=== PATIENT | male | born 1950 | race Caucasian/White ===

== ENCOUNTER 2019-05-27 14:15 | Outpatient (CLI) | payer MEDICARE, SELFPAY ==
--- NOTE | ~2019-05-27 | XR_ITS ---
EXAMINATION: XR hip RT min 2V DATE: 05/27/2019 14:42 INDICATION: Right hip pain. TECHNIQUE: 2 views of right hip were obtained. COMPARISON: None. FINDINGS: Bone alignment is normal. No fracture. There is mild right hip osteoarthritis. IMPRESSION: 1. Mild right hip osteoarthritis. Reviewed, dictated and finalized at location A. RUCTION[employer] MATERIAL DIRECTOR
== END 2019-05-27 14:16 | disposition home or self-care (01) ==
PROVIDERS: PCP Internal Medicine; Visit Provider Internal Medicine
DX: M54.17 Radiculopathy, lumbosacral region (principal); M25.551 Pain in right hip
CPT/HCPCS: 73502

== ENCOUNTER 2019-05-28 07:21 | Outpatient (CLI) | payer MEDICARE, SELFPAY ==
--- NOTE | ~2019-05-28 | MR_ITS ---
EXAMINATION: MR lumbar spine wo con DATE: 05/28/2019 08:18 INDICATION: Lumbar radiculopathy. TECHNIQUE: Magnetic resonance imaging (MRI) of the lumbar spine was performed without intravenous con trast. Sequences included sagittal T2-weighted FSE, sagittal T2-weighted FS FSE, sagittal T1-weighted FSE, and axial T2-weighted FSE. COMPARISON: Lumbar spine radiographs 04/05/2019 FINDINGS: There is 5 degrees levocurvature of lumbar spine. There is 3 mm retrolisthesis of L3 on L4 and 5 mm retrolisthesis of L4 on L5 and L5 on S1. There are Schmorl's nodes at many levels. There is mildly decreased disc height at L3-L4 and L4-L5 and moderately decreased disc height at L5-S1. The di stal spinal cord signal intensity is normal. The conus medullaris is at T12-L1. The following disc le vels are specifically discussed: L1-L2: The disc does not extend beyond the endplate margin. There is moderate bilateral facet joint o steoarthritis. There is no neural foraminal stenosis. There is no central canal stenosis. L2-L3: The disc is bulging and has an annular fissure. There is severe right and moderate left facet joint osteoarthritis. There is mild bilateral neural foraminal stenosis. There is mild central canal stenosis. L3-L4: The disc is bulging and has an annular fissure. There is severe bilateral facet joint osteoart hritis. There is mild bilateral neural foraminal stenosis. There is mild central canal stenosis. L4-L5: The disc is bulging with superimposed right subarticular extrusion with mass effect on right L 5 nerve root in right lateral recess. There is moderate right and severe left facet joint osteoarthri tis. There is moderate bilateral neural foraminal stenosis. There is moderate central canal stenosis. L5-S1: The disc is bulging and has an annular fissure. There is moderate right and severe left facet joint osteoarthritis. There is mild right and moderate left neural foraminal stenosis. There is mild central canal stenosis. IMPRESSION: 1. Moderate lumbar spondylosis. Of note, an extrusion at L4-L5 exerts mass effect on right L5 nerve r oot. Reviewed, dictated and finalized at location A. [employer] SAL[employer] PROFESSIONAL IMPRESSION: 1. Moderate lumbar spondylosis. Of note, an extrusion at L4-L5 exerts mass effe ct on right L5 nerve root.
== END 2019-05-28 07:22 | disposition home or self-care (01) ==
LOC: CHSIMG 07:22
PROVIDERS: PCP Internal Medicine; Visit Provider Internal Medicine
DX: M54.17 Radiculopathy, lumbosacral region (principal); M25.551 Pain in right hip
CPT/HCPCS: 72148

== ENCOUNTER 2019-07-21 08:57 | Outpatient (CLI) | payer MEDICARE, SELFPAY ==
[2019-07-21 09:18] LABS: Hemoglobin A1C 6.7 % (<5.7)
[2019-07-21 09:42] LABS: Alanine Aminotransferase 34 U/L (16-63); Albumin Level 3.8 g/dL (3.4-5.0); Alkaline Phosphatase 67 U/L (46-116); Anion Gap 15.4 mmol/L (7-16); Aspartate Amino Transferase 20 U/L (15-37); Bilirubin,Total 0.5 mg/dL (0.00-1.00); Blood Urea Nitrogen 22 mg/dL (7-18); Calcium 9.1 mg/dL (8.5-10.1); Carbon Dioxide 26 mmol/L (21-32); Chloride 99 mmol/L (98-108); Cholesterol 162 mg/dL (0-200); Estimated Glomerular Filt Rate 44; Glucose 223 mg/dL (70-99); HDL Direct 37 mg/dL (40-60); LDL Cholesterol Calculated 77 mg/dL (<130); Osmolality Calculated 292 mOsm/kg (285-295); Potassium 4.4 mmol/L (3.5-5.1); Sodium 136 mmol/L (136-145); Total Protein 6.8 g/dL (6.4-8.2); Triglycerides 241 mg/dL (0-150)
== END 2019-07-21 08:58 | disposition home or self-care (01) ==
LOC: CHSLAB 08:59
PROVIDERS: PCP Internal Medicine; Visit Provider Internal Medicine
DX: E78.5 Hyperlipidemia, unspecified (principal); E11.9 Type 2 diabetes mellitus without complications
CPT/HCPCS: 36415; 80053; 80061; 83036

== ENCOUNTER 2020-01-23 09:04 | Outpatient (CLI) | payer MEDICARE, SELFPAY ==
[2020-01-23 09:19] LABS: Basophils Absolute Auto 0.05 K/mm3 (0.00-0.10); Basophils Percent Auto 0.5 % (0.0-1.0); Eosinophils Absolute Auto 0.19 K/mm3 (0.02-0.50); Eosinophils Percent Auto 1.9 % (1.0-6.0); Hematocrit 43.2 % (37.0-46.0); Hemoglobin 14.6 g/dL (12.4-15.3); Immature Granulocyte Absolute 0.04 K/mm3 (0.00-0.00); Immature Granulocyte Percent A 0.4 % (0.0-0.0); Lymphocytes Absolute Auto 1.82 K/mm3 (1.10-4.50); Lymphocytes Percent Auto 18.3 % (18.0-42.0); Mean Corpuscular HGB Conc 33.8 g/dL (32.0-36.0); Mean Corpuscular Hemoglobin 27.8 pg (27.0-31.0); Mean Corpuscular Volume 82.3 fL (78.0-102.0); Mean Platelet Volume 10.6 fl (8.7-11.0); Monocytes Absolute Auto 1.01 K/mm3 (0.10-0.90); Monocytes Percent Auto 10.1 % (2.0-11.0); Neutrophils Absolute Auto 6.9 K/mm3 (1.7-7.2); Neutrophils Percent Auto 68.8 % (50.0-70.0); Platelet Count Result 243 K/mm3 (150-420); Red Blood Count 5.25 M/mm3 (4.70-6.10); Red Cell Distribution Width 14.7 % (11.6-14.4)
[2020-01-23 09:28] LABS: Add Urine Microscopic? NO; Appearance Urine Clear (Clear); Bilirubin Urine Negative (Negative); Blood Urine Negative (Negative); Color Urine Yellow (Yellow); Glucose Urine UA Negative (Negative); Ketones Urine Negative (Negative); Leukocyte Esterase Ur Negative (Negative); Nitrate Urine Negative (Negative); Protein Urine Negative (Negative); Urobilinogen Urine 0.2 mg/dL (0.2-1.0)
[2020-01-23 09:55] LABS: Creatinine Urine 54.65 mg/dL (40-278); MALB Creatinine Ratio 23.7 mg/g (0-30); Microalbumin Urine Random < 13.0 mg/L
[2020-01-23 10:11] LABS: Hemoglobin A1C 5.7 % (<5.7)
[2020-01-23 10:30] LABS: Alanine Aminotransferase 29 U/L (16-63); Albumin Level 4.2 g/dL (3.4-5.0); Alkaline Phosphatase 79 U/L (46-116); Anion Gap 12 mmol/L (8-16); Aspartate Amino Transferase 17 U/L (15-37); Bilirubin,Total 0.6 mg/dL (0.00-1.00); Blood Urea Nitrogen 26 mg/dL (7-18); Calcium 9.6 mg/dL (8.5-10.1); Carbon Dioxide 26 mmol/L (21-32); Chloride 101 mmol/L (98-108); Cholesterol 153 mg/dL (0-200); Estimated Glomerular Filt Rate 40; Glucose 98 mg/dL (70-99); HDL Direct 36 mg/dL (40-60); LDL Cholesterol Calculated 68 mg/dL (<130); Osmolality Calculated 292 mOsm/kg (285-295); Potassium 4.3 mmol/L (3.5-5.1); Prostate Specific Antigen 3.3 ng/mL (< OR = 4.0); Sodium 139 mmol/L (136-145); Total Protein 7.2 g/dL (6.4-8.2); Triglycerides 245 mg/dL (0-150)
[2020-01-28 11:57] LABS: Amphetamines NEGATIVE ng/mL (<500); Barbiturates NEGATIVE ng/mL (<300); Benzodiazepines NEGATIVE ng/mL (<100); Cocaine Metabolite NEGATIVE ng/mL (<150); Codeine NEGATIVE ng/mL (<50); Hydrocodone 110 ng/mL (<50); Hydromorphone 61 ng/mL (<50); Marijuana Metabolite 68 ng/mL (<5); Marijuana Metabolite POSITIVE ng/mL (<20); Methadone Metabolite NEGATIVE ng/mL (<100); Morphine NEGATIVE ng/mL (<50); Norhydrocodone 330 ng/mL (<50); Opiates POSITIVE ng/mL (<100); Oxidant NEGATIVE mcg/mL (<200); pH 7.1 (4.5-9.0)
== END 2020-01-23 09:05 | disposition home or self-care (01) ==
LOC: CHSLAB 09:07
PROVIDERS: PCP Internal Medicine; Visit Provider Internal Medicine
DX: E11.9 Type 2 diabetes mellitus without complications (principal); I10 Essential (primary) hypertension; G89.29 Other chronic pain; Z12.5 Encounter for screening for malignant neoplasm of prostate; Z00.00 Encounter for general adult medical examination without abnormal findings
CPT/HCPCS: 36415; 80053; 80061; 80299; 81003; 82043; 83036; 84153; 85025; G0103

== ENCOUNTER 2021-11-14 00:24 | Day surgery (SDC) | payer MEDICARE, SELFPAY ==
[2021-11-11 09:18] VITALS: BMI 27.1
[2021-11-14 09:32] VITALS: BP 146/79; PULSE 82; RESP 18; TEMP 36.2; O2SAT 99
[2021-11-14] MEDS: LACTATED RINGERS 1,000 ML 150 ML IV CONT (09:41)
[2021-11-14 09:43] LABS: Glucose Point of Care 120 mg/dl (65-105)
--- NOTE | 2021-11-14 09:51 | PM.IMHP ---
H&P: HPI History of Present Illness Date/Time: 11/14/21 09:51 Chief Complaint: History of colon polyp. Narrative: This is a 71-year-old white male patient presents for surveillance colonoscopy. Patient has a history of adenomatous colon polyp removed from the colon 2012. Patient reports his current weight appetite and bowel movements are normal. He denies abdominal pain. He has had no bleeding. Recent lab tests reveal E is low and iron indices. Minimal anemia noted with a hemoglobin of 12. Family history is noncontributory. Patient presents today for follow-up colonoscopy. Review of Systems Review of Systems: Review of systems noncontributory. [facility] Social History Social History Smoking packs per day: 1 Smoking cigarettes per day: 20.0 Years smoked: 4 Smoking pack-years: 4.00 Smoking status: Current every day smoker Tobacco type: cigarettes Additional smoking assessment comments: 4 years this time, had quit for 5 years Alcohol intake: never Substance use: current Substance use type: marijuana and prescription drug Other substance usage details: daily use marijuana; hydrocodone bid for shoulder pain Living arrangements: with friend(s) Spiritual care concerns: No Meds Home Medications and Allergies Home Medications Medication Instructions Recorded Confirmed Type sod picosulf 10 mg-magnes 3.5 160 ml PO DAILY 2 doses #320 mL 10/23/21 11/11/21 Rx gram-citric 12 gram/160 mL oral solution (Clenpiq) atenolol 50 mg-chlorthalidone 25 1 tablet PO DAILY 11/11/21 11/11/21 History mg tablet cyclobenzaprine 10 mg tablet 10 mg PO DAILY 11/11/21 11/11/21 History duloxetine 30 mg capsule,delayed 30 mg PO DAILY 11/11/21 11/11/21 History release hydrocodone 5 mg-acetaminophen 325 1 tablet PO BID PRN Pain, Moderate 11/11/21 11/11/21 History mg tablet metformin 500 mg tablet 500 mg PO BID 11/11/21 11/11/21 History pantoprazole 40 mg tablet,delayed 40 mg PO DAILY 11/11/21 11/11/21 History release simvastatin 20 mg tablet 20 mg PO DAILY 11/11/21 11/11/21 History spironolactone 25 mg tablet 25 mg PO DAILY 11/11/21 11/11/21 History Allergies Allergy/AdvReac Type Severity Reaction Status Date / Time No Known Allergies Allergy Verified 11/14/21 09:31 Vital Signs Vital Signs - 24 hr 11/14/21 09:32 Temperature 97.1 F L Pulse Rate 82 Respiratory Rate 18 Blood Pressure 146/79 H Pulse Oximetry 99 Oxygen Delivery Room Air Exam Narrative: Physical exam reveals patient to be alert. Vital signs stable. HEENT exam is unremarkable. Patient is anicteric. Lungs are clear to auscultation and percussion heart is without murmur or extra sounds. Abdominal exam bowel sounds are present soft nontender with no hepatosplenomegaly. Digital external rectal exam is normal. Assessment and Plan Assessment and plan (1) History of colon polyps: Code(s): Z86.010 - Personal history of colonic polyps Status: Acute Assessment and Plan: Patient has a prior history of adenomatous colon polyps. Plan is for surveillance colonoscopy now. Consider this a 5 year intervals in the future. Further recommendations will be given after endoscopy. (2) Iron deficiency: Code(s): E61.1 - Iron deficiency Status: Acute Assessment and Plan: Patient found to have iron deficient indices. He has minimal findings of anemia at this time. Colonoscopy to be performed both because of this finding as well as a history of colon polyps. Further recommendations will be given after endoscopy. He can resume iron replacement after endoscopy.
--- NOTE | 2021-11-14 09:53 | P.PNAN_ITS ---
Anes - Initial Pre Proc Eval Procedure: Operation Date: 11/14/21 10:45 Proposed Procedures p Colonoscopy - Rodney Blevins MD Date/Time: 11/14/21 09:53 Surgeon: Rodney Blevins MD Pre Op Diagnosis: hx colon polyp, LINH Patient Data Age: 71 Gender: M Height: 1.83 m Weight: 89.7 kg Last Vital Signs Temp 97.1 F L 11/14/21 09:32 Pulse 82 11/14/21 09:32 Resp 18 11/14/21 09:32 BP 146/79 H 11/14/21 09:32 Pulse Ox 99 11/14/21 09:32 O2 Del Method Room Air 11/14/21 09:32 Allergies Allergy/AdvReac Type Severity Reaction Status Date / Time No Known Allergies Allergy Verified 11/14/21 09:31 Home Medications Medication Instructions Recorded Confirmed Type sod picosulf 10 mg-magnes 3.5 160 ml PO DAILY 2 doses #320 mL 10/23/21 11/11/21 Rx gram-citric 12 gram/160 mL oral solution (Clenpiq) atenolol 50 mg-chlorthalidone 25 1 tablet PO DAILY 11/11/21 11/11/21 History mg tablet cyclobenzaprine 10 mg tablet 10 mg PO DAILY 11/11/21 11/11/21 History duloxetine 30 mg capsule,delayed 30 mg PO DAILY 11/11/21 11/11/21 History release hydrocodone 5 mg-acetaminophen 325 1 tablet PO BID PRN Pain, Moderate 11/11/21 11/11/21 History mg tablet metformin 500 mg tablet 500 mg PO BID 11/11/21 11/11/21 History pantoprazole 40 mg tablet,delayed 40 mg PO DAILY 11/11/21 11/11/21 History release simvastatin 20 mg tablet 20 mg PO DAILY 11/11/21 11/11/21 History spironolactone 25 mg tablet 25 mg PO DAILY 11/11/21 11/11/21 History Laboratory Tests 11/14/21 09:40 POC Capillary Glucose 120 mg/dl H mg/dl (65-105) Patient hx anesthesia problems: none Family hx anesthesia problems: none Results Review: All pre-operative results and documents have been reviewed as part of the pre- operative evaluation. [facility] Social History Social History Smoking packs per day: 1 Smoking cigarettes per day: 20.0 Years smoked: 4 Smoking pack-years: 4.00 Smoking status: Current every day smoker Tobacco type: cigarettes Additional smoking assessment comments: 4 years this time, had quit for 5 years Alcohol intake: never Substance use: current Substance use type: marijuana and prescription drug Other substance usage details: daily use marijuana; hydrocodone bid for shoulder pain Living arrangements: with friend(s) Spiritual care concerns: No Anes - Eval Final PreProcedure Day of Procedure 11/14/21 09:53 Patient weight: normal Heart: regular rate and rhythm Lungs: clear to auscultation Airway: Mallampati scale class II Neurological: alert and oriented Last oral intake: >/= 8 hours ASA classification: III Emergent: no Anesthetic plan: proceed Anesthesia type and monitoring: general GIVS and standard monitoring Results Review: All pre-operative results and documents have been reviewed as part of the pre- operative evaluation. Informed Consent: The patient's anesthetic plan and its attendant risks and benefits were discussed with the patient/family/POA. Questions were solicited and answers provided to the satisfaction of the patient/family/POA.
[2021-11-14 10:40] VITALS: BP 118/61; PULSE 72; RESP 18; O2SAT 97
[2021-11-14 10:50] VITALS: BP 118/63; PULSE 70; RESP 19; O2SAT 98
[2021-11-14 11:00] VITALS: BP 124/63; PULSE 77; RESP 21; O2SAT 100
== END 2021-11-14 11:10 | disposition home or self-care (01) ==
PROVIDERS: PCP Internal Medicine; Visit Provider Internal Medicine Gastroenterology
PROC: 0DJD8ZZ Inspection of Lower Intestinal Tract, Via Natural or Artificial Opening Endoscopic (ICD-10-PCS; CPT 45378; principal; 2021-11-14 10:45)
DX: Z12.11 Encounter for screening for malignant neoplasm of colon (principal); K64.8 Other hemorrhoids; Z86.010 Personal history of colon polyps; E61.1 Iron deficiency; Z79.84 Long term (current) use of oral hypoglycemic drugs; F17.210 Nicotine dependence, cigarettes, uncomplicated; F12.90 Cannabis use, unspecified, uncomplicated; Z79.891 Long term (current) use of opiate analgesic
CPT/HCPCS: G0105; 82948; J2704; J7120

== ENCOUNTER 2022-01-27 00:50 | Day surgery (SDC) | payer MEDICARE, SELFPAY ==
[2022-01-21 14:20] VITALS: BMI 28.4
[2022-01-27 10:47] VITALS: BP 133/80; PULSE 73; RESP 16; TEMP 36.6; O2SAT 99; BMI 27.4
[2022-01-27] MEDS: LACTATED RINGERS 1,000 ML 150 ML IV CONT (10:55)
[2022-01-27 11:00] LABS: Glucose Point of Care 119 mg/dl (65-105)
--- NOTE | 2022-01-27 11:21 | WPDANESEPPF ---
Anes - Initial Pre Proc Eval Procedure: Operation Date: 01/27/22 11:30 Proposed Procedures p Esophagogastroduodenoscopy EGD - Rodney Blevins MD Date/Time: 01/27/22 11:21 Surgeon: Rodney Blevins MD Pre Op Diagnosis: LINH Patient Data Age: 71 Gender: M Height: 1.83 m Weight: 91.8 kg Last Vital Signs Temp 36.6 C 01/27/22 10:47 Pulse 73 01/27/22 10:47 Resp 16 01/27/22 10:47 BP 133/80 01/27/22 10:47 Pulse Ox 99 01/27/22 10:47 O2 Del Method Room Air 01/27/22 10:47 Allergies Allergy/AdvReac Type Severity Reaction Status Date / Time No Known Allergies Allergy Verified 01/27/22 10:46 Home Medications Medication Instructions Recorded Confirmed Type atenolol 50 mg-chlorthalidone 25 1 tablet PO DAILY 11/11/21 01/27/22 History mg tablet cyclobenzaprine 10 mg tablet 10 mg PO DAILY 11/11/21 01/27/22 History duloxetine 30 mg capsule,delayed 30 mg PO DAILY 11/11/21 01/27/22 History release hydrocodone 5 mg-acetaminophen 325 1 tablet PO BID PRN Pain, Moderate 11/11/21 01/27/22 History mg tablet metformin 500 mg tablet 500 mg PO BID 11/11/21 01/27/22 History pantoprazole 40 mg tablet,delayed 40 mg PO DAILY 11/11/21 01/27/22 History release simvastatin 20 mg tablet 20 mg PO DAILY 11/11/21 01/27/22 History spironolactone 25 mg tablet 25 mg PO DAILY 11/11/21 01/27/22 History Laboratory Tests 01/27/22 10:58 POC Capillary Glucose 119 mg/dl H mg/dl (65-105) Patient hx anesthesia problems: none Family hx anesthesia problems: none Results Review: All pre-operative results and documents have been reviewed as part of the pre-operative evaluation. [facility] Past Medical History Medical History (Updated 01/27/22 @ 11:22 by Santos Mcclendon MD) Diabetes GERD (gastroesophageal reflux disease) HTN (hypertension) Hyperlipidemia Social History Social History Smoking packs per day: 1 Smoking cigarettes per day: 20.0 Years smoked: 4 Smoking pack-years: 4.00 Smoking status: Current every day smoker Tobacco type: cigarettes Additional smoking assessment comments: 4 years this time, had quit for 5 years Alcohol intake: never Substance use: current Substance use type: marijuana and prescription drug Other substance usage details: daily use marijuana; hydrocodone bid for shoulder pain Living arrangements: with family Spiritual care concerns: No Anes - Eval Final PreProcedure Day of Procedure 01/27/22 11:21 Patient weight: overweight Heart: regular rate and rhythm Lungs: clear to auscultation Airway: Mallampati scale class II Last oral intake: >/= 8 hours ASA classification: III Emergent: no Anesthetic plan: proceed Anesthesia type and monitoring: general GIVS and standard monitoring Results Review: All pre-operative results and documents have been reviewed as part of the pre-operative evaluation. Informed Consent: The patient's anesthetic plan and its attendant risks and benefits were discussed with the patient/family/POA. Questions were solicited and answers provided to the satisfaction of the patient/family/POA.
--- NOTE | 2022-01-27 11:55 | PM.HPGS ---
History of Present Illness History of Present Illness Consent: Risks, benefits, and alternatives have been discussed and questions answered. Patient agrees to proceed with procedure. Chief complaint: LINH Narrative: Kevin Ghotra is a 71 year old male Presents for EGD. Patient recently found to have iron deficiency anemia. He denies any abdominal pain. He has had no bleeding. He denies bruises. He denies nose bleeds or blood in his urine. Recent colonoscopy revealed benign colon polyps. Patient has not yet started iron replacement. He denies abdominal pain or heartburn. Family history is noncontributory. He does take occasional pantoprazole for a distant history of dyspepsia. Review of Systems Review of Systems: Review of systems noncontributory. [facility] Past Medical History Medical History (Updated 01/27/22 @ 11:56 by Rodney Blevins MD) Diabetes GERD (gastroesophageal reflux disease) HTN (hypertension) Hyperlipidemia Social History Social History Smoking packs per day: 1 Smoking cigarettes per day: 20.0 Years smoked: 4 Smoking pack-years: 4.00 Smoking status: Current every day smoker Tobacco type: cigarettes Additional smoking assessment comments: 4 years this time, had quit for 5 years Alcohol intake: never Substance use: current Substance use type: marijuana and prescription drug Other substance usage details: daily use marijuana; hydrocodone bid for shoulder pain Living arrangements: with family Spiritual care concerns: No Meds Home Medications and Allergies Home Medications Medication Instructions Recorded Confirmed Type atenolol 50 mg-chlorthalidone 25 1 tablet PO DAILY 11/11/21 01/27/22 History mg tablet cyclobenzaprine 10 mg tablet 10 mg PO DAILY 11/11/21 01/27/22 History duloxetine 30 mg capsule,delayed 30 mg PO DAILY 11/11/21 01/27/22 History release hydrocodone 5 mg-acetaminophen 325 1 tablet PO BID PRN Pain, Moderate 11/11/21 01/27/22 History mg tablet metformin 500 mg tablet 500 mg PO BID 11/11/21 01/27/22 History pantoprazole 40 mg tablet,delayed 40 mg PO DAILY 11/11/21 01/27/22 History release simvastatin 20 mg tablet 20 mg PO DAILY 11/11/21 01/27/22 History spironolactone 25 mg tablet 25 mg PO DAILY 11/11/21 01/27/22 History Allergies Allergy/AdvReac Type Severity Reaction Status Date / Time No Known Allergies Allergy Verified 01/27/22 10:46 Vital Signs Vital Signs - 24 hr 01/27/22 10:47 Temperature 97.8 F Pulse Rate 73 Respiratory Rate 16 Blood Pressure 133/80 Pulse Oximetry 99 Oxygen Delivery Room Air Exam Narrative: Physical exam reveals patient to be alert. HEENT exam unremarkable. Patient is anicteric. Lungs are clear to auscultation and percussion. Heart is without murmur or extra sounds. Abdomen bowel sounds are present soft nontender with no organomegaly. Assessment and Plan Assessment and plan (1) LINH (iron deficiency anemia): Code(s): D50.9 - Iron deficiency anemia, unspecified Status: Acute Assessment and Plan: Patient with iron deficiency anemia. Plan for EGD to evaluate distant history of dyspepsia as well as potential upper GI source for iron deficiency anemia. Potentially this could be from chronic PPI acid suppression and malabsorption of iron. If EGD negative small-bowel follow-through advised to complete GI evaluation. Stool Hemoccult and iron replacement or advised as well. (2) History of colon polyps: Code(s): Z86.010 - Personal history of colonic polyps Status: Acute Assessment and Plan: Patient recently identified as having benign colon polyps. Potentially this could contribute to iron deficiency. Plan follow-up colonoscopy in 5 years.
[2022-01-27 12:18] VITALS: BP 128/64; PULSE 72; RESP 22; O2SAT 97
[2022-01-27 12:28] VITALS: BP 125/74; PULSE 71; RESP 19; O2SAT 99
[2022-01-27 12:38] VITALS: BP 129/67; PULSE 72; RESP 23; O2SAT 100
== END 2022-01-27 12:52 | disposition home or self-care (01) ==
PROVIDERS: PCP Internal Medicine; Visit Provider Internal Medicine Gastroenterology
PROC: 0DJ08ZZ Inspection of Upper Intestinal Tract, Via Natural or Artificial Opening Endoscopic (ICD-10-PCS; CPT 43235; principal; 2022-01-27 11:30)
DX: K22.711 Barrett's esophagus with high grade dysplasia (principal); D50.9 Iron deficiency anemia, unspecified; I10 Essential (primary) hypertension; E78.5 Hyperlipidemia, unspecified; K21.9 Gastro-esophageal reflux disease without esophagitis; E11.9 Type 2 diabetes mellitus without complications; Z79.84 Long term (current) use of oral hypoglycemic drugs; F17.210 Nicotine dependence, cigarettes, uncomplicated; F12.90 Cannabis use, unspecified, uncomplicated; Z79.891 Long term (current) use of opiate analgesic
CPT/HCPCS: 43239; 82948; 88305; J2704; J7120

== ENCOUNTER 2022-02-11 10:24 | Outpatient (CLI) | payer MEDICARE, SELFPAY ==
--- NOTE | ~2022-02-11 | CT_ITS ---
EXAMINATION: CT chest abdomen w con DATE: 02/11/2022 11:01 INDICATION: Esophageal mass. Rectal bleeding. TECHNIQUE: Computed tomography (CT) of the chest and abdomen was performed with 100 CC Omnipaque 350 intravenous contrast. Automated exposure control and iterative reconstruction technique were employed . Exam dose: 620.33 mGy-cm total exam DLP. COMPARISON: 04/05/2014 CT abdomen pelvis 03/24/2014 2 view chest FINDINGS: CHEST CT: There is a very prominent circumferential soft tissue thickening of the distal approximately 9 cm of the esophagus, the esophagus measuring up to 3.5 cm AP and 5 cm transverse dimension, consistent with clinical indication of esophageal mass, likely carcinoma. Wall thickness measures up to 2 - 2.5 cm . No hilar or mediastinal lymphadenopathy. There are a couple lymph nodes at the left medial superior abdomen adjacent to the diaphragmatic hiat us, the larger approximately 8 x 10 mm. Normal heart size. No pericardial or pleural effusion. There is thoracic aortic and great vessel at herosclerotic calcification. No thoracic aortic aneurysm or dissection. ABDOMEN CT: There is diffuse hepatic steatosis. There are several small subcentimeter hypoattenuating lesions of the liver, too small to definitively characterize. Statistically these are very possibly small cysts or biliary hamartomas. Hepatic metastasis would be included but less likely in the differential diagn osis. No suspicious hepatic space occupying mass lesion. There is a very small gallstone. No gallbladder wall thickening or pericholecystic fluid or fat stra nding. No bile duct dilatation. Normal splenic size. No pancreatic mass lesion or calcification or ductal dilatation. Normal morphology of the adrenal glands. Multiple bilateral renal cysts, measuring up to 4.7 cm on the right, 3.4 cm on the left.. Approximate ly 5.5 mm and 3.3 mm nonobstructing left renal calculi. 6.4 mm nonobstructing upper pole right renal calculus. 5.5 and 3.3 mm nonobstructing left renal calcu li. No urinary tract obstruction or hydronephrosis. There is atherosclerotic calcification of the abdominal aorta and iliac arteries but no abdominal aor tic aneurysm. No intraperitoneal or retroperitoneal mass lesion or adenopathy or ascites. Mild colonic diverticulosis; no CT evidence of diverticulitis. No bowel obstruction or intraperitonea l free air is detected. Severe degenerative disc disease and included C6-7. Diffuse idiopathic skeletal hyperostosis of the t horacic spine and severe degenerative disc disease at L4-5. No suspicious osteolytic or osteoblastic lesions are noted. IMPRESSION: Bulky approximately 9 cm long soft tissue mass of the distal esophagus, consistent with esophageal carcinoma There are couple of nodes at the posterior inferior aspect of the gastroesophageal junction in the ve ry upper medial left abdomen; metastasis to these nodes is not excluded. No hilar or mediastinal lymphadenopathy Hepatic steatosis Several subcentimeter hypoattenuating hepatic lesions; differential diagnosis includes cysts, hamarto mas, less likely metastasis Small gallstone 2. Left and one right nonobstructing renal calculi Bilateral renal cysts Diverticulosis of the colon Reviewed, dictated and finalized at [facility]. Reviewed, dictated and finalized at location A. [employer] IMPRESSION: Bulky approximately 9 cm long soft tissue mass of the distal esoph lety, consistent with esophageal carcinoma There are couple of nodes at the posterior inferior aspect of the gastroesophag eal junction in the very upper medial left abdomen; metastasis to these nodes i s not excluded. No hilar or mediastinal lymphadenopathy Hepatic steatosis Several subcentimeter h
[2022-02-11 10:51] LABS: Estimated Glomerular Filt Rate 33
== END 2022-02-11 10:25 | disposition home or self-care (01) ==
PROVIDERS: PCP Internal Medicine; Visit Provider Internal Medicine Gastroenterology
DX: K22.9 Disease of esophagus, unspecified (principal); K76.0 Fatty (change of) liver, not elsewhere classified; K80.20 Calculus of gallbladder without cholecystitis without obstruction; N28.1 Cyst of kidney, acquired; K57.30 Diverticulosis of large intestine without perforation or abscess without bleeding
CPT/HCPCS: 71260; 74160; Q9967

== ENCOUNTER 2022-03-04 01:02 | Day surgery (SDC) | payer MEDICARE, SELFPAY ==
[2022-02-10 10:28] VITALS: BMI 28.4
--- NOTE | 2022-03-04 13:08 | P.PNAN_ITS ---
Anes - Initial Pre Proc Eval Procedure: Operation Date: 03/04/22 14:30 Proposed Procedures p Esophagogastroduodenoscopy EGD - Rodney Blevins MD Date/Time: 03/04/22 13:08 Surgeon: Rodney Blevins MD Pre Op Diagnosis: esophageal mass Patient Data Age: 71 Gender: M Height: 1.83 m Weight: 95 kg Allergies Allergy/AdvReac Type Severity Reaction Status Date / Time No Known Allergies Allergy Verified 01/27/22 10:46 Home Medications Medication Instructions Recorded Confirmed Type atenolol 50 mg-chlorthalidone 25 1 tablet PO DAILY 11/11/21 03/04/22 History mg tablet cyclobenzaprine 10 mg tablet 10 mg PO DAILY 11/11/21 03/04/22 History duloxetine 30 mg capsule,delayed 30 mg PO DAILY 11/11/21 03/04/22 History release hydrocodone 5 mg-acetaminophen 325 1 tablet PO BID PRN Pain, Moderate 11/11/21 03/04/22 History mg tablet metformin 500 mg tablet 500 mg PO BID 11/11/21 03/04/22 History pantoprazole 40 mg tablet,delayed 40 mg PO DAILY 11/11/21 03/04/22 History release simvastatin 20 mg tablet 20 mg PO DAILY 11/11/21 03/04/22 History spironolactone 25 mg tablet 25 mg PO DAILY 11/11/21 03/04/22 History ferrous sulfate 325 mg (65 mg 325 mg PO BID #60 tabs 01/27/22 03/04/22 Rx iron) tablet,delayed release Patient hx anesthesia problems: none Family hx anesthesia problems: none Results Review: All pre-operative results and documents have been reviewed as part of the pre- operative evaluation. [facility] Past Medical History Medical History (Updated 03/04/22 @ 13:08 by Hunter Shahid DO) Diabetes Esophageal mass GERD (gastroesophageal reflux disease) HTN (hypertension) Hyperlipidemia Social History Social History Smoking packs per day: 1 Smoking cigarettes per day: 20.0 Years smoked: 30 Smoking pack-years: 30.00 Smoking status: Current every day smoker Tobacco type: cigarettes Additional smoking assessment comments: 4 years this time, had quit for 5 years Alcohol intake: never Substance use: current Substance use type: marijuana Other substance usage details: daily use marijuana; hydrocodone bid for shoulder pain Living arrangements: with family Spiritual care concerns: No Anes - Eval Final PreProcedure Day of Procedure 03/04/22 13:08 Patient weight: overweight Heart: regular rate and rhythm Lungs: clear to auscultation Airway: Mallampati scale class II Neurological: alert and oriented Last oral intake: >/= 8 hours ASA classification: III Emergent: no Anesthetic plan: proceed Anesthesia type and monitoring: general GIVS and standard monitoring Results Review: All pre-operative results and documents have been reviewed as part of the pre- operative evaluation. Informed Consent: The patient's anesthetic plan and its attendant risks and benefits were discussed with the patient/family/POA. Questions were solicited and answers provided to the satisfaction of the patient/family/POA.
[2022-03-04 13:19] VITALS: BP 155/84; PULSE 92; RESP 18; TEMP 36.6; O2SAT 99; BMI 27.4
[2022-03-04 13:32] LABS: Glucose Point of Care 143 mg/dl (65-105)
[2022-03-04] MEDS: LACTATED RINGERS 1,000 ML 150 ML IV CONT ×2 (13:32→14:48)
--- NOTE | 2022-03-04 13:56 | PM.HPGS ---
History of Present Illness History of Present Illness Consent: Risks, benefits, and alternatives have been discussed and questions answered. Patient agrees to proceed with procedure. Chief complaint: esophageal mass Narrative: Kevin Ghotra is a 71 year old male Presents for follow-up EGD. Patient recently found to have iron deficiency anemia. Colonoscopy revealed several benign colon polyps. EGD was performed with a malignant-appearing esophageal mass. Multiple biopsies were taken. Pathology report however failed to confirm that this was a cancer. Patient presents today for additional biopsies what appears to be a malignant esophageal mass. Review of Systems Review of Systems: Review of systems noncontributory. [facility] Past Medical History Medical History (Updated 03/04/22 @ 13:08 by Hunter Shahid DO) Diabetes Esophageal mass GERD (gastroesophageal reflux disease) HTN (hypertension) Hyperlipidemia Social History Social History Smoking packs per day: 1 Smoking cigarettes per day: 20.0 Years smoked: 30 Smoking pack-years: 30.00 Smoking status: Current every day smoker Tobacco type: cigarettes Additional smoking assessment comments: 4 years this time, had quit for 5 years Alcohol intake: never Substance use: current Substance use type: marijuana Other substance usage details: daily use marijuana; hydrocodone bid for shoulder pain Living arrangements: with family Spiritual care concerns: No Meds Home Medications and Allergies Home Medications Medication Instructions Recorded Confirmed Type atenolol 50 mg-chlorthalidone 25 1 tablet PO DAILY 11/11/21 03/04/22 History mg tablet cyclobenzaprine 10 mg tablet 10 mg PO DAILY 11/11/21 03/04/22 History duloxetine 30 mg capsule,delayed 30 mg PO DAILY 11/11/21 03/04/22 History release hydrocodone 5 mg-acetaminophen 325 1 tablet PO BID PRN Pain, Moderate 11/11/21 03/04/22 History mg tablet metformin 500 mg tablet 500 mg PO BID 11/11/21 03/04/22 History pantoprazole 40 mg tablet,delayed 40 mg PO DAILY 11/11/21 03/04/22 History release simvastatin 20 mg tablet 20 mg PO DAILY 11/11/21 03/04/22 History spironolactone 25 mg tablet 25 mg PO DAILY 11/11/21 03/04/22 History ferrous sulfate 325 mg (65 mg 325 mg PO BID #60 tabs 01/27/22 03/04/22 Rx iron) tablet,delayed release Allergies Allergy/AdvReac Type Severity Reaction Status Date / Time No Known Allergies Allergy Verified 01/27/22 10:46 Vital Signs Vital Signs - 24 hr 03/04/22 13:19 Temperature 97.8 F Pulse Rate 92 Respiratory Rate 18 Blood Pressure 155/84 H Pulse Oximetry 99 Oxygen Delivery Room Air Exam Narrative: Physical exam reveals patient to be alert. Vital signs stable. HEENT exam is unremarkable. Patient is anicteric. Lungs are clear to auscultation and percussion. Heart is without murmur or extra sounds. Abdomen bowel sounds are present soft nontender with no organomegaly. Digital external rectal exam is normal. Assessment and Plan Assessment and plan (1) Esophageal mass: Code(s): K22.89 - Other specified disease of esophagus Status: Acute Assessment and Plan: Patient with recently identified esophageal mass. This was malignant appearing. Multiple biopsies were taken but unable to confirm esophageal malignancy. Plan for follow-up EGD and biopsy at this time. Continued follow-up with Oncology advised subsequently.
[2022-03-04 14:51] VITALS: BP 115/74; PULSE 81; RESP 19; O2SAT 99
[2022-03-04 15:01] VITALS: BP 112/76; PULSE 76; RESP 22; O2SAT 99
[2022-03-04 15:11] VITALS: BP 129/86; PULSE 77; RESP 18; O2SAT 99
== END 2022-03-04 15:17 | disposition home or self-care (01) ==
PROVIDERS: PCP Internal Medicine; Visit Provider Internal Medicine Gastroenterology
PROC: 0DJ08ZZ Inspection of Upper Intestinal Tract, Via Natural or Artificial Opening Endoscopic (ICD-10-PCS; CPT 43235; principal; 2022-03-04 14:30)
DX: C15.5 Malignant neoplasm of lower third of esophagus (principal); D50.9 Iron deficiency anemia, unspecified; K21.9 Gastro-esophageal reflux disease without esophagitis; I10 Essential (primary) hypertension; E11.9 Type 2 diabetes mellitus without complications; E78.5 Hyperlipidemia, unspecified; Z79.84 Long term (current) use of oral hypoglycemic drugs; F17.210 Nicotine dependence, cigarettes, uncomplicated; F12.90 Cannabis use, unspecified, uncomplicated; Z79.891 Long term (current) use of opiate analgesic
CPT/HCPCS: 43239; 82948; 88305; J2704; J7120

== ENCOUNTER 2022-04-15 07:26 | Outpatient (CLI) | payer MEDICARE, SELFPAY ==
--- NOTE | ~2022-04-15 | PE_ITS ---
EXAMINATION: PET skull to mid thigh DATE: 04/15/2022 09:57 INDICATION: Cancer of distal third of esophagus. TECHNIQUE: 10.295 mCi of 18-fluorodeoxyglucose (18-FDG) was administered i.v. Low dose computed tomog sonny (CT) images were acquired from the base of the brain to the proximal thighs for attenuation cor rection and anatomic localization. Automated exposure control was employed. Dose-length product (DLP) was 773 mGy-cm. Positron emission tomography (PET) images were acquired in the same distribution. COMPARISON: CT chest and abdomen 02/11/2022 FINDINGS: Head/neck: There are no pathologically enlarged lymph nodes. There is severe cervical spondylosis. Th ere is widespread increased activity in bone marrow without abnormal CT correlate, likely bone marrow stimulation. Chest: There is mild emphysema. There is mild scarring at the lung apices without increased activity. There is mild scarring in paraspinal right lower lobe. No pleural effusion. The heart size is normal . There are coronary artery calcifications. No pericardial effusion. There is a 5.7 x 4.1 cm mass in distal esophagus with maximum SUV of 42.3. There is widespread increased activity in bone marrow with out abnormal CT correlate, likely bone marrow stimulation. Abdomen/pelvis/proximal thighs: There is diffuse hepatic steatosis. There are gallstones in the gallb ladder, which is normal in size. The spleen, pancreas, and adrenal glands are normal. There are cysts in the kidneys measuring up to 5.1 cm on the right. There is a 7 mm stone in right kidney. There is a 2.4 cm hemorrhagic cyst in right kidney. There are 2 stones in left kidney with the larger measurin g 6 mm. The prostate is mildly enlarged. There is a left inguinal hernia containing fat. There is div erticulosis of the colon without evidence of diverticulitis. There are changes of appendectomy. There is an umbilical hernia containing fat. There are no pathologically enlarged lymph nodes. There is no free intraperitoneal fluid. There is severe lumbar spondylosis. There is widespread increased activi ty in bone marrow without abnormal CT correlate, likely bone marrow stimulation. IMPRESSION: 1. 5.7 cm mass in the distal esophagus with maximum SUV of 42.3, consistent with primary malignancy. No specific evidence of metastatic disease. Reviewed, dictated and finalized at location A. COORDINATOR IMPRESSION: 1. 5.7 cm mass in the distal esophagus with maximum SUV of 42.3, consistent wit h primary malignancy. No specific evidence of metastatic disease.
[2022-04-15 08:06] LABS: Glucose Point of Care 143 mg/dl (65-105)
== END 2022-04-15 07:27 | disposition home or self-care (01) ==
PROVIDERS: PCP Internal Medicine; Visit Provider Internal Medicine Hematology & Oncology
DX: C15.5 Malignant neoplasm of lower third of esophagus (principal)
CPT/HCPCS: 78815; A9552

== ENCOUNTER 2022-05-14 10:23 | Outpatient (CLI) | payer MEDICARE, SELFPAY ==
[2022-05-14 10:47] LABS: Basophils Absolute Auto 0.1 K/mm3 (0.0-0.1); Basophils Percent Auto 0.7 % (0.2-1.2); Eosinophils Absolute Auto 0.1 K/mm3 (0-0.3); Eosinophils Percent Auto 0.8 % (0-4.4); Hematocrit 24.7 % (42.0-52.0); Immature Granulocyte Absolute 0.05 K/mm3 (0.00-0.031); Immature Granulocyte Percent A 0.5 % (0-0.5); Lymphocytes Percent Auto 8.3 % (18.3-44.2); Mean Corpuscular HGB Conc 27.5 g/dl (32-36); Mean Corpuscular Hemoglobin 21.3 pg (26-34); Mean Corpuscular Volume 77.2 fl (80-100); Mean Platelet Volume 9.1 fl (7.4-10.4); Monocytes Absolute Auto 0.9 K/mm3 (0.1-0.6); Monocytes Percent Auto 8.4 % (2.6-8.5); Neutrophils Absolute Auto 8.8 K/mm3 (1.3-6.7); Neutrophils Percent Auto 81.3 % (45.5-73.1); Platelet Count Result 430 k/mm3 (150-375); Red Cell Distribution Width 19.6 % (11.5-14.5); White Blood Count 10.8 K/mm3 (4.5-10.0)
[2022-05-14 10:57] LABS: INR 1.1; Prothrombin Time 13.7 Seconds (11.1-14.7)
[2022-05-14 11:08] LABS: Hemoglobin 6.8 g/dL (14.0-18.0); Platelet Estimate Adequate (Adequate)
[2022-05-14 11:09] LABS: Anisocytosis 1+ (NORMAL); Hypochromasia 1+ (NORMAL); Poikilocytosis 1+ (NORMAL); Schistocytes None Seen (NORMAL)
[2022-05-14 11:20] LABS: Anion Gap 10 mmol/L (8-16); Blood Urea Nitrogen 21 mg/dL (9-20); Calcium 8.9 mg/dL (8.4-10.2); Carbon Dioxide 26 mmol/L (22-30); Chloride 98 mmol/L (98-107); Estimated Glomerular Filt Rate 35; Glucose 219 mg/dL (65-110); Potassium 4.1 mmol/L (3.4-5.0); Sodium 134 mmol/L (137-145)
== END 2022-05-14 10:24 | disposition home or self-care (01) ==
LOC: ANHSURGERY 10:31
PROVIDERS: Anesthesiology; PCP Internal Medicine; Visit Provider Surgery
DX: Z01.812 Encounter for preprocedural laboratory examination (principal); C15.9 Malignant neoplasm of esophagus, unspecified; Z79.899 Other long term (current) drug therapy
CPT/HCPCS: 36415; 80048; 85025; 85610; 85730

== ENCOUNTER 2022-05-16 07:29 | Outpatient (RCR) | payer MEDICARE, SELFPAY ==
[2022-05-15 12:47] LABS: Hematocrit 25.1 % (42.0-52.0)
[2022-05-16] VITALS (11 sets, daily range): BP systolic 117–142; BP diastolic 68–84; PULSE 69–80; RESP 14–18; TEMP 36.4–36.7; O2SAT 100
[2022-05-16] MEDS: TUBING, BLOOD PLUM PUMP TUBING 1 EACH XX (08:15)
[2022-05-16] MEDS: SODIUM CHLORIDE 0.9% IV 250 ML 30 ML IV CONT (08:15)
--- NOTE | 2022-05-16 14:22 | PC.NURSE ---
Pt given discharge instructions, signed copy in chart. Pt's present for instructions as well. IV removed. Left with , declined wheelchair.
== END 2022-08-13 23:59 | disposition home or self-care (01) ==
LOC: ANHCPCTRAN 07:29
PROVIDERS: PCP Internal Medicine; Visit Provider Surgery
DX: D50.9 Iron deficiency anemia, unspecified (principal); C15.5 Malignant neoplasm of lower third of esophagus
CPT/HCPCS: 36415; 36430; 85014; 85018; 86850; 86900; 86901; 86920; J7050; P9016

== ENCOUNTER 2022-05-19 00:13 | Day surgery (SDC) | payer MEDICARE, SELFPAY ==
--- NOTE | 2022-05-13 15:37 | PC.NURSE ---
Report to the Outpatient Waiting Room, entrance under the green pavilion located off [facility], at time _1000_ on date _05/19/22_. Planned Procedure Time: _1200_. Time changes happen often and if your time is changed the preop area will call you the afternoon before. - You and your visitor will be asked to self-screen and do not enter if you have any COVID symptoms. - Only one visitor is requested with a max of two and NO children visitors are allowed at this time. - The patient visitor may be requested to leave or wait in car when not with patient due to distancing restrictions. - A mask is optional within the hospital at this time. Patients may have clear liquids (water, carbonated beverages, clear teas, apple juice) until 3 hours prior to surgery (0900 AM) with a maximum of 20 ounces. - No food from midnight until time of surgery Take the following medications with a SIP of water the morning of surgery: _DULOXETINE, PAIN MED IF NEEDED_ DO NOT STOP ANY OF YOUR OTHER PRESCRIPTION MEDICATIONS PRIOR TO SURGERY ?EXCEPT THE FOLLOWING Medications to discontinue - _ASPIRIN PER DR. CASEY'S INSTRUCTIONS__ Date to take last dose Please no make-up, nail croatian, hairspray, perfume, deodorant, or body powder the day of surgery. No jewelry (including any body piercings) or valuables the day of surgery, leave them at home. Please take a shower or bath the night before, or the morning of, surgery with an antibacterial soap. Wear comfortable, loose fitting clothing. - Jewelry must be removed prior to entering the operating room. Rings and piercings that are not removed may be cut off. - The hospital will not accept responsibility for valuables. - Please leave all valuables, including medications, at home the day of surgery. If you are going home after surgery, a licensed drop hammer pile driver operator must drive you home. - NO public transportation without another adult if you receive anesthesia. - We recommend that an adult stay with you for 24 hours following discharge. - We also recommend that you do not drive, make important decision, drink alcoholic beverages, or take any drugs that were not prescribed by your health care provider for at least 24 hours after your discharge time. Follow any additional instructions given to you from your surgeon. If you or anyone in your household have experienced Covid symptoms in the past week, please notify your surgeon or the nurse liaison at the phone number below for possible testing. Telephone instructions given to _PATIENT_and asked if any additional questions and then verbalized understanding. Patient advised to call surgeon office or pre surgery nurse liaison [phone] if any additional questions.
[2022-05-13 15:42] VITALS: BMI 27.1
--- NOTE | ~2022-05-19 | XR_ITS ---
XR fl guide central line place TECHNIQUE: Fluoroscopy used during portacatheter placement performed by [Ronald Ewing MD] on . 29 seconds with 1 images captured. ] FINDINGS: Correlate with procedure note. IMPRESSION: Fluoroscopy used during portacatheter placement, tip in the SVC.. Reviewed, dictated and finalized at location B. DOG TRAINER
--- NOTE | ~2022-05-19 | XR_ITS ---
XR chest port-a-cath/central 05/19/2022 13:24 Indication: Portacatheter insertion Procedure: AP portable chest Comparison: Comparison to multiple prior studies sequentially, with oldest reviewed study dated 06/2010. Findings: Portacatheter tip in the SVC. Heart size normal. No focal air space disease, pulmonary denisse a, pleural effusion or suspected pneumothorax. No acute osseous abnormality. Impression: 1: No acute cardiopulmonary disease. Reviewed, dictated and finalized at location B. RS EDGE BURNISHER Impression: 1: No acute cardiopulmonary disease.
[2022-05-19 10:04] VITALS: BP 135/71; PULSE 66; RESP 16; TEMP 36.3; O2SAT 100
--- NOTE | 2022-05-19 10:28 | WPDANESEPPF ---
Anes - Initial Pre Proc Eval Procedure: Operation Date: 05/19/22 12:00 Proposed Procedures p Insertion Mary Cath - Ronald Ewing MD Date/Time: 05/19/22 10:28 Surgeon: Ronald Ewing MD Pre Op Diagnosis: cancer distal 3rd of the esophagus Patient Data Age: 72 Gender: M Height: 1.83 m Weight: 85.75 kg Allergies Allergy/AdvReac Type Severity Reaction Status Date / Time No Known Allergies Allergy Verified 05/19/22 10:28 Home Medications Medication Instructions Recorded Confirmed Type atenolol 50 mg-chlorthalidone 25 1 tablet PO DAILY 11/11/21 05/16/22 History mg tablet cyclobenzaprine 10 mg tablet 10 mg PO HS 11/11/21 05/16/22 History duloxetine 30 mg capsule,delayed 30 mg PO DAILY 11/11/21 05/16/22 History release hydrocodone 5 mg-acetaminophen 325 1 tablet PO BID PRN Pain, Moderate 11/11/21 05/16/22 History mg tablet pantoprazole 40 mg tablet,delayed 40 mg PO DAILY 11/11/21 05/16/22 History release simvastatin 20 mg tablet 20 mg PO DAILY 11/11/21 05/16/22 History spironolactone 25 mg tablet 25 mg PO DAILY 11/11/21 05/16/22 History ferrous sulfate 325 mg (65 mg 325 mg PO BID #60 tabs 01/27/22 05/16/22 Rx iron) tablet,delayed release aspirin 325 mg tablet 325 mg PO DAILY 05/13/22 05/16/22 History Patient hx anesthesia problems: none Family hx anesthesia problems: none Results Review: All pre-operative results and documents have been reviewed as part of the pre-operative evaluation. [facility] Past Medical History Medical History (Updated 05/06/22 @ 18:00 by Yury Peralta MD) Diabetes Esophageal mass GERD (gastroesophageal reflux disease) HTN (hypertension) Hyperlipidemia Surgical History Surgical History (Updated 05/19/22 @ 10:28 by Santos Mcclendon MD) History of esophagogastroduodenoscopy (EGD) Social History Social History Smoking packs per day: 1 Smoking cigarettes per day: 20.0 Years smoked: 30 Smoking pack-years: 30.00 Smoking status: Former smoker Tobacco type: cigarettes Second hand tobacco smoke exposure: Yes Smoking end date: 12/16/21 Additional smoking assessment comments: 4 years this time, had quit for 5 years Alcohol intake: current Alcohol use details: STATES MAYBE 2/YR Substance use: current Substance use type: marijuana Other substance usage details: 1GM DAILY Last use: 05/12/22 Living arrangements: other Additional living arrangements comments: LIVES WITH SIGNIFICANT OTHER Spiritual care concerns: No Anes - Eval Final PreProcedure Day of Procedure 05/19/22 10:28 Patient weight: normal Heart: regular rate and rhythm Lungs: clear to auscultation Airway: Mallampati scale class II Neurological: alert and oriented Last oral intake: >/= 8 hours ASA classification: III Emergent: no Anesthetic plan: proceed Anesthesia type and monitoring: general GIVS and standard monitoring Results Review: All pre-operative results and documents have been reviewed as part of the pre-operative evaluation. Informed Consent: The patient's anesthetic plan and its attendant risks and benefits were discussed with the patient/family/POA. Questions were solicited and answers provided to the satisfaction of the patient/family/POA.
[2022-05-19 10:32] LABS: Basophils Absolute Auto 0.1 K/mm3 (0.0-0.1); Basophils Percent Auto 0.9 % (0.2-1.2); Eosinophils Absolute Auto 0.1 K/mm3 (0-0.3); Eosinophils Percent Auto 1.2 % (0-4.4); Hematocrit 33.9 % (42.0-52.0); Hemoglobin 10.1 g/dL (14.0-18.0); Immature Granulocyte Absolute 0.04 K/mm3 (0.00-0.031); Immature Granulocyte Percent A 0.5 % (0-0.5); Lymphocytes Absolute Auto 0.95 K/mm3 (0.9-3.2); Lymphocytes Percent Auto 11.2 % (18.3-44.2); Mean Corpuscular HGB Conc 29.8 g/dl (32-36); Mean Corpuscular Volume 80.7 fl (80-100); Mean Platelet Volume 9.9 fl (7.4-10.4); Monocytes Absolute Auto 0.9 K/mm3 (0.1-0.6); Monocytes Percent Auto 10.6 % (2.6-8.5); Neutrophils Absolute Auto 6.5 K/mm3 (1.3-6.7); Neutrophils Percent Auto 75.6 % (45.5-73.1); Platelet Count Result 380 k/mm3 (150-375); Red Cell Distribution Width 18.8 % (11.5-14.5); White Blood Count 8.5 K/mm3 (4.5-10.0)
[2022-05-19] MEDS: LACTATED RINGERS 1,000 ML 30 ML IV CONT (10:33)
[2022-05-19] MEDS: KETOROLAC 15 MG/ML VIAL (*BKC) IV PUSH (10:34)
--- NOTE | 2022-05-19 11:59 | PM.IMHP ---
H&P: HPI History of Present Illness Date/Time: 05/19/22 11:59 Chief Complaint: Esophageal CA Narrative: Pt with esophageal CA who is to undergo XRT and chemo tx. He presents for placement of the portacatheter. He received 2 units of PRBC last week for Hb < 7. Today Hb is > 10. Platelet count is good. He has never had a central line or port in the past. Never broke his clavicle. Review of Systems Review of Systems: I have discussed the patient with Melissa Peters APN and agree with the documented note below and care plan. [facility] Past Medical History Medical History Diabetes Esophageal mass GERD (gastroesophageal reflux disease) HTN (hypertension) Hyperlipidemia Surgical History Surgical History History of esophagogastroduodenoscopy (EGD) Social History Social History Smoking packs per day: 1 Smoking cigarettes per day: 20.0 Years smoked: 30 Smoking pack-years: 30.00 Smoking status: Former smoker Tobacco type: cigarettes Second hand tobacco smoke exposure: Yes Smoking end date: 12/16/21 Additional smoking assessment comments: 4 years this time, had quit for 5 years Alcohol intake: current Alcohol use details: STATES MAYBE 2/YR Substance use: current Substance use type: marijuana Other substance usage details: 1GM DAILY Last use: 05/12/22 Living arrangements: other Additional living arrangements comments: LIVES WITH SIGNIFICANT OTHER Spiritual care concerns: No Meds Home Medications and Allergies Home Medications Medication Instructions Recorded Confirmed Type atenolol 50 mg-chlorthalidone 25 1 tablet PO DAILY 11/11/21 05/19/22 History mg tablet cyclobenzaprine 10 mg tablet 10 mg PO HS 11/11/21 05/19/22 History duloxetine 30 mg capsule,delayed 30 mg PO DAILY 11/11/21 05/19/22 History release hydrocodone 5 mg-acetaminophen 325 1 tablet PO BID PRN Pain, Moderate 11/11/21 05/19/22 History mg tablet pantoprazole 40 mg tablet,delayed 40 mg PO DAILY 11/11/21 05/19/22 History release simvastatin 20 mg tablet 20 mg PO DAILY 11/11/21 05/19/22 History spironolactone 25 mg tablet 25 mg PO DAILY 11/11/21 05/19/22 History ferrous sulfate 325 mg (65 mg 325 mg PO BID #60 tabs 01/27/22 05/19/22 Rx iron) tablet,delayed release aspirin 325 mg tablet 325 mg PO DAILY 05/13/22 05/19/22 History Allergies Allergy/AdvReac Type Severity Reaction Status Date / Time No Known Allergies Allergy Verified 05/19/22 10:28 Vital Signs Vital Signs - 24 hr 05/19/22 10:04 Temperature 36.3 C L Pulse Rate 66 Respiratory Rate 16 Blood Pressure 135/71 Pulse Oximetry 100 Oxygen Delivery Room Air Exam Narrative: Chest wall no redness or rash. Equal breath sounds bilaterally. No clavicular deformaties. Full ROM of neck. H&P: Results Labs Labs: Short CBC 05/19/22 Range/Units 10:02 WBC 8.5 (4.5-10.0) K/mm3 Hgb 10.1 L D (14.0-18.0) g/dL Hct 33.9 L (42.0-52.0) % Plt Count 380 H (150-375) k/mm3 Assessment and Plan Assessment and plan (1) Esophageal carcinoma: Code(s): C15.9 - Malignant neoplasm of esophagus, unspecified Status: Acute Assessment and Plan: Will proceed to OR today for placement of portacatheter. Risks, benefits, indications, and expected outcomes were discussed in detail with the patient and/or family. They understand and I have answered all other questions. They wished to proceed with surgery as outlined above. Specific risk of bleeding and iatrogenic pneumothorax discussed and possible need for chest tube placement if pneumothorax occurs.
--- NOTE | 2022-05-19 12:05 | WPDHPUPDATE1 ---
History and Physical Update Update Date/Time: 05/19/22 12:05 History and Physical has been reviewed, including an updated exam of the patient. There are NO changes in the patient's condition. Risks, benefits, and alternatives have been discussed and questions answered. Patient agrees to proceed with procedure.
[2022-05-19] MEDS: ceFAZolin 2 GM/D5W 50 ML 2 GM/50 ML BAG IVPB (12:09)
[2022-05-19] MEDS: BUPivacaine HCL 0.5% PF 30 ML VIAL 20 ML INFILTRATE (12:23)
[2022-05-19] MEDS: LIDO 1%/EPINEPHRINE 1:100,000 20 ML VIAL 15 ML INFILTRATE (12:24)
[2022-05-19] MEDS: HEPARIN SODIUM 5,000 UNITS/ML VIAL 5000 UNITS IRRIGATION (12:25)
[2022-05-19] MEDS: HEPARIN SODIUM 1,000 UNITS/ML VIAL 1000 UNITS IV PUSH (12:32)
--- NOTE | 2022-05-19 13:08 | W.PM.PROC2 ---
Procedure Note - Detailed Date of Procedure 05/19/22 Pre-op Diagnosis cancer distal 3rd of the esophagus Post-op Diagnosis Same Procedure Performed Placement of right subclavian vein single-lumen port a catheter with intraoperative fluoroscopy. Surgeon Ronald Ewing MD Snuff Box Finisher Rodney Price FOLDING MACHINE OPERATOR Anesthesia MAC Indications Patient is a 72-year-old gentleman who was recently diagnosed with distal esophageal cancer. He is to undergo combined radiation treatment as well as chemotherapy treatment. He presents now for placement of ashlee catheter for the chemotherapy treatments. Findings None. Description of Procedure After informed consent was obtained the patient was brought to the operating room was placed in supine position and then IV sedation was administered by anesthesia. The bilateral upper anterior chest and neck was then prepped and draped in usual sterile fashion. A time-out was then performed correctly identifying the patient as well as procedure to be performed. He was given 2g of Ancef for perioperative IV antibiotics. The patient was then placed in the Trendelenburg position and I anesthetized skin between the 2 heads of the right sternocleidomastoid muscle. A 21gauge needle was used to attempt cannulation of the right internal jugular vein on 3 passes without success. At this point I then abandoned this approach and approached placement of the catheter into the right subclavian vein. Additional local anesthetic mixture consisting of 1% lidocaine mixed with 0.5% Marcaine was injected just below the medial 3rd of the right clavicle. A long 18gauge needle was then used to cannulate the right subclavian vein on the 1st pass without difficulty. There was prompt return of dark venous appearing blood. A guidewire is advanced through the needle into the right subclavian vein and subsequently into the superior vena cava. Intraoperative fluoroscopy was used to confirm proper placement of the tip of the guidewire. I then anesthetized the area of the subcutaneous port pocket below the insertion site of the wire. A 15 blade scalp was used to make a transverse incision this area and out electro cautery and blunt finger dissection was used to create the subcutaneous port pocket just superficial to the pectoralis major fascia. I then advanced a dilator breakaway sheath over the guidewire. The dilator and guidewire were removed leaving the sheath in place. A 9.6 Greek single-lumen catheter was then advanced through the sheath into the right subclavian vein and subsequently down into the right atrium of the heart the of the superior vena cava. Intraoperative fluoroscopy was then used to visualize the tip of the catheter and then it was pulled back until the tip was located at the superior vena cava and right atrial junction. The catheter was then cut to the appropriate length skin level and then attached to the Smart Port. Port was then secured in subcutaneous port pocket utilizing 3-0 Prolene sutures. I then accessed the port and it aspirated blood easily and was flushed with heparinized saline solution. I then close incision utilizing interrupted 3-0 Vicryl sutures in the subcutaneous tissues. The skin is of then approximated utilizing a running subcuticular 4 0 Monocryl suture. I then accessed the port 1 last time and again aspirated blood easily I then was flushed with 5000units of heparin. The incision was then cleaned and then Skin glue was applied. The patient tolerated the procedure well no complications. All sponges, needles, and instrument counts were correct at the end procedure. EBL was _10__cc. The patient was awakened and taken to recovery in stable satisfactory condition. Postprocedure chest x-ray was pending at time of dictation. Implants 9.6 Greek single-lumen catheter with Smart Port. Estimated Blood Loss 10 Drains No Packing No Pathology None sent Complications No immediate complications Condition Stable Disposition
[2022-05-19 13:15] VITALS: BP 112/67; PULSE 72; RESP 12; O2SAT 100
[2022-05-19 13:20] LABS: Glucose Point of Care 104 mg/dl (65-105)
[2022-05-19 13:45] VITALS: BP 127/68
== END 2022-05-19 14:20 | disposition home or self-care (01) ==
PROVIDERS: PCP Internal Medicine; Visit Provider Surgery
PROC: (CPT 36561; principal; 2022-05-19 12:00)
DX: C15.5 Malignant neoplasm of lower third of esophagus (principal); E11.9 Type 2 diabetes mellitus without complications; I10 Essential (primary) hypertension; K21.9 Gastro-esophageal reflux disease without esophagitis; E78.5 Hyperlipidemia, unspecified; Z79.82 Long term (current) use of aspirin; Z87.891 Personal history of nicotine dependence; F12.90 Cannabis use, unspecified, uncomplicated
CPT/HCPCS: 36561; 36415; 77001; 80048; 82948; 85025; 85610; 85730; C1788; J0690; J1644; J1885; J2370; J2704; J3010; J7030; J7120

== ENCOUNTER 2022-06-10 07:35 | Outpatient (RCR) | payer MEDICARE, SELFPAY ==
[2022-06-10] VITALS (10 sets, daily range): BP systolic 122–140; BP diastolic 69–82; PULSE 60–72; RESP 14–19; TEMP 36.2–36.6; O2SAT 99–100
[2022-06-10] MEDS: ACETAMINOPHEN 325 MG TABLET PO (08:10)
[2022-06-10] MEDS: SODIUM CHLORIDE 0.9% IV 250 ML 30 ML IV CONT (08:10)
[2022-06-10] MEDS: diphenhydrAMINE HCl CAP 25 MG CAPSULE PO (08:11)
--- NOTE | 2022-06-10 08:19 | PC.NURSE ---
0757 patient reported he took his hydrocodone-acetaminophen this AM at approx 0600 containing 325 mg of PO acetaminophen. Called and informed Dr. Peralta's office and clarified the acetaminophen pre-treatment ordered and ordered were received to reduced the acetaminophen pre-treatment dose from 650 mg PO x 1 to 325 mg PO x 1. Order read back and verified. patient denies any pain, reports, NKDA, and denies any issue with blood transfusion or CHF in the past.
--- NOTE | 2022-06-10 10:46 | PC.NURSE ---
1000 Patient ate 100% of breakfast tray and drank 360 ml of fluids.
[2022-06-10] MEDS: HEPARIN SODIUM LOCK FLUSH 500 UNITS/5 ML VIAL (13:48)
== END 2022-09-08 23:59 | disposition home or self-care (01) ==
LOC: ANHCPCTRAN 07:35
PROVIDERS: PCP Internal Medicine; Visit Provider Internal Medicine Hematology & Oncology
DX: D64.9 Anemia, unspecified (principal)
CPT/HCPCS: 36415; 36430; 86850; 86900; 86901; 86923; A9270; J1642; J7050; P9016

== ENCOUNTER 2022-07-15 07:21 | Outpatient (CLI) | payer MEDICARE, SELFPAY ==
--- NOTE | ~2022-07-15 | PE_ITS ---
EXAMINATION: PET skull to mid thigh DATE: 07/15/2022 10:29 INDICATION: Esophageal cancer TECHNIQUE: Blood glucose level was 141 mg/dL. 11.805 mCi of 18-fluorodeoxyglucose (18-FDG) was admini stered i.v. Low dose computed tomography (CT) images were acquired from the base of the brain to the proximal thighs for attenuation correction and anatomic localization. Positron emission tomography (P ET) images were acquired in the same distribution beginning 58 minutes after injection. Images includ ing fused PET/CT images were reconstructed in axial, coronal, and sagittal planes. Automated exposure control technique was employed. The dose-length product was 667.08mGy-cm. COMPARISON: 04/15/2022 FINDINGS: Head/neck: There is symmetric increased activity in the oral cavity, inguinal tonsils, laryngeal muscles and ocu lar muscles without CT correlate, likely physiologic. No pathologically enlarged cervical lymphadenop athy or suspicious foci of increased FDG uptake in the visualized head or neck. Chest: Mild emphysema with mild pleural parenchymal scarring at the bilateral apices of lungs. Lungs are konrad ar with no pulmonary nodules, pneumonia, pulmonary edema or other pulmonary infiltrates. No pleural e ffusion. Heart size normal. Atherosclerotic coronary artery calcification. No pericardial effusion. D istal tip of a right subclavian central venous catheter with distal tip in the caudal superior vena c olga lidia near the cavoatrial junction. Thoracic aorta is normal in caliber. There is significant decrease in the degree of wall thickening and FDG uptake in the distal esophagus which begins slightly caudal to the level of the patel. For reference the maximal SUV which previously measured 47.4 now demonstr ates small amount of residual increased FDG activity along the left side of the distal esophagus with maximal SUV of 6.3. Previously the esophagus measured up to 6.1 x 3.8 cm in maximal diameter with co llapse central lumen whereas currently a fluid and gas-filled lumen is now apparent with the residual wall thickening measuring up to maximal of 1 cm in thickness. No pathologically enlarged or FDG avid thoracic lymphadenopathy. Abdomen/pelvis/proximal thighs: Physiologic renal accumulation and excretion of FDG activity in the kidneys, bladder and along portio ns of ureters. A few bilateral low-attenuation and photopenic renal cysts, the largest include an exo phytic 5.2 cm renal cyst and exophytic 3.1 cm left renal cyst. Bilateral nonobstructing renal stones measuring up to 7 mm in the right kidney and 3 mm and 5 mm in the left kidney. Normal degree and hete rogenous pattern of increased uptake throughout the liver without radiologic correlate or dominant FD G avid lesion. Couple tiny gallstones within the normal gallbladder. Pancreas, spleen and bilateral a drenal glands are normal. Postoperative changes with multiple surgical clips at the tip the cecum lik rhett related to prior appendectomy. Single diverticulum without adjacent inflammatory stranding is see n along the distal transverse colon. Mild to moderate uptake scattered throughout the bowels without radiologic correlate, also likely physiologic. Prostatomegaly. Small fat-containing lateral inguinal hernias. The prior small fat-containing umbilical hernia is no longer visualized and has a been reduc ed were repaired. No other abnormal foci of increased FDG uptake or pathologically enlarged lymphaden opathy in the abdomen, pelvis or proximal thighs. Musculoskeletal: There is diffuse mild increased marrow activity in the lumbar spine, pelvis and proximal femurs witho ut radiologic correlate likely related to bone marrow stimulation. The previously seen mild marrow ac tivity in the thoracic spine has decreased which likely reflects local response to radiation treatmen t of the adjacent esophagus. No suspicious lytic, blastic or more focally intense FDG avid bone lesio ns
[2022-07-15 08:25] LABS: Glucose Point of Care 141 mg/dl (65-105)
== END 2022-07-15 07:22 | disposition home or self-care (01) ==
PROVIDERS: PCP Internal Medicine; Visit Provider Internal Medicine Hematology & Oncology
DX: C15.5 Malignant neoplasm of lower third of esophagus (principal)
CPT/HCPCS: 78815; A9552

== ENCOUNTER 2023-01-19 12:36 | Outpatient (CLI) | payer MEDICARE, MEDICAID, SELFPAY ==
--- NOTE | ~2023-01-19 | CT_ITS ---
Clinical Indication: Esophageal carcinoma CT Scan of the Chest with Contrast: Technique: Contiguous sections were acquired throughout the chest after intravenous administration of 75 cc of Omnipaque 350. Dose reduction technique was used on this scan by utilizing automated exposu re control and iterative reconstruction technique. The dose-length product (DLP) was 269.17 mGy-cm. COMPARISON: 02/11/2022 Findings: There is no evidence of any significant mediastinal, hilar or axillary lymphadenopathy. There is no f illing defect in the pulmonary arterial tree to suggest pulmonary embolus. There is no evidence of ao rtic dissection or aneurysm. Patient is status post interval extensive distal esophagectomy, with gastric pull-through and anastom osis. There is no evidence of pleural or pericardial effusion. There is a 2.8 cm irregular pulmonary lesion left upper lobe, with semisolid appearance. There are ad ditional patchy groundglass opacities in the left lower lobe. Possible minimal tree-in-bud opacities in the right upper lobe. Images through the upper abdomen reveal 2.7 cm possible solid mass at the upper right renal pole.. Impression: Status post interval extensive distal esophagectomy, with gastric pull-through anastomosis. No defini te evidence for residual/recurrent neoplasm. 2.8 cm semisolid appearing lesion in the left upper lobe with patchy groundglass opacities in the lef t lower lobe and minimal tree-in-bud opacities in the right upper lobe. Findings suggest infectious/i nflammatory process. Consider follow-up exam after interval therapy. 2.7 cm possible solid mass at the upper right renal pole. Pre and postcontrast CT or MR recommended t o assess for enhancing solid lesion. Reviewed, dictated and finalized at [facility]. Impression: Status post interval extensive distal esophagectomy, with gastric pull-through anastomosis. No definite evidence for residual/recurrent neoplasm. 2.8 cm semisolid appearing lesion in the left upper lobe with patchy groundglas s opacities in the left lower lobe and minimal tree-in-bud opacities in the rig ht upper lobe. Findings suggest infectious/inflammatory process. Consider follo w-up exam after interval therapy. 2.7 cm possible solid mass at the upper right renal pole. Pre and postcontrast CT or MR recommended to assess for enhancing solid lesion.
== END 2023-01-19 12:37 | disposition home or self-care (01) ==
PROVIDERS: PCP Internal Medicine; Visit Provider Internal Medicine Hematology & Oncology
DX: C15.5 Malignant neoplasm of lower third of esophagus (principal); R91.8 Other nonspecific abnormal finding of lung field; Z98.890 Other specified postprocedural states
CPT/HCPCS: 71260; Q9967

== ENCOUNTER 2023-04-27 10:32 | Outpatient (CLI) | payer MEDICARE, MEDICAID, SELFPAY ==
--- NOTE | ~2023-04-27 | CT_ITS ---
Clinical Indication: Esophageal cancer CT Scan of the Chest, Abdomen, and Pelvis with Contrast: Technique: Contiguous sections were acquired throughout the chest, abdomen, and pelvis after intraven ous administration of 100 cc of Omnipaque 350. Dose reduction technique was used on this scan by uti lizing automated exposure control and iterative reconstruction technique. The dose-length product (DL P) was 768.93 mGy-cm. COMPARISON: 01/19/2023 Findings: There is no evidence of any significant mediastinal, hilar or axillary lymphadenopathy. The mediastin al vascular structures appear normal. There is evidence of prior esophagectomy with gastric pull-thro ugh surgery. There is no evidence of pleural or pericardial effusion. The lungs are clear. No pulmonary nodules or infiltrates are noted. The liver, spleen, pancreas, gallbladder, adrenals and left kidney are within normal limits. 7 mm non obstructing right renal stone present. Stable 2.9 cm probable solid mass at the right upper renal mario e. There are atherosclerotic calcifications of the aorta. No lymphadenopathy. No bowel obstruction or bowel wall thickening. There is no evidence to suggest acute appendicitis. Urinary bladder is unremarkable. Prostate gland mildly enlarged. No ascites. Impression: Status post esophagectomy with gastric pull-through. Stable 2.9 cm suspected solid mass at the right upper pole. Previously noted left upper lobe pulmonary lesion is essentially completely resolved, compatible with interval resolution of infectious/inflammatory process. Right nephrolithiasis, as above. Reviewed, dictated and finalized at [facility]. [employer] Impression: Status post esophagectomy with gastric pull-through. Stable 2.9 cm suspected solid mass at the right upper pole. Previously noted left upper lobe pulmonary lesion is essentially completely res olved, compatible with interval resolution of infectious/inflammatory process. Right nephrolithiasis, as above.
== END 2023-04-27 10:33 | disposition home or self-care (01) ==
PROVIDERS: PCP Internal Medicine; Visit Provider Internal Medicine Hematology & Oncology
DX: C15.5 Malignant neoplasm of lower third of esophagus (principal); Z98.890 Other specified postprocedural states; R91.8 Other nonspecific abnormal finding of lung field; N20.0 Calculus of kidney
CPT/HCPCS: 71260; 74177; Q9967

== ENCOUNTER 2023-07-28 14:53 | Observation (INO) | payer MEDICARE, MEDICAID, SELFPAY ==
--- NOTE | ~2023-07-28 | CT_ITS ---
EXAMINATION: CTA brain carotid DATE: 07/28/2023 15:31 INDICATION: Right arm weakness. Cerebrovascular accident. TECHNIQUE: Computed tomographic angiography (CTA) of the head was performed with 100 mL Omnipaque-350 intravenous contrast. CTA of the neck was performed with intravenous contrast. Automated exposure co ntrol and iterative reconstruction technique were employed. The dose-length product was 1218.76 mGy-c m. Maximum intensity projection and volume rendered 3D-reconstructions were created by the technologi st on a separate workstation. COMPARISON: Head CT 07/28/2023 FINDINGS: HEAD CTA: There are old infarcts involving the bilateral basal ganglia. There is an old infarct in ri ght frontal parietal region. There are scattered areas of low attenuation in the cerebral white matte r, which is within normal limits for the patient's age. There is no intracranial hemorrhage, acute in farction, or abnormal intracranial mass lesion. The ventricles are normal in size. The orbits are nor mal. There is mild mucosal thickening in the paranasal sinuses. The mastoid air cells are normal. Lef t vertebral artery is dominant. There is no significant stenosis of basilar artery or the posterior c erebral arteries. There is no significant stenosis of the intracranial internal carotid arteries or a nterior or middle cerebral arteries. Anterior communicating artery is normal. The posterior communica ting arteries are normal. There is no aneurysm. NECK CTA: There is mild emphysema. There is mild scarring at the apices. There are changes of esophag ectomy and gastric pull-through procedure. There are no pathologically enlarged lymph nodes. There is no significant stenosis of the vertebral arteries. There is plaque in the proximal internal coronary arteries. There is 20% stenosis of the proximal right internal carotid artery relative to normal dis rosemary artery lumen diameter (NASCET criteria). There is 0% stenosis of the proximal left internal carot id artery relative to normal distal artery lumen diameter. There is severe cervical spondylosis. IMPRESSION: 1. 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 2. No aneurysm or significant intracranial arterial stenosis. 3. 0% stenosis of the proximal internal carotid arteries relative to normal distal artery lumen diame ters (NASCET criteria). Reviewed, dictated and finalized at location [facility]. IMPRESSION: 1. Old infarcts involving the bilateral basal ganglia and right frontal parieta l region. 2. No aneurysm or significant intracranial arterial stenosis. 3. 0% stenosis of the proximal internal carotid arteries relative to normal dis rosemary artery lumen diameters (NASCET criteria).
--- NOTE | ~2023-07-28 | XR_ITS ---
EXAMINATION: XR chest 1V portable Exam Date/Time: 07/28/2023 15:25 CDT HISTORY: R. arm weakness/drift; HX HBP Comparison: 05/19/2022. RESULT: Lines, tubes, and devices: Implanted right chest port terminating in the SVC. Kink in the chest port tubing as it passes underneath the clavicle. Lungs and pleura: Streaky right basilar opacities, likely scar/atelectasis. Trace right costophrenic angle blunting. Cardiomediastinal silhouette: Stable. Other: No acute osseous or upper abdominal finding. IMPRESSION: Kinked implanted port catheter, correlate with port function. Possible trace right pleural effusion. Reviewed, dictated and finalized at location [facility].
--- NOTE | ~2023-07-28 | MR_ITS ---
EXAMINATION: MR cervical spine wo/w con DATE: 07/30/2023 10:09 INDICATION: Right arm weakness and numbness. Stroke. TECHNIQUE: Magnetic resonance imaging (MRI) of the cervical spine was performed without and with 17 m L MultiHance intravenous contrast. COMPARISON: None FINDINGS: There is 7 degrees levocurvature of cervical spine. Vertebral body heights are normal. Ther e is mildly decreased disc height at C3-C4, moderately decreased disc height at C4-C5, and severely d ecreased disc height at C6-C7. There is increased T2-weighted signal intensity in the spinal cord on the left at C3-C4 and on the right at C4-C5, consistent with myelomalacia. The following disc levels are specifically discussed: C2-C3: There is a central protrusion. There is no uncovertebral joint osteoarthritis. There is mild r ight and severe left facet joint osteoarthritis. There is mild left neural foraminal stenosis. There is mild central canal stenosis. C3-C4: The disc is bulging. There is severe bilateral uncovertebral joint osteoarthritis. There is mi ld right and moderate left facet joint osteoarthritis. There is severe right and moderate left neural foraminal stenosis. There is severe central canal stenosis with ventral and dorsal indentation of th e spinal cord. C4-C5: The disc is bulging. There is severe bilateral uncovertebral joint osteoarthritis. There is se mp bilateral facet joint osteoarthritis. There is moderate bilateral neural foraminal stenosis. The re is severe central canal stenosis with ventral and dorsal indentation of the spinal cord. C5-C6: There is a central protrusion. There is mild bilateral uncovertebral joint osteoarthritis. The re is moderate right and mild left facet joint osteoarthritis. There is mild right neural foraminal s tenosis. There is mild central canal stenosis. C6-C7: The disc is bulging. There is severe bilateral uncovertebral joint osteoarthritis. There is mi ld bilateral facet joint osteoarthritis. There is moderate bilateral neural foraminal stenosis. There is mild central canal stenosis with ventral indentation of the spinal cord. C7-T1: There is a central protrusion. There is no uncovertebral joint osteoarthritis. There is severe bilateral facet joint osteoarthritis. There is mild bilateral neural foraminal stenosis. There is no central canal stenosis. IMPRESSION: 1. 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 2. Severe cervical spondylosis. Reviewed, dictated and finalized at location [facility].
--- NOTE | ~2023-07-28 | CT_ITS ---
EXAMINATION: CT brain wo con DATE: 07/28/2023 15:17 INDICATION: Right arm weakness and drift. TECHNIQUE: Computed tomography (CT) of the head was performed without intravenous contrast. The mA wa s adjusted according to patient size. Iterative reconstruction technique was employed. The dose-lengt h product was 681.00 mGy-cm. COMPARISON: Head CT 10/05/2008 FINDINGS: There are old infarcts involving the bilateral basal ganglia. There is an old infarct in ri ght frontal parietal region. There are scattered areas of low attenuation in the cerebral white matte r, which is within normal limits for the patient's age. There is no intracranial hemorrhage, acute in farction, or abnormal intracranial mass lesion. The ventricles are normal in size. The orbits are nor mal. There is mild mucosal thickening in the paranasal sinuses. The mastoid air cells are normal. IMPRESSION: 1. Old infarcts in the bilateral basal ganglia and right frontal parietal region. Reviewed, dictated and finalized at location [facility]. IMPRESSION: 1. Old infarcts in the bilateral basal ganglia and right frontal parietal shana echevarria
--- NOTE | ~2023-07-28 | MR_ITS ---
EXAMINATION: MR brain/brain stem wo/w con DATE: 07/29/2023 10:17 INDICATION: Transient ischemic attack. TECHNIQUE: Magnetic resonance imaging (MRI) of the brain and brainstem was performed without and with 17 mL MultiHance intravenous contrast. COMPARISON: Brain MRI 10/20/2012, head CT 07/28/2023 FINDINGS: There are small acute infarcts in the left frontoparietal region. There is an old lacunar i nfarct in the right basal ganglia. There is an old infarct in the right frontoparietal region. There is an old infarct in left frontoparietal region. There are scattered areas of nonspecific increased T 2-weighted signal intensity in the cerebral white matter. There is no intracranial hemorrhage or abno rmal mass lesion. The ventricles are normal in size. There is mild mucosal thickening in right maxill alondra sinus. The orbits are normal. The mastoid air cells are normal. IMPRESSION: 1. Small acute infarcts in left frontoparietal region. 2. Old infarcts involving the bilateral frontoparietal regions and right basal ganglia. 3. Mild nonspecific cerebral white matter disease, which likely represents chronic small vessel ische gadiel disease. Reviewed, dictated and finalized at location A. IMPRESSION: 1. Small acute infarcts in left frontoparietal region. 2. Old infarcts involving the bilateral frontoparietal regions and right basal ganglia. 3. Mild nonspecific cerebral white matter disease, which likely represents living advisor himanshu small vessel ischemic disease.
--- NOTE | 2023-07-28 14:57 | ECG_ITS ---
SEE SCANNED COPY FOR CONFIRMED REPORT MTDD
[2023-07-28 15:04] LABS: Glucose Point of Care 191 mg/dl (65-105)
[2023-07-28 15:13] LABS: Estimated Glomerular Filt Rate 37
[2023-07-28 15:22] LABS: Basophils Absolute Auto 0.1 K/mm3 (0.0-0.1); Basophils Percent Auto 0.8 % (0.2-1.2); Eosinophils Absolute Auto 0.4 K/mm3 (0-0.3); Eosinophils Percent Auto 4.8 % (0-4.4); Hematocrit 37.5 % (42.0-52.0); Hemoglobin 12.6 g/dL (14.0-18.0); Immature Granulocyte Absolute 0.04 K/mm3 (0.00-0.031); Immature Granulocyte Percent A 0.5 % (0-0.5); Lymphocytes Absolute Auto 0.95 K/mm3 (0.9-3.2); Lymphocytes Percent Auto 12.2 % (18.3-44.2); Mean Corpuscular HGB Conc 33.6 g/dl (32-36); Mean Corpuscular Hemoglobin 28.8 pg (26-34); Mean Corpuscular Volume 85.6 fl (80-100); Monocytes Absolute Auto 0.8 K/mm3 (0.1-0.6); Monocytes Percent Auto 9.8 % (2.6-8.5); Neutrophils Absolute Auto 5.6 K/mm3 (1.3-6.7); Neutrophils Percent Auto 71.9 % (45.5-73.1); Platelet Count Result 217 k/mm3 (150-375); Red Blood Count 4.38 M/mm3 (4.6-6.20); Red Cell Distribution Width 13.2 % (11.5-14.5); White Blood Count 7.8 K/mm3 (4.5-10.0)
[2023-07-28 15:34] VITALS: BP 142/79; PULSE 79; RESP 18; TEMP 36.2; O2SAT 98
[2023-07-28 15:34] LABS: Prothrombin Time 13.7 Seconds (11.1-14.7)
[2023-07-28 15:35] LABS: Partial Thromboplastin Time 28.4 Seconds (22.3-36.8)
[2023-07-28 15:37] VITALS: BP 142/79; PULSE 73; PULSE 74; RESP 17; RESP 19; O2SAT 98
[2023-07-28 15:42] LABS: Alanine Aminotransferase 15 U/L (6-50); Albumin Level 4.2 g/dL (3.5-5.1); Alkaline Phosphatase 78 U/L (38-126); Anion Gap 9 mmol/L (4-12); Aspartate Amino Transferase 21 U/L (17-59); Bilirubin,Total 0.7 mg/dL (0.2-1.3); Blood Urea Nitrogen 18 mg/dL (9-20); Calcium 10.1 mg/dL (8.4-10.2); Carbon Dioxide 24 mmol/L (22-30); Chloride 107 mmol/L (98-107); Estimated CRCL calculation 42 ml/min; Estimated Glomerular Filt Rate 43; Glucose 180 mg/dL (65-110); Sodium 140 mmol/L (137-145)
[2023-07-28 15:53] LABS: Troponin I < 0.012 ng/mL (0.000-0.034)
--- NOTE | 2023-07-28 16:02 | ED.NEUROSD ---
HPI - Neuro Symptoms/Deficit General Chief Complaint: Suspected CVA Stated Complaint: R ARM WEAKNESS SINCE 1400 Time Seen by Provider: 07/28/23 15:02 History of Present Illness HPI Narrative: 73-year-old male presents to theemergency department for evaluation for a CVA. patient reports he was working in the yd when he had onset of right arm numbness and weakness. 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 This happened approximately 30 minutes prior to arrival. Upon arrival to patient states that his symptoms have improved. Patient denies any prior history of TIA, patient denies any prior history of [place] but does have history of hypertension high cholesterol and after 40 lb of weight loss he no longer needs to take his diabetes medications. Related Data Home Medications Medication Instructions Recorded Confirmed duloxetine 30 mg capsule,delayed 30 mg PO DAILY 11/11/21 07/28/23 release hydrocodone 5 mg-acetaminophen 325 1 tablet PO BID PRN Pain, Moderate 11/11/21 07/28/23 mg tablet gabapentin 100 mg capsule 200 mg PO TID 11/06/22 07/28/23 Allergies Allergy/AdvReac Type Severity Reaction Status Date / Time No Known Allergies Allergy Verified 07/21/23 08:46 Review of Systems Review of Systems: All systems reviewed & are unremarkable except as noted in HPI and below PMFSH Past Medical History Medical History (Updated 07/28/23 @ 21:47 by Shannen Bond PA-C) Chronic anemia Chronic kidney disease Chronic obstructive pulmonary disease Diet-controlled type 2 diabetes mellitus Esophageal cancer Status post chemo radiation and what sounds like esophagectomy with gastric pull-through. Gastroesophageal reflux disease Hyperlipidemia Hypertension Obstructive sleep apnea Seizure Surgical History Surgical History (Updated 07/28/23 @ 21:48 by Shannen Bond PA-C) History of appendectomy History of colonoscopy with polypectomy History of esophagectomy History of esophagogastroduodenoscopy (EGD) History of tonsillectomy Family History Family History Father Cerebrovascular accident Sibling Aorta aneurysm Brain bleed Esophageal cancer Social History Social History (Updated 07/28/23 @ 21:44 by Shannen Bond PA-C) Social History: Surrogate medical decision maker: Mary Berumen, significant other. Code status: Full code. Smoking packs per day: 1 Smoking cigarettes per day: 20.0 Years smoked: 30 Smoking pack-years: 30.00 Smoking status: Former smoker Tobacco type: cigarettes Second hand tobacco smoke exposure: Yes Smoking end date: 12/16/21 Alcohol intake: current Alcohol use details: Rare alcohol use in moderation. Substance use: current Substance use type: marijuana Do You Feel Safe in your Home?: Yes Lack of Transportation: No Lack of Food: Never True Current Housing: I Have Housing Concerned About Future Housing: No Difficulty Paying Gas/Electric Bills: No Difficulty Paying for Meds: No Currently Unemployed: No Education: Grade School Difficulty w/ Childcare or Family Care: No Living arrangements: other Additional living arrangements comments: Lives with significant other in [place]. Spiritual care concerns: No Exam Narrative: APPEARANCE: Well appearing, no pain, no distress, well-nourished. HEAD: normocephalic, atraumatic. EYES: PERRLA/EOMI, conjunctivae clear. NOSE: Normal no drainage EARS:TMS clear with good light reflex. THROAT: Pharynx clear, no exudate. NECK: Supple. No adenopathy, no masses. RESPIRATORY: Airway patent, respirations nonlabored. Clear to auscultation bilaterally, no rales, rhonchi, wheezing. CARDIOVASCULAR: Regular rate and rhythm without murmurs rubs or gallops. ABDOMINAL: Soft, nontender, nondistended, normal bowel sounds MUSCULOSKELETAL: Moves all extremities. Strength/ROM intact, No edema
[2023-07-28] MEDS: ASPIRIN 81 MG CHEWABLE TABLET 324 MG PO (16:18)
[2023-07-28 16:28] VITALS: BP 134/82; PULSE 69; RESP 18; O2SAT 98
--- NOTE | 2023-07-28 17:52 | ADMGEN ---
This patient, Kevin Ghotra, was admitted to Medical Room 243-01. Patient/family oriented to hospital policies and general routines including ID bracelet, bed and alarms, visiting hours, pain management, procedures, bathroom and other care routines, personal items, smoking policy, room service/diet, and visiting hours. Information on how to activate the Rapid Response Team has been discussed. Patient/Family are encouraged to report perceived risks to care and to ask questions if they do not understand what they are told or what they should do.
[2023-07-28 17:55] VITALS: BP 146/76; PULSE 64; RESP 16; TEMP 36.6; O2SAT 100
[2023-07-28 18:14] VITALS: BMI 25.8
--- NOTE | 2023-07-28 19:43 | PM.IMHP ---
H&P: HPI History of Present Illness Date/Time: 07/28/23 17:30 Chief Complaint: Right arm numbness and weakness. Narrative: This is a very pleasant 73-year-old male with history of hypertension, hyperlipidemia, type 2 diabetes mellitus, chronic obstructive pulmonary disease, sleep apnea, chronic anemia, chronic kidney disease, and esophageal cancer status post chemoradiation in spring 2022 followed by what sounds like esophagectomy with gastric pull-through who presented to the emergency department for evaluation of right arm numbness and weakness. The patient provides the following history. Not long prior to arrival he was out in his yard hooking up his garden hose. He felt clumsy and had difficulties screwing the hose on the spigot and not long after his right arm suddenly became weak and numb. He presented to the ED for evaluation within about 30 minutes and his symptoms had nearly resolved by that time and were it completely resolved within an hour or so. He has never had similar symptoms and he has not had recurrent symptoms since arrival. He denies associated vertigo, visual changes, facial droop, and difficulty speaking and swallowing. He has no known history of cardiac dysrhythmia and denies palpitations, irregular heartbeat, and sensations of racing heart. In the ED: Blood pressure was 142/79 on arrival. He has been in normal sinus rhythm. Labs were significant for a hemoglobin of 12.6, creatinine 1.60, glucose 180, troponin less than 0.012. Head CT showed old infarcts involving the bilateral basal ganglia and right frontal parietal region which were unknown to the patient. Head and neck CTA showed no aneurysm, significant intracranial arterial stenosis, or stenosis of the proximal internal carotid arteries. He is being admitted in this setting for TIA/stroke workup. Review of Systems Review of Systems: 12 systems were reviewed. He has lost about 40 lb following his cancer diagnosis and treatment and has been able to come off medications for his diabetes, high blood pressure, and high cholesterol. Except as documented, all other systems were reviewed and are negative. [facility] Past Medical History Medical History (Updated 07/28/23 @ 21:47 by Shannen Bond PA-C) Chronic anemia Chronic kidney disease Chronic obstructive pulmonary disease Diet-controlled type 2 diabetes mellitus Esophageal cancer Status post chemo radiation and what sounds like esophagectomy with gastric pull-through. Gastroesophageal reflux disease Hyperlipidemia Hypertension Obstructive sleep apnea Seizure Surgical History Surgical History (Updated 07/28/23 @ 21:48 by Shannen Bond PA-C) History of appendectomy History of colonoscopy with polypectomy History of esophagectomy History of esophagogastroduodenoscopy (EGD) History of tonsillectomy Family History Family History Father Cerebrovascular accident Sibling Aorta aneurysm Brain bleed Esophageal cancer Social History Social History (Updated 07/28/23 @ 21:44 by Shannen Bond PA-C) Social History: Surrogate medical decision maker: Mary Berumen, significant other. Code status: Full code. Smoking packs per day: 1 Smoking cigarettes per day: 20.0 Years smoked: 30 Smoking pack-years: 30.00 Smoking status: Former smoker Tobacco type: cigarettes Second hand tobacco smoke exposure: Yes Smoking end date: 12/16/21 Alcohol intake: current Alcohol use details: Rare alcohol use in moderation. Substance use: current Substance use type: marijuana Do You Feel Safe in your Home?: Yes Lack of Transportation: No Lack of Food: Never True Current Housing: I Have Housing Concerned About Future Housing: No Difficulty Paying Gas/Electric Bills: No Difficulty Paying for Meds: No Currently Unemployed: No Education: Grade School Difficulty w/ Childcare or Family Care: No Living arrangements:
[2023-07-28 20:15] LABS: Glucose Point of Care 84 mg/dl (65-105)
[2023-07-28 20:33] VITALS: BP 156/77; PULSE 73; RESP 16; TEMP 36.4; O2SAT 99
[2023-07-28 20:50] VITALS: PULSE 75
[2023-07-29] VITALS (10 sets, daily range): BP systolic 132–150; BP diastolic 71–82; PULSE 65–94; RESP 16–17; TEMP 36.6–37; O2SAT 95–97
[2023-07-29 04:59] LABS: Hemoglobin 12.3 g/dL (14.0-18.0); Mean Corpuscular HGB Conc 33.2 g/dl (32-36); Mean Corpuscular Hemoglobin 28.5 pg (26-34); Mean Corpuscular Volume 85.6 fl (80-100); Mean Platelet Volume 10.2 fl (7.4-10.4); Platelet Count Result 180 k/mm3 (150-375); Red Blood Count 4.32 M/mm3 (4.6-6.20); Red Cell Distribution Width 13.1 % (11.5-14.5)
[2023-07-29 05:13] LABS: Anion Gap 10 mmol/L (4-12); Blood Urea Nitrogen 16 mg/dL (9-20); Calcium 9.5 mg/dL (8.4-10.2); Carbon Dioxide 25 mmol/L (22-30); Chloride 107 mmol/L (98-107); Cholesterol 137 mg/dL (0-200); Estimated CRCL calculation 45 ml/min; Estimated Glomerular Filt Rate 46; Glucose 122 mg/dL (65-110); HDL Direct 37 mg/dL; Magnesium 1.9 mg/dL (1.6-2.3); Potassium 3.5 mmol/L (3.4-5.0); Sodium 142 mmol/L (137-145); Triglycerides 216 mg/dL (<150)
[2023-07-29 05:14] LABS: Hemoglobin A1C 5.5 % (<5.7)
[2023-07-29 05:24] LABS: LDL Cholesterol Direct 72 mg/dL
[2023-07-29 06:21] LABS: Folic Acid 8.4 ng/mL (2.76->20); Vitamin B12 > 1000.0 pg/mL (239-931)
--- NOTE | 2023-07-29 06:51 | PM.IMPN ---
Progress Note: A&P Assessment and Plan (1) Transient cerebral ischemic attack: Code(s): G45.9 - Transient cerebral ischemic attack, unspecified Status: Acute Assessment and Plan: Symptoms: right arm weakness and numbness. resolved. Risk factors: history of tobacco abuse, hypertension, hyperlipidemia, and prior malignancy Brain CT: Old infarcts in the bilateral basal ganglia and right frontal parietal region. Head/neck CT: unremarkable. Brain MRI: . Small acute infarcts in left frontoparietal region. Old infarcts involving the bilateral frontoparietal regions and right basal ganglia. Mild nonspecific cerebral white matter disease, which likely represents chronic small vessel ischemic disease. Echo obtained. Pending results. Lipid panel WNL. Elevated triglycerides. Started on statin. Neurology consulted. Due to risk factors he will be continued on aspirin and plavix 75 mg daily for next 6 weeks. Echo ordered as well as an MRI of cervical spine as well because of malignancy history. Per neurology an EMG and nerve conduction study could be done as an outpatient (2) Hypertension: Code(s): I10 - Essential (primary) hypertension Status: Acute Assessment and Plan: Blood pressures have been running a bit high. Will continue to monitor. Patient was previously on antihypertensives, but they were discontinued following a 40 lb weight loss after treatment of his esophageal cancer. - monitor (3) Chronic kidney disease: Code(s): N18.9 - Chronic kidney disease, unspecified Status: Acute Assessment and Plan: BUN/Cr at baseline. - Monitor - Avoid nephrotoxic medications (4) Chronic anemia: Code(s): D64.9 - Anemia, unspecified Status: Acute Assessment and Plan: Stable. No signs of active bleeding. - Monitor (5) Diet-controlled type 2 diabetes mellitus: Code(s): E11.9 - Type 2 diabetes mellitus without complications Status: Acute Assessment and Plan: - hypoglycemia protocol - POC blood glucose - home medication - none. diet controlled - correct regimen ordered - low dose TIDWM and HS - A1C 5.5 Time Spent With Patient Time with patient: 25 - 35 minutes Subjective Date/time seen: 07/29/23 06:51 Interval history: 73-year-old male with history of hypertension, hyperlipidemia, type 2 diabetes mellitus, chronic obstructive pulmonary disease, sleep apnea, chronic anemia, chronic kidney disease, and esophageal cancer status post chemoradiation in spring 2022 followed by what sounds like esophagectomy with gastric pull-through who presented to the emergency department for evaluation of right arm numbness and weakness.? Patient is pleasant lying comfortably in bed with family at bedside. He underwent a brain MRI today which revealed a . Small acute infarcts in left frontoparietal region and old infarcts to the bilateral frontoparietal regions and right basal ganglia. He was evaluated by neurology who plan to keep patient on ASA and statin and start plavix. The echo is pending and an MRI c spine is ordered due to patients prior malignancy. Patient states that all symptoms have resolved. He denies weakness or numbness to the extremities. He is not experiencing any headaches, vision changes, nausea/vomiting, chest pain, shortness of breath, confusion, or changes in bowel/bladder. Review of Systems Review of Systems: All systems reviewed & are unremarkable except as noted in HPI and below Exam Narrative: AF HR 66 RR 17 SpO2 97 BP 139/71 General: male in no acute respiratory distress who is nontoxic appearing, lying semi recumbent in bed. HEENT: Normocephalic. Atraumatic. Pupils equal round reactive to light. Extraocular movement intact. Sclera clear and anicteric. No facial asymmetry. Chest: Lungs are clear to auscultation bilaterally. No wheezes or crackles. CV: Heart was regular rate and rhythm. S1/S2. No murmurs, gallops, or rubs. Abd: Abdomen was s
--- NOTE | 2023-07-29 07:40 | ECHO_ITS ---
Patient Info Name: Kevin Ghotra Age: 73 years : 1950 Gender: Male Ht: 72 in Wt: 190 lbs BSA: 2.10 m2 HR: 94 bpm BP: 150 / 76 mmHg Heart Rhythm: Sinus Rhythm Technical Quality: Fair Exam Date: 07/29/2023 8:21 AM Exam Location: Echo Lab Patient Status: Inpatient Admit Date: 07/28/2023 Staff Ordering Physician: Shannen Bond PA-C Teacher [employer]ocational [employer]: [employer] [place] Attending Provider: Miryam Garcias MD Referring Physician: Ronda RIBEIRO; Exam Type: CA echo doppler w bubble study Study Info Indications - TIA Complete two-dimensional, color flow and Doppler transthoracic echocardiogram is performed with agitated saline. Strain analysis performed. Summary 1. Left ventricular chamber dimension is normal. 2. Left ventricular systolic function is normal, estimated at 60-65%. 3. The left ventricular diastolic function is grade I diastolic dysfunction. 4. Global longitudinal strain is abnormal at -16 %. 5. Right ventricular systolic function is normal. 6. Intact interatrial septum visualized by color flow and agitated saline imaging. Negative bubble study. 7. There is mild mitral valve regurgitation. Left Ventricle Left ventricular chamber dimension is normal. Left ventricular systolic function is normal, estimated at 60-65%. There is no increased left ventricular wall thickness. The left ventricular diastolic function is grade I diastolic dysfunction. Global longitudinal strain is abnormal at -16 %. Right Ventricle Right ventricular chamber dimension is normal. Right ventricular systolic function is normal. Left Atria Left atrial chamber dimension is normal. Right Atria Right atrial chamber dimension is normal. Atrial Septum Intact interatrial septum visualized by color flow and agitated saline imaging. Negative bubble study. Aortic Valve The aortic valve is trileaflet. There is mild aortic valve sclerosis. There is no aortic valve stenosis. There is trace aortic valve regurgitation. Pulmonic Valve The pulmonic valve is not well visualized. Mitral Valve There is mild mitral valve regurgitation. Tricuspid Valve There is trace tricuspid valve regurgitation. Pericardium/Pleural The pericardium appears epicardial fat pad. There is no pericardial effusion. Inferior Vena Cava Normal inferior vena cava with >50% collapse upon inspiration consistent with normal right atrial pressure, 3 mmHg. Aorta The aortic root size at the sinus of Valsalva is normal. Left Ventricular Outflow Tract Name Value Normal LVOT 2D LVOT Diameter 2.0 cm LVOT Doppler LVOT Peak Gradient 3 mmHg LVOT Mean Gradient 1 mmHg LVOT VTI 19 cm LVOT VTI/AV VTI Ratio 0.9 LVOT Stroke Volume 60 ml LVOT CO 4.4 l/min LVOT CI 2.1 l/min/m2 Pulmonic Valve Name Value Normal RVOT Doppler
[2023-07-29 08:03] LABS: Glucose Point of Care 120 mg/dl (65-105)
[2023-07-29] MEDS: ASPIRIN 81 MG CHEWABLE TABLET PO (09:22)
[2023-07-29] MEDS: DULoxetine HCL 30 MG CAPSULE.DR PO (09:22)
[2023-07-29] MEDS: FERROUS SULFATE 325 MG TABLET DR PO ×2 (09:22→16:42)
[2023-07-29] MEDS: GABAPENTIN 100 MG CAPSULE 200 MG PO ×3 (09:23→16:41)
--- NOTE | 2023-07-29 11:27 | WPDNEURCNPN ---
Assessment and Plan Assessment and plan (1) Transient cerebral ischemic attack: Code(s): G45.9 - Transient cerebral ischemic attack, unspecified Status: Acute (2) Hypertension: Code(s): I10 - Essential (primary) hypertension Status: Acute Plan 1. TIA 2. Considering the risk factors he will be continued on aspirin, Plavix 75mg daily for the next 6 weeks, statin and follow up with physician in addition to obtaining the echocardiogram while here but additionally obtaining the MRI of the cervical spine as well because of the history of underlying malignancy. EMG and nerve conduction study could be done as an outpatient if any further question arises please do not hesitate to contact me thank you Consult date: 07/29/23 HPI: Kevin Ghotra is a 73 year old male Admitted to the hospital through the emergency room for the possibility of a stroke. 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 he gave no previous history of stroke or TIA or MRI but did give the history of hypertension, hypercholesterolemia and loss of 40lb of weight resulting in no need to take the diabetic medications. His home medications included duloxetine 30mg daily, hydrocodone on p.r.n. basis, and gabapentin 200mg 3 times a day, with no history of being allergic to any medications. He does have ongoing history of chronic anemia, chronic renal disease, chronic obstructive pulmonary disease, type 2 diabetes mellitus, hypertension, and hyperlipidemia, in addition to the history of seizures he has also undergone esophagectomy in the past because of the underlying cancer. is a former smoker, currently alcohol intake, though rare alcohol use in moderation, initial exam in the emergency room was grossly nonfocal, vital signs were normal, CBC was also normal, BMP revealed blood sugar of 180, and the routine lab studies were normal, initial CT scan of the head documented old infarct in the bilateral basal ganglia and right frontal parietal region, x-ray chest with the possible trace right pleural effusion in addition to the kinking of the implanted port catheter, but without evidence of any intracranial arterial stenosis or aneurysm. Brain MRI done in the hospital documented small acute infarcts in the left frontoparietal region in addition to old infarcts involving the bilateral frontoparietal region and right basal ganglia. [facility] Past Medical History Medical History (Updated 07/28/23 @ 21:47 by Shannen Bond PA-C) Chronic anemia Chronic kidney disease Chronic obstructive pulmonary disease Diet-controlled type 2 diabetes mellitus Esophageal cancer Status post chemo radiation and what sounds like esophagectomy with gastric pull-through. Gastroesophageal reflux disease Hyperlipidemia Hypertension Obstructive sleep apnea Seizure Surgical History Surgical History (Updated 07/28/23 @ 21:48 by Shannen Bond PA-C) History of appendectomy History of colonoscopy with polypectomy History of esophagectomy History of esophagogastroduodenoscopy (EGD) History of tonsillectomy Family History Family History Father Cerebrovascular accident Sibling Aorta aneurysm Brain bleed Esophageal cancer Social History Social History (Updated 07/28/23 @ 21:44 by Shannen Bond PA-C) Social History: Surrogate medical decision maker: Mary Berumen, significant other. Code status: Full code. Smoking packs per day: 1 Smoking cigarettes per day: 20.0 Years smoked: 30 Smoking pack-years: 30.00 Smoking status: Former smoker Tobacco type: cigarettes Se
[2023-07-29 12:08] LABS: Glucose Point of Care 149 mg/dl (65-105)
[2023-07-29 16:46] LABS: Glucose Point of Care 123 mg/dl (65-105)
[2023-07-29 19:50] LABS: Glucose Point of Care 135 mg/dl (65-105)
[2023-07-30] VITALS: PULSE 72
[2023-07-30 04:00] VITALS: PULSE 69
[2023-07-30 04:55] LABS: Basophils Absolute Auto 0.1 K/mm3 (0.0-0.1); Basophils Percent Auto 0.7 % (0.2-1.2); Eosinophils Absolute Auto 0.3 K/mm3 (0-0.3); Eosinophils Percent Auto 4.4 % (0-4.4); Hematocrit 36.1 % (42.0-52.0); Hemoglobin 12.2 g/dL (14.0-18.0); Immature Granulocyte Absolute 0.03 K/mm3 (0.00-0.031); Immature Granulocyte Percent A 0.4 % (0-0.5); Lymphocytes Absolute Auto 0.93 K/mm3 (0.9-3.2); Lymphocytes Percent Auto 12.3 % (18.3-44.2); Mean Corpuscular HGB Conc 33.8 g/dl (32-36); Mean Corpuscular Hemoglobin 28.9 pg (26-34); Mean Corpuscular Volume 85.5 fl (80-100); Mean Platelet Volume 9.9 fl (7.4-10.4); Monocytes Absolute Auto 0.7 K/mm3 (0.1-0.6); Monocytes Percent Auto 9.3 % (2.6-8.5); Neutrophils Absolute Auto 5.5 K/mm3 (1.3-6.7); Neutrophils Percent Auto 72.9 % (45.5-73.1); Platelet Count Result 184 k/mm3 (150-375); Red Blood Count 4.22 M/mm3 (4.6-6.20); Red Cell Distribution Width 13.2 % (11.5-14.5); White Blood Count 7.5 K/mm3 (4.5-10.0)
[2023-07-30 05:09] LABS: Alanine Aminotransferase 15 U/L (6-50); Alkaline Phosphatase 81 U/L (38-126); Anion Gap 8 mmol/L (4-12); Aspartate Amino Transferase 22 U/L (17-59); Bilirubin,Total 0.6 mg/dL (0.2-1.3); Blood Urea Nitrogen 15 mg/dL (9-20); Calcium 9.7 mg/dL (8.4-10.2); Carbon Dioxide 26 mmol/L (22-30); Chloride 109 mmol/L (98-107); Estimated CRCL calculation 42 ml/min; Estimated Glomerular Filt Rate 43; Glucose 114 mg/dL (65-110); Potassium 3.2 mmol/L (3.4-5.0); Sodium 143 mmol/L (137-145)
[2023-07-30 05:47] VITALS: BP 169/83; PULSE 75; RESP 18; TEMP 36.1
[2023-07-30 08:00] VITALS: PULSE 72
[2023-07-30 08:14] LABS: Glucose Point of Care 116 mg/dl (65-105)
[2023-07-30] MEDS: FERROUS SULFATE 325 MG TABLET DR PO (08:45)
[2023-07-30] MEDS: DULoxetine HCL 30 MG CAPSULE.DR PO (08:45)
[2023-07-30] MEDS: ASPIRIN 81 MG CHEWABLE TABLET PO (08:45)
[2023-07-30] MEDS: GABAPENTIN 100 MG CAPSULE 200 MG PO (08:45)
[2023-07-30 11:35] VITALS: PULSE 101
[2023-07-30] MEDS: ROSUVASTATIN 5 MG TABLET PO (11:35)
[2023-07-30] MEDS: carvediloL 25 MG TABLET PO (11:35)
[2023-07-30] MEDS: CLOPIDOGREL BISULFATE 75 MG TABLET PO (11:36)
--- NOTE | 2023-07-30 11:36 | WPDNEUROPN ---
Progress Note: A&P Assessment and Plan (1) Stroke: Code(s): I63.9 - Cerebral infarction, unspecified Status: Acute (2) Right arm weakness: Code(s): R29.898 - Other symptoms and signs involving the musculoskeletal system Status: Acute (3) Hypertension: Code(s): I10 - Essential (primary) hypertension Status: Acute Plan Mr. Ghotra is a 73 year old male with a history of HTN, HLD, diabetes, COPD, ALISHA, CKD, and esophageal cancer presenting with RUE numbness/weakness. MRI brain showed small acute infarcts in the L frontoparietal region, as well as old strokes in bilateral frontoparietal region and R basal ganglia. Etiology of stroke is unclear. HLD and DM are well controlled. Vessel imaging was unrevealing. Echo was negative for shunt. Etiology of stroke is cryptogenic at this point. He did have bilateral old strokes on MRI so cardioembolic etiology is a concern. I did discuss with patient that he should have a 30 day event monitor at discharge but he vehemently refused and is wanting to be discharged. I let him know that we do not know the cause of his stroke, so further cardiac evaluation is important to prevent future strokes from happening. He repeatedly said he wanted to go home. I recommend that he see Cardiology as follow-up which he said he was okay with. If he does not want an event monitor then maybe he could be considered for loop implant so that it would not be as bothersome for him. - Aspirin 81mg daily - Plavix 75mg x 3 weeks then discontinue - Increase Crestor to 10mg daily, goal LDL is less than 70 - Optimize BP control - Cardiology outpatient evaluation -- Consider BING, Loop - Outpatient Neurology follow-up in about 2 months Subjective Date/time seen: 07/30/23 11:36 Interval history: Mr. Ghotra is a 73 year old male with a history of HTN, HLD, diabetes, COPD, ALISHA, CKD, and esophageal cancer presenting with RUE numbness/weakness. MRI brain showed small acute infarcts in the L frontoparietal region, as well as old strokes in bilateral frontoparietal region and R basal ganglia. CTA brain/carotid did not show any significant stenosis or occlusion. His symptoms have self-resolved. LDL is 72 and HgbA1c is 5.5. He is not a smoker. Echo was negative for shunt. BP has ranged from 140-160s systolic. Per chart review, telemetry initially showed normal sinus rhythm. Patient has been quite irritable and is wanting to go home. Review of Systems Review of Systems: All systems reviewed & are unremarkable except as noted in HPI and below Exam Const: General: comfortable and no acute distress HENMT: Mouth: Yes moist mucous membranes Eyes: Pupils: Equal, round and reactive pupils present Resp: Effort & Inspection: normal respiratory effort Skin: General skin exam: normal color Neuro: Other: Pupils equal and reactive bilaterally, EOMI, face symmetric, facial sensation intact, tongue protrudes midline, palate midline. Shoulder shrug normal. Strength 5/5 throughout. Sensation intact throughout, FNF normal bilaterally. Language comprehension and fluency intact. Gait deferred. Extrem: General: normal to inspection Psych: Mental Status: mental status grossly normal Affect: Hostile affect present Attitude: Belligerent attititude/behavior present Objective Data Vital Signs Vital Signs: Vital Signs - 24 hr 07/29/23 14:05 07/29/23 12:00 07/29/23 16:00 Temperature 37.0 C Pulse Rate 76 76 65 Respiratory Rate 16 Blood Pressure 147/82 H Pulse Oximetry 97 Oxygen Delivery 07/29/23 20:14 07/29/23 20:18 07/29/23 20:18 Temperature 36.6 C Pulse Rate 81 75 Respiratory Rate 17 Blood Pressure 132/79 Pulse Oximetry 96 Oxygen Delivery Room Air 07/30/23 00:00 07/30/23 04:00 07/30/23 05:47 Temperature 36.1 C L Pulse Rate 72 69 75 Respiratory Rate 18 Blood Pressure 169/83 H Pulse Oximetry Oxygen Delivery 07/30/23 08:40 07/30/23 08:00 [place]
[2023-07-30 11:45] LABS: Glucose Point of Care 163 mg/dl (65-105)
--- NOTE | 2023-07-30 13:45 | PM.DS ---
DS: Admitting Diagnosis Discharge Date 07/30/23 Admitting Diagnosis Stroke Hypertension Chronic kidney disease Chronic anemia Diet controlled diabetes mellitus DS: Discharge Diagnosis Discharge Diagnosis (1) Stroke: Code(s): I63.9 - Cerebral infarction, unspecified Status: Acute (2) Hypertension: Code(s): I10 - Essential (primary) hypertension Status: Acute (3) Chronic kidney disease: Code(s): N18.9 - Chronic kidney disease, unspecified Status: Acute (4) Chronic anemia: Code(s): D64.9 - Anemia, unspecified Status: Acute (5) Diet-controlled type 2 diabetes mellitus: Code(s): E11.9 - Type 2 diabetes mellitus without complications Status: Acute DS: Summary Hospital Course Reason for hospitalization: Stroke Hypertension Chronic kidney disease Chronic anemia Diet controlled diabetes mellitus Hospital Course: 73-year-old male with history of hypertension, hyperlipidemia, type 2 diabetes mellitus, chronic obstructive pulmonary disease, sleep apnea, chronic anemia, chronic kidney disease, and esophageal cancer status post chemoradiation in spring 2022 followed by what sounds like esophagectomy with gastric pull-through who presented to the emergency department for evaluation of right arm numbness and weakness.?These symptoms resolved at time of admission. MRI brain showed small acute infarcts in the L frontoparietal region, as well as old strokes in bilateral frontoparietal region and R basal ganglia. Etiology of the stroke is unclear. Echo had normal EF with grade I diastolic and no evidence of shunt. Hypertension, hyperlipidemia and diabetes are well controlled on current treatment. Head/Neck CTA revealed 0% stenosis of the proximal internal carotid arteries relative to normal distal artery lumen diameters. Patient evaluated by neurology and started on aspirin 81 mg daily, plavix 75 mg x 3 weeks then discontinue, and rosuvastatin dose increased to 10 mg daily. Patient would benefit from a 30 day front desk monitor, however he adamantly refused. Discussed with patient that the etiology of the stroke is unknown and there is concern for cardiac involvement. He continued to refuse. At time of discharge recommended that patient follow up with a cartography professor for further cardiac evaluation. Given cardiology information with discharge papers. Patient is to follow up with his primary care provider in 1 week to discuss new medications and recent admission. He is to follow up with neurology in 2 months. Patient discharged home with in a stable condition. Status at Discharge Functional status at discharge: independent ambulation Time Spent with Patient Time attestation: Total time spent providing and/or coordinating discharge services: Time spent: Greater than 30 minutes Exam Narrative: AF HR 75 RR 18 BP 169/83 General: male in no acute respiratory distress who is nontoxic appearing, lying semi recumbent in bed. HEENT: Normocephalic. Atraumatic. Pupils equal round reactive to light. Extraocular movement intact. Sclera clear and anicteric. No facial asymmetry. Chest: Lungs are clear to auscultation bilaterally. No wheezes or crackles. CV: Heart was regular rate and rhythm. S1/S2. No murmurs, gallops, or rubs. Abd: Abdomen was soft. Nontender. Nondistended. Positive bowel sounds. No organomegaly or masses. Ext: No clubbing, cyanosis, or edema. 2+ DP pulses bilaterally. Neuro: Patient is alert and oriented x4. Strength is 5/5 in both upper and lower extremities. Cranial nerves 2-12 are intact. Speech is clear. Psych: Normal mood and affect. Patient is pleasant and cooperative. Skin: Warm and dry. No rashes noted. DS: Data Data Completed and Pending Completed studies during hospitalization: C spine MRI Brain MRI Head/neck CTA Chest XR Head CT Labs on day of discharge: Labs from last 24 hours 07/30/23 07/30/23 07/30/23 11:35 07:54 04:15 WBC 7.5 RBC
== END 2023-07-30 11:49 | disposition home or self-care (01) ==
LOC: ANHED 17:10 → ANH2MED 17:21
PROVIDERS: Internal Medicine; Internal Medicine Cardiovascular Disease; Physician Assistant; Student in an Organized Health Care Education/Training Program; Admitting Provider Family Medicine; Emergency Provider Emergency Medicine; PCP Internal Medicine; Visit Provider General Practice
DX: I63.9 Cerebral infarction, unspecified (principal); R53.1 Weakness; I12.9 Hypertensive chronic kidney disease with stage 1 through stage 4 chronic kidney disease, or unspecified chronic kidney disease; E11.22 Type 2 diabetes mellitus with diabetic chronic kidney disease; N18.9 Chronic kidney disease, unspecified; K21.9 Gastro-esophageal reflux disease without esophagitis; J44.9 Chronic obstructive pulmonary disease, unspecified; G47.33 Obstructive sleep apnea (adult) (pediatric); D63.1 Anemia in chronic kidney disease; F12.90 Cannabis use, unspecified, uncomplicated; R29.700 NIHSS score 0; Z85.01 Personal history of malignant neoplasm of esophagus; Z92.21 Personal history of antineoplastic chemotherapy; Z92.3 Personal history of irradiation; Z90.49 Acquired absence of other specified parts of digestive tract; Z87.891 Personal history of nicotine dependence; Z86.73 Personal history of transient ischemic attack (TIA), and cerebral infarction without residual deficits
CPT/HCPCS: 36415; 70450; 70496; 70498; 70553; 71045; 72156; 80048; 80053; 80061; 82607; 82746; 82948; 83036; 83735; 84484; 85025; 85027; 85610; 85730; 93005; 93306; 96375; 99285; A9270; A9577; G0378; Q9967

== ENCOUNTER 2023-08-11 08:36 | Outpatient (CLI) | payer MEDICARE, SELFPAY ==
--- NOTE | ~2023-08-11 | CT_ITS ---
Clinical Indication: Esophageal cancer CT Scan of the Chest, Abdomen, and Pelvis with Contrast: Technique: Contiguous sections were acquired throughout the chest, abdomen, and pelvis after intraven ous administration of 100 cc of Omnipaque 350. Dose reduction technique was used on this scan by uti lizing automated exposure control and iterative reconstruction technique. The dose-length product (DL P) was 960.18 mGy-cm. COMPARISON: 04/27/2023 Findings: There is no evidence of any significant mediastinal, hilar or axillary lymphadenopathy. The mediastin al vascular structures appear normal. Status post esophagectomy with gastric pull-through surgery. Minimal right pleural effusion present. No left pleural effusion. No pericardial effusion. The lungs are clear. No pulmonary nodules or infiltrates are noted. The liver, spleen, pancreas, gallbladder, and adrenal glands are within normal limits. Bilateral nono bstructing renal stones measuring 5-6 mm in diameter. Stable solid mass at the right upper renal pole measuring 2.8 cm in diameter. There are atherosclerotic calcifications of the aorta. No lymphadenop athy. No bowel obstruction or bowel wall thickening. There is no evidence to suggest acute appendicitis. Urinary bladder is unremarkable. Prostate gland is enlarged. No ascites. Impression: No evidence for metastatic disease. Status post esophagectomy and gastric pull-through. Stable 2.8 cm suspected solid mass at the right upper renal pole. Bilateral nonobstructing nephrolithiasis, as detailed above. Minimal right pleural effusion. Enlarged prostate gland. Reviewed, dictated and finalized at [facility]. Impression: No evidence for metastatic disease. Status post esophagectomy and gastric pull- through. Stable 2.8 cm suspected solid mass at the right upper renal pole. Bilateral nonobstructing nephrolithiasis, as detailed above. Minimal right pleural effusion. Enlarged prostate gland.
== END 2023-08-11 08:37 | disposition home or self-care (01) ==
LOC: ANHIMG 08:39
PROVIDERS: PCP Internal Medicine; Visit Provider Internal Medicine Hematology & Oncology
DX: C15.5 Malignant neoplasm of lower third of esophagus (principal); N20.0 Calculus of kidney; J90 Pleural effusion, not elsewhere classified; N40.0 Benign prostatic hyperplasia without lower urinary tract symptoms
CPT/HCPCS: 71260; 74177; Q9967

== ENCOUNTER 2023-11-03 09:28 | Outpatient (CLI) | payer MEDICARE, SELFPAY ==
--- NOTE | ~2023-11-03 | CT_ITS ---
Clinical Indication: Esophageal cancer CT Scan of the Chest, Abdomen, and Pelvis with Contrast: Technique: Contiguous sections were acquired throughout the chest, abdomen, and pelvis after intraven ous administration of 100 cc of Omnipaque 350. Dose reduction technique was used on this scan by uti lizing automated exposure control and iterative reconstruction technique. The dose-length product (DL P) was 1036.60 mGy-cm. COMPARISON: 08/11/2023 Findings: There is no evidence of any significant mediastinal, hilar or axillary lymphadenopathy. Status post e sophagectomy and gastric pull-through surgery, stable from prior exam mediastinal vascular structures are unremarkable.. No pericardial effusion. Stable mildly prominent inferior epicardial lymph node o n the right side (axial image 97). Minimal right pleural effusion present. No left pleural effusion. The lungs are clear, aside from mild biapical scarring. Diffuse hepatic steatosis noted. The spleen, pancreas, gallbladder, and adrenal glands are within nor mal limits. Bilateral renal cysts are present. Nonobstructing bilateral there is a 2.7 cm solid mass versus hyperdense cyst at the right upper renal pole, unchanged. Renal stones are present, largest me asuring 7 mm. There are atherosclerotic calcifications of the aorta. . No lymphadenopathy. No bowel obstruction or bowel wall thickening. There is no evidence to suggest acute appendicitis. Urinary bladder is unremarkable. Prostate gland enlarged. No pelvic mass seen. No ascites. Impression: No definite evidence for metastatic disease related to esophageal cancer. Status post esophagectomy a nd gastric pull-through. 2.7 cm solid mass versus hyperdense cyst at the upper right renal pole. Consider pre and postcontrast renal MR to assess for solid enhancing lesion versus hyperdense cyst. Bilateral nonobstructing nephrolithiasis, as above. Minimal right pleural effusion. Diffuse hepatic steatosis. Reviewed, dictated and finalized at [facility]. Impression: No definite evidence for metastatic disease related to esophageal cancer. Statu s post esophagectomy and gastric pull-through. 2.7 cm solid mass versus hyperdense cyst at the upper right renal pole. Conside r pre and postcontrast renal MR to assess for solid enhancing lesion versus hyp erdense cyst. Bilateral nonobstructing nephrolithiasis, as above. Minimal right pleural effusion. Diffuse hepatic steatosis.
== END 2023-11-03 09:29 | disposition home or self-care (01) ==
LOC: ANHIMG 09:30
PROVIDERS: PCP Internal Medicine; Visit Provider Internal Medicine Hematology & Oncology
DX: C15.5 Malignant neoplasm of lower third of esophagus (principal); K76.0 Fatty (change of) liver, not elsewhere classified; N20.0 Calculus of kidney
CPT/HCPCS: 71260; 74177; Q9967

== ENCOUNTER 2023-12-03 13:02 | Outpatient (CLI) | payer MEDICARE, SELFPAY ==
--- NOTE | ~2023-12-03 | MR_ITS ---
EXAMINATION: MR pelvis wo/w con DATE: 12/03/2023 14:15 INDICATION: Right kidney mass. TECHNIQUE: Magnetic resonance imaging (MRI) of the pelvis was performed without and with 19 mL MultiH ance intravenous contrast. COMPARISON: CT 11/03/2023 FINDINGS: There are no dilated loops of bowel. There are no pathologically enlarged lymph nodes. The prostate i s moderately enlarged. There is no free intraperitoneal fluid. There is prominent fat in left inguina l canal that may be a hernia. There is severe lumbar spondylosis. IMPRESSION: 1. No evidence of metastatic disease. Reviewed, dictated and finalized at location A.
--- NOTE | ~2023-12-03 | MR_ITS ---
EXAMINATION: MR abdomen wo/w con DATE: 12/03/2023 14:15 INDICATION: Right kidney mass. TECHNIQUE: Magnetic resonance imaging (MRI) of the abdomen was performed without and with 19 mL Multi Jose D intravenous contrast. COMPARISON: CT 11/03/2023 FINDINGS: There are changes of esophagectomy and gastric pull-through procedure. There is a small right pleural effusion. There is diffuse hepatic steatosis. There are cysts in the liver measuring up to 5 mm. The gallbladder, spleen, pancreas, and adrenal glands are normal. There are cysts in the kidneys measuri ng up to 5.9 cm on the right. There is a 2.7 cm hemorrhagic cyst in right kidney correlating with the CT abnormality. There are no dilated loops of bowel. There are no pathologically enlarged lymph node s. There is no free intraperitoneal fluid. IMPRESSION: 1. Benign cysts in the kidneys. 2. Small right pleural effusion. Reviewed, dictated and finalized at location A.
== END 2023-12-03 13:03 | disposition home or self-care (01) ==
PROVIDERS: PCP Internal Medicine; Visit Provider Internal Medicine Hematology & Oncology
DX: N28.89 Other specified disorders of kidney and ureter (principal); N28.1 Cyst of kidney, acquired; J90 Pleural effusion, not elsewhere classified
CPT/HCPCS: 72197; 74183; A9577

== ENCOUNTER 2024-03-07 10:00 | Outpatient (CLI) | payer MEDICARE, SELFPAY ==
--- NOTE | ~2024-03-07 | CT_ITS ---
Clinical Indication: Esophageal cancer CT Scan of the Chest, Abdomen, and Pelvis with Contrast: Technique: Contiguous sections were acquired throughout the chest, abdomen, and pelvis after intraven ous administration of 100 cc of Omnipaque 350. Dose reduction technique was used on this scan by uti lizing automated exposure control and iterative reconstruction technique. The dose-length product (DL P) was 836.56 mGy-cm. Comparison: 11/03/2023 Findings: There is no evidence of any significant mediastinal, hilar or axillary lymphadenopathy. Status post e sophagectomy and gastric pull-through. Mediastinal vascular structures are unremarkable. No pericardi al effusion. Small right pleural effusion is present, minimally increased from prior exam. No left pleural effusio n.. No suspicious pulmonary nodule.. There is diffuse hepatic steatosis. The spleen, pancreas, gallbladder, adrenal glands are within norm al limits. Bilateral renal cysts and bilateral nonobstructing renal stones are present. There are ath erosclerotic calcifications of the aorta. No lymphadenopathy. No bowel obstruction or bowel wall thickening. There is no evidence to suggest acute appendicitis. Urinary bladder is unremarkable. Prostate gland is enlarged. No ascites. Impression: Status post esophagectomy and gastric pull-through. No definite evidence for active malignancy or met astatic disease. Small right pleural effusion, mildly increased from prior exam. 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 No definite evidence for ac tive malignancy or metastatic disease. Small right pleural effusion, mildly increased from prior exam.
[2024-03-07 10:26] LABS: Estimated Glomerular Filt Rate 35
== END 2024-03-07 10:01 | disposition home or self-care (01) ==
PROVIDERS: PCP Internal Medicine; Visit Provider Internal Medicine Hematology & Oncology
DX: C15.5 Malignant neoplasm of lower third of esophagus (principal); Z90.49 Acquired absence of other specified parts of digestive tract; J90 Pleural effusion, not elsewhere classified
CPT/HCPCS: 71260; 74177; Q9967

== ENCOUNTER 2024-04-18 02:33 | Emergency (ER) | payer MEDICARE, SELFPAY ==
[2024-04-18] VITALS (10 sets, daily range): BP systolic 136–184; BP diastolic 94–102; PULSE 78–87; RESP 16–25; TEMP 36.4; O2SAT 100
--- NOTE | ~2024-04-18 | XR_ITS ---
Portable chest x-ray Comparison: 07/28/2023 Clinical History: Chest pain Findings: Right-sided Mediport in place. Lungs are clear, without focal consolidation or pleural eff usion. Cardiomediastinal silhouette is stable. Bones and soft tissues are unremarkable. Impression: Clear lungs. Right-sided Mediport. Reviewed, dictated and finalized at location . TELLER Impression: Clear lungs. Right-sided Mediport.
--- NOTE | 2024-04-18 02:34 | ECG_ITS ---
Test Date: 2024-04-18 02:38:48 Measurements Intervals [place] Rate: 81 P: 57 GA: 214 QRS: 244 QRSD: 86 T: 98 QT: 362 QTc: 421 Interpretive Statements SINUS RHYTHM WITH FIRST DEGREE AV BLOCK PATTERN CONSISTENT WITH PULMONARY DISEASE RIGHT VENTRICULAR HYPERTROPHY [SOME/ALL OF: PROMINENT R IN V1, LATE TRANSITION, RAD, MAGALI, SSS] No previous ECG available for comparison Electronically Signed On 04-18-2024 18:08:10 STRATEGIC ACCOUNT DIRECTOR by Miryam Garcias M.D.
[2024-04-18 02:47] LABS: Basophils Absolute Auto 0.1 K/mm3 (0.0-0.1); Basophils Percent Auto 0.5 % (0.2-1.2); Eosinophils Absolute Auto 0.2 K/mm3 (0-0.3); Eosinophils Percent Auto 1.5 % (0-4.4); Hematocrit 39.9 % (42.0-52.0); Hemoglobin 12.8 g/dL (14.0-18.0); Immature Granulocyte Absolute 0.05 K/mm3 (0.00-0.031); Immature Granulocyte Percent A 0.3 % (0-0.5); Lymphocytes Absolute Auto 0.67 K/mm3 (0.9-3.2); Lymphocytes Percent Auto 4.5 % (18.3-44.2); Mean Corpuscular HGB Conc 32.1 g/dl (32-36); Mean Corpuscular Hemoglobin 27.4 pg (26-34); Mean Corpuscular Volume 85.3 fl (80-100); Monocytes Absolute Auto 1.1 K/mm3 (0.1-0.6); Monocytes Percent Auto 7.1 % (2.6-8.5); Neutrophils Absolute Auto 12.9 K/mm3 (1.3-6.7); Neutrophils Percent Auto 86.1 % (45.5-73.1); Platelet Count Result 197 k/mm3 (150-375); Red Blood Count 4.68 M/mm3 (4.6-6.20); Red Cell Distribution Width 15.4 % (11.5-14.5)
[2024-04-18 02:57] LABS: Alanine Aminotransferase 14 U/L (6-50); Albumin Level 4.2 g/dL (3.5-5.1); Alkaline Phosphatase 81 U/L (38-126); Anion Gap 12 mmol/L (4-12); Aspartate Amino Transferase 25 U/L (17-59); Bilirubin,Total 0.6 mg/dL (0.2-1.3); Blood Urea Nitrogen 22 mg/dL (9-20); Calcium 9.4 mg/dL (8.4-10.2); Carbon Dioxide 24 mmol/L (22-30); Chloride 105 mmol/L (98-107); Estimated CRCL calculation 43 ml/min; Estimated Glomerular Filt Rate 45; Glucose 133 mg/dL (65-110); Lipase 94 U/L (23-300); Magnesium 1.9 mg/dL (1.6-2.3); Potassium 4.2 mmol/L (3.4-5.0); Prothrombin Time 13.2 Seconds (11.1-14.7); Sodium 141 mmol/L (137-145)
[2024-04-18 02:58] LABS: Partial Thromboplastin Time 27.5 Seconds (22.3-36.8)
[2024-04-18 03:07] LABS: Troponin I 0.027 ng/mL (0.000-0.034)
[2024-04-18 03:25] LABS: Influenza A QL RT-PCR Negative (Negative); Influenza B QL RT-PCR Negative (Negative); SARS-CoV-2 RNA PCR Negative (Negative)
--- NOTE | 2024-04-18 03:38 | ED.CHESTPAIN ---
HPI - Chest Pain General Chief Complaint: Chest Pain Stated Complaint: CP/SOB History of Present Illness HPI narrative: Patient is a 74-year-old male who presents to the emergency department this evening complaining of chest pain which started late last night. Patient states that he was eating a bowl of cereal when he started to have some midsternal chest pain. Patient states that the pain is worsened when he takes a deep breath. He is currently denying any active chest pain, states that only when he tries to take a deep breath does he feel it. Denies any nausea vomiting or abdominal pain. Denies any recent URI illness. States that he does have a history of esophageal cancer status post resection and states that his last CT scan was normal and he is due for another CT in 3 months. Patient also admits that he does have a history of COPD. No additional symptoms or concerns at this time. Related Data Home Medications ?Medication ?Instructions ?Recorded ?Confirmed ?Last Taken ?Type duloxetine 30 mg capsule,delayed 30 mg PO DAILY 11/11/21 04/18/24 04/17/24 History release hydrocodone 5 mg-acetaminophen 325 1 tablet PO BID PRN Pain, Moderate 11/11/21 04/18/24 04/17/24 History mg tablet gabapentin 100 mg capsule 200 mg PO TID 11/06/22 04/18/24 04/17/24 History carvedilol 25 mg tablet 25 mg PO BID 07/29/23 04/18/24 04/17/24 History cyanocobalamin (vitamin B-12) 500 500 mcg PO BID 07/29/23 04/18/24 04/17/24 History mcg tablet (Vitamin B-12) pantoprazole 40 mg tablet,delayed 40 mg PO QAM 07/29/23 04/18/24 04/17/24 History release Allergies Allergy/AdvReac Type Severity Reaction Status Date / Time No Known Allergies Allergy Verified 04/18/24 02:36 Review of Systems Review of Systems: All systems are reviewed and are negative unless stated otherwise in the HPI. COUNTS INCLUDE 234 BEDS AT THE [facility] Past Medical History Medical History Chronic obstructive pulmonary disease Obstructive sleep apnea Gastroesophageal reflux disease Chronic kidney disease Chronic anemia Hypertension Esophageal cancer Status post chemo radiation and what sounds like esophagectomy with gastric pull-through. Seizure Diet-controlled type 2 diabetes mellitus Hyperlipidemia Surgical History Surgical History History of colonoscopy with polypectomy History of tonsillectomy History of appendectomy History of esophagectomy History of esophagogastroduodenoscopy (EGD) Family History Family History Father Cerebrovascular accident Sibling Aorta aneurysm Brain bleed Esophageal cancer Social History Social History Social History: Surrogate medical decision maker: Mary Berumen, significant other. Code status: Full code. Smoking packs per day: 1 Smoking cigarettes per day: 20.0 Years smoked: 30 Smoking pack-years: 30.00 Smoking status: Former smoker Tobacco type: cigarettes Second hand tobacco smoke exposure: Yes Smoking end date: 12/16/21 Alcohol intake: current Alcohol use details: Rare alcohol use in moderation. Substance use: current Substance use type: marijuana Do You Feel Safe in your Home?: Yes Lack of Transportation: No Lack of Food: Never True Current Housing: I Have Housing Concerned About Future Housing: No Difficulty Paying Gas/Electric Bills: No Difficulty Paying for Meds: No Currently Unemployed: No Education: Grade School Difficulty w/ Childcare or Family Care: No Living arrangements: other Additional living arrangements comments: Lives with significant other in [place]. Spiritual care concerns: No Exam Narrative: General: Alert, awake, afebrile, in no acute distress. HEENT: PERRL, no rhinorrhea, no post nasal drip, oropharynx clear. Neck: Trachea midline, no JVD, no lymphadenopathy. Cardiovascular: Regular rate and rhythm, no murmurs, rubs or gallops, no peripheral edema. Respiratory: Mild expiratory wheezing bilaterally, no tachypnea, no respiratory distress. Abdomen: Soft, nontender, nondistended, no rebound, no guarding, no peritoneal signs. Musculoskeletal: No joint swelling or deformity, normal muscle tone. Skin: No rashes or petechia, no signs of infection. Psychiatric: Alert and oriented, normal behavior and judgment for situation. Neurological: Alert and oriented to person, place, and time. Follows all commands. No focal deficits, speech is clear and fluent. Course Vital Signs Vital signs: Vital Signs Temperature 97.6 F 04/18/24 02:31 Pulse Rate 83 04/18/24 02:31 Respiratory Rate 20 04/18/24 02:31 Blood Pressure 173/94 H 04/18/24 02:31 Pulse Oximetry 100 04/18/24 02:31 Oxygen Delivery Room Air 04/18/24 02:31 Temperature 97.6 F 04/18/24 04:58 Pulse Rate 79 04/18/24 05:16 Respiratory Rate 16 04/18/24 05:16 Blood Pressure 136/95 H 04/18/24 05:16 Pulse Oximetry 100 04/18/24 05:16 Oxygen Delivery Room Air 04/18/24 02:48 MDM - Chest Pain MDM Narrative Medical decision making narrative: The patient was evaluated by myself in the emergency department. History is obtained from patient who is an independent historian and physical exam was performed. External medical records were reviewed at this time. IV was established and pertinent tests were ordered. Patient was administered DuoNeb breathing treatment and 125 mg of IV Solu-Medrol. EKG was obtained which revealed sinus rhythm at a rate of 81 beats per minute. No ST changes, T wave inversions or evidence of acute ischemia. EKG was independently interpreted by me and is currently pending official cardiology read. Laboratory results obtained revealing a leukocytosis of 15, otherwise no acute process. Viral swabs negative for COVID/influenza. Two sets of troponins were obtained and both noted to be negative. Imaging studies obtained included CXR which was independently interpreted by me revealing no acute cardiopulmonary process, which is pending final radiology interpretation. Differential diagnosis considerations include acute viral syndrome, infectious process such as pneumonia, acute coronary syndrome. Comorbidities impacting this visit include history of COPD and GERD. I have evaluated and discussed social determinants of health with the patient that could potentially impact subsequent diagnosis and treatment plans. On repeat assessment of the patient, reevaluation revealed that the patient is doing well and is in no acute distress. Patient symptoms have improved since he arrived to our emergency department. Repeat vital signs were all reviewed and noted to be stable. Differential diagnosis and treatment plan were discussed with the patient at bedside. Patient agrees with discussion and after shared medical decision making agrees with discharge. All questions were answered to the patient's satisfaction. Patient will follow up with his PCP in 3-5 days. Script for Medrol Dosepak and azithromycin were sent to patient's pharmacy to take as prescribed for his COPD. Patient was provided with strict return precautions and instructed to return to the emergency department if any new or worsening symptoms develop. The patient was discharged in stable condition. Lab Data 04/18/24 02:41 04/18/24 02:41 Labs: Lab Results 04/18/24 04/18/24 04/18/24 Range/Units 02:41 02:45 05:21 WBC 15.0 H (4.5-10.0) K/mm3 RBC 4.68 (4.6-6.20) M/mm3 Hgb 12.8 L (14.0-18.0) g/dL Hct 39.9 L (42.0-52.0) % MCV 85.3 (80-100) fl MCH 27.4 (26-34) pg MCHC 32.1 (32-36) g/dl RDW 15.4 H (11.5-14.5) % Plt Count 197 (150-375) k/mm3 MPV 10.0 (7.4-10.4) fl Immature Gran % (Auto) 0.3 (0-0.5) % Neut % (Auto) 86.1 H (45.5-73.1) % Lymph % (Auto) 4.5 L (18.3-44.2) % Polk % (Auto) 7.1 (2.6-8.5) % Eos % (Auto) 1.5 (0-4.4) % Baso % (Auto) 0.5 (0.2-1.2) % Lymph # (Auto) 0.67 L (0.9-3.2) K/mm3 Polk # (Auto) 1.1 H (0.1-0.6) K/mm3 Eos # (Auto) 0.2 (0-0.3) K/mm3 Baso # (Auto) 0.1 (0.0-0.1) K/mm3 Abs Immat Gran (auto) 0.05 H (0.00-0.031) K/mm3 Absolute Neuts (auto) 12.9 H (1.3-6.7) K/mm3 Absolute Nucleated RBC 0.000 (0.0-0.012) K/mm3 Nucleated RBC % 0.0 (0.0-0.2) % PT 13.2 (11.1-14.7) Seconds INR 1.0 APTT 27.5 (22.3-36.8) Seconds Sodium 141 (137-145) mmol/L Potassium 4.2 (3.4-5.0) mmol/L Chloride 105 (98-107) mmol/L Carbon Dioxide 24 (22-30) mmol/L Anion Gap 12 (4-12) mmol/L BUN 22 H (9-20) mg/dL Creatinine 1.53 H (0.7-1.3) mg/dL Estim Creat Clear Calc 43 ml/min Estimated GFR 45 L (59 - ) Glucose 133 H (65-110) mg/dL Calcium 9.4 (8.4-10.2) mg/dL Magnesium 1.9 (1.6-2.3) mg/dL Total Bilirubin 0.6 (0.2-1.3) mg/dL AST 25 (17-59) U/L ALT 14 (6-50) U/L Alkaline Phosphatase 81 (38-126) U/L Troponin I 0.027 0.021 D (0.000-0.034) ng/mL Total Protein 8.0 (6.3-8.2) g/dL Albumin 4.2 (3.5-5.1) g/dL Lipase 94 (23-300) U/L Influenza A (RT-PCR) Negative (Negative) Influenza B (RT-PCR) Negative (Negative) SARS-CoV-2 RNA (RT-PCR) Negative (Negative) Discharge Plan Discharge Clinical Impression: Chest pain, COPD (chronic obstructive pulmonary disease) Patient Disposition: Home, Self-Care Condition: Improved Instructions: Antibiotic Form, Chest Pain (ED), COPD (Chronic Obstructive Pulmonary Disease) (DC) Additional Instructions: Please follow-up with your family doctor within the next 3-5 days. Return to the emergency department if any new or worsening symptoms develop. Take the prescribed steroids and antibiotics as instructed for your COPD. Patient Language: Danish Prescriptions: New methylprednisolone [Medrol (Daniel)] 4 mg tablets,dose pack See Rx Instructions .ROUTE .COMPLEX Qty: 21 0RF Rx Instructions: for 6 days azithromycin 250 mg tablet See Rx Instructions .ROUTE .COMPLEX Qty: 6 0RF Rx Instructions: For 250 mg dose pack: take 500 mg today (day 1), then 250 mg for 4 days (days 2-5) No Action gabapentin 100 mg Capsule 200 mg PO TID Patient Comments: pt stopped taking about a week ago, didn't get it refilled hydrocodone-acetaminophen 5-325 mg tablet 1 tablet PO BID PRN (Reason: Pain, Moderate) duloxetine 30 mg capsule,delayed release(DR/EC) 30 mg PO DAILY carvedilol 25 mg Tablet 25 mg PO BID Rx Instructions: must administer with a meal/food pantoprazole 40 mg Tablet,Delayed Release (Dr/Ec) 40 mg PO QAM cyanocobalamin (vitamin B-12) [Vitamin B-12] 500 mcg Tablet 500 mcg PO BID clopidogrel 75 mg Tablet 75 mg PO QAM Qty: 21 0RF rosuvastatin [Crestor] 10 mg tablet 10 mg PO DAILY Qty: 30 0RF ferrous sulfate 325 mg (65 mg iron) tablet,delayed release (DR/EC) 325 mg PO BID Qty: 60 4RF Follow-up/Referrals: Diego Antoine MD [Primary Care Provider] - 3 Days Time of Disposition: 06:04
[2024-04-18] MEDS: FAMOTIDINE 20 MG/2 ML VIAL IV PUSH (03:58)
--- NOTE | 2024-04-18 05:16 | ECG_ITS ---
Test Date: 2024-04-18 05:22:35 Measurements Intervals [place] Rate: 80 P: 55 VT: 223 QRS: 265 QRSD: 84 T: 84 QT: 372 QTc: 432 Interpretive Statements SINUS RHYTHM WITH FIRST DEGREE AV BLOCK PATTERN CONSISTENT WITH PULMONARY DISEASE RIGHT VENTRICULAR HYPERTROPHY [SOME/ALL OF: PROMINENT R IN V1, LATE TRANSITION, RAD, MAGALI, SSS] Compared to ECG 04/18/2024 02:38:48 No significant changes Electronically Signed On 04-18-2024 18:06:52 PUBLIC RELATIONS ACCOUNT SUPERVISOR by Miryam Garcias M.D.
[2024-04-18 05:51] LABS: Troponin I 0.021 ng/mL (0.000-0.034)
[2024-04-18] MEDS: methylPREDNISolone SOD SUCC 125 MG VIAL IV PUSH (06:04)
[2024-04-18] MEDS: IPRATROPIUM 0.5 MG/ALBUTEROL SULFATE 2.5 MG AMPUL.NEB 3 ML INHALATION (06:10)
--- OUTSIDE RECORDS SUMMARY | 2024-04-21 11:20 | XMS_ITS | Encounter Summary ---
Author Organization [facility] Address [address] [place] [address] Care Team Providers Care Silk Presser Name Role Phone Diego Antoine MD Primary Care Provider [phone] Encounter Details Date Type Department Care Team ([facility] st Contact Info) Description 04/18/2024 Orders Only [facility] Oncology and Hematology - Eddie [address] [facility] [address] [place] [address] Yury Peralta MD [address] [facility] [address] [place] [address] Chronic anemia Social History Tobacco Use Types Packs/Day Years Used Date Smoking Tobacco: Former Cigarettes 1 30 0 12/17/1991 - 12/16/2021 Smokeless Tobacco: Never Alcohol Use Standard Drinks/Week Comments Not Currently 0 (1 standard drink = 0.6 oz pur e alcohol) Food Insecurity Answer Date Recorded Social/Environmental Concerns No concerns Transportation Needs Answer Date Record ed Social/Environmental Concerns No concerns Housing Stability Answer Date Recorded Social/Environmental Concerns No concerns Utility Needs Answer Date Recorded Social/Environmental Concerns No concerns Sex and Gender Information Value Date Recorded Sex Assigned at Male 03/14/2024 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 Legal Sex Male 10:54 AM CDT Gender Identity Male 03/14/2024 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 Sexual Orientation Straight 03/14/2024 1: 14 AM TRAVEL INSURANCE AGENT documented as of this encounter Plan of Treatment Upcoming Encounters Date Type Department Care Team (Late st Contact Info) Description 07/15/2024 11:45 AM CDT Office Visit [facility] Oncology and Hematology - Eddie [address] [facility] [address] [place] [address] Yury Peralta MD [address] [facility] [address] [place] [address] documented as of this encounter Visit Diagnoses Diagnosis Chronic anemia Anemia, unspecified documented in this encounter Care Teams Silk Presser Relationship Specialty Start Date End Date Diego Antoine MD [address] [place] [address] PCP - General Internal Medicine 01/31/22 documented as of this encounter
--- OUTSIDE RECORDS SUMMARY | 2024-04-21 11:20 | XMS_ITS | Clinical Summary ---
Author Organization [facility] Address [address] [place] [address]. [place], [place] [id number] [place] [id number] Care Team Providers Care Moveman Name Role Phone Unavailable Primary Care Provider Unavailabl e Social History Tobacco Use Types Packs/Day Years Used Date Smoking Tobacco: Smoker, Current Status Unknown Sex and Gender Information Value Date Recorded Sex Assigned at Not on file Legal Sex Male 11:02 PM CDT Gender Identity Not on file Sexual Orientation Not on file Last Filed Vital Signs Vital Sign Reading Time Taken Comments Blood Pressure 140/80 01/29/2016 11:31 AM CDT Pulse 76 01/29/2016 11:31 AM CDT Temperature - - Respiratory Rate 20 01/23/2012 7:58 PM CDT Oxygen Saturation - - Inhaled Oxygen Concentration - - Weight 105.7 kg (233 lb) 01/29/2016 11:31 AM CDT Height 182.9 cm (6') 01/29/2016 11:31 AM CDT Body Mass Index 31.6 01/29/2016 11:31 AM CDT Plan of Treatment Health Maintenance Due Date Last Done Comments Colorectal Cancer Screening Colonoscopy (10 Years) 1950 Hepatitis C 1970 DTaP, Tdap and Td Vaccines ( 1 - Tdap) 1971 Zoster Vaccines (1 of 2) 2002 Pneumococcal Vaccine: 65+ Years (2 of 2 - PCV) 2017 12/29/2015, 1950 COVID-19 Vaccine ( - 2023-2 5 season) 2023 Influenza Adult (#1) 2023 1950 RSV Immunization or 60+ Years (1 - 1-dose 75+ series) 2027 Meningococcal B Vaccine Aged Out No l onger eligible based on patient's age to complete this topic Meningococcal Vaccine Aged Out No yas cesar eligible based on patient's age to complete this topic RSV Immunizations Under 20 Months Aged Out No longer eligible b ased on patient's age to complete this topic Procedures Procedure Name Priority Date/Time Associated Diagnosis Comments COLONOSCOPY Routine SOCIOLOGY RESEARCH ASSISTANT from Last 3 Months or Most Recently Relevant to Health Maintenance Results * Colonoscopy ( SOCIOLOGY RESEARCH ASSISTANT) Narrative [facility] TO EPIC CONVERSION - SOCIOLOGY RESEARCH ASSISTANT Documented hx of procedure Procedure Note , Generic Conversion, - 01/31/2018 Documented hx of procedure us Generic Conversion Md GRAY GI PROCEDURE ORDERABLES Final Result [facility] TO EPIC CONVERSION from Last 3 Months or Most Recently Relevant to Health Maintenance
--- OUTSIDE RECORDS SUMMARY | 2024-04-21 11:20 | XMS_ITS | Clinical Summary ---
Author Organization [facility] Irwin Villalobos Address [address] [place] [address] Care Team Providers Care Silk Weaver Name Role Phone Diego Antoine MD Primary Care Provider [phone] Allergies No known active allergies Medications metoprolol tartrate 75 mg Tablet Take 1 tablet (75 mg) by J Tube route 3 times daily. 90 Tablet 09/12/2022 12:38 PM CDT 09/12/2022 Active HYDROcodone-marissa taminophen (NORCO) 7.5-325 mg TabletIndicatio ns:Cancer of distal third of esophagus (CMS/HCC) 1 Tablet by J Tube route every 4 hours as needed for Pain, Moderate. Max Daily Amount: 6 Tablets 30 Tablet 10/01/2022 Active traMADoL (ULTRAM) 50 mg tabletIndicatio ns:Cancer of distal third of esophagus (CMS/HCC) Take 1 Tablet (50 mg) by mouth every 6 hours as needed for Pain. 15 Tablet 10/07/2022 Active famotidine (PEPCID) 40 mg tabletIndicatio ns:Cancer of distal third of esophagus (CMS/HCC) Take 1 Tablet (40 mg) by mouth 2 times daily. 60 Tablet 2 10/07/2022 Active metoclopramide HCl (REGLAN) 5 mg tabletIndicatio ns:Cancer of distal third of esophagus (CMS/HCC) Take 1 Tablet (5 mg) by mouth daily. 30 Tablet 2 10/07/2022 Active acetaminophen (TYLENOL) 500 mg tabletIndicatio ns:Cancer of distal third of esophagus (CMS/HCC) Take 1 Tablet (500 mg) by mouth every 6 hours as needed for Pain, Mild / Temperature. 30 Tablet 10/07/2022 Active DULoxetine (CYMBALTA) 30 mg Capsule, Delayed Release(E.C.) Take 30 mg by mouth daily. Active pantoprazole (PROTONIX) 40 mg Tablet, Delayed Release (E.C.) Take 40 mg by mouth daily. Active carvediloL (COREG) 25 mg tablet Take 25 mg by mouth 2 times daily with meals. Active amLODIPine (NORVASC) 5 mg tablet Take 5 mg by mouth daily. Active gabapentin (NEURONTIN) 100 mg capsule Take 2 Capsules (200 mg) by mouth 3 times daily. 180 Capsule 02/02/2023 Active apixaban (ELIQUIS ORAL) Take by mouth. Pt unknown of dosage Active hydrOXYzine HCL (ATARAX) 25 mg tabletIndicatio ns:Cancer of distal third of esophagus (CMS/HCC) TAKE ONE TABLET BY MOUTH EVERY EIGHT HOURS NEEDED FOR ITCHING 30 Tablet 1 11/05/2023 Active acetaminophen/c hlorpheniramine (CORICIDIN ORAL) Take by mouth. Active Active Problems Problem Noted Date Diagnosed Date Tobacco use 09/04/2022 Protein-calorie malnutrition, moderate Type 2 diabetes mellitus with hyperglycemia 09/2022 Cancer of distal third of esophagus 05/06/2022 Encounters Date Type Department Care Team Description 04/19/2024 External Device Data STL ABSTRACTION Provider, Abstract 04/18/2024 Orders Only [facility] Oncology and Hematology - Eddie [address] [place] [address] Yury Peralta MD Chronic anemia 04/12/2024 External Device Data STL ABSTRACTION Provider, Abstract 04/11/2024 Orders Only [facility] Oncology and Hematology - Eddie [address] [place] [address] Yury Peralta MD Benign hypertension 04/04/2024 Orders Only [facility] Oncology and Hematology - Eddie [address] [place] [address] Yury Peralta MD Chronic anemia 03/28/2024 Orders Only [facility] Oncology and Hematology - Eddie [address] Yury Peralta MD Benign hypertension 03/21/2024 Orders Only [facility] Oncology and Hematology - Eddie [address] Yury Peralta MD Chronic anemia 03/15/2024 Orders Only [facility] Oncology and Hematology - Eddie [address] Yury Peralta MD 03/14/2024 10:00 AM SUPERINTENDENT SANITATION Office Visit [facility] Oncology and Hematology - Eddie [address] Yury Peralta MD Cancer of distal third of esophagus (CMS/HCC) (Primary Dx); Benign hypertension 03/07/2024 Orders Only [facility] Oncology and Hematology - Eddie [address] Yury Peralta MD Chronic anemia 02/29/2024 Orders Only [facility] Oncology and Hematology - Eddie [address] [place] [id number] Yury Peralta MD Benign hypertension 02/22/2024 Orders Only [facility] Oncology and Hematology - Eddie [address] [place] [address] Yury Peralta MD Chronic anemia 02/15/2024 Orders Only [facility] Oncology and Hematology - Eddie [address] [place] [id number] Yury Peralta MD Benign hypertension 02/08/2024 Orders Only [facility] Oncology and Hematology - Eddie [address] [place] [id number] Yury Peralta MD Chronic anemia 02/01/2024 Orders Only [facility] Oncology and Hematology - Eddie [address] [place] [address] Yury Peralta MD Benign hypertension 01/25/2024 Orders Only [facility] Oncology and Hematology [facility] [address] [place] [address] Yury Peralta MD Chronic anemia from Last 3 Months Family History Medical History Relation Name Comments Colon Cancer Neg Hx Social History Tobacco Use Types Packs/Day Years [...] Sex Assigned at Male 03/14/2024 1:14 AM SUPERINTENDENT SANITATION Legal Sex Male 10:54 AM CDT Gender Identity Male 03/14/2024 1:14 AM SUPERINTENDENT SANITATION Sexual Orientation Straight 03/14/2024 1: 14 AM SUPERINTENDENT SANITATION Last Filed Vital Signs Vital Sign Reading Time Taken Comments Blood Pressure 146/86 03/14/2024 10:30 AM SUPERINTENDENT SANITATION Pulse 79 03/14/2024 10:27 AM SUPERINTENDENT SANITATION Temperature 36.7 ??C (98 ??F) 03/14/2024 10:27 AM SUPERINTENDENT SANITATION Respiratory Rate 15 03/14/2024 10:27 AM SUPERINTENDENT SANITATION Oxygen Saturation 95% 03/14/2024 10:27 AM SUPERINTENDENT SANITATION Inhaled Oxygen Concentration - - Weight 86.7 kg (191 lb 3.2 oz) 03/14/2024 10:27 AM SUPERINTENDENT SANITATION Height 182.9 cm (6') 12/04/2022 8:44 AM CDT Body Mass Index 25.93 12/04/2022 8:44 AM CDT Plan of Treatment Upcoming Encounters Date Type Department Care Team (Late st Contact Info) Description 07/15/2024 11:45 AM CDT Office Visit [facility] Oncology and Hematology Gracie Morgan [address] [place] [address] Yury Peralta MD [address] [place] [address] Health Maintenance Due Date Last Done Comments DIABETES ANNUAL FOOT EXAM 1970 DIABETES ANNUAL RETINAL EXAM 1970 DIABETES HBA1C Q 6 MONTHS 1970 DIABETES MICROALBUMIN ANNUAL SCREEN 1970 LDL CHOLESTEROL ANNUAL 1970 DTAP/TDAP/TD VACCINES (1 - Tdap) 1971 PNEUMOCOCCAL VACCINE 65+ YEARS (1 of 2 - PCV) 04/10/18 72 COLORECTAL SCREENING 1997 Colorectal Cancer Screening 1997 FIT-DNA Q 3 years 1997 FIT/FOBT Q 1 year 1997 Flex Sig/CT Colonography Q 5 years 1997 ZOSTER VACCINE (1 of 2) 2002 Abdominal Aortic Aneurysm (AAA) Screening 2017 INFLUENZA VACCINE (#1) 2023 RSV VACCINE (60+ or ) (1 - 1-dose 75+ series) 2027 Medical Devices Implanted Type Area Critical Care Technician Device Identifier Shelf Expiration Date Model / Serial / Lot Clip Ligating Horizon Lg Ti [id number] - Csc - [id number] Implanted:Qty : 1 on 09/03/2022 by Rodney Musa MD at [facility] Clip N/A: Esophagus TELEFLEX- WECK CLOSURE SYS 12/08/2026 [id number] / / [id number] Clip Ligating Horizon Med Ti [id number] - [facility] [place] - [id number] Implanted:Qty : 1 on 09/03/2022 by Rodney Musa MD at [facility] Clip N/A: Esophagus TELEFLEX- WECK CLOSURE SYS [id number] 05/19/2027 [id number] / / [id number] Procedures Procedure Name Priority Date/Time Associated Diagnosis Comments COMPREHENSIVE METABOLIC PANEL Routine 03/14/2024 11:35 AM SUPERINTENDENT SANITATION BASIC METABOLIC PANEL Routine 03/14/2024 11:20 AM SUPERINTENDENT SANITATION CBC WITH DIFFERENTIAL Routine 03/14/2024 11:[address] CHEST ABDOMEN PELVIS W CONT Routine 03/07/2024 2:16 PM SUPERINTENDENT SANITATION from Last 3 Months Results * COMPREHENSIVE METABOLIC PANEL (03/14/2024 11:35 AM SUPERINTENDENT SANITATION) Blood us Yury Peralta MD CHEMISTRY ORDERABLES Final Resu lt * BASIC METABOLIC PANEL (03/14/2024 11:20 AM SUPERINTENDENT SANITATION) Blood us Yury Peralta MD CHEMISTRY ORDERABLES Final Resu lt * CBC WITH DIFFERENTIAL (03/14/2024 11:11 AM SUPERINTENDENT SANITATION) Blood us Yury Peralta MD HEMATOLOGY ORDERABLES Final Res ult * CT CHEST ABDOMEN PELVIS W CONT (03/07/2024 2:16 PM SUPERINTENDENT SANITATION) Anatomical Region Laterality Modality Chest Other us Yury Peralta MD CT ORDERABLES Final Result from Last 3 Months Insurance [employer] [facility] HUMANA [employer] [facility] RX [employer] Medicare Part D RX COVARRUBIAS PLANS (INTERNAL) [facility] Internal Plans Advance Directives For more information, please contact: [phone] * Full Code (Latest Code Status on File) Date Activated Date Inactivated Comments 09/03/2022 1:45 PM 09/12/2022 4:08 PM * Full Code Date Activated Date Inactivated Comments 09/03/2022 8:49 AM 09/03/2022 1:45 PM * Full Code Date Activated Date Inactivated Comments 09/03/2022 6:04 AM 09/03/2022 8:48 AM * Full Code Date Activated Date Inactivated Comments 04/28/2022 11:28 AM 04/28/2022 4:35 PM Care Teams Silk Weaver Relationship Specialty Start Date End Date Diego Antoine MD [address] [place] [address] PCP - General Internal Medicine 01/31/22
== END 2024-04-18 06:32 | disposition home or self-care (01) ==
PROVIDERS: Emergency Provider Emergency Medicine; PCP Internal Medicine
DX: R07.9 Chest pain, unspecified (principal); J44.9 Chronic obstructive pulmonary disease, unspecified; Z20.822 Contact with and (suspected) exposure to COVID-19; E11.22 Type 2 diabetes mellitus with diabetic chronic kidney disease; I12.9 Hypertensive chronic kidney disease with stage 1 through stage 4 chronic kidney disease, or unspecified chronic kidney disease; N18.9 Chronic kidney disease, unspecified; D64.9 Anemia, unspecified; E78.5 Hyperlipidemia, unspecified; G47.33 Obstructive sleep apnea (adult) (pediatric); K21.9 Gastro-esophageal reflux disease without esophagitis; Z86.0100 Personal history of colon polyps, unspecified; Z87.891 Personal history of nicotine dependence; Z79.899 Other long term (current) drug therapy; I44.0 Atrioventricular block, first degree; R94.31 Abnormal electrocardiogram [ECG] [EKG]; I51.7 Cardiomegaly
CPT/HCPCS: 36415; 71045; 80053; 83690; 83735; 84484; 85025; 85610; 85730; 87636; 93005; 94640; 96374; 96375; 99284; J2919

== ENCOUNTER 2024-05-20 08:01 | Outpatient (CLI) | payer MEDICARE, SELFPAY ==
--- NOTE | 2024-05-20 | EST_ITS ---
Patient Info Name: Kevin Ghotra Age: 74 years : 1950 Gender: Male Ht: 72 in Wt: 185 lbs BSA: 2.07 m2 HR: 65 bpm BP: 192 / 92 mmHg Exam Date: 05/20/2024 8:59 AM Exam Location: Echo Lab Patient Status: Outpatient Admit Date: 05/20/2024 Staff Ordering Physician: Diego Antoine MD Attending Provider: Diego Antoine MD Exercise Technologist: Jaki Michael [facility] Exercise Physician: Jesus Bardales DO Exam Type: CA stress margaret w NM Study Info A regadenoson stress test was performed. Summary 1. 1. Negative lexiscan stress test for ischemic ST changes by ECG criteria. 2. 2. Baseline hypertension. 3. 3. Nuclear scan to follow and will be reported separately. Please correlate with it. 4. 4. Patient informed of the above results. Protocol: Lexiscan Stress ECG Details Stage: REST Duration (min): 3 min : 57 sec HR (bpm): 64 SBP (mmHg): 192 DBP (mmHg): 92 Stage: REST Duration (min): 7 min : 26 sec HR (bpm): 68 SBP (mmHg): 192 DBP (mmHg): 92 Stage: STAGE 1 Duration (min): 0 min : 59 sec HR (bpm): 78 SBP (mmHg): 192 DBP (mmHg): 92 Stage: RECOVERY Duration (min): 1 min : 0 sec HR (bpm): 96 SBP (mmHg): 193 DBP (mmHg): 104 Stage: RECOVERY Duration (min): 2 min : 0 sec HR (bpm): 93 SBP (mmHg): 193 DBP (mmHg): 104 Stage: RECOVERY Duration (min): 3 min : 0 sec HR (bpm): 91 SBP (mmHg): 193 DBP (mmHg): 104 Stage: RECOVERY Duration (min): 3 min : 8 sec HR (bpm): 90 SBP (mmHg): 179 DBP (mmHg): 88 Rest HR: 68 bpm Peak HR: 97 bpm Rest Sys BP: 192 mmHg Peak Sys BP: 193 mmHg Max Pred HR: 148 bpm % Max Pred HR: 66 % Target HR: 126 bpm Max RPP: 18,721 bpm*mmHg Termination Reason: Completed protocol Cardiac Symptoms: None Total Time: 1 min : 0 sec Rest Rosen BP: 92 mmHg Peak Rosen BP: 104 mmHg Total Dose: 0.4 mg Resting ECG Sinus rhythm. Stress ECG No ST changes. Arrhythmias None. Report Signatures
--- NOTE | 2024-05-20 | ECHO_ITS ---
Patient Info Name: Kevin Ghotra Age: 74 years : 1950 Gender: Male Ht: 72 in Wt: 185 lbs BSA: 2.07 m2 HR: 78 bpm BP: 181 / 104 mmHg Technical Quality: Fair Exam Date: 05/20/2024 10:12 AM Exam Location: Echo Lab Patient Status: Outpatient Admit Date: 05/20/2024 Staff Ordering Physician: Diego Antoine MD Radio Frequency Design Engineer: Dustin Stanley RDCS Attending Provider: Diego Antoine MD Exam Type: CA echo doppler color flow Study Info Indications - DYSPNEA - ABN EKG - CHEST PAIN Complete two-dimensional, color flow and Doppler transthoracic echocardiogram is performed. Summary 1. Complete two-dimensional, color flow and Doppler transthoracic echocardiogram is performed. 2. Left ventricular chamber dimension is normal. 3. Ventricular septum is mildly sigmoid shaped. No resting LVOT obstruction. 4. Left ventricular systolic function is normal, estimated at 55-60%. 5. The left ventricular diastolic function is grade I diastolic dysfunction. 6. E/e' 10 is mildly elevated. 7. Left atrial chamber dimension is mildly enlarged. 8. There is mild aortic valve regurgitation. 9. There is moderate mitral valve regurgitation. Left Ventricle E/e' 10 is mildly elevated. Ventricular septum is mildly sigmoid shaped. No resting LVOT obstruction. Left ventricular chamber dimension is normal. Left ventricular systolic function is normal, estimated at 55-60%. The left ventricular diastolic function is grade I diastolic dysfunction. Right Ventricle Right ventricular chamber dimension is normal. Right ventricular systolic function is normal. Left Atria Left atrial chamber dimension is mildly enlarged. Right Atria Right atrial chamber dimension is normal. Aortic Valve The aortic valve is trileaflet. There is no aortic valve stenosis. There is mild aortic valve regurgitation. Pulmonic Valve There is no pulmonic regurgitation. Mitral Valve There is no mitral valve stenosis. There is moderate mitral valve regurgitation. Tricuspid Valve There is no tricuspid valve regurgitation. Pericardium/Pleural There is no pericardial effusion. Inferior Vena Cava Normal inferior vena cava with >50% collapse upon inspiration consistent with normal right atrial pressure, 5 mmHg. Aorta The aortic root size at the sinus of Valsalva is normal. Left Ventricular Outflow Tract Name Value Normal LVOT 2D LVOT Diameter 2.0 cm LVOT Doppler LVOT Peak Velocity 80 cm/s LVOT Peak Gradient 3 mmHg LVOT Mean Gradient 2 mmHg LVOT VTI 18 cm LVOT VTI/AV VTI Ratio 0.7 LVOT Stroke Volume 58 ml LVOT CO 3.9 l/min LVOT CI 1.9 l/min/m2 Pulmonic Valve Name Value Normal RVOT Doppler RVOT Peak Gradient 2 mmHg PV Doppler PV Peak Velocity 81 cm/s PV Peak Gradient 3 mmHg Mitral Valve Name Value Normal MV Doppler MV Peak Gradient 4 mmHg MV Mean Gradient 2 mmHg MV Decel Atkinson 409 cm/s2 MV PHT 50 ms MV Area (PHT) 4.4 cm2 4.0-5.0 MV Area (Cont Eq VTI) 1.9 cm2 MV Diastolic Function MV E Peak Velocity 70 cm/s MV A Peak Velocity 108 cm/s MV E/A 0.6 MV Decel Time 171 ms MV Annular TDI MV Septal e' Velocity 4.6 cm/s >=8.0 MV E/e' (Septal) 15.2 <=8.0 MV Lateral e' Velocity 9.2 cm/s >=10.0 MV E/e' (Lateral) 7.6 <=8.0 MV e' Average 6.91 MV E/e' (Average) 11.4 Tricuspid Valve Name Value Normal Estimated PAP/RSVP RA Pressure 5 mmHg <=5 TV Annular TDI TV Lateral Rhonda s' Velocity 8.0 cm/s 9.5-18.7 Aorta Name Value Normal Ascending Aorta Ao Root Diameter (MM) 3.9 cm Ao Root Diam Index (MM) 1.9 cm/m2 Ao Sinotub Junction Diameter 3.1 cm 2.6-3.2 Aortic Valve Name Value Normal AV Doppler AV Peak Velocity 104 cm/s AV Peak Gradient 4 mmHg AV Mean Gradient 3 mmHg AV VTI 25 cm AV Area (Cont Eq VTI) 2.4 cm2 >=3.0 AV Area (Cont Eq Alden) 2.5 cm2 AV V1/V2 Ratio 0.77 AV Regurgitation 2D LVOT Area 3.2 cm2 AV Regurgitation Doppler AR Decel Time 2,357 ms AR Decel Atkinson 181 cm/s2 AR PHT 683 ms Ventricles Name Value Normal LV Dimensions 2D/MM IVS Diastolic Thickness (2D) 1.9 cm 0.6-1.0 LVID Diastole (2D) 4.0 cm 4.2-5.8 LVIW Diastolic Thickness (2D) 1.2 cm 0.6-1.0 LVID Systole (2D) 2.8 cm 2.5-4.0 LVOT Diameter 2.0 cm LV Mass (2D Cubed) 244.24 g 88.00-224.00 LV Mass Index (2D Cubed) 118 g/m2 49-115 Relative Wall Thickness (2D) 0.58 LV Fractional Shortening/Ejection Fraction 2D/MM LV Fractional Shortening (2D) 31 % 25-43 LV EF (2D Teicholz) 59 % 52-72 LV Diastolic Volume (4C MOD) 102 ml LV EF (4C MOD) 39 % LV Diastolic Volume (2C MOD) 124 ml LV EF (2C MOD) 68 % LV Diastolic Volume (BP MOD) 112 ml 62-150 LV Diastolic Volume Index (BP MOD) 54 ml/m2 34-74 LV Systolic Volume (BP MOD) 51 ml 21-61 LV Systolic Volume Index (BP MOD) 25 ml/m2 11-31 LV EF (BP MOD) 55 % 52-72 LV Diastolic Length (4C) 8.4 cm LV Systolic Length (4C) 7.8 cm LV Stroke Volume (4C MOD) 39 ml Atria Name Value Normal LA Dimensions LA Dimension (MM) 3.9 cm 3.0-4.1 LA Volume (4C A-L) 43 ml LA Volume (BP A-L) 57 ml RA Dimensions RA Area (4C) 11.6 cm2 <=18.0 Report Signatures
--- NOTE | ~2024-05-20 | NM_ITS ---
EXAMINATION: NM margaret stress w perfusion DATE: 05/20/2024 10:27 INDICATION: Chest pain. Dyspnea. Abnormal EKG. TECHNIQUE: Rest images were obtained following intravenous administration of 10.9 mCi Tc99m tetrofosm in (Myoview). The patient was infused intravenously with Lexiscan (Regadenoson). Then, 34.6 mCi Tc99m tetrofosmin (Myoview) was administered intravenously, and stress images were obtained in the supine position. Patient was unable to tolerate prone imaging. Data was reconstructed into short axis and ho rizontal and vertical long axis SPECT images. Gated SPECT images were also obtained. COMPARISON: None. FINDINGS: Large severe nonreversible perfusion defect consistent with infarct involving the apical la teral, mid and basilar anterolateral, mid and basilar inferolateral and portions of the apical mid an d basilar inferior segments. No reversible ischemia. There is normal left ventricular chamber size, w all motion and ejection fraction. Left ventricular ejection fraction measures 51%. IMPRESSION: 1. Large severe nonreversible perfusion defect centered at the lateral and inferolateral watters with i nfarct involving primarily the circumflex coronary artery vascular distribution. No evident reversibl e ischemia. 2. Left ventricular ejection fraction measuring 51%. Reviewed, dictated and finalized at location A. R HEAD PERFORATOR IMPRESSION: 1. Large severe nonreversible perfusion defect centered at the lateral and infe rolateral watters with infarct involving primarily the circumflex coronary artery vascular distribution. No evident reversible ischemia. 2. Left ventricular ejection fraction measuring 51%.
--- OUTSIDE RECORDS SUMMARY | 2024-05-20 08:08 | XMS_ITS | Clinical Summary ---
Author Organization [facility] Irwin Villalobos Address [address] [place] [address] Care Team Providers Care Credit Operations Specialist Name Role Phone Diego Antoine MD Primary Care Provider [phone] Allergies No known active allergies Medications metoprolol [...] Encounters Date Type Department Care Team Description 05/16/2024 Orders Only [facility] Oncology and Hematology - Eddie [address] [place] [address] Yury Peralta MD Chronic anemia 05/09/2024 Orders Only [facility] Oncology and Hematology - Eddie [address] [place] [address] Yury Peralta MD Benign hypertension 05/02/2024 Orders Only [facility] Oncology and Hematology - Eddie [address] [place] [address] Yury Peralta MD Chronic anemia 04/25/2024 Orders Only [facility] Oncology and Hematology - Eddie [address] [place] [address] Yury Peralta MD Benign hypertension 04/20/2024 External Device Data STL ABSTRACTION Provider, Abstract 04/19/2024 External Device Data STL ABSTRACTION Provider, Abstract 04/18/2024 Orders Only [facility] Oncology and Hematology - Eddie [address] [place] [address] Yury Peralta MD Chronic anemia 04/12/2024 External Device Data STL ABSTRACTION Provider, Abstract 04/11/2024 Orders Only [facility] Oncology and Hematology - Eddie [address] [place] [address] Yury Peralta MD Benign hypertension 04/04/2024 Orders Only [facility] Oncology and Hematology - Eddie [address] [place] [address] Yury Peralta MD Chronic anemia 03/28/2024 Orders Only [facility] Oncology and Hematology - Eddie [address] [place] [address] Yury Peralta MD Benign hypertension 03/21/2024 Orders Only [facility] Oncology and Hematology - Eddie [address] [place] [address] Yury Peralta MD Chronic anemia 03/15/2024 Orders Only [facility] Oncology and Hematology - Eddie [address] [place] [address] Yury Peralta MD 03/14/2024 10:00 AM NURSE ADVOCATE Office Visit [facility] Oncology and Hematology - Eddie [address] [place] [phone] Yury Peralta MD Cancer of distal third of esophagus (CMS/HCC) (Primary Dx); Benign hypertension 03/07/2024 Orders Only [facility] Oncology and Hematology - Eddie [address] [place] [address] Yury Peralta MD Chronic anemia 02/29/2024 Orders Only [facility] Oncology and Hematology - Eddie [address] [place] [address] Yury Peralta MD Benign hypertension 02/22/2024 Orders Only [facility] Oncology and Hematology - Eddie [address] [place] [address] Yury Peralta MD Chronic anemia from Last [...] Sex Assigned at Male 03/14/2024 1:14 AM NURSE ADVOCATE Legal Sex Male 10:54 AM CDT Gender Identity Male 03/14/2024 1:14 AM NURSE ADVOCATE Sexual Orientation Straight 03/14/2024 1: 14 AM NURSE ADVOCATE Last Filed Vital Signs Vital Sign Reading Time Taken Comments Blood Pressure 146/86 03/14/2024 10:30 AM NURSE ADVOCATE Pulse 79 03/14/2024 10:27 AM NURSE ADVOCATE Temperature 36.7 C (98 F) 03/14/2024 10:27 AM NURSE ADVOCATE Respiratory Rate 15 03/14/2024 10:27 AM NURSE ADVOCATE Oxygen Saturation 95% 03/14/2024 10:27 AM NURSE ADVOCATE Inhaled Oxygen Concentration - - Weight 86.7 kg (191 lb 3.2 oz) 03/14/2024 10:27 AM NURSE ADVOCATE Height 182.9 cm (6') 12/04/2022 8:44 AM CDT Body Mass Index 25.93 12/04/2022 8:44 AM CDT Plan of Treatment Upcoming Encounters Date Type Department Care Team (Late st Contact Info) Description 07/15/2024 11:45 AM CDT Office Visit [facility] Oncology and Hematology - Eddie [address] [place] [address] Yury Peralta MD [address] [facility] [address] [place] [address] Health Maintenance Due Date Last [...] series) 2027 Medical Devices Implanted Type Area Hematology Oncology Consultant Device Identifier Shelf Expiration Date Model / Serial / Lot Clip Ligating Horizon Lg Ti [id number] - Csc - [id number] Implanted:Qty : 1 on 09/03/2022 by Rodney Musa MD at [facility] Clip N/A: Esophagus TELEFLEX- WECK CLOSURE SYS 12/08/2026 [id number] / / [id number] Clip Ligating Horizon Med Ti [id number] - Csc - [id number] Implanted:Qty : 1 on 09/03/2022 by Rodney Musa MD at [facility] Clip N/A: Esophagus TELEFLEX- WECK CLOSURE SYS [id number] 05/19/2027 [id number] / / [id number] Procedures Procedure Name Priority Date/Time Associated Diagnosis Comments COMPREHENSIVE METABOLIC PANEL Routine 03/14/2024 11:35 AM NURSE ADVOCATE BASIC METABOLIC PANEL Routine 03/14/2024 11:20 AM NURSE ADVOCATE CBC WITH DIFFERENTIAL Routine 03/14/2024 11:[address] CHEST ABDOMEN PELVIS W CONT Routine 03/07/2024 2:16 PM NURSE ADVOCATE from Last 3 Months Results * COMPREHENSIVE METABOLIC PANEL (03/14/2024 11:35 AM NURSE ADVOCATE) Blood us Yury Peralta MD CHEMISTRY ORDERABLES Final Resu lt * BASIC METABOLIC PANEL (03/14/2024 11:20 AM NURSE ADVOCATE) Blood us Yury Peralta MD CHEMISTRY ORDERABLES Final Resu lt * CBC WITH DIFFERENTIAL (03/14/2024 11:11 AM NURSE ADVOCATE) Blood us Yury Peralta MD HEMATOLOGY ORDERABLES Final Res ult * CT CHEST ABDOMEN PELVIS W CONT (03/07/2024 2:16 PM NURSE ADVOCATE) Anatomical Region Laterality Modality Chest Other us Yury Peralta MD CT ORDERABLES Final Result from Last 3 Months Insurance [id number] [facility] HUMANA CHOICE PPO [facility] RX Petsy Medicare Part D RX COVARRUBIAS PLANS (INTERNAL) [facility] Internal Plans Advance Directives For more information, please contact: [phone] * Full Code (Latest Code Status on File) Date Activated Date Inactivated Comments 09/03/2022 1:45 PM 09/12/2022 4:08 PM * Full Code Date Activated Date Inactivated Comments 09/03/2022 8:49 AM 09/03/2022 1:45 PM * Full Code Date Activated Date Inactivated Comments 09/03/2022 6:04 AM 09/03/2022 8:48 AM * Full Code Date Activated Date Inactivated Comments 04/28/2022 11:28 AM 04/28/2022 4:35 PM Care Teams Credit Operations Specialist Relationship Specialty Start Date End Date Diego Antoine MD [address] [place] [address] PCP - General Internal Medicine 01/31/22
--- OUTSIDE RECORDS SUMMARY | 2024-05-20 08:08 | XMS_ITS | Encounter Summary ---
Author Organization [facility] JOSÉ MIGUELCoinapult [facility] Address [address] [place] [address] Care Team Providers Care Soap Slabber Name Role Phone Diego Antoine MD Primary Care Provider [phone] Encounter Details Date Type Department Care Team ([facility] st Contact Info) Description 05/16/2024 Orders Only [facility] Oncology and Hematology - [place] [address] [facility] [address] [place] [address] Yury Peralta MD [address] [facility] [address] [place] [address] Chronic anemia Social History Tobacco [...] Sex Assigned at Male 03/14/2024 1:14 AM OIL WELL GUN PERFORATOR OPERATOR Legal Sex Male 10:54 AM CDT Gender Identity Male 03/14/2024 1:14 AM OIL WELL GUN PERFORATOR OPERATOR Sexual Orientation Straight 03/14/2024 1: 14 AM OIL WELL GUN PERFORATOR OPERATOR documented as of this encounter Plan of Treatment Upcoming Encounters Date Type Department Care Team (Late st Contact Info) Description 07/15/2024 11:45 AM CDT Office Visit [facility] - [place] [address] [facility] [address] [place] [address] Yury Peralat MD [address] [facility] [address] [place] [address] documented as of this encounter Visit Diagnoses Diagnosis Chronic anemia Anemia, unspecified documented in this encounter Care Teams Soap Slabber Relationship Specialty Start Date End Date Diego Antoine MD [address] [place] [address] PCP - General Internal Medicine 01/31/22 documented as of this encounter
--- OUTSIDE RECORDS SUMMARY | 2024-05-20 08:08 | XMS_ITS | Clinical Summary ---
Author Organization [facility] Address [address] [place] [address] Care Team Providers Care Drapery And Upholstery Measurer Name Role Phone Unavailable Primary Care Provider [...] Priority Date/Time Associated Diagnosis Comments COLONOSCOPY Routine MULTIMEDIA JOURNALIST from Last 3 Months or Most Recently Relevant to Health Maintenance Results * Colonoscopy ( MULTIMEDIA JOURNALIST) Narrative [facility] TO EPIC CONVERSION - MULTIMEDIA JOURNALIST Documented hx of procedure Procedure Note , Generic Conversion, - 01/31/2018 Documented hx of procedure us Generic Conversion Md GRAY GI PROCEDURE ORDERABLES Final Result [facility] TO EPIC CONVERSION from Last 3 Months or Most Recently Relevant to Health Maintenance
--- NOTE | 2024-05-23 13:06 | WPDPFTINT ---
PFT Procedure Performed PFT Procedure Performed Plethysmography (Lung Vol) Diffusing Cap (DLCO) Flow Vol Loop Spirometry w/o Bronchodil PFT Interpretation Lung volumes were measured with the body plethysmography method. The diminished lung volumes are indicative of restrictive respiratory disease. Spirometry showed diminished expiratory flow rates and a normal FEV1 to FVC ratio 65, also consistent with restrictive respiratory disease. No post bronchodilator study conducted. Lung diffusion capacity is mildly reduced at 62% predicted. This diminished lung diffusion capacity coupled with a low alveolar volume and a normal DLCO/VA ratio may indicate loss of alveolar capillary structure with loss of lung volume as seen in interstitial lung disease. Clinical correlation advised. Impression: Mild restrictive respiratory disease; mild reduction in lung diffusion capacity.
== END 2024-05-20 08:02 | disposition home or self-care (01) ==
PROVIDERS: PCP Internal Medicine; Visit Provider Internal Medicine
DX: R94.31 Abnormal electrocardiogram [ECG] [EKG] (principal); R94.2 Abnormal results of pulmonary function studies; R93.1 Abnormal findings on diagnostic imaging of heart and coronary circulation; R94.39 Abnormal result of other cardiovascular function study; R07.9 Chest pain, unspecified; R06.02 Shortness of breath
CPT/HCPCS: 78452; 93017; 93306; 94375; 94726; 94729; A9502; J2785

== ENCOUNTER 2024-07-04 09:13 | Outpatient (CLI) | payer MEDICARE, SELFPAY ==
--- NOTE | ~2024-07-04 | CT_ITS ---
Clinical Indication: Esophageal cancer CT Scan of the Chest, Abdomen, and Pelvis with Contrast: Technique: Contiguous sections were acquired throughout the chest, abdomen, and pelvis after intraven ous administration of 100 cc of Omnipaque 350. Dose reduction technique was used on this scan by uti lizing automated exposure control and iterative reconstruction technique. The dose-length product (DL P) was 899.60 mGy-cm. Comparison: 03/07/2024 Findings: There is no evidence of any significant mediastinal, hilar or axillary lymphadenopathy. The mediastin al soft tissues and vascular structures appear normal. No pericardial effusion. Status post esophagec librado with gastric pull-through surgery. Stable minimal right pleural effusion. No left pleural effusion. There is biapical scarring and minimal emphysema. There are minimal tree-in-bud opacities in the left lower lobe. The liver, spleen, pancreas, gallbladder, and adrenal glands are unremarkable. Bilateral renal cysts are present. Nonobstructing left renal stones are present. No evidence of aortic aneurysm. No lympha denopathy. No bowel obstruction or bowel wall thickening. There is no evidence to suggest acute appendicitis. Urinary bladder is unremarkable. No pelvic mass. No ascites. Impression: No significant interval change. Status post esophagectomy and gastric pull-through surgery. No evidence for active malignancy or meta static disease. Small right pleural effusion. Nonobstructing left renal stones. Reviewed, dictated and finalized at [facility]. Impression: No significant interval change. Status post esophagectomy and gastric pull-through surgery. No evidence for act felipe malignancy or metastatic disease. Small right pleural effusion. Nonobstructing left renal stones.
[2024-07-04 09:41] LABS: Estimated Glomerular Filt Rate 35
--- OUTSIDE RECORDS SUMMARY | 2024-07-04 10:00 | XMS_ITS | Clinical Summary ---
Author Organization [facility] Address [address] [place] [address] Care Team Providers Care Sand Mill Operator Name Role Phone Unavailable Primary Care Provider [...] Vaccine ( - 2023-2 5 season) 2023 RSV Immunization or 60+ Years (1 - [...] Priority Date/Time Associated Diagnosis Comments COLONOSCOPY Routine PULP ROLLER from Last 3 Months or Most Recently Relevant to Health Maintenance Results * Colonoscopy ( PULP ROLLER) Narrative [facility] TO EPIC CONVERSION - PULP ROLLER Documented hx of procedure Procedure Note , Generic Conversion, - 01/31/2018 Documented hx of procedure us Generic Conversion Md GRAY GI PROCEDURE ORDERABLES Final Result [facility] TO EPIC CONVERSION from Last 3 Months or Most Recently Relevant to Health Maintenance
--- OUTSIDE RECORDS SUMMARY | 2024-07-04 10:00 | XMS_ITS | Encounter Summary ---
Author Organization [facility] JOSÉ MIGUELArtisan Mobile [facility] Address [address] [place] [address] Care Team Providers Care Glove Operator Name Role Phone Diego Antoine MD Primary Care Provider [phone] Encounter Details Date Type Department Care Team ([facility] st Contact Info) Description 07/04/2024 Orders Only [facility] Oncology and Hematology - [place] [address] [facility] [address] [place] [address] Yury Peralta MD [address] [facility] [address] [place] [address] Benign hypertension Social History Tobacco Use Types Packs/Day Years [...] Sex Assigned at Male 03/14/2024 1:14 AM COTTON BALER Legal Sex Male 10:54 AM CDT Gender Identity Male 03/14/2024 1:14 AM COTTON BALER Sexual Orientation Straight 03/14/2024 1: 14 AM COTTON BALER documented as of this encounter Plan of Treatment Upcoming Encounters Date Type Department Care Team (Late st Contact Info) Description 07/15/2024 11:45 AM CDT Office Visit [facility] Oncology and Hematology - [place] [address] [facility] [address] [place] [address] Yury Peralta MD [address] [facility] [address] [place] [address] documented as of this encounter Visit Diagnoses Diagnosis Benign hypertension Essential hypertension, benign documented in this encounter Care Teams Glove Operator Relationship Specialty Start Date End Date Diego Antoine MD [address] [place] [address] PCP - General Internal Medicine 01/31/22 documented as of this encounter
--- OUTSIDE RECORDS SUMMARY | 2024-07-04 10:00 | XMS_ITS | Clinical Summary ---
Author Organization [facility] Irwin Villalobos Address [address] [place] [address] Care Team Providers Care Ui Engineer Name Role Phone Diego Antoine MD Primary Care Provider [phone] Allergies No known active allergies Medications metoprolol [...] Encounters Date Type Department Care Team Description 07/04/2024 Orders Only [facility] Oncology and Hematology - [place] [address] [place] [address] Yury Peralta MD Benign hypertension 06/20/2024 Orders Only [facility] Oncology and Hematology - [place] [address] [place] [address] Yury Peralta MD Benign hypertension 06/13/2024 Orders Only [facility] Oncology and Hematology - [place] [address] [place] [address] Yury Peralta MD Chronic anemia 06/06/2024 Orders Only [facility] Oncology and Hematology - [place] [address] [place] [address] Yury Peralta MD Benign hypertension 05/31/2024 External Device Data STL ABSTRACTION Provider, Abstract 05/30/2024 Orders Only [facility] Oncology and Hematology - [place] [address] [place] [address] Yury Peralta MD Chronic anemia 05/23/2024 Orders Only [facility] Oncology and Hematology - [place] [address] [place] [address] Yury Peralta MD Benign hypertension 05/16/2024 Orders Only [facility] Oncology and Hematology - [place] [address] [place] [address] Yury Peralta MD Chronic anemia 05/09/2024 Orders Only [facility] Oncology and Hematology - [place] [address] [place] [address] Yury Peralta MD Benign hypertension 05/02/2024 Orders Only [facility] Oncology and Hematology - [place] [address] [place] [address] Yury Peralta MD Chronic anemia 04/25/2024 Orders Only [facility] Oncology and Hematology - [place] [address] [place] [address] Yury Peralta MD Benign hypertension 04/20/2024 External Device Data STL ABSTRACTION Provider, Abstract 04/19/2024 External Device Data STL ABSTRACTION Provider, Abstract 04/18/2024 Orders Only [facility] Oncology and Hematology - [place] [address] [place] [address] Yury Peralta MD Chronic anemia 04/12/2024 External Device Data STL ABSTRACTION Provider, Abstract 04/11/2024 Orders Only [facility] Oncology and Hematology - [place] [address] [place] [address] Yury Peralta MD Benign hypertension from Last 3 Months Family History Medical [...] Sex Assigned at Male 03/14/2024 1:14 AM PUBLIC POLICY MANAGER Legal Sex Male 10:54 AM CDT Gender Identity Male 03/14/2024 1:14 AM PUBLIC POLICY MANAGER Sexual Orientation Straight 03/14/2024 1: 14 AM PUBLIC POLICY MANAGER Last Filed Vital Signs Vital Sign Reading Time Taken Comments Blood Pressure 146/86 03/14/2024 10:30 AM PUBLIC POLICY MANAGER Pulse 79 03/14/2024 10:27 AM PUBLIC POLICY MANAGER Temperature 36.7 C (98 F) 03/14/2024 10:27 AM PUBLIC POLICY MANAGER Respiratory Rate 15 03/14/2024 10:27 AM PUBLIC POLICY MANAGER Oxygen Saturation 95% 03/14/2024 10:27 AM PUBLIC POLICY MANAGER Inhaled Oxygen Concentration - - Weight 86.7 kg (191 lb 3.2 oz) 03/14/2024 10:27 AM PUBLIC POLICY MANAGER Height 182.9 cm (6') 12/04/2022 8:44 AM CDT Body Mass Index 25.93 12/04/2022 8:44 AM CDT Plan of Treatment Upcoming Encounters Date Type Department Care Team (Late st Contact Info) Description 07/15/2024 11:45 AM CDT Office Visit [facility] Oncology and Hematology - [place] [address] [facility] [address] [place] [address] Yury Peralta MD [address] [facility] [address] [place] [address] Health Maintenance Due Date Last Done Comments DIABETES ANNUAL FOOT EXAM 1970 DIABETES ANNUAL RETINAL EXAM 1970 DIABETES HBA1C Q 6 MONTHS 1970 DIABETES MICROALBUMIN ANNUAL SCREEN 1970 LDL CHOLESTEROL ANNUAL 1970 DTAP/TDAP/TD VACCINES (1 - Tdap) 1971 PNEUMOCOCCAL VACCINE 50+ YEARS (1 of 2 - PCV) 04/10/18 72 COLORECTAL SCREENING 1997 Colorectal Cancer Screening 1997 FIT-DNA Q 3 years 1997 FIT/FOBT Q 1 year 1997 Flex Sig/CT Colonography Q 5 years 1997 Lung Cancer Screening 2002 ZOSTER VACCINE (1 of 2) 2002 Abdominal Aortic Aneurysm (AAA) Screening 2017 INFLUENZA VACCINE (#1) 2023 Medicare Advantage (ID) Prev entative Visit/Annual Wellness Visit 03/30/2024 RSV VACCINE (60+ or ) (1 - 1-dose 75+ series) 2027 Medical Devices Implanted Type Area Php Lamp Developer Device Identifier Shelf Expiration Date Model / Serial / Lot Clip Ligating Horizon Lg Ti [id number] [place] [facility] [id number] Implanted:Qty : 1 on 09/03/2022 by Rodney Musa MD at [facility] Clip N/A: Esophagus TELEFLEX- WECK CLOSURE SYS 12/08/2026 [id number] / / [id number] Clip Ligating Horizon Med Ti [id number] - Csc - [id number] Implanted:Qty : 1 on 09/03/2022 by Rodney Musa MD at [facility] Clip N/A: Esophagus TELEFLEX- WECK CLOSURE SYS [id number] 05/19/2027 [id number] / / [id number] Insurance HUMANA CHOICE PPO [facility] HUMANA CHOICE PPO [facility] RX [employer] Medicare Part D RX [employer] PLANS (INTERNAL) [facility] Plans Advance Directives For more information, please contact: [phone] * Full Code (Latest Code Status on File) Date Activated Date Inactivated Comments 09/03/2022 1:45 PM 09/12/2022 4:08 PM * Full Code Date Activated Date Inactivated Comments 09/03/2022 8:49 AM 09/03/2022 1:45 PM * Full Code Date Activated Date Inactivated Comments 09/03/2022 6:04 AM 09/03/2022 8:48 AM * Full Code Date Activated Date Inactivated Comments 04/28/2022 11:28 AM 04/28/2022 4:35 PM Care Teams Ui Engineer Relationship Specialty Start Date End Date Diego Antoine MD [address] [place] [address] PCP - General Internal Medicine 01/31/22
== END 2024-07-04 09:14 | disposition home or self-care (01) ==
PROVIDERS: PCP Internal Medicine; Visit Provider Internal Medicine Hematology & Oncology
DX: C15.5 Malignant neoplasm of lower third of esophagus (principal); Z98.890 Other specified postprocedural states
CPT/HCPCS: 71260; 74177; Q9967

== ENCOUNTER 2024-08-04 20:02 | Inpatient (IN) | payer MEDICARE, SELFPAY ==
[2024-08-04] VITALS (14 sets, daily range): BP systolic 135–172; BP diastolic 83–94; PULSE 67–83; RESP 15–23; TEMP 37.1; O2SAT 96–100; BMI 26.4
--- NOTE | ~2024-08-04 | CT_ITS ---
Clinical Indication: Chest pain CT Scan of the Chest, Abdomen, and Pelvis with Contrast: Technique: Contiguous sections were acquired throughout the chest, abdomen, and pelvis after intraven ous administration of 100 cc of Omnipaque 350. Dose reduction technique was used on this scan by uti lizing automated exposure control and iterative reconstruction technique. The dose-length product (DL P) was 1584.40 mGy-cm. Comparison: 07/04/2024 Findings: There is no evidence of any significant mediastinal, hilar or axillary lymphadenopathy. No aortic ane urysm or dissection. No pulmonary embolus. Status post esophagectomy with gastric pull-through surger y. No pericardial effusion. Minimal bilateral pleural effusions are present. There is mild patchy groundglass opacity/consolidation in the left upper lobe, compatible with pneumo liz. Minimal apical emphysematous change present. There is mild bibasilar atelectatic change. The liver, spleen, pancreas, gallbladder, and adrenal glands are within normal limits. Multiple bilat eral renal cysts are present. Bilateral nonobstructing renal stones are present, measuring up to 6 mm . There are atherosclerotic calcifications of the aorta. No lymphadenopathy. No bowel obstruction or bowel wall thickening. There is no evidence to suggest acute appendicitis. Urinary bladder is unremarkable. Prostate gland minimally enlarged. No ascites. Impression: Patchy left upper lobe pneumonia. Minimal pleural effusions with mild bibasilar atelectatic change. Status post esophagectomy with gastric pull-through surgery. Minimal apical emphysematous change. Bilateral nonobstructing renal stones. Reviewed, dictated and finalized at [facility]. Impression: Patchy left upper lobe pneumonia. Minimal pleural effusions with mild bibasilar atelectatic change. Status post esophagectomy with gastric pull-through surgery. Minimal apical emphysematous change. Bilateral nonobstructing renal stones.
--- NOTE | ~2024-08-04 | XR_ITS ---
CHEST RADIOGRAPH, PA AND LATERAL CLINICAL HISTORY: chest pain/sob . COMPARISON: 04/18/2024 TECHNIQUE: PA and lateral views of the chest. FINDINGS A right subclavian central venous port catheter identified with its tip projecting over the cavoatria l junction. The remainder of the cardiomediastinal silhouette is otherwise unremarkable. Biapical scarring, right greater than left. The remainder of the lungs are otherwise clear. IMPRESSION: Biapical scarring, without focal infiltrate or effusion. Reviewed, dictated and finalized at location A.
--- OUTSIDE RECORDS SUMMARY | 2024-08-04 20:04 | XMS_ITS | Referral Summary ---
Author Organization [facility] [address] Address [address] [place] [address] Care Team Providers Care Outside Machinist Helper Name Role Phone Diego Antoine MD Primary Care Provider [phone] Encounters Date Type Department Care Team Description 08/04/2024 Telephone [place] Sales Force Developer at [address] [place] [address] Mady Delgado MA 07/27/2024 Results Follow-Up [place] Sales Force Developer at [address] [place] [address] Mady Delgado MA 07/26/2024 1:55 PM CDT Lab [facility] [address] [place] [address] Abnormal EKG 07/13/2024 1:00 PM CDT Office Visit [place] Sales Force Developer at [address] [place] [address] Jill Da Silva MD Essential hypertension (Primary Dx); TIA (transient ischemic attack); Mixed hyperlipidemia; Smoking hx; Chronic obstructive pulmonary disease, unspecified COPD type (HCC); Shortness of breath; Abnormal EKG 06/30/2024 ACO Quality [facility] Accountable Care Organization [address] [place] [address] Lynn Chanel 05/30/2024 Telephone [place] Sales Force Developer at [address] [place] [address] Kaelyn Vee from Last 3 Months Allergies No known active allergies Medications gabapentin (NEURONTIN) 100 mg capsule Take 2 capsules (200 mg total) by mouth 3 (three) times a day 3 Active HYDROcodone-marissa taminophen (NORCO) 5-325 mg per tablet Take 1 tablet by mouth every 4 (four) hours as needed for other 0 5 Active carvediloL (COREG) 25 mg tablet Take 1 tablet (25 mg total) by mouth 2 (two) times a day with meals Active pantoprazole DR (PROTONIX) 40 mg EC tablet Take 1 tablet (40 mg total) by mouth daily Active amLODIPine (NORVASC) 5 mg tablet Take 1 tablet (5 mg total) by mouth daily Active DULoxetine DR (CYMBALTA) 30 mg capsule Take 1 capsule (30 mg total) by mouth daily Active ferrous sulfate ER 324 mg (65 mg iron) EC tabletIndicatio ns:Iron Deficiency Anemia Take 65 mg by mouth daily with breakfast Active clopidogreL (PLAVIX) 75 mg tablet Take 1 tablet (75 mg total) by mouth daily Active rosuvastatin (CRESTOR) 10 mg tablet Take 1 tablet (10 mg total) by mouth daily Active aspirin 81 mg enteric coated tablet Take 1 tablet (81 mg total) by mouth daily Active cyanocobalamin, vitamin B-12, 500 mcg tablet,disinteg rating Place under the tongue Active furosemide (LASIX) 20 mg tablet Take 1 tablet (20 mg total) by mouth daily 90 tablet 3 5 Active Active Problems No known active problems Social History Tobacco Use Types Packs/Day Years Used Date Smoking Tobacco: Former Cigarettes Tobacco Cessation:Counseling Given: Not Answered Sex and Gender Information Value Date Recorded Sex Assigned at Not on file Legal 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 [employer] Gender Identity Not on file Sexual Orientation Not on file Last Filed Vital Signs Vital Sign Reading Time Taken Comments Blood Pressure 163/91 07/13/2024 1:16 PM CDT Pulse 58 07/13/2024 1:16 PM CDT Temperature - - Respiratory Rate - - Oxygen Saturation - - Inhaled Oxygen Concentration - - Weight 90.7 kg (200 lb) 07/13/2024 1:16 PM CDT Height 182.9 cm (6') 07/13/2024 1:16 PM CDT Body Mass Index 27.12 07/13/2024 1:16 PM CDT Plan of Treatment Not on file Procedures Procedure Name Priority Date/Time Associated Diagnosis Comments PRO B-TYPE NATRIURETIC PEPTIDE Routine 07/26/2024 1:58 PM CDT Abnormal EKG from Last 3 Months Results * (ABNORMAL) Pro B-type natriuretic peptide (07/26/2024 1:58 PM CDT) NT-proBNP 1,327(H) <=300 pg/mL Comment: Interpretive Comments: A. Dyspnea in Acute Care Setting All Ages: < 300 pg/ml, acute heart failure unlikely. < 50 yrs: 300 - 450 pg/ml, further investigation warranted. > 450 pg/ml, acute heart failure likely. 50 - 74 yrs: 300 - 900 pg/ml, further investigation warranted. > 900 pg/ml, acute heart failure likely . > or = 75 yrs: 450 - 1800 pg/ml, further investigation warranted. > 1800 pg/ml, acute heart failure likely. B. Non-acute Setting < 75 yrs < 125 pg/ml, rules out heart failure. > or = 125 pg/ml, further investigation warranted. > or = 75 yrs < 450 pg/ml, rules out heart failure. > or = 450 pg/ml, further investigation warranted. - Knowledge of each individual patient's NT-proBNP range may be more useful than using similar cut-points for every patient. Please note that marked elevations in NT-proBNP levels may be observed in state other than Left Ventricular Congestive Failure, including: acute coronary syndromes, right heart strain/failure (including pulmonary embolism and cor pulmonale), critical illness, renal failure, as well as advanced age. - References: 1. Kendra PALACIOS et.al. Eur Heart J. 2006:27:330-337. 2. Piter RW, Freddy AM. J. AM Yu Cardiol: Cardiovasc Imag. 2009;2: 216- 225. Interpretive Data Last Revised Date: 2017. Testing performed by: [facility], [address] [place] [address], [place]., [address] Blood 07/26/2024 1:58 PM CDT 07/26/2024 9:32 PM CDT us Jill Ayan Gondi MD LAB BLOOD ORDERABLES Final Result [facility] Department [place] [address] from Last 3 Months Insurance [facility] MEDICARE HMO Care Teams Outside Machinist Helper Relationship Specialty Start Date End Date Diego Antoine MD PCP - General Internal Medicine 07/28/23
--- OUTSIDE RECORDS SUMMARY | 2024-08-04 20:04 | XMS_ITS | Clinical Summary ---
Author Organization [facility] Address [address] [place] [address] Care Team Providers Care Paper Spooler Name Role Phone Unavailable Primary Care Provider [...] Vaccines (1 of 2) 2002 Pneumococcal Vaccine: 50+ Years (2 of 2 - PCV) 12/28/2016 12/29/2015, 1952 COVID-19 Vaccine ( - 2023-2 [...] Priority Date/Time Associated Diagnosis Comments COLONOSCOPY Routine FINANCIAL SERVICES COUNSELOR from Last 3 Months or Most Recently Relevant to Health Maintenance Results * Colonoscopy ( FINANCIAL SERVICES COUNSELOR) Narrative [facility] TO EPIC CONVERSION - FINANCIAL SERVICES COUNSELOR Documented hx of procedure Procedure Note , Generic Conversion, - 01/31/2018 Documented hx of procedure us Generic Conversion Md GRAY GI PROCEDURE ORDERABLES Final Result [facility] TO EPIC CONVERSION from Last 3 Months or Most Recently Relevant to Health Maintenance
--- OUTSIDE RECORDS SUMMARY | 2024-08-04 20:04 | XMS_ITS | Encounter Summary ---
Author Organization [facility] JOSÉ MIGUELRight Media [facility] Address [address] [place] [address] Care Team Providers Care Tucking Machine Operator Name Role Phone Diego Antoine MD Primary Care Provider [phone] Reason for Referral * CT Scan (Routine) - Pending Review Specialty Diagnoses / Procedures Referred By Contac t Referred To Contact Diagnoses Cancer of distal third of esophagus (CMS/HCC) Procedures CT CHEST ABDOMEN PELVIS W CONT Yury Peralta MD [email or web address] [place] [address] Phone: tel: fax: [place] [address] Referral ID Status Reason Start Date Expiration Date Visits Requested Visits Authorized [id number] Pending Review STL CTS 08/02/2024 09/02/2025 1 1 Encounter Details Date Type Department Care Team (Late st Contact Info) Description 08/02/2024 4:00 PM CDT Telephone Check Up [facility] Oncology and Hematology [address] [address] Yury Peralta MD [email or web address] [place] [address] 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 CURRENT TREATMENT Surveillance TREATMENT HISTORY EUS and biopsy done on April 28, 2022 Concurrent chemoradiation therapy with weekly carboplatin and Taxol started May 26, 2022. Status post esophagectomy done on September 03, 2022. Nivolumab cycle 1 started in November 06, 2022. Completed last treatment on November 10, 2023 SUBJECTIVE This is a phone visit with patient. He denies any tiredness and fatigue. Weight and appetite stable. Has been eating okay. No other new complaints. Review of system Constitutional: Patient did not mention fevers, sweats, denies any tiredness and fatigue, weight and appetite stable HEENT: Patient did not mention sinus congestion, hearing or vision problems Respiratory: Patient did not mention dyspnea, wheeze, denies any cough Cardiovascular: Patient did not mention chest pain, exertional chest pressure/discomfort, nausea, syncope, shortness of breath GI: Patient did not mention constipation, diarrhea, reflux symptoms, vomiting, : Patient did not mention dysuria, frequency, incontinence, urgency Integumentary system: no lymphadenopathy, sweats, flushing Musculoskeletal: Patient not mention: myalgia, arthralgia Neurological: Patient did not mention blurry or disturbed vision, numbness/weakness, dizziness Skin: No lumps, denies any itching 12 point review of system was reviewed Objective: Vital signs in last 24 hours: As per nursing note Exam: This is a phone visit [facility] Labs from June 09 showed WBC 7.9 hemoglobin 8.3 MCV 76.3 platelet 299,000 creatinine 1.5 Labs from June 30 showed WBC 2.4 hemoglobin 10.9 platelet 175,000 creatinine 1.4 Labs from July 21 showed WBC 3.2 hemoglobin 10.6 platelet 144,000 creatinine 1.5 Labs from October showed WBC 7.4 hemoglobin 12.7 platelet 219,000 potassium 3.4 creatinine 1.4 Labs from January 01 showed hemoglobin 11.8 creatinine 1.5 GFR 46 Labs from January 29 showed WBC 7.5 hemoglobin 11.9 platelet 203,000 creatinine 1.6 Labs from May 04 showed hemoglobin 13.5 creatinine 1.6 Labs from July 20 showed WBC 8.7 hemoglobin 12.8 platelet 208,000 creatinine 1.7 Labs from August 17 showed WBC 7.2 hemoglobin 12.1 platelet 1 50,000 creatinine 1.7 Labs from September 14 showed WBC 6.8 hemoglobin 12.3 platelet 169,000 creatinine 1.8 Labs from October 12 showed WBC 6.2 hemoglobin 12.5 platelet 160,000 creatinine 1.7 Labs from November 09 showed WBC 6.2 hemoglobin 12.8 platelet 185,000 creatinine 1.8 Labs from March 14 showed creatinine 1.9 WBC 15.3 hemoglobin 13.9 platelet 291,000 Labs from August 01 showed hemoglobin 14.5 creatinine 1.5 AST 68 Assessment: Plan: Patient Active Problem List Diagnosis Date Noted Tobacco use 09/04/2022 Protein-calorie malnutrition, moderate 09/04/2022 Type 2 diabetes mellitus with hyperglycemia ([facility]/HCC) 09/03/2022 Cancer of distal third of esophagus ([facility]/HCC) 05/06/2022 Adenocarcinoma of esophagus status post EGD done on March 04, 2022 that showed mass in the distalesophagus. PET scan done on April 15 showed 5.7 cm mass in the distal esophagus with maximum SUV of 42.3 without any evidence of metastatic disease. EUS and biopsy done on April 28, 2022 that showed T3 disease. No lymph nodes were seen enlarged. Patient started concurrent chemoradiation therapy with carboplatin and Taxol on May 26, 2022. Patient completed last round of chemotherapy with carboplatin Taxol on July 14, 2022. PET scan done on July 15 showed significant improvement in distal esophageal wall thickening and FDG uptake. Patient is now status post esophagectomy done on September 03, 2022. Pathology reviewed and discussed with Dr. Rodney Musa as well. Patient had residual invasive adenocarcinoma about 9 cm moderately differentiated extending into the adventitia T3 disease with margin negative for the tumor. All 7 lymph node negative for malignancy. Nivolumab cycle 1 started in November 06, 2022. He completed nivolumab treatment in October 2023. CT scan done on July 04, 2024 showed no evidence of relapse of disease. He is clinically asymptomatic. I will see him back in [address] scan. Anemia from chronic kidney disease. Hemoglobin normal. Continue iron and vitamin B12. History of stroke. He is asymptomatic and will continue aspirin and Plavix. 08/02/2024 Yury Peralta MD Patient's identity confirmed yes Patient gave verbal consent to have these services billed to their insurance and expressed understanding that co-insurance and deductible may apply: yes Patient was located at home. This encounter was completed via two-way synchronous audio only communication. Video technology available to provider, but patient not capable of, or doesn't consent to, use of video. Time spent in discussion with patient: 15 minutes. documented in this encounter Plan of Treatment Upcoming Encounters Date Type Department Care Team (Late st Contact Info) Description 12/14/2024 8:30 AM CDT Office Visit [facility] Oncology and Hematology - [place] [address] [facility] [address] [place] [address] Yury Peralta MD [address] [facility] [address] [place] [address] Scheduled Orders Name Type Priority Associated Diagnoses Orde r Schedule CBC WITH DIFFERENTIAL Lab Stat Cancer of distal third of esophagus (CMS/HCC) Expected: 11/22/2024, Expires: 08/02/2025 COMPREHENSIVE METABOLIC PANEL Lab Stat Cancer of distal third of esophagus (CMS/HCC) Expected: 11/22/2024, Expires: 08/02/2025 CT CHEST ABDOMEN PELVIS W CONT Imaging Routine Cancer of distal third of esophagus (CMS/HCC) Expected: 12/03/2024, Expires: 08/02/2025 documented as of this encounter Visit Diagnoses Diagnosis Cancer of distal third of esophagus (CMS/HCC)- Primary Malignant neoplasm of lower third of esophagus documented in this encounter Care Teams Tucking Machine Operator Relationship Specialty Start Date End Date Digeo Antoine MD [address] [place] [id number] PCP - General Internal Medicine 01/31/22 documented as of this encounter
--- OUTSIDE RECORDS SUMMARY | 2024-08-04 20:04 | XMS_ITS | Encounter Summary ---
Author Organization [facility] JOSÉ MIGUELO[employer] [facility] Address [address] [place] [address] Care Team Providers Care Sports Medicine Trainer Name Role Phone Diego Antoine MD Primary Care Provider [phone] Encounter Details Date Type Department Care Team ([facility] st Contact Info) Description 08/01/2024 Orders Only [facility] Oncology and Hematology - [place] [address] [facility] [address] [place] [address] Yury Peralta MD [address] [facility] [address] [place] [address] Benign hypertension Social History Tobacco [...] Sex Assigned at Male 03/14/2024 1:14 AM HARNESS AND BAG INSPECTOR Legal Sex Male 10:54 AM CDT Gender Identity Male 03/14/2024 1:14 AM HARNESS AND BAG INSPECTOR Sexual Orientation Straight 03/14/2024 1: 14 AM HARNESS AND BAG INSPECTOR documented as of this encounter Plan of Treatment Upcoming Encounters Date Type Department Care Team (Late st Contact Info) Description 12/14/2024 8:30 AM CDT Office Visit [facility] Oncology and Hematology - [place] [address] [facility] [address] [place] [address] Yury Peralta MD [address] [facility] [address] [place] [address] documented as of this encounter Visit Diagnoses Diagnosis Benign hypertension Essential hypertension, benign documented in this encounter Care Teams Sports Medicine Trainer Relationship Specialty Start Date End Date Diego Antoine MD [address] [place] [address] PCP - General Internal Medicine 01/31/22 documented as of this encounter
--- OUTSIDE RECORDS SUMMARY | 2024-08-04 20:04 | XMS_ITS | Clinical Summary ---
Author Organization [facility] Irwin Villalobos Address [address] [place] [address] Care Team Providers Care Portfolio Assistant Name Role Phone Diego Antoine MD Primary Care Provider [phone] Allergies No known active allergies Medications metoprolol [...] Encounters Date Type Department Care Team Description 08/02/2024 4:00 PM CDT Telephone Check Up [facility] Oncology and Hematology [facility] [address] [place] [address] Yury Peralta MD Cancer of distal third of esophagus (CMS/HCC) (Primary Dx) 08/01/2024 Orders Only [facility] Oncology and Hematology - [place] [address] [place] [address] Yury Peralta MD Benign hypertension 07/18/2024 Orders Only [facility] Oncology and Hematology - [place] [address] [place] [address] Yury Peralta MD Benign hypertension 07/12/2024 External Device Data STL ABSTRACTION Provider, Abstract 07/05/2024 Orders Only [facility] Oncology and Hematology - [place] [address] [place] [address] Yury Peralta MD 07/04/2024 Orders Only [facility] Oncology and Hematology - [place] [address] Yury Peralta MD Benign hypertension 06/20/2024 Orders Only [facility] Oncology and Hematology - [place] [address] [place] [address] Yury Peralta MD Benign hypertension 06/13/2024 Orders Only [facility] Oncology and Hematology - [place] [address] [place] [address] Yury Peralta MD Chronic anemia 06/06/2024 Orders Only [facility] Oncology and Hematology - [place] [address] [place] [address] Yury Peralta MD Benign hypertension 05/31/2024 External Device Data STL ABSTRACTION Provider, Abstract 05/30/2024 Orders Only [facility] Oncology and Hematology - [place] [address] [place] [address] Yury Peralta MD Chronic anemia 05/23/2024 Orders Only [facility] Oncology and Hematology - [place] [address] Yury Peralta MD Benign hypertension 05/16/2024 Orders Only [facility] Oncology and Hematology - [place] [address] Yury Peralta MD Chronic anemia 05/09/2024 Orders Only [facility] Oncology and Hematology - [place] [address] Yury Peralta MD Benign hypertension from Last [...] Sex Assigned at Male 03/14/2024 1:14 AM PRODUCTION CONTROL EXPERT Legal Sex Male 10:54 AM CDT Gender Identity Male 03/14/2024 1:14 AM PRODUCTION CONTROL EXPERT Sexual Orientation Straight 03/14/2024 1: 14 AM PRODUCTION CONTROL EXPERT Last Filed Vital Signs Vital Sign Reading Time Taken Comments Blood Pressure 146/86 03/14/2024 10:30 AM PRODUCTION CONTROL EXPERT Pulse 79 03/14/2024 10:27 AM PRODUCTION CONTROL EXPERT Temperature 36.7 C (98 F) 03/14/2024 10:27 AM PRODUCTION CONTROL EXPERT Respiratory Rate 15 03/14/2024 10:27 AM PRODUCTION CONTROL EXPERT Oxygen Saturation 95% 03/14/2024 10:27 AM PRODUCTION CONTROL EXPERT Inhaled Oxygen Concentration - - Weight 86.7 kg (191 lb 3.2 oz) 03/14/2024 10:27 AM PRODUCTION CONTROL EXPERT Height 182.9 cm (6') 12/04/2022 8:44 AM CDT Body Mass Index 25.93 12/04/2022 8:44 AM CDT Plan of Treatment Upcoming Encounters Date Type Department Care Team (Late st Contact Info) Description 12/14/2024 8:30 AM CDT Office Visit [facility] Oncology and Hematology - [place] [address] [facility] [address] [place] [address] Yury Peralta MD [address] [facility] [address] [place] [address] Health Maintenance Due Date Last [...] 2017 INFLUENZA VACCINE (#1) 2023 [place] ([place]) Prev entative Visit/Annual Wellness Visit 03/30/2024 RSV VACCINE (60+ or ) (1 - 1-dose 75+ series) 2027 Medical Devices Implanted Type Area Refinery Operator Device Identifier Shelf Expiration Date Model / Serial / Lot Clip Ligating Horizon Lg Ti [id number] - Csc - [id number] Implanted:Qty : 1 on 09/03/2022 by Rodney Musa MD at [facility] Clip N/A: Esophagus TELEFLEX- WECK CLOSURE SYS 12/08/2026 [id number] / / [id number] Clip Ligating Horizon Med Ti [id number] - Csc - [id number] Implanted:Qty : 1 on 09/03/2022 by Rodney Musa MD at [facility] Clip N/A: Esophagus TELEFLEX- WECK CLOSURE SYS [id number] 05/19/2027 [id number] / / [id number] Procedures Procedure Name Priority Date/Time Associated Diagnosis Comments CT CHEST ABDOMEN PELVIS W CONT Routine 07/04/2024 9:49 AM CDT from Last 3 Months Results * CT CHEST ABDOMEN PELVIS W CONT (07/04/2024 9:49 AM CDT) Anatomical Region Laterality Modality Chest Computed Tomogra phy Yury Peralta MD CT ORDERABLES Final Result from Last 3 Months Insurance HUMANA CHOICE PPO MCR HUMANA CHOICE PPO MCR RX Solv StaffingS Breather SYSTEMS Medicare Part D RX [employer] PLANS (INTERNAL) [facility] Plans Advance Directives For more information, please contact: [phone] * Full Code (Latest Code Status on File) Date Activated Date Inactivated Comments 09/03/2022 1:45 PM 09/12/2022 4:08 PM * Full Code Date Activated Date Inactivated Comments 09/03/2022 8:49 AM 09/03/2022 1:45 PM * Full Code Date Activated Date Inactivated Comments 09/03/2022 6:04 AM 09/03/2022 8:48 AM * Full Code Date Activated Date Inactivated Comments 04/28/2022 11:28 AM 04/28/2022 4:35 PM Care Teams Portfolio Assistant Relationship Specialty Start Date End Date Diego Antoine MD [address] [place] [address] PCP - General Internal Medicine 01/31/22
--- OUTSIDE RECORDS SUMMARY | 2024-08-04 20:04 | XMS_ITS | Encounter Summary ---
Author Organization [facility] Healthcare Address [address] [place] [address] Care Team Providers Care Clinical Trial Manager Name Role Phone Diego Antoine MD Primary Care Provider [phone] Encounter Details Date Type Department Care Team (Late st Contact Info) Description 07/27/2024 Results Follow-Up [place] Clay Preparation Supervisor at [address] [address] Mady Delgado MA Social History Tobacco Use Types Packs/Day Years Used Date Smoking Tobacco: Former Cigarettes Sex and Gender Information Value Date Recorded Sex Assigned at Not on file Legal Sex Male 8:40 AM MANAGER LPN Gender Identity Not on file Sexual Orientation Not on file documented as of this encounter Plan of Treatment Not on file documented as of this encounter Visit Diagnoses Not on filedocumented in this encounter Care Teams Clinical Trial Manager Relationship Specialty Start Date End Date Diego Antoine MD PCP - General Internal Medicine 07/28/23 documented as of this encounter
--- OUTSIDE RECORDS SUMMARY | 2024-08-04 20:04 | XMS_ITS | Clinical Summary ---
Author Organization [facility] [address] Address [address] [place] [address] Care Team Providers Care Automotive Finance Manager Name Role Phone Diego Antoine MD Primary Care Provider [phone] Allergies No known active allergies Medications gabapentin [...] total) by mouth daily 90 tablet 3 05/07/202 5 Active Active Problems No known active problems Encounters Date Type Department Care Team Description 08/04/2024 Telephone [place] Plate And Weld Inspector at [address] [address] Mady Delgado MA 07/27/2024 Results Follow-Up [place] Plate And Weld Inspector at [address] [address] Mady Delgado MA 07/26/2024 1:55 PM CDT Lab [facility] [address] [place] [address] Abnormal EKG 07/13/2024 1:00 PM CDT Office Visit [place] Plate And Weld Inspector at [address] [address] Jill Da Silva MD Essential hypertension (Primary Dx); TIA (transient ischemic attack); Mixed hyperlipidemia; Smoking hx; Chronic obstructive pulmonary disease, unspecified COPD type (HCC); Shortness of breath; Abnormal EKG 06/30/2024 ACO Quality [facility] Accountable Care Organization [address] [place] [address] Lynn Chanel 05/30/2024 Telephone [place] Plate And Weld Inspector at [address] [address] Kaelyn Vee from Last 3 Months Social History Tobacco Use Types Packs/Day Years Used Date Smoking Tobacco: Former Cigarettes Tobacco Cessation:Counseling Given: Not Answered Sex and Gender Information Value Date Recorded Sex Assigned at Not on file Legal Sex Male 8:40 AM SENIOR PHP DEVELOPER Gender Identity Not on file Sexual Orientation Not on file Obstetrics History Last Filed Vital Signs Vital Sign Reading [...] 07/13/2024 1:16 PM CDT Plan of Treatment Health Maintenance Due Date Last Done Comments Colon Cancer Screening-Colonoscopy 1950 Depression Screening 1950 Fall Risk Assessment 1950 Hepatitis C Screening 1950 Hepatitis B Screening 1970 Zoster Vaccine (1 of 2) 2002 Abdominal Aortic Aneurysm (A AA) Screen 2017 Well Visit 65+ 2017 Covid-19 Vaccine (3 - 2023-2 5 season) 2023 08/11/2020, 07/14/2020 DTaP/Tdap/Td Vaccine (2 - Td or Tdap) 01/20/2028 01/19/2018 Pneumococcal vaccine 65+ Completed 023, 01/19/2018, 01/17/2016 Influenza Vaccine Completed 01/05/2024, , 01/17/2022, Additional history exists Procedures Procedure Name Priority Date/Time Associated Diagnosis [...] Last Revised Date: 2017. Testing performed by: [facility], [address] [place] [address]., [id number] Blood 07/26/2024 1:58 PM CDT 07/26/2024 9:32 PM CDT Jill Da Silva MD LAB BLOOD ORDERABLES Final Result Performing Organization Address City/State/[facility] Co de Phone Number [facility] ([facility]) 1 [facility] Department [place] [address] from Last 3 Months Insurance [facility] MEDICARE HMO Care Teams Automotive Finance Manager Relationship Specialty Start Date End Date Diego Antoine MD PCP - General Internal Medicine 07/28/23
--- OUTSIDE RECORDS SUMMARY | 2024-08-04 20:04 | XMS_ITS | Encounter Summary ---
Author Organization [facility] Healthcare Address [address] [place] [address] Care Team Providers Care Detention Worker Name Role Phone Diego Antoine MD Primary Care Provider [phone] Encounter Details Date Type Department Care Team (Late st Contact Info) Description 08/04/2024 Telephone [place] Hopper Operator at [address] [address] Mady Delgado MA Social History Tobacco Use Types Packs/Day Years Used Date Smoking Tobacco: Former Cigarettes Sex and Gender Information Value Date Recorded Sex Assigned at Not on file Legal Sex Male 8:40 AM SHOVEL LOGGER Gender Identity Not on file Sexual Orientation Not on file documented as of this encounter Miscellaneous Notes * Telephone Encounter - Mady Delgado MA - 08/04/2024 2:41 PM CDT Patient informed and verbalized understanding * Telephone Encounter - Mady Delgado MA - 08/04/2024 1:49 PM CDT Patient's Stress and echo results scanned into media for review. documented in this encounter Plan of Treatment Not on file documented as of this encounter Visit Diagnoses Not on filedocumented in this encounter Care Teams Detention Worker Relationship Specialty Start Date End Date Diego Antoine MD PCP - General Internal Medicine 07/28/23 documented as of this encounter
--- NOTE | 2024-08-04 20:06 | ECG_ITS ---
Test Date: 2024-08-04 20:10:19 Measurements Intervals [place] Rate: 67 P: 60 WI: 224 QRS: -63 QRSD: 86 T: 76 QT: 394 QTc: 418 Interpretive Statements SINUS RHYTHM WITH FIRST DEGREE AV BLOCK MARKED LEFT AXIS DEVIATION [QRS AXIS < -30] Compared to ECG 04/18/2024 05:22:35 NO SIGNIFICANT CHANGES Electronically Signed On 08-05-2024 12:09:41 CDT by Chanelle Bunch M.D.
[2024-08-04 20:28] LABS: Basophils Absolute Auto 0.1 K/mm3 (0.0-0.1); Basophils Percent Auto 0.5 % (0.2-1.2); Eosinophils Absolute Auto 0.4 K/mm3 (0-0.3); Hemoglobin 13.6 g/dL (14.0-18.0); Immature Granulocyte Absolute 0.02 K/mm3 (0.00-0.031); Immature Granulocyte Percent A 0.2 % (0-0.5); Lymphocytes Absolute Auto 0.82 K/mm3 (0.9-3.2); Lymphocytes Percent Auto 8.1 % (18.3-44.2); Mean Corpuscular HGB Conc 32.4 g/dl (32-36); Mean Corpuscular Hemoglobin 27.6 pg (26-34); Mean Corpuscular Volume 85.4 fl (80-100); Monocytes Absolute Auto 0.8 K/mm3 (0.1-0.6); Monocytes Percent Auto 7.8 % (2.6-8.5); Neutrophils Percent Auto 79.4 % (45.5-73.1); Platelet Count Result 185 k/mm3 (150-375); Red Blood Count 4.92 M/mm3 (4.6-6.20); Red Cell Distribution Width 14.3 % (11.5-14.5); White Blood Count 10.1 K/mm3 (4.5-10.0)
[2024-08-04 20:38] LABS: Alanine Aminotransferase 14 U/L (6-50); Albumin Level 4.2 g/dL (3.5-5.1); Alkaline Phosphatase 66 U/L (38-126); Anion Gap 9 mmol/L (4-12); Aspartate Amino Transferase 22 U/L (17-59); Bilirubin,Total 0.7 mg/dL (0.2-1.3); Blood Urea Nitrogen 21 mg/dL (9-20); Calcium 8.6 mg/dL (8.4-10.2); Carbon Dioxide 26 mmol/L (22-30); Chloride 106 mmol/L (98-107); Estimated CRCL calculation 37 ml/min; Estimated Glomerular Filt Rate 37; Glucose 126 mg/dL (65-110); Lipase 83 U/L (23-300); Potassium 3.7 mmol/L (3.4-5.0); Sodium 141 mmol/L (137-145)
[2024-08-04 20:51] LABS: Partial Thromboplastin Time 31.1 Seconds (22.3-36.8)
[2024-08-04 20:57] LABS: Troponin I 0.724 ng/mL (0.000-0.034)
[2024-08-04] MEDS: ASPIRIN 81 MG CHEWABLE TABLET 324 MG PO (21:04)
[2024-08-04] MEDS: HEPARIN SODIUM 5,000 UNITS/ML VIAL 4000 UNITS IV PUSH (21:22)
[2024-08-04] MEDS: HEPARIN SOD/D5W 100 UNITS/ML 25,000 UNITS/250 ML BAG 10 UNITS IV CONT (21:23)
[2024-08-04] MEDS: NITROGLYCERIN/D5W 200 MCG/ML 50 MG/250 ML BTL IV CONT (21:28)
--- OUTSIDE RECORDS SUMMARY | 2024-08-04 21:38 | XMS_ITS | Encounter Summary ---
Author Organization [facility] Healthcare Address [address] [place] [address] Care Team Providers Care Tail Dogger Name Role Phone Diego Antoine MD Primary Care Provider Encounter Details Date Type Department Care Team (Late st Contact Info) Description 07/27/2024 Results Follow-Up [place] Fraud Analyst at [address] [address] Mady Delgado MA Social History Tobacco Use Types Packs/Day Years Used Date Smoking Tobacco: Former Cigarettes Sex and Gender Information Value Date Recorded Sex Assigned at Not on file Legal Sex Male 8:40 AM AUTOMATIC SERGING MACHINE OPERATOR Gender Identity Not on file Sexual Orientation Not on file documented as of this encounter Plan of Treatment Not on file documented as of this encounter Visit Diagnoses Not on filedocumented in this encounter Care Teams Tail Dogger Relationship Specialty Start Date End Date Diego Antoine MD PCP - General Internal Medicine 07/28/23 documented as of this encounter
--- OUTSIDE RECORDS SUMMARY | 2024-08-04 21:38 | XMS_ITS | Clinical Summary ---
Author Organization [facility] Address [address] [place] [address] Care Team Providers Care Marketing Writer Name Role Phone Unavailable Primary Care Provider [...] Priority Date/Time Associated Diagnosis Comments COLONOSCOPY Routine LIFE UNDERWRITER from Last 3 Months or Most Recently Relevant to Health Maintenance Results * Colonoscopy ( LIFE UNDERWRITER) Narrative [facility] TO EPIC CONVERSION - LIFE UNDERWRITER Documented hx of procedure Procedure Note , Generic Conversion, - 01/31/2018 Documented hx of procedure us Generic Conversion Md GRAY GI PROCEDURE ORDERABLES Final Result [facility] TO EPIC CONVERSION from Last 3 Months or Most Recently Relevant to Health Maintenance
--- OUTSIDE RECORDS SUMMARY | 2024-08-04 21:38 | XMS_ITS | Encounter Summary ---
Author Organization [facility] [employer] [facility] Address [address] [place] [address] Care Team Providers Care Domestic Laundry Worker Name Role Phone Diego Antoine MD Primary Care Provider [phone] Reason for Referral * CT Scan (Routine) - Pending Review Specialty Diagnoses / Procedures Referred By Contac t Referred To Contact Diagnoses Cancer of distal third of esophagus (CMS/HCC) Procedures CT CHEST ABDOMEN PELVIS W CONT Yury Peralta MD [address] [place] [address] Phone: tel: fax: [place] [address] Referral ID Status Reason Start Date Expiration Date Visits Requested Visits Authorized [id number] Pending Review STL CTS 08/02/2024 09/02/2025 1 1 Encounter Details Date Type Department Care Team (Late st Contact Info) Description 08/02/2024 4:00 PM CDT Telephone Check Up [facility] Oncology and Hematology [address] [address] Yury Peralta MD [address] [place] [address] Cancer of distal third of [...] Sex Assigned at Male 03/14/2024 1:14 AM BUSINESS OBJECTS DEVELOPER Legal Sex Male 10:54 AM CDT Gender Identity Male 03/14/2024 1:14 AM BUSINESS OBJECTS DEVELOPER Sexual Orientation Straight 03/14/2024 1: 14 AM BUSINESS OBJECTS DEVELOPER documented as of this encounter Progress Notes [...] 09/04/2022 Type 2 diabetes mellitus with hyperglycemia ([facility]/HCC) 09/03/2022 Cancer of distal third of esophagus ([facility]/HCC) 05/06/2022 Adenocarcinoma of esophagus status [...] Description 12/14/2024 8:30 AM CDT Office Visit [facility] Oncology and Hematology - [place] [address] [facility] [address] [place] [address] Yury Peralta MD [address] [facility] [address] [place] [address] Scheduled Orders Name Type Priority [...] esophagus documented in this encounter Care Teams Domestic Laundry Worker Relationship Specialty Start Date End Date Diego Antoine MD [address] [place] [address] PCP - General Internal Medicine 01/31/22 documented as of this encounter
--- OUTSIDE RECORDS SUMMARY | 2024-08-04 21:38 | XMS_ITS | Referral Summary ---
Author Organization [facility] [address] Address [address] [place] [address] Care Team Providers Care Computer Engineering Technologist Name Role Phone Diego Antoine MD Primary Care Provider [phone] Encounters Date Type Department Care Team Description 08/04/2024 Telephone [place] [facility] Coord[facility] at [address] [place] [address] Mady Delgado MA 07/27/2024 Results Follow-Up [place] [facility] at [address] [place] [address] Mady Delgado MA 07/26/2024 1:55 PM CDT Lab [facility] [address] [place] [address] Abnormal EKG 07/13/2024 1:00 PM CDT Office Visit [place] [facility] at [address] [place] [address] Jill Da Silva MD Essential hypertension (Primary Dx); TIA (transient ischemic attack); Mixed hyperlipidemia; Smoking hx; Chronic obstructive pulmonary disease, unspecified COPD type (HCC); Shortness of breath; Abnormal EKG 06/30/2024 [facility] Accountable Care Organization [address] [place] [address] Lynn Chanel 05/30/2024 Telephone [place] [facility] Coordinator at [address] [place] [address] Kaelyn Vee from Last 3 Months Allergies [...] on file 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 Testing performed by: [facility], [address] [place] [address], [place]., [address] Blood 07/26/2024 1:58 PM CDT 07/26/2024 9:32 PM CDT us Jill Ayan Gondi MD LAB BLOOD ORDERABLES Final Result [facility] 1 [facility] Department [place] [address] from Last 3 Months Insurance [facility] MEDICARE HMO Care Teams Computer Engineering Technologist Relationship Specialty Start Date End Date Diego Antoine MD PCP - General Internal Medicine 07/28/23
--- OUTSIDE RECORDS SUMMARY | 2024-08-04 21:38 | XMS_ITS | Clinical Summary ---
Author Organization [facility] [address] Address [address] [place] [address] Care Team Providers Care Family Protection Specialist Name Role Phone Diego Antoine MD Primary Care Provider Allergies No known active allergies Medications gabapentin [...] Type Department Care Team Description 08/04/2024 Telephone [place] T[facility] Drawing Supervisor at [address] [address] Mady Delgado MA 07/27/2024 Results Follow-Up [place] [facility] Supervisor at [address] [address] Mady Delgado MA 07/26/2024 1:55 PM CDT Lab [facility] [address] [place] [address] Abnormal EKG 07/13/2024 1:00 PM CDT Office Visit [place] [facility] Supervisor at [address] [address] Jill Da Silva MD Essential hypertension (Primary Dx); TIA (transient ischemic attack); Mixed hyperlipidemia; Smoking hx; Chronic obstructive pulmonary disease, unspecified COPD type (HCC); Shortness of breath; Abnormal EKG 06/30/[address] 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 Testing performed by: [facility], [address] [place] [address]., [address] Blood 07/26/2024 1:58 PM CDT 07/26/2024 9:32 PM CDT Jill Da Silva MD LAB BLOOD ORDERABLES Final Result Performing Organization Address City/State/[facility] Co de Phone Number [facility] ([place]) 1 [facility] [place] [address] from Last 3 Months Insurance [facility] MEDICARE HMO Care Teams Family Protection Specialist Relationship Specialty Start Date End Date Diego Antoine MD PCP - General Internal Medicine 07/28/23
--- OUTSIDE RECORDS SUMMARY | 2024-08-04 21:38 | XMS_ITS | Encounter Summary ---
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
--- OUTSIDE RECORDS SUMMARY | 2024-08-04 21:38 | XMS_ITS | Encounter Summary ---
Author Organization [facility] [employer] [employer] [facility] Address [address] [place] [address] Care Team Providers Care Information Tech Name Role Phone Diego Antoine MD Primary Care Provider [phone] Encounter Details Date Type Department Care Team ([facility] st Contact Info) Description 08/01/2024 Orders Only [facility] Oncology and Hematology - [place] [address] [facility] [address] [place] [address] Yury Peralta MD [address] [facility] [address] [place] [address] Benign hypertension Social History Tobacco [...] Sex Assigned at Male 03/14/2024 1:14 AM MED SURG NURSE Legal Sex Male 10:54 AM CDT Gender Identity Male 03/14/2024 1:14 AM MED SURG NURSE Sexual Orientation Straight 03/14/2024 1: 14 AM MED SURG NURSE documented as of this encounter Plan of Treatment Upcoming Encounters Date Type Department Care Team (Late st Contact Info) Description 12/14/2024 8:30 AM CDT Office Visit [facility] Oncology and Hematology - [place] [address] [facility] [address] [place] [address] Yury Peralta MD [address] [facility] [address] [place] [address] documented as of this encounter Visit Diagnoses Diagnosis Benign hypertension Essential hypertension, benign documented in this encounter Care Teams Information Tech Relationship Specialty Start Date End Date Diego Antoine MD [address] [place] [address] PCP - General Internal Medicine 01/31/22 documented as of this encounter
--- OUTSIDE RECORDS SUMMARY | 2024-08-04 21:38 | XMS_ITS | Clinical Summary ---
Author Organization [facility] Irwin Villalobos Address [address] [place] [address] Care Team Providers Care Banking Representative Name Role Phone Diego Antoine MD Primary Care Provider [phone] Allergies No known active allergies Medications metoprolol [...] 08/02/2024 4:00 PM CDT Telephone Check Up [facility] Oncology and Hematology 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) (Primary Dx) 08/01/2024 Orders Only [facility] On[facility] and Hematology - [place] [address] [place] [address] Yury Peralta MD Benign hypertension 07/18/2024 Orders Only [facility] - [place] [address] [place] [address] Yury Peralta MD Benign hypertension 07/12/2024 External Device Data STL ABSTRACTION Provider, Abstract 07/05/2024 [facility] On[facility] and Hematology - [place] [address] [place] [address] Yury Peralta MD 07/04/2024 Orders Only [facility]ematology - [place] [address] Yury Peralta MD Benign hypertension 06/20/2024 Orders Only [facility]ematology - [place] [address] [place] [address] Yury Peralta MD Benign hypertension 06/13/2024 Orders Only [facility] - [place] [address] [place] [address] Yury Peralta MD Chronic anemia 06/06/2024 Orders Only [facility]ematology - [place] [address] [place] [address] Yury Peralta MD Benign hypertension 05/31/2024 External Device Data STL ABSTRACTION Provider, Abstract 05/30/2024 Orders Only [facility] - [place] [address] [place] [address] Yury Peralta MD Chronic anemia 05/23/2024 Orders Only [facility]ology - [place] [address] Yury Peralta MD Benign hypertension 05/16/2024 Orders Only [facility]ology - [place] [address] Yury Peralta MD Chronic anemia 05/09/2024 Orders Only [facility] Hematology - [place] [address] Yury Peralta MD Benign hypertension from [...] Sex Assigned at Male 03/14/2024 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 Legal Sex Male 10:54 AM CDT Gender Identity Male 03/14/2024 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 Sexual Orientation Straight 03/14/2024 1: 14 AM DEHYDRATOR OPERATOR Last Filed Vital Signs Vital Sign Reading Time Taken Comments Blood Pressure 146/86 03/14/2024 10:30 AM DEHYDRATOR OPERATOR Pulse 79 03/14/2024 10:27 AM DEHYDRATOR OPERATOR Temperature 36.7 C (98 F) 03/14/2024 10:27 AM DEHYDRATOR OPERATOR Respiratory Rate 15 03/14/2024 10:27 AM DEHYDRATOR OPERATOR Oxygen Saturation 95% 03/14/2024 10:27 AM DEHYDRATOR OPERATOR Inhaled Oxygen Concentration - - Weight 86.7 kg (191 lb 3.2 oz) 03/14/2024 10:27 AM DEHYDRATOR OPERATOR Height 182.9 cm (6') 12/04/2022 8:44 AM CDT Body Mass Index 25.93 12/04/2022 8:44 AM CDT Plan of Treatment Upcoming Encounters Date Type Department Care Team (Late st Contact Info) Description 12/14/2024 8:30 AM CDT Office Visit [facility] Hematology - [place] [address] [facility] [address] [place] [address] Yury Peralta MD [address] [facility] [address] [place] [address] Health Maintenance Due Date Last [...] 2017 INFLUENZA VACCINE (#1) 2023 [place] ([place]) Prev entative Visit/Annual Wellness Visit 03/30/2024 RSV VACCINE (60+ or ) (1 - 1-dose 75+ series) 2027 Medical Devices Implanted Type Area Histology Aide Device Identifier Shelf Expiration Date Model / Serial / Lot Clip [place]igating [place]g Ti [id number] - Csc - [id number] Implanted:Qty : 1 on 09/03/2022 by Rodney Musa MD at [facility] Clip N/A: Esophagus TELEFLEX- WECK CLOSURE SYS 12/08/2026 [id number] / / [id number] Clip Ligating Horizon Med Ti [id number] - Csc - [id number] Implanted:Qty : 1 on 09/03/2022 by Rodney Musa MD at [facility] Clip N/A: Esophagus TELEFLEX- WECK CLOSURE SYS [id number] 05/19/2027 [id number] / / [id number] Procedures Procedure Name Priority Date/Time Associated [...] PPO MCR HUMANA CHOICE PPO MCR RX Shed[employer] Medicare Part D RX COV[employer]UBIAS PLANS (INTERNAL) [facility] Plans Advance Directives For more information, please contact: [phone] * Full Code (Latest Code Status on File) Date Activated Date Inactivated Comments 09/03/2022 1:45 PM 09/12/2022 4:08 PM * Full Code Date Activated Date Inactivated Comments 09/03/2022 8:49 AM 09/03/2022 1:45 PM * Full Code Date Activated Date Inactivated Comments 09/03/2022 6:04 AM 09/03/2022 8:48 AM * Full Code Date Activated Date Inactivated Comments 04/28/2022 11:28 AM 04/28/2022 4:35 PM Care Teams Banking Representative Relationship Specialty Start Date End Date Diego Antoine MD [address] [place] [address] PCP - General Internal Medicine 01/31/22
[2024-08-04] MEDS: LACTATED RINGERS 1,000 ML 125 ML IV CONT (21:54)
[2024-08-04] MEDS: LACTATED RINGERS 1,000 ML 999 ML IV CONT (21:54)
[2024-08-04] MEDS: MORPHINE SULFATE (*CRX) 4 MG/ML INJ IV PUSH (22:00)
--- NOTE | 2024-08-04 22:02 | ECG_ITS ---
Test Date: 2024-08-04 22:14:26 Measurements Intervals [place] Rate: 80 P: 57 [place]: 228 QRS: -70 QRSD: 83 T: 55 QT: 394 QTc: 455 Interpretive Statements SINUS RHYTHM WITH FIRST DEGREE AV BLOCK LEFT ANTERIOR FASCICULAR BLOCK [QRS AXIS <= -45, QR IN I, RS IN II] Compared to ECG 08/04/2024 20:10:19 NO SIGNIFICANT CHANGES Electronically Signed On 08-05-2024 12:10:55 CDT by Chanelle Bunch M.D.
--- NOTE | 2024-08-04 22:04 | ED.CHESTPAIN ---
HPI - Chest Pain General Chief Complaint: Chest Pain Stated Complaint: sob, chest pain, L sided jaw pain Time Seen by Provider: 08/04/24 21:00 History of Present Illness HPI narrative: 74-year-old male with a past medical history including COPD, GERD, CKD, hypertension, previous esophageal cancer, type 2 diabetes, coronary disease with stress test showing non reversible defect in the circumflex territory, EF of 55-60% with grade 1 diastolic dysfunction. Patient presents to the emergency department with chest pain for last several hours radiating towards the left side of his chest, jaw. Associated shortness of breath but feels better with sitting upright. No nausea, vomiting, abdominal pain, back pain, fever chills. No trauma or injury. Was here recently for COPD but states he had chest pain at that time. Related Data Home Medications ?Medication ?Instructions ?Recorded ?Confirmed ?Last Taken ?Type duloxetine 30 mg capsule,delayed 30 mg PO DAILY 11/11/21 04/18/24 04/17/24 History release hydrocodone 5 mg-acetaminophen 325 1 tablet PO BID PRN Pain, Moderate 11/11/21 04/18/24 04/17/24 History mg tablet gabapentin 100 mg capsule 200 mg PO TID 11/06/22 04/18/24 04/17/24 History carvedilol 25 mg tablet 25 mg PO BID 07/29/23 04/18/24 04/17/24 History cyanocobalamin (vitamin B-12) 500 500 mcg PO BID 07/29/23 04/18/24 04/17/24 History mcg tablet (Vitamin B-12) pantoprazole 40 mg tablet,delayed 40 mg PO QAM 07/29/23 04/18/24 04/17/24 History release Allergies Allergy/AdvReac Type Severity Reaction Status Date / Time No Known Allergies Allergy Verified 08/04/24 20:03 Review of Systems Review of Systems: As [facility] Past Medical History Medical History Chronic obstructive pulmonary disease Obstructive sleep apnea Gastroesophageal reflux disease Chronic kidney disease Chronic anemia Hypertension Esophageal cancer Status post chemo radiation and what sounds like esophagectomy with gastric pull-through. Seizure Diet-controlled type 2 diabetes mellitus Hyperlipidemia Surgical History Surgical History History of colonoscopy with polypectomy History of tonsillectomy History of appendectomy History of esophagectomy History of esophagogastroduodenoscopy (EGD) Family History Family History Father Cerebrovascular accident Sibling Aorta aneurysm Brain bleed Esophageal cancer Social History Social History Social History: Surrogate medical decision maker: Mary Berumen, significant other. Code status: Full code. Smoking packs per day: 1 Smoking cigarettes per day: 20.0 Years smoked: 30 Smoking pack-years: 30.00 Smoking status: Former smoker Tobacco type: cigarettes Second hand tobacco smoke exposure: Yes Smoking end date: 12/16/21 Alcohol intake: current Alcohol use details: Rare alcohol use in moderation. Substance use: current Substance use type: marijuana Do You Feel Safe in your Home?: Yes Lack of Transportation: No Lack of Food: Never True Current Housing: I Have Housing Concerned About Future Housing: No Difficulty Paying Gas/Electric Bills: No Difficulty Paying for Meds: No Currently Unemployed: No Education: Grade School Difficulty w/ Childcare or Family Care: No Living arrangements: other Additional living arrangements comments: Lives with significant other in [place]. Spiritual care concerns: No Exam Narrative: GENERAL: [Well-appearing, well-nourished, and in no acute distress.] HEAD: [Normocephalic, atraumatic.] EYES: [PERRLA and EOMI.] ENT: Nares clear, no rhinorrhea or epistaxis. Mucous membranes moist. NECK: Supple. CHEST: [Clear to auscultation. No respiratory distress.] HEART: [Regular rate and rhythm]. No murmur heard. [Normal peripheral pulses.] ABDOMEN: [Soft, nondistended], [nontender], [No rigidity or guarding] EXTREMITIES: Normal range of motion. [No edema.] SKIN: Warm, dry, no rash. NEURO: [No focal deficits]. Alert and oriented [x3.] PSYCH: [Normal mood and affect.] Course Vital Signs Vital signs: Vital Signs Temperature 37.1 C 08/04/24 20:07 Pulse Rate 67 08/04/24 20:07 Respiratory Rate 20 08/04/24 20:07 Blood Pressure 162/87 H 08/04/24 20:07 Pulse Oximetry 100 08/04/24 20:07 Oxygen Delivery Room Air 08/04/24 20:07 Temperature 37.1 C 08/04/24 20:07 Pulse Rate 80 08/04/24 22:45 Respiratory Rate 23 H 08/04/24 22:45 Blood Pressure 148/86 H 08/04/24 22:45 Pulse Oximetry 96 08/04/24 22:45 Oxygen Delivery Room Air 08/04/24 20:07 MDM - Chest Pain MDM Narrative Medical decision making narrative: 74-year-old male with a past medical history including COPD, GERD, CKD, hypertension, previous esophageal cancer, type 2 diabetes, coronary disease with stress test showing non reversible defect in the circumflex territory, EF of 55-60% with grade 1 diastolic dysfunction. Patient presents to the emergency department with chest pain in his left-sided chest radiating towards his left jaw for several hours. He is mildly hypertensive with a blood pressure 154/94 but no tachycardia, tachypnea, fever, chills. Strong symmetric pulses in both arms and legs. Clear breath sounds throughout, no wheezing, no signs of DVT on exam. Considerations presently for ACS, pneumonia, pneumothorax, musculoskeletal chest pain, GERD, atelectasis. EKG, chest x-ray, CBC, CMP, lipase, troponin ordered. Troponin came back markedly elevated 0.724. EKG shows no evidence of an acute ST segment elevation [place]. He was started on heparin and I spoke to the on-call supervisor heavy equipment Dr. Bunch who recommended medical management with nitroglycerin infusion for his chest pain and patient will be evaluated for cardiac catheterization tomorrow unless he deteriorates or clinical picture changes. Patient was given aspirin and morphine and nitroglycerin infusion was started. Workup shows no leukocytosis, normal electrolytes. CKD with a creatinine 1.81. Normal glucose and LFTs. Normal coagulation panel. I discussed the case with the hospitalist Dr. Almanza who agreed to accept the patient but he will need to go the ICU for the nitroglycerin drip. Spoke to Dr. Adam the it security analyst and patient was accepted the ICU at this time. Repeat EKG ordered here in the ER and admit orders placed. Patient made aware of the plan of care and was agreeable for admission. Medical Records Data Attestation: I reviewed the patient's medical records. Lab Data Attestation: I reviewed the patient's lab results. 08/04/24 20:19 08/04/24 20:19 Labs: Lab Results 08/04/24 Range/Units 20:19 WBC 10.1 H (4.5-10.0) K/mm3 RBC 4.92 (4.6-6.20) M/mm3 Hgb 13.6 L (14.0-18.0) g/dL Hct 42.0 (42.0-52.0) % MCV 85.4 (80-100) fl MCH 27.6 (26-34) pg MCHC 32.4 (32-36) g/dl RDW 14.3 (11.5-14.5) % Plt Count 185 (150-375) k/mm3 MPV 10.0 (7.4-10.4) fl Immature Gran % (Auto) 0.2 (0-0.5) % Neut % (Auto) 79.4 H (45.5-73.1) % Lymph % (Auto) 8.1 L (18.3-44.2) % Terry % (Auto) 7.8 (2.6-8.5) % Eos % (Auto) 4.0 (0-4.4) % Baso % (Auto) 0.5 (0.2-1.2) % Lymph # (Auto) 0.82 L (0.9-3.2) K/mm3 Terry # (Auto) 0.8 H (0.1-0.6) K/mm3 Eos # (Auto) 0.4 H (0-0.3) K/mm3 Baso # (Auto) 0.1 (0.0-0.1) K/mm3 Abs Immat Gran (auto) 0.02 (0.00-0.031) K/mm3 Absolute Neuts (auto) 8.0 H (1.3-6.7) K/mm3 Absolute Nucleated RBC 0.000 (0.0-0.012) K/mm3 Nucleated RBC % 0.0 (0.0-0.2) % PT 14.0 (11.1-14.7) Seconds INR 1.0 APTT 31.1 (22.3-36.8) Seconds Sodium 141 (137-145) mmol/L Potassium 3.7 (3.4-5.0) mmol/L Chloride 106 (98-107) mmol/L Carbon Dioxide 26 (22-30) mmol/L Anion Gap 9 (4-12) mmol/L BUN 21 H (9-20) mg/dL Creatinine 1.81 H (0.7-1.3) mg/dL Estim Creat Clear Calc 37 ml/min Estimated GFR 37 L (59 - ) Glucose 126 H (65-110) mg/dL Calcium 8.6 (8.4-10.2) mg/dL Total Bilirubin 0.7 (0.2-1.3) mg/dL AST 22 (17-59) U/L ALT 14 (6-50) U/L Alkaline Phosphatase 66 (38-126) U/L Troponin I 0.724 H* (0.000-0.034) ng/mL Total Protein 7.0 (6.3-8.2) g/dL Albumin 4.2 (3.5-5.1) g/dL Lipase 83 (23-300) U/L Imaging Data Attestation: I personally reviewed and interpreted this imaging study as follows: My impression: Impressions Chest X-Ray 08/04/24 20:39 IMPRESSION: Biapical scarring, without focal infiltrate or effusion. ECG Data EKG #1: Attestation: I personally reviewed and interpreted this ECG as follows: ECG completion date: 08/04/24 ECG completion time: 20:10 Prior ECG tracings: available for review Interpretation: Sinus rhythm with first-degree AV block. Rate of 67 beats per minute, HI interval 2-4, QTC 418, QRS 96. No ST segment elevations, depressions or acute inversions. Final interpretation sinus rhythm first-degree AV block. Critical Care Time Critical Care Time Critical Care Time: Yes Total Critical Care Time: 75 Discharge Plan Discharge Clinical Impression: Acute non-ST elevation myocardial infarction (NSTEMI), Chest pain Patient Disposition: Still a Patient Condition: Serious
--- NOTE | 2024-08-04 22:38 | PC.NURSE ---
Attempted to call report. RN busy in ICU and will call this RN back.
--- NOTE | 2024-08-04 22:49 | PC.NURSE ---
Report given to RITU Garcia in ICU.
--- NOTE | 2024-08-04 23:08 | PC.NURSE ---
Throughout the patient's ED stay, he c/o pain 10/10. After Nitro started, pain decreased to 9/10. Orders were received for morphine and given. Pt then c/o pain 8/10. Nitro drip increased per titration orders.
--- NOTE | 2024-08-04 23:13 | PM.IMHP ---
H&P: HPI History of Present Illness Date/Time: 08/04/24 23:13 Chief Complaint: Chest pain Narrative: H&P/transfer summary 74-year-old male with a past medical history of esophageal cancer status post chemotherapy, radiation therapy and esophagectomy with gastric pull-through in 2022, COPD, grade 1 diastolic dysfunction, moderate mitral valve regurgitation, diet-controlled type 2 diabetes mellitus, obstructive sleep apnea intolerant to CPAP, chronic kidney disease stage 3 who presented to the ER with chest pain. The patient reports that he had just laid back in his recliner to what is TB and go to sleep when he developed severe substernal chest pain 10/10 in intensity. Pain radiated to the left jaw and left arm. He reports he had had a recent stress test in April which on my review demonstrated large severe non reversible perfusion defect in the lateral and inferior lateral watters with infarct involving primarily the circumflex coronary artery vascular distribution. He is stress test is not demonstrate any reversible ischemia EF of 51%. A also had echocardiogram around that same time which demonstrated preserved ejection fraction with diastolic dysfunction and moderate mitral valve regurgitation. During that hospitalization he was diagnosed with COPD. The patient also reported symptoms of increased cough for the last couple of days. He reports that his chest pain is worse with inspiration. He states he does not has not felt well for couple of days and subsequently has not had much of an appetite. He denies any nausea or vomiting. He states that he has not had any vomiting since his S off a gel surgery. He has not had a repeat EGD since his surgery but does get routine scans every 4-6 months and is monitored by Dr. Peralta. He denies any dysphagia. He reports that he sleeps upright furnace semi reclined position due to severe heartburn since his surgery. He does take Protonix at home daily. He reports that he quit smoking at the time of his esophageal cancer diagnosis. In the ER his initial EKG demonstrated no evidence of ischemia was troponins were elevated to 0.7. In the ER he received sublingual nitroglycerin which he reported helped with the radiating pain to his jaw and left arm but did not help with his substernal chest pain. He subsequently received morphine which only gave him minimal relief. He was subsequently placed on a nitroglycerin drip and heparin drip. He was admitted to the ICU given that he was on a nitroglycerin drip. Despite being on the nitroglycerin drip and eventually maxed out on the nitroglycerin drip patient continued to have severe pain. He had he it reported initially that his pain improved down to a 6/10 intensity on the nitro drip but shortly thereafter acutely worsened and was back up to a 10/10 in intensity. Despite several more doses of morphine is pain persisted. The patient's case was discussed with the on-call senior php software developer who agreed the patient would benefit from CTA. Patient was sent for CT of the chest abdomen pelvis to rule out dissection. CTA on my review did not demonstrate any any obvious the dissection or pulmonary embolism. However the patient's stomach did seem distended within the thoracic cavity. This was discussed with the senior php software developer. After stat read interpretation was available is thought that the patient likely had gastric distension due to gastric outlet obstruction at the hiatus. The patient's case was discussed with General surgery at our facility who felt the patient would benefit best but going back to [facility] where he had his initial procedure. I discussed the patient's case with transfer line at [facility] and the surgeons at that facility recommended the patient be admitted to medical service since as the patient was in the ICU at our facility case was discussed with the child protective services specialist at [facility] who accepted the patient in transfer. I did discontinue nitro drip since this was not helping the patient's symptoms. I did give the patient a dose of GI cocktail and place patient on Protonix he reported significant improvement in his symptoms after GI cocktail with pain down to 5/10 in intensity any was not no longer and acute apparent distress. NG was not placed at this facility and the patient will be evaluated by surgery at the transferring facility. Patient has been continued on heparin drip. Review of Systems Review of Systems: 12 systems were reviewed with pertinent positives and negatives per HPI. Except as documented in the HPI, all other systems were reviewed and are negative. Patient reports normal bowel movements. He denies any above abdominal distension or bloating. He denies any fevers or chills. Patient denied any difficulty with weak urine stream or urinary retention. However patient did seem to be grimacing with palpation of the lower abdomen and had greater than 400 mL of urine. Cochran catheter was placed PMFSH Past Medical History Medical History (Updated 08/05/24 @ 08:03 by Jessica Almanza DO) Stroke (07/29/23) MRI 07/29/2023 demonstrated small acute infarcts left frontal parietal region with old infarcts involving bilateral frontal parietal regions and right basal ganglia. Without residual deficit LINH (iron deficiency anemia) Transient cerebral ischemic attack Chronic obstructive pulmonary disease Obstructive sleep apnea He quit using his CPAP when he retired Gastroesophageal reflux disease Chronic kidney disease Chronic anemia Hypertension Esophageal cancer Status post chemo radiation and what sounds like esophagectomy with gastric pull-through. Seizure Diet-controlled type 2 diabetes mellitus Hyperlipidemia Surgical History Surgical History History of colonoscopy with polypectomy History of tonsillectomy History of appendectomy History of esophagectomy History of esophagogastroduodenoscopy (EGD) Family History Family History Father Cerebrovascular accident Sibling Aorta aneurysm Brain bleed Esophageal cancer Social History Social History (Updated 08/05/24 @ 07:43 by Jessica Almanza DO) Social History: He lives with his significant other Mary. They have been together for 30 years. He has 1 living daughter. He used to smoke 1.5 packs of cigarettes per day on average for about 50 years (if you subtract the years that he had quit smoking for various intervals). He reports he used to drink quite heavily but quit drinking except for and small amount around age 62. Surrogate medical decision maker: Mary Berumen, significant other. Code status: Full code. Smoking packs per day: 1.5 Smoking cigarettes per day: 30.0 Years smoked: 50 Smoking pack-years: 75.00 Smoking status: Former smoker Tobacco type: cigarettes Second hand tobacco smoke exposure: Yes Smoking end date: 12/16/21 Alcohol intake: former Alcohol use details: He used to drink Silvestre Acosta 1 quart a day until he was in his early 60s. He now rarely drinks alcohol and only in small amounts. Substance use: current Substance use type: marijuana Last use: 08/04/24 Do You Feel Safe in your Home?: Yes Lack of Transportation: No Lack of Food: Never True Current Housing: I Have Housing Concerned About Future Housing: No Difficulty Paying Gas/Electric Bills: No Difficulty Paying for Meds: No Currently Unemployed: No Education: Grade School Difficulty w/ Childcare or Family Care: No Living arrangements: other Additional living arrangements comments: Lives with significant other in [place]. He had a son in his teens. He has 1 daughter he was living. 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 Spiritual care concerns: No Meds Home Medications and Allergies Home Medications ?Medication ?Instructions ?Recorded ?Confirmed ?Type duloxetine 30 mg capsule,delayed 30 mg PO DAILY 11/11/21 08/05/24 History release hydrocodone 5 mg-acetaminophen 325 1 tablet PO BID PRN Pain, Moderate 11/11/21 08/05/24 History mg tablet ferrous sulfate 325 mg (65 mg 325 mg PO BID #60 tabs 01/27/22 08/05/24 Rx iron) tablet,delayed release gabapentin 100 mg capsule 200 mg PO TID 11/06/22 08/05/24 History carvedilol 25 mg tablet 25 mg PO BID 07/29/23 08/05/24 History cyanocobalamin (vitamin B-12) 500 500 mcg PO BID 07/29/23 08/05/24 History mcg tablet (Vitamin B-12) pantoprazole 40 mg tablet,delayed 40 mg PO QAM 07/29/23 08/05/24 History release clopidogrel 75 mg tablet 75 mg PO QAM #21 tabs 07/30/23 08/05/24 Rx rosuvastatin 10 mg tablet (Crestor) 10 mg PO DAILY #30 tabs 07/30/23 08/05/24 Rx Allergies Allergy/AdvReac Type Severity Reaction Status Date / Time No Known Allergies Allergy Verified 08/04/24 20:03 Vital Signs Vital Signs - 24 hr 08/04/24 20:07 08/04/24 21:15 08/04/24 21:28 Temperature 98.8 F Pulse Rate 67 73 76 Respiratory Rate 20 22 H Blood Pressure 162/87 H 169/92 H 172/93 H Pulse Oximetry 100 100 Oxygen Delivery Room Air 08/04/24 21:41 08/04/24 21:42 08/04/24 21:42 Temperature Pulse Rate 78 77 77 Respiratory Rate 22 H 22 H Blood Pressure 163/89 H 163/89 H 163/89 H Pulse Oximetry 98 98 Oxygen Delivery 08/04/24 21:47 08/04/24 22:00 08/04/24 22:30 Temperature Pulse Rate 78 81 81 Respiratory Rate 23 H 20 Blood Pressure 154/94 H 152/83 H Pulse Oximetry 97 98 Oxygen Delivery 08/04/24 22:33 08/04/24 22:44 08/04/24 22:45 Temperature Pulse Rate 81 83 80 Respiratory Rate 23 H Blood Pressure 152/83 H 148/86 H 148/86 H Pulse Oximetry 96 Oxygen Delivery 08/04/24 22:45 08/04/24 22:58 Temperature Pulse Rate 78 82 Respiratory Rate 15 Blood Pressure 148/86 H 157/89 H Pulse Oximetry 97 Oxygen Delivery Exam Narrative: Weight 88.6 kg BMI 26.5 Const: Other: Acutely ill-appearing, well-developed well-nourished, appears stated age HENMT: Other: Edentulous in upper and lower jaw, mucous membranes are dry, no oral pharyngeal erythema Eyes: Other: Pupils are equal and reactive, no scleral icterus, positive conjunctival pallor Neck: Other: No JVD, no lymphadenopathy Resp: Other: Decreased breath sounds at the bases, conversational tachypnea Cardio: Other: Regular rate, regular rhythm, 2+ bilateral radial pedal pulses GI: Other: Distended, firm, no organomegaly, normoactive bowel sounds, nontender : Other: Denies need to urinate however greater than 400 mL in bladder on bladder scan Skin: Other: No jaundice, no pallor, mildly diaphoretic, cool to touch Neuro: Other: Alert oriented, speech is clear, no facial asymmetry, no localizing neurologic deficits noted during the course of conversation Extrem: Other: No clubbing, cyanosis or edema, moves all extremities equally Psych: Other: Anxious, pleasant and cooperative, judgment and insight intact H&P: Results Labs Labs: Laboratory Tests 08/04/24 20:19 08/04/24 20:19 08/04/24 08/04/24 20:19 23:03 WBC 10.1 H RBC 4.92 Hgb 13.6 L Hct 42.0 MCV 85.4 MCH 27.6 MCHC 32.4 RDW 14.3 Plt Count 185 MPV 10.0 Immature Gran % (Auto) 0.2 Neut % (Auto) 79.4 H Lymph % (Auto) 8.1 L Bartow % (Auto) 7.8 Eos % (Auto) 4.0 Baso % (Auto) 0.5 Lymph # (Auto) 0.82 L Bartow # (Auto) 0.8 H Eos # (Auto) 0.4 H Baso # (Auto) 0.1 Abs Immat Gran (auto) 0.02 Absolute Neuts (auto) 8.0 H Absolute Nucleated RBC 0.000 Nucleated RBC % 0.0 PT 14.0 INR 1.0 APTT 31.1 Sodium 141 Potassium 3.7 Chloride 106 Carbon Dioxide 26 Anion Gap 9 BUN 21 H Creatinine 1.81 H Estim Creat Clear Calc 37 Estimated GFR 37 L Glucose 126 H Calcium 8.6 Total Bilirubin 0.7 AST 22 ALT 14 Alkaline Phosphatase 66 Troponin I 0.724 H* Pending Total Protein 7.0 Albumin 4.2 Lipase 83 Impressions Chest X-Ray 08/04/24 20:39 IMPRESSION: Biapical scarring, without focal infiltrate or effusion. EKG 1. Sinus rhythm with first-degree AV block rate 67 left axis deviation pulmonary disease pattern QTC 418 EKG 2. Persistent sinus rhythm with first-degree AV block left anterior fascicular block QTC 455 All imaging and EKGs personally reviewed and interpreted. And unless stated otherwise agree with radiologic and cardiology interpretation. Impressions Chest X-Ray 08/04/24 20:39 IMPRESSION: Biapical scarring, without focal infiltrate or effusion. Chest/Abdomen/Pelvis CTA 08/05/24 05:17 Impression: Patchy left upper lobe pneumonia. Minimal pleural effusions with mild bibasilar atelectatic change. Status post esophagectomy with gastric pull-through surgery. Minimal apical emphysematous change. Bilateral nonobstructing renal stones. Laboratory Tests 08/05/24 02:48 08/04/24 20:19 08/04/24 08/04/24 08/05/24 20:19 23:03 00:08 WBC 10.1 H RBC 4.92 Hgb 13.6 L Hct 42.0 MCV 85.4 MCH 27.6 MCHC 32.4 RDW 14.3 Plt Count 185 MPV 10.0 Immature Gran % (Auto) 0.2 Neut % (Auto) 79.4 H Lymph % (Auto) 8.1 L Bartow % (Auto) 7.8 Eos % (Auto) 4.0 Baso % (Auto) 0.5 Lymph # (Auto) 0.82 L Bartow # (Auto) 0.8 H Eos # (Auto) 0.4 H Baso # (Auto) 0.1 Abs Immat Gran (auto) 0.02 Absolute Neuts (auto) 8.0 H Absolute Nucleated RBC 0.000 Nucleated RBC % 0.0 PT 14.0 INR 1.0 APTT 31.1 Puncture Site ABG pH ABG pCO2 ABG pO2 ABG PO2/FiO2 Ratio ABG HCO3 ABG O2 Saturation ABG O2 Content ABG Base Excess A-a Gradient Oxyhemoglobin Carboxyhemoglobin Methemoglobin Reduced Hemoglobin Total Hemoglobin O2 Delivery Device O2 Liters/Min FiO2 Sodium 141 Potassium 3.7 Chloride 106 Carbon Dioxide 26 Anion Gap 9 BUN 21 H Creatinine 1.81 H Estim Creat Clear Calc 37 Estimated GFR 37 L Glucose 126 H Calcium 8.6 Total Bilirubin 0.7 AST 22 ALT 14 Alkaline Phosphatase 66 Troponin I 0.724 H* 0.590 H* Total Protein 7.0 Albumin 4.2 Triglycerides Cholesterol LDL Cholesterol Direct HDL Direct Lipase 83 Urine Color Urine Appearance Urine pH Ur Specific Amory Urine Protein Urine Glucose (UA) Urine Ketones Ur Blood (Man) Urine Nitrate Urine Bilirubin Urine Urobilinogen Ur Leukocyte Esterase Urine RBC Urine WBC Ur Squamous Epith Cells Urine Bacteria Urine Casts Nasal MRSA (PCR) Not detected Urine Opiates Screen Urine Methadone Screen Ur Barbiturates Screen Ur Phencyclidine Scrn Ur Amphetamine Screen U Benzodiazepines Scrn Urine Cocaine Screen U Cannabinoids Screen Influenza A (RT-PCR) Influenza B (RT-PCR) RSV (RT-PCR) SARS-CoV-2 RNA (RT-PCR) 08/05/24 08/05/24 08/05/24 01:33 02:43 02:48 WBC 12.5 H RBC 4.18 L Hgb 11.7 L Hct 35.7 L MCV 85.4 MCH 28.0 MCHC 32.8 RDW 14.2 Plt Count 176 MPV 10.5 H Immature Gran % (Auto) 0.5 Neut % (Auto) 83.9 H Lymph % (Auto) 4.9 L Bartow % (Auto) 9.7 H Eos % (Auto) 0.7 Baso % (Auto) 0.3 Lymph # (Auto) 0.61 L Bartow # (Auto) 1.2 H Eos # (Auto) 0.1 Baso # (Auto) 0.0 Abs Immat Gran (auto) 0.06 H Absolute Neuts (auto) 10.5 H Absolute Nucleated RBC 0.000 Nucleated RBC % 0.0 PT INR APTT Puncture Site Right radial ABG pH 7.388 ABG pCO2 37.1 ABG pO2 108.5 H ABG PO2/FiO2 Ratio 1.81 ABG HCO3 21.9 L ABG O2 Saturation 97.9 ABG O2 Content 17.1 ABG Base Excess -2.7 A-a Gradient 278.5 Oxyhemoglobin 97.2 Carboxyhemoglobin 0.6 Methemoglobin 0.0 Reduced Hemoglobin 2.2 Total Hemoglobin 12.4 O2 Delivery Device Simple mask O2 Liters/Min 8.0 FiO2 60 Sodium Potassium Chloride Carbon Dioxide Anion Gap BUN Creatinine Estim Creat Clear Calc Estimated GFR Glucose Calcium Total Bilirubin AST ALT Alkaline Phosphatase Troponin I 0.493 H* Total Protein Albumin Triglycerides 144 Cholesterol 109 LDL Cholesterol Direct 44 HDL Direct 39 Lipase Urine Color Urine Appearance Urine pH Ur Specific Amory Urine Protein Urine Glucose (UA) Urine Ketones Ur Blood (Man) Urine Nitrate Urine Bilirubin Urine Urobilinogen Ur Leukocyte Esterase Urine RBC Urine WBC Ur Squamous Epith Cells Urine Bacteria Urine Casts Nasal MRSA (PCR) Urine Opiates Screen Urine Methadone Screen Ur Barbiturates Screen Ur Phencyclidine Scrn Ur Amphetamine Screen U Benzodiazepines Scrn Urine Cocaine Screen U Cannabinoids Screen Influenza A (RT-PCR) Negative Influenza B (RT-PCR) Negative RSV (RT-PCR) Negative SARS-CoV-2 RNA (RT-PCR) Negative 08/05/24 08/05/24 03:05 04:36 WBC RBC Hgb Hct MCV MCH MCHC RDW Plt Count MPV Immature Gran % (Auto) Neut % (Auto) Lymph % (Auto) Bartow % (Auto) Eos % (Auto) Baso % (Auto) Lymph # (Auto) Bartow # (Auto) Eos # (Auto) Baso # (Auto) Abs Immat Gran (auto) Absolute Neuts (auto) Absolute Nucleated RBC Nucleated RBC % PT INR APTT 54.5 H Puncture Site ABG pH ABG pCO2 ABG pO2 ABG PO2/FiO2 Ratio ABG HCO3 ABG O2 Saturation ABG O2 Content ABG Base Excess A-a Gradient Oxyhemoglobin Carboxyhemoglobin Methemoglobin Reduced Hemoglobin Total Hemoglobin O2 Delivery Device O2 Liters/Min FiO2 Sodium Potassium Chloride Carbon Dioxide Anion Gap BUN Creatinine Estim Creat Clear Calc Estimated GFR Glucose Calcium Total Bilirubin AST ALT Alkaline Phosphatase Troponin I Total Protein Albumin Triglycerides Cholesterol LDL Cholesterol Direct HDL Direct Lipase Urine Color Yellow Urine Appearance Clear Urine pH 6.0 Ur Specific Amory 1.020 Urine Protein 3+ H Urine Glucose (UA) Negative Urine Ketones Trace H Ur Blood (Man) Negative Urine Nitrate Negative Urine Bilirubin Negative Urine Urobilinogen 1.0 Ur Leukocyte Esterase Negative Urine RBC 0-2 Urine WBC 0-5 Ur Squamous Epith Cells None seen Urine Bacteria None seen Urine Casts 0-2 Nasal MRSA (PCR) Urine Opiates Screen Positive A Urine Methadone Screen Negative Ur Barbiturates Screen Negative Ur Phencyclidine Scrn Negative Ur Amphetamine Screen Negative U Benzodiazepines Scrn Negative Urine Cocaine Screen Negative U Cannabinoids Screen Positive A Influenza A (RT-PCR) Influenza B (RT-PCR) RSV (RT-PCR) SARS-CoV-2 RNA (RT-PCR) Assessment and Plan Assessment and plan (1) Gastric outlet obstruction: Code(s): K31.1 - Adult hypertrophic pyloric stenosis Status: Acute (2) Acute non-ST elevation myocardial infarction (NSTEMI): Code(s): I21.4 - Non-ST elevation (NSTEMI) myocardial infarction Status: Acute (3) Chest pain: Qualifiers: Chest pain type: unspecified Qualified Code(s): R07.9 - Chest pain, unspecified Code(s): R07.9 - Chest pain, unspecified Status: Acute (4) Hypertension: Qualifiers: Hypertension type: primary hypertension Qualified Code(s): I10 - Essential (primary) hypertension Code(s): I10 - Essential (primary) hypertension Status: Acute (5) Acute kidney injury superimposed on stage 3a chronic kidney disease: Code(s): N17.9 - Acute kidney failure, unspecified; N18.31 - Chronic kidney disease, stage 3a Status: Acute (6) Left upper lobe pneumonia: Qualifiers: Pneumonia type: due to unspecified organism Qualified Code(s): J18.9 - Pneumonia, unspecified organism Code(s): J18.9 - Pneumonia, unspecified organism Status: Acute Plan Patient was initially admitted for non STEMI. However patient's troponins trended down after heparin drip and nitroglycerin. However despite nitroglycerin and heparin drip patient had intractable severe chest pain. CTA of the chest abdomen pelvis was performed as discussed above and demonstrated findings suspicious for gastric outlet obstruction with distended stomach within the thoracic cavity. The patient's case was discussed with General surgery here who recommended patient be transferred to [facility] where the patient had his prior esophagectomy with gastric pull-through. Patient's case was discussed with transfer line and subsequently patient was transferred to the ICU at [facility] with anticipated downgrade on arrival to lower level of care. Nitroglycerin was discontinued whenever was determined at this facility that majority of patient's symptoms were likely not due to non STEMI and more more likely due to GI symptoms. The patient did have significant improvement in symptoms after GI cocktail and Protonix. Heparin drip remains infusing non STEMI protocol however again suspect patient's elevated troponin is more likely due to demand ischemia from elevated blood pressures and other associated factors causing increased stress in the setting of gastric outlet obstruction. Troponins are trending down. Multiple EKGs demonstrated no evidence of ischemia. Patient will likely need eventual cardiac catheterization to determine underlying coronary disease pattern and pathology after stabilization from other medical factors. Patient's case was discussed with both the non interventional and systems analysis manager on-call who agree with plan. Patient did have some mild elevation in creatinine from baseline. The patient was given IV fluid hydration with 1 L LR followed by maintenance fluids at 125 mL an hour. Cochran catheter was placed due to urinary retention with greater than 400 mL on immediate return with placement of catheter. I suspect patient likely has some component of BPH although he denies baseline symptoms. Patient was reporting pleuritic chest pain and imaging did demonstrate possible left upper lobe pneumonia. Subsequently Unasyn has been ordered. Blood cultures were obtained and are pending. Patient did not have any significant wheezing but did report improvement in shortness of breath initially with nebulizer but report worsening shortness of breath when hour long DuoNeb was provided. Patient never had any episodes of hypoxia. He he quit smoking 2 years ago. Not convinced that the patient had acute COPD exacerbation. Shortness of breath and pleuritic chest pain while likely due to pneumonia and overt GI cause. Patient's home med rec was reviewed and reconciled with resume Coreg and Plavix however patient did not receive these medications on the evening of admission. 4.5 hours was spent in critical care activities. Due to a high probability of clinically significant, life threatening deterioration, the patient required my highest level of preparedness to intervene emergently and I personally spent this critical care time directly and personally managing the patient. This critical care time included obtaining a history; examining the patient; pulse oximetry; ordering and review of studies; arranging urgent treatment with development of a management plan; evaluation of patient's response to treatment; frequent reassessment; and discussions with other providers. It was exclusive of separately billable procedures and treating other patients and teaching time. Please see Assessment and Plan section and the rest of the note for further information on patient assessment and treatment. Condition on discharge: Serous but improved. Quality VTE Prophylaxis VTE prophylaxis: pharmacologic ordered (Heparin drip per protocol) Hospitalist MIPS Advance Care Plan I have confirmed that the patient's Advanced Care Plan is present, code status is documented, or surrogate decision maker is listed in patient medical record.: Yes Medication Reconciliation I have utilized all available resources to obtain, update and review the patients current medications (includes all prescriptions, OTC, herbals, cannabis, and nutritional supplements).: Yes
--- NOTE | 2024-08-04 23:49 | ADMGEN ---
This patient, Kevin Ghotra, was admitted to Intensive Care Unit-3. Patient/family oriented to hospital policies and general routines including ID bracelet, bed and alarms, visiting hours, pain management, procedures, bathroom and other care routines, personal items, smoking policy, room service/diet, and visiting hours. Information on how to activate the Rapid Response Team has been discussed. Patient/Family are encouraged to report perceived risks to care and to ask questions if they do not understand what they are told or what they should do.
[2024-08-05] VITALS (18 sets, daily range): BP systolic 107–135; BP diastolic 74–93; PULSE 81–98; RESP 12–24; TEMP 36.8–37.4; O2SAT 93–98
--- NOTE | 2024-08-05 00:48 | ECG_ITS ---
Test Date: 2024-08-05 00:55:33 Measurements Intervals [place] Rate: 85 P: 47 IL: 212 QRS: -83 QRSD: 81 T: 58 QT: 375 QTc: 447 Interpretive Statements SINUS RHYTHM WITH FIRST DEGREE AV BLOCK LEFT ANTERIOR FASCICULAR BLOCK [QRS AXIS <= -45, QR IN I, RS IN II] Compared to ECG 08/04/2024 22:14:26 No significant changes Electronically Signed On 08-05-2024 12:12:16 CDT by Chanelle Bunch M.D.
[2024-08-05] MEDS: MORPHINE SULFATE (*CRX) 4 MG/ML INJ IV PUSH ×2 (01:14→03:26)
[2024-08-05 01:25] LABS: MRSA (PCR) NOT DETECTED (NOT DETECTE)
[2024-08-05] MEDS: ALBUTEROL SULFATE NEB 2.5 MG/3 ML INH 15 MG INHALATION (01:49)
[2024-08-05] MEDS: IPRATROPIUM BR 0.02% INH SOLN 0.5 MG/2.5 ML VIAL 1.5 MG INHALATION (01:50)
[2024-08-05] MEDS: methylPREDNISolone SOD SUCC 40 MG VIAL IV PUSH ×2 (02:34→05:48)
[2024-08-05 02:45] LABS: Influenza A QL RT-PCR Negative (Negative); Influenza B QL RT-PCR Negative (Negative); RSV RNA, RT-PCR Negative (Negative); SARS-CoV-2 RNA PCR Negative (Negative)
[2024-08-05 02:47] LABS: Alveolar/Arterial O2 Gradient 278.5 mmHg; Base Excess ABG -2.7 mEq/l (+/-2.0); Carboxyhemoglobin 0.6 % THb (0-2.0); Fractional Inspired Oxygen 60 %; HCO3 ABG 21.9 mEq/l (22.0-26.0); Oxygen Content ABG 17.1 %vol (16.0-22.0); Oxygen Saturation ABG 97.9 % (95.0-100.0); Oxyhemoglobin 97.2 % THb (90.0-100.0); PCO2 ABG 37.1 mmHg (35.0-45.0); PO2 ABG 108.5 mmHg (80.0-100.0); PO2 FiO2 Ratio Arterial Blood 1.81 %; Reduced Hemoglobin 2.2 %THb (0-5.0); Total Hemoglobin 12.4 g/dL (12.0-18.0); pH ABG 7.388 (7.350-7.450)
[2024-08-05 02:48] LABS: Modified Allen's Test Pass; Site Drawn RIGHT RADIAL
[2024-08-05 02:49] LABS: Device SIMPLE MASK
[2024-08-05 02:58] LABS: Basophils Percent Auto 0.3 % (0.2-1.2); Eosinophils Absolute Auto 0.1 K/mm3 (0-0.3); Eosinophils Percent Auto 0.7 % (0-4.4); Hematocrit 35.7 % (42.0-52.0); Hemoglobin 11.7 g/dL (14.0-18.0); Immature Granulocyte Absolute 0.06 K/mm3 (0.00-0.031); Immature Granulocyte Percent A 0.5 % (0-0.5); Lymphocytes Absolute Auto 0.61 K/mm3 (0.9-3.2); Lymphocytes Percent Auto 4.9 % (18.3-44.2); Mean Corpuscular HGB Conc 32.8 g/dl (32-36); Mean Corpuscular Volume 85.4 fl (80-100); Mean Platelet Volume 10.5 fl (7.4-10.4); Monocytes Absolute Auto 1.2 K/mm3 (0.1-0.6); Monocytes Percent Auto 9.7 % (2.6-8.5); Neutrophils Absolute Auto 10.5 K/mm3 (1.3-6.7); Neutrophils Percent Auto 83.9 % (45.5-73.1); Platelet Count Result 176 k/mm3 (150-375); Red Blood Count 4.18 M/mm3 (4.6-6.20); Red Cell Distribution Width 14.2 % (11.5-14.5); White Blood Count 12.5 K/mm3 (4.5-10.0)
[2024-08-05 03:06] LABS: Cholesterol 109 mg/dL (0-200); HDL Direct 39 mg/dL; Triglycerides 144 mg/dL (<150)
[2024-08-05 03:17] LABS: LDL Cholesterol Direct 44 mg/dL
[2024-08-05] MEDS: PANTOPRAZOLE SODIUM IV 40 MG VIAL IV PUSH (03:19)
[2024-08-05] MEDS: NITROGLYCERIN/D5W 200 MCG/ML 50 MG/250 ML BTL 60 MG IV CONT (03:20)
[2024-08-05] MEDS: BELLADONNA ALK/PHENOB ELIX 10 ML, MAG HYDROX/ALUMINUM HYD/SIMETH 30 ML, LIDOCAINE 2% VI... PO (03:20)
[2024-08-05 03:21] LABS: Add Urine Microscopic? YES; Appearance Urine Clear (Clear); Bacteria Urine None Seen /hpf; Bilirubin Urine Negative (Negative); Blood Urine Negative (Negative); Color Urine Yellow (Yellow); Glucose Urine UA Negative (Negative); Ketones Urine Trace mg/dL (Negative); Leukocyte Esterase Ur Negative LEU/UL (Negative); Nitrate Urine Negative (Negative); Non Pathogenic Casts 0-2; Protein Urine 3+ mg/dL (Negative); RBC Urine 0-2 /hpf (0-2); Squamous Epithelial Cell Urine None Seen /hpf (Few); WBC Urine 0-5 /hpf (0-3)
[2024-08-05 03:24] LABS: Troponin I 0.493 ng/mL (0.000-0.034)
[2024-08-05 03:38] LABS: Amphetamine Screen Urine Negative (Negative); Barbiturate Screen Urine Negative (Negative); Benzodiazepines Screen Urine Negative (Negative); Cannabinoid Screen Urine Positive (Negative); Cocaine Screen Urine Negative (Negative); Methadone Screen Urine Negative (Negative); Opiate Screen Urine Positive (Negative); Phencyclidine Screen Urine Negative (Negative)
[2024-08-05 04:52] LABS: Partial Thromboplastin Time 54.5 Seconds (22.3-36.8)
[2024-08-05] MEDS: HEPARIN SODIUM 5,000 UNITS/ML VIAL 4000 UNITS IV PUSH (05:48)
[2024-08-05] MEDS: IPRATROPIUM BR 0.02% INH SOLN 0.5 MG/2.5 ML VIAL INHALATION (08:15)
[2024-08-05] MEDS: ALBUTEROL SULFATE NEB 2.5 MG/3 ML INH 5 MG INHALATION (08:15)
[2024-08-05] MEDS: CYANOCOBALAMIN 500 MCG TABLET PO (08:30)
[2024-08-05] MEDS: carvediloL 25 MG TABLET PO (08:30)
[2024-08-05] MEDS: FERROUS SULFATE 325 MG TABLET DR PO (08:30)
[2024-08-05] MEDS: DULoxetine HCL 30 MG CAPSULE.DR PO (08:30)
[2024-08-05] MEDS: GABAPENTIN 100 MG CAPSULE 200 MG PO (08:30)
[2024-08-05] MEDS: CLOPIDOGREL BISULFATE 75 MG TABLET PO (08:31)
[2024-08-05] MEDS: ROSUVASTATIN 10 MG TABLET PO (08:31)
--- NOTE | 2024-08-05 08:50 | PM.TDS ---
Transfer Discharge Sum: Prov Provider Date of admission: 08/04/24 21:44 Primary care physician: Diego Antoine MD Admitting clinician: Jessica Almanza DO Consults: 08/04/24 Consult to Physician Routine Comment: Consulting Provider: Chanelle Bunch Reason for consultation: NSTEMI Has provider been notified: Yes 08/04/24 21:45 Consult to Physician Routine Comment: Consulting Provider: Jose Antonio Adam Reason for consultation: NSTEMI Has provider been notified: Yes DS: Admitting Diagnosis Discharge Date 08/05/24 Admitting Diagnosis Chest pain DS: Discharge Diagnosis Discharge Diagnosis (1) Gastric outlet obstruction: Code(s): K31.1 - Adult hypertrophic pyloric stenosis Status: Acute (2) Acute non-ST elevation myocardial infarction (NSTEMI): Code(s): I21.4 - Non-ST elevation (NSTEMI) myocardial infarction Status: Acute (3) Chest pain: Qualifiers: Chest pain type: unspecified Qualified Code(s): R07.9 - Chest pain, unspecified Code(s): R07.9 - Chest pain, unspecified Status: Acute (4) Hypertension: Qualifiers: Hypertension type: primary hypertension Qualified Code(s): I10 - Essential (primary) hypertension Code(s): I10 - Essential (primary) hypertension Status: Acute (5) Acute kidney injury superimposed on stage 3a chronic kidney disease: Code(s): N17.9 - Acute kidney failure, unspecified; N18.31 - Chronic kidney disease, stage 3a Status: Acute (6) Left upper lobe pneumonia: Qualifiers: Pneumonia type: due to unspecified organism Qualified Code(s): J18.9 - Pneumonia, unspecified organism Code(s): J18.9 - Pneumonia, unspecified organism Status: Acute Plan Patient was initially admitted for non STEMI. However patient's troponins trended down after heparin drip and nitroglycerin. However despite nitroglycerin and heparin drip patient had intractable severe chest pain. CTA of the chest abdomen pelvis was performed as discussed above and demonstrated findings suspicious for gastric outlet obstruction with distended stomach within the thoracic cavity. The patient's case was discussed with General surgery here who recommended patient be transferred to [facility] where the patient had his prior esophagectomy with gastric pull-through. Patient's case was discussed with transfer line and subsequently patient was transferred to the ICU at [facility] with anticipated downgrade on arrival to lower level of care. Nitroglycerin was discontinued whenever was determined at this facility that majority of patient's symptoms were likely not due to non STEMI and more more likely due to GI symptoms. The patient did have significant improvement in symptoms after GI cocktail and Protonix. Heparin drip remains infusing non STEMI protocol however again suspect patient's elevated troponin is more likely due to demand ischemia from elevated blood pressures and other associated factors causing increased stress in the setting of gastric outlet obstruction. Troponins are trending down. Multiple EKGs demonstrated no evidence of ischemia. Patient will likely need eventual cardiac catheterization to determine underlying coronary disease pattern and pathology after stabilization from other medical factors. Patient's case was discussed with both the non interventional and dye padder operator on-call who agree with plan. Patient did have some mild elevation in creatinine from baseline. The patient was given IV fluid hydration with 1 L LR followed by maintenance fluids at 125 mL an hour. Cochran catheter was placed due to urinary retention with greater than 400 mL on immediate return with placement of catheter. I suspect patient likely has some component of BPH although he denies baseline symptoms. Patient was reporting pleuritic chest pain and imaging did demonstrate possible left upper lobe pneumonia. Subsequently Unasyn has been ordered. Blood cultures were obtained and are pending. Patient did not have any significant wheezing but did report improvement in shortness of breath initially with nebulizer but report worsening shortness of breath when hour long DuoNeb was provided. Patient never had any episodes of hypoxia. He he quit smoking 2 years ago. Not convinced that the patient had acute COPD exacerbation. Shortness of breath and pleuritic chest pain while likely due to pneumonia and overt GI cause. Patient's home med rec was reviewed and reconciled with resume Coreg and Plavix however patient did not receive these medications on the evening of admission. Condition on discharge: Serous but improved. Transfer Discharge Sum: Med Medications Active and Home Medications: Home Medications duloxetine 30 mg capsule,delayed release 30 mg PO DAILY 11/11/21 [History Confirmed 08/05/24] hydrocodone 5 mg-acetaminophen 325 mg tablet 1 tablet PO BID PRN Pain, Moderate 11/11/21 [History Confirmed 08/05/24] ferrous sulfate 325 mg (65 mg iron) tablet,delayed release 325 mg PO BID #60 tabs 01/27/22 [Rx Confirmed 08/05/24] gabapentin 100 mg capsule 200 mg PO TID 11/06/22 [History Confirmed 08/05/24] carvedilol 25 mg tablet 25 mg PO BID 07/29/23 [History Confirmed 08/05/24] cyanocobalamin (vitamin B-12) 500 mcg tablet (Vitamin B-12) 500 mcg PO BID 07/29/23 [History Confirmed 08/05/24] pantoprazole 40 mg tablet,delayed release 40 mg PO QAM 07/29/23 [History Confirmed 08/05/24] clopidogrel 75 mg tablet 75 mg PO QAM #21 tabs 07/30/23 [Rx Confirmed 08/05/24] rosuvastatin 10 mg tablet (Crestor) 10 mg PO DAILY #30 tabs 07/30/23 [Rx Confirmed 08/05/24] Active Medications Acetaminophen (Acetaminophen 325 Mg Tablet) 650 mg PO Q4H PRN PRN Reason: Mild Pain (1-3) or Fever Hydrocodone Bitart/Acetaminophen (Hydrocodone/Acetaminophen (*Crx) 5-325 Mg Tablet) 1 tab PO BID PRN PRN Reason: Pain 4-6 Albuterol (Albuterol Sulfate Neb 2.5 Mg/3 Ml Inh) 5 mg INHALATION Q6HRT [facility] Last Admin: 08/05/24 08:15 Dose: 5 mg Carvedilol (Carvedilol 25 Mg Tablet) 25 mg PO Q12HR [facility] Last Admin: 08/05/24 08:30 Dose: 25 mg Clopidogrel Bisulfate (Clopidogrel Bisulfate 75 Mg Tablet) 75 mg PO QAM [facility] Last Admin: 08/05/24 08:31 Dose: 75 mg Cyanocobalamin (Cyanocobalamin 500 Mcg Tablet) 500 mcg PO BID [facility] Last Admin: 08/05/24 08:30 Dose: 500 mcg Duloxetine HCl (Duloxetine Hcl 30 Mg Capsule.) 30 mg PO DAILY [facility] Last Admin: 08/05/24 08:30 Dose: 30 mg Ferrous Sulfate (Ferrous Sulfate [address]) 325 mg PO BID [facility] Last Admin: 08/05/24 08:30 Dose: 325 mg Gabapentin (Gabapentin 100 Mg Capsule) 200 mg PO TID [facility] Last Admin: 08/05/24 08:30 Dose: 200 mg Heparin Sodium (Porcine) (Heparin Sodium 5,000 Units/Ml Vial) 4,000 units IV PUSH PRN PRN PRN Reason: aPTT less than 55 seconds Last Admin: 08/05/24 05:48 Dose: 4,000 units Heparin Sodium (Porcine) (Heparin Sodium 5,000 Units/Ml Vial) 3,000 units IV PUSH PRN PRN PRN Reason: aPTT 55 - 70 seconds Hydromorphone HCl (Hydromorphone Hcl Inj (*Crx) 2 Mg/Ml Vial) 1 mg IV PUSH Q2H PRN PRN Reason: Pain Rated 7-10 Heparin Sodium/Dextrose (Heparin Sodium/D5w 100 Units/Ml) 25,000 units in 250 mls @ 13 mls/hr IV CONT .[id number] [facility]; Protocol Last Titration: 08/05/24 08:00 Dose: 1,300 units/hr, 13 mls/hr Lactated Ringer's (Lr - Lactated Ringers Iv) 1,000 mls @ 125 mls/hr IV CONT .Q8H [facility] Last Admin: 08/04/24 21:54 Dose: 125 mls/hr Ampicillin Sodium/Sulbactam Sodium (Unasyn 3 Gm/Ns 100 Ml) 3 gm in 100 mls @ 200 mls/hr IVPB Q6H [facility] Ipratropium Boswell (Ipratropium Br 0.02% Inh Soln 0.5 Mg/2.5 Ml Vial) 0.5 mg INHALATION Q6HRT [facility] Last Admin: 08/05/24 08:15 Dose: 0.5 mg Methylprednisolone Sodium Succinate (Methylprednisolone Sod Succ 40 Mg Vial) 40 mg IV PUSH Q6HR [facility] Last Admin: 08/05/24 05:48 Dose: 40 mg Ondansetron HCl (Ondansetron Inj 4 Mg/2 Ml Vial) 4 mg IV PUSH Q4H PRN PRN Reason: Nausea Pantoprazole Sodium (Pantoprazole 40 Mg Tablet) 40 mg PO QAM NASIR Pantoprazole Sodium (Pantoprazole Sodium Iv 40 Mg Vial) 40 mg IV PUSH Q12HR [facility] Rosuvastatin Calcium (Rosuvastatin 10 Mg Tablet) 10 mg PO DAILY [facility] Last Admin: 08/05/24 08:31 Dose: 10 mg Transfer Discharge Sum: Hosp Hospital Course Hospital course: Kevin Ghotra is a 74 year old male 74 male presented with chest pain with NSTEMI and was placed on heparin drip which did bring his trops down however patient continue to c/o of severe CP and CT scan of the abdomen showed gastric outlet obstruction with status post esophagectomy with gastric pull-through surgery. General surgery service was contacted and recommended since patient had previous esophagectomy at [facility] to transfer the patient, Dr. Almanza communicated with surgery service at the [facility] and patient was accepted by the surgeon and patient being transferred as there is a bed available for the patient. Patient is clinically stable his pain is improve. will discharge the patient Time Spent with Patient Time attestation: Total time spent providing and/or coordinating transfer services: Exam Narrative: Patient is comfortable, NAD HEENT: eyes are clear and none icteric LUNGS:CTA HEART: RR S1S2 ABD: BS+, Soft and nontender Lower extremities: no edema SKIN: nonjaundiced Neuro: grossly intact. DS: Data Data Completed and Pending Labs on day of discharge: Labs from last 24 hours 08/05/24 08/05/24 08/05/24 04:36 03:05 02:48 WBC 12.5 H RBC 4.18 L Hgb 11.7 L Hct 35.7 L MCV 85.4 MCH 28.0 MCHC 32.8 RDW 14.2 Plt Count 176 MPV 10.5 H Immature Gran % (Auto) 0.5 Neut % (Auto) 83.9 H Lymph % (Auto) 4.9 L Bladen % (Auto) 9.7 H Eos % (Auto) 0.7 Baso % (Auto) 0.3 Lymph # (Auto) 0.61 L Bladen # (Auto) 1.2 H Eos # (Auto) 0.1 Baso # (Auto) 0.0 Abs Immat Gran (auto) 0.06 H Absolute Neuts (auto) 10.5 H Absolute Nucleated RBC 0.000 Nucleated RBC % 0.0 PT INR APTT 54.5 H Puncture Site ABG pH ABG pCO2 ABG pO2 ABG PO2/FiO2 Ratio ABG HCO3 ABG O2 Saturation ABG O2 Content ABG Base Excess A-a Gradient Oxyhemoglobin Carboxyhemoglobin Methemoglobin Reduced Hemoglobin Total Hemoglobin O2 Delivery Device O2 Liters/Min FiO2 Sodium Potassium Chloride Carbon Dioxide Anion Gap BUN Creatinine Estim Creat Clear Calc Estimated GFR Glucose Calcium Total Bilirubin AST ALT Alkaline Phosphatase Troponin I 0.493 H* Total Protein Albumin Triglycerides 144 Cholesterol 109 LDL Cholesterol Direct 44 HDL Direct 39 Lipase Urine Color Yellow Urine Appearance Clear Urine pH 6.0 Ur Specific K[place] 1.020 Urine Protein 3+ H Urine Glucose (UA) Negative Urine Ketones Trace H Ur Blood (Man) Negative Urine Nitrate Negative Urine Bilirubin Negative Urine Urobilinogen 1.0 Ur Leukocyte Esterase Negative Urine RBC 0-2 Urine WBC 0-5 Ur Squamous Epith Cells None seen Urine Bacteria None seen Urine Casts 0-2 Nasal MRSA (PCR) Urine Opiates Screen Positive A Urine Methadone Screen Negative Ur Barbiturates Screen Negative Ur Phencyclidine Scrn Negative Ur Amphetamine Screen Negative U Benzodiazepines Scrn Negative Urine Cocaine Screen Negative U Cannabinoids Screen Positive A Influenza A (RT-PCR) Influenza B (RT-PCR) RSV (RT-PCR) SARS-CoV-2 RNA (RT-PCR) 08/05/24 08/05/24 08/05/24 02:43 01:33 00:08 WBC RBC Hgb Hct MCV MCH MCHC RDW Plt Count MPV Immature Gran % (Auto) Neut % (Auto) Lymph % (Auto) Bladen % (Auto) Eos % (Auto) Baso % (Auto) Lymph # (Auto) Bladen # (Auto) Eos # (Auto) Baso # (Auto) Abs Immat Gran (auto) Absolute Neuts (auto) Absolute Nucleated RBC Nucleated RBC % PT INR APTT Puncture Site Right radial ABG pH 7.388 ABG pCO2 37.1 ABG pO2 108.5 H ABG PO2/FiO2 Ratio 1.81 ABG HCO3 21.9 L ABG O2 Saturation 97.9 ABG O2 Content 17.1 ABG Base Excess -2.7 A-a Gradient 278.5 Oxyhemoglobin 97.2 Carboxyhemoglobin 0.6 Methemoglobin 0.0 Reduced Hemoglobin 2.2 Total Hemoglobin 12.4 O2 Delivery Device Simple mask O2 Liters/Min 8.0 FiO2 60 Sodium Potassium Chloride Carbon Dioxide Anion Gap BUN Creatinine Estim Creat Clear Calc Estimated GFR Glucose Calcium Total Bilirubin AST ALT Alkaline Phosphatase Troponin I Total Protein Albumin Triglycerides Cholesterol LDL Cholesterol Direct HDL Direct Lipase Urine Color Urine Appearance Urine pH Ur Specific Kerman Urine Protein Urine Glucose (UA) Urine Ketones Ur Blood (Man) Urine Nitrate Urine Bilirubin Urine Urobilinogen Ur Leukocyte Esterase Urine RBC Urine WBC Ur Squamous Epith Cells Urine Bacteria Urine Casts Nasal MRSA (PCR) Not detected Urine Opiates Screen Urine Methadone Screen Ur Barbiturates Screen Ur Phencyclidine Scrn Ur Amphetamine Screen U Benzodiazepines Scrn Urine Cocaine Screen U Cannabinoids Screen Influenza A (RT-PCR) Negative Influenza B (RT-PCR) Negative RSV (RT-PCR) Negative SARS-CoV-2 RNA (RT-PCR) Negative 08/04/24 08/04/24 23:03 20:19 WBC 10.1 H RBC 4.92 Hgb 13.6 L Hct 42.0 MCV 85.4 MCH 27.6 MCHC 32.4 RDW 14.3 Plt Count 185 MPV 10.0 Immature Gran % (Auto) 0.2 Neut % (Auto) 79.4 H Lymph % (Auto) 8.1 L Bladen % (Auto) 7.8 Eos % (Auto) 4.0 Baso % (Auto) 0.5 Lymph # (Auto) 0.82 L Bladen # (Auto) 0.8 H Eos # (Auto) 0.4 H Baso # (Auto) 0.1 Abs Immat Gran (auto) 0.02 Absolute Neuts (auto) 8.0 H Absolute Nucleated RBC 0.000 Nucleated RBC % 0.0 PT 14.0 INR 1.0 APTT 31.1 Puncture Site ABG pH ABG pCO2 ABG pO2 ABG PO2/FiO2 Ratio ABG HCO3 ABG O2 Saturation ABG O2 Content ABG Base Excess A-a Gradient Oxyhemoglobin Carboxyhemoglobin Methemoglobin Reduced Hemoglobin Total Hemoglobin O2 Delivery Device O2 Liters/Min FiO2 Sodium 141 Potassium 3.7 Chloride 106 Carbon Dioxide 26 Anion Gap 9 BUN 21 H Creatinine 1.81 H Estim Creat Clear Calc 37 Estimated GFR 37 L Glucose 126 H Calcium 8.6 Total Bilirubin 0.7 AST 22 ALT 14 Alkaline Phosphatase 66 Troponin I 0.590 H* 0.724 H* Total Protein 7.0 Albumin 4.2 Triglycerides Cholesterol LDL Cholesterol Direct HDL Direct Lipase 83 Urine Color Urine Appearance Urine pH Ur Specific Kerman Urine Protein Urine Glucose (UA) Urine Ketones Ur Blood (Man) Urine Nitrate Urine Bilirubin Urine Urobilinogen Ur Leukocyte Esterase Urine RBC Urine WBC Ur Squamous Epith Cells Urine Bacteria Urine Casts Nasal MRSA (PCR) Urine Opiates Screen Urine Methadone Screen Ur Barbiturates Screen Ur Phencyclidine Scrn Ur Amphetamine Screen U Benzodiazepines Scrn Urine Cocaine Screen U Cannabinoids Screen Influenza A (RT-PCR) Influenza B (RT-PCR) RSV (RT-PCR) SARS-CoV-2 RNA (RT-PCR)
== END 2024-08-05 09:40 | disposition short-term general hospital (02) | DRG 380 ==
LOC: ANHED 21:35 → ANHICU 22:32
PROVIDERS: Admitting Provider Internal Medicine; Emergency Provider Student in an Organized Health Care Education/Training Program; PCP Internal Medicine; Visit Provider Family Medicine
DX: K31.1 Adult hypertrophic pyloric stenosis (principal); I21.A1 Myocardial infarction type 2; J18.9 Pneumonia, unspecified organism; N17.9 Acute kidney failure, unspecified; J44.0 Chronic obstructive pulmonary disease with (acute) lower respiratory infection; I12.9 Hypertensive chronic kidney disease with stage 1 through stage 4 chronic kidney disease, or unspecified chronic kidney disease; N18.31 Chronic kidney disease, stage 3a; G47.33 Obstructive sleep apnea (adult) (pediatric); E78.5 Hyperlipidemia, unspecified; D50.9 Iron deficiency anemia, unspecified; I25.10 Atherosclerotic heart disease of native coronary artery without angina pectoris; K21.9 Gastro-esophageal reflux disease without esophagitis; N40.1 Benign prostatic hyperplasia with lower urinary tract symptoms; R33.8 Other retention of urine; Z86.73 Personal history of transient ischemic attack (TIA), and cerebral infarction without residual deficits; Z85.01 Personal history of malignant neoplasm of esophagus; Z90.49 Acquired absence of other specified parts of digestive tract; Z87.891 Personal history of nicotine dependence
CPT/HCPCS: 36415; 36600; 71046; 71275; 74177; 80053; 80061; 80307; 81001; 82375; 82805; 83050; 83690; 84484; 85018; 85025; 85610; 85730; 87040; 87637; 87641; 93005; 94640; 96374; 96375; 99291; A9270; J1644; J2270; J2305; J2470; J2919; J7120; Q9967

== ENCOUNTER 2024-09-29 09:00 | Outpatient (CLI) | payer MEDICARE, SELFPAY ==
--- NOTE | ~2024-09-29 | PE_ITS ---
EXAMINATION: PET skull to mid thigh DATE: 09/29/2024 11:15 INDICATION: Esophageal cancer TECHNIQUE: Blood glucose level was 122 mg/dL. 10.948 mCi of 18-fluorodeoxyglucose (18-FDG) was admini stered i.v. Low dose computed tomography (CT) images were acquired from the base of the brain to the proximal thighs for attenuation correction and anatomic localization. Positron emission tomography (P ET) images were acquired in the same distribution beginning 58 minutes after injection. Images includ ing fused PET/CT images were reconstructed in axial, coronal, and sagittal planes. Automated exposure control technique was employed. The dose-length product was 1086.36mGy-cm. COMPARISON: CT chest, abdomen and pelvis dated 07/04/2024 FINDINGS: Head/neck: There is symmetric increased activity in the oral cavity and nares, palatine tonsils, laryngeal muscl es and ocular muscles without CT correlate, likely physiologic. No pathologically enlarged cervical l ymphadenopathy or suspicious foci of increased FDG uptake in the visualized head or neck. Atheroscler otic calcifications at the right carotid bulb. Chest: Right subclavian central venous port catheter with distal tip at the superior cavoatrial junction. Po stoperative change of prior right thoracotomy, esophagectomy and gastric pull-through procedure for r eported esophageal cancer. Mild dependent atelectasis in the bilateral lower lobes and mild discoid a telectasis in the right lower lobe. No suspicious pulmonary nodules, pneumonia, pulmonary edema or pl eural effusion. Heart size normal. Atherosclerotic coronary artery calcifications. No pericardial eff usion. Thoracic aorta is normal in caliber. No pathologically enlarged or FDG avid thoracic lymphaden opathy. Abdomen/pelvis/proximal thighs: Physiologic renal accumulation and excretion of FDG activity in the kidneys, bladder and along portio ns of ureters. Photopenic defects associated with multiple bilateral renal cysts the largest on the r ight measuring 6.0 cm. Bilateral nonobstructing nephrolithiasis with 7 mm stone in the right kidney a nd 5 mm and 7 mm stones in the left kidney. Normal degree and heterogenous pattern of increased uptak e throughout the liver without radiologic correlate or dominant FDG avid lesion. The gallbladder, corona creas, spleen and bilateral adrenal glands are normal. Mild uptake scattered throughout the bowels wi thout radiologic correlate, also likely physiologic. Postoperative change of prior appendectomy with surgical clips at the tip of the cecum. Prostatomegaly measuring 5.7 x 3.8 cm. Small bilateral fat-co ntaining inguinal hernias. No free intraperitoneal gas or fluid. No other abnormal foci of increased FDG uptake or pathologically enlarged lymphadenopathy in the abdomen, pelvis or proximal thighs. Musculoskeletal: Severe cervical and lumbar spondylosis. Mild to moderate thoracic spondylosis with bridging osteophyt es at multiple levels consistent with diffuse idiopathic skeletal hyperostosis (DISH). Small focus of soft tissue uptake at the right antecubital fossa likely relate to extravasation at the site of inje ction. No suspicious lytic, blastic or abnormally FDG avid bone lesions. IMPRESSION: 1. Status post esophagectomy and gastric pull-through for reported esophageal cancer. No lesion suspi cious for metastatic disease. 2. Bilateral nonobstructing nephrolithiasis. Reviewed, dictated and finalized at location A. IMPRESSION: 1. Status post esophagectomy and gastric pull-through for reported esophageal c ancer. No lesion suspicious for metastatic disease. 2. Bilateral nonobstructing nephrolithiasis.
--- OUTSIDE RECORDS SUMMARY | 2024-09-29 09:10 | XMS_ITS | Clinical Summary ---
Author Organization [facility] [place] [address] Address [address] [place] [address] Care Team Providers Care Qa Automation Developer Name Role Phone Diego Antoine MD Primary Care Provider [phone] Allergies No known active allergies Medications gabapentin [...] Encounters Date Type Department Care Team Description 08/19/2024 1:15 PM CDT Office Visit [place] [facility] at [address] [place] [address] Jill Da Silva MD Essential hypertension (Primary Dx); TIA (transient ischemic attack); Mixed hyperlipidemia 08/04/2024 Telephone [place] [facility] at [address] [place] [address] Mady Delgado MA 07/27/2024 Results Follow-Up [place] [facility] at [address] [place] [address] Mady Delgado MA Pro B-type natriuretic peptide 07/26/2024 1:55 PM CDT Lab [facility] [address] [place] [address] Abnormal EKG 07/13/2024 1:00 PM CDT Office Visit [place] [facility] at [address] [place] [address] Jill Da Silva MD Essential hypertension (Primary Dx); TIA (transient ischemic attack); Mixed hyperlipidemia; Smoking hx; Chronic obstructive pulmonary disease, unspecified COPD type (HCC); Shortness of breath; Abnormal EKG 06/30/2024 ACO Quality [facility] Accountable Care Organization [address] [place] [id number] Lynn Chanel from Last 3 Months Social History Tobacco Use Types Packs/Day Years Used Date Smoking Tobacco: Former Cigarettes Tobacco Cessation:Counseling Given: Not Answered Sex and Gender Information Value Date Recorded Sex Assigned at Not on file 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 Gender Identity Not on file Sexual Orientation Not on file Obstetrics History Last Filed Vital Signs Vital Sign Reading Time Taken Comments Blood Pressure 172/89 08/19/2024 1:23 PM CDT Pulse 50 08/19/2024 1:23 PM CDT Temperature - - Respiratory Rate - - Oxygen Saturation - - Inhaled Oxygen Concentration - - Weight 86.6 kg (191 lb) 08/19/2024 1:23 PM CDT Height 182.9 cm (6') 08/19/2024 1:23 PM CDT Body Mass Index 25.9 08/19/2024 1:23 PM CDT Plan of Treatment Health Maintenance Due Date Last Done Comments Colon Cancer Screening-Colonoscopy 1950 Depression Screening 1952 Fall Risk Assessment 1950 Hepatitis C Screening 1952 Hepatitis B Screening 1970 Zoster Vaccine (1 of 2) 2002 Abdominal Aortic Aneurysm (A AA) Screen 2017 Well Visit 65+ 2017 Covid-19 Vaccine (3 - 2023-2 5 season) 2023 08/11/2020, 07/14/2020 Influenza Vaccine (#1) 2024 , 12/05/2022, 01/17/2022, Additional history exists DTaP/Tdap/Td Vaccine (2 - Td or Tdap) 01/20/2028 01/19/2018 Pneumococcal vaccine 65+ Completed 023, 01/19/2018, 01/17/2016 Procedures Procedure Name Priority Date/Time Associated Diagnosis [...] et.al. Eur Heart J. 2006:27:330-337. 2. Piter HERRON, Freddy DELGADO. J. AM Yu Cardiol: Cardiovasc Imag. 2009;2: 216- 225. Interpretive Data Last Revised Date: 2017. Testing performed by: [facility], [address] [place] [address]., [id number] Blood 07/26/2024 1:58 PM CDT 07/26/2024 9:32 PM CDT us Jill Da Silva MD LAB BLOOD ORDERABLES Final Result [facility] 1 [facility] [place] [address] from Last 3 Months Insurance [facility] MEDICARE HMO Care Teams Qa Automation Developer Relationship Specialty Start Date End Date Diego Antoine MD PCP - General Internal Medicine 07/28/23
--- OUTSIDE RECORDS SUMMARY | 2024-09-29 09:10 | XMS_ITS | Referral Summary ---
Author Organization [facility] [place] [address] Address [address] [place] [address] Care Team Providers Care Construction Helper Name Role Phone Diego Antoine MD Primary Care Provider [phone] Encounters Date Type Department Care Team Description 08/19/2024 1:15 PM CDT Office Visit [place] [facility] at [address] [place] [address] Jill Da Silva MD Essential hypertension (Primary Dx); TIA (transient ischemic attack); Mixed hyperlipidemia 08/04/2024 Telephone [place] [facility] at [address] [place] [address] Mady Delgado MA 07/27/2024 Results Follow-Up [place] [facility] at [address] [place] [address] Mady Delgado MA Pro B-type natriuretic peptide 07/26/2024 1:55 PM CDT Lab [facility] [address] [place] [address] Abnormal EKG 07/13/2024 1:00 PM CDT Office Visit [place] [facility] at [address] [place] [address] Jill Da Silva MD Essential hypertension (Primary Dx); TIA (transient ischemic attack); Mixed hyperlipidemia; Smoking hx; Chronic obstructive pulmonary disease, unspecified COPD type (HCC); Shortness of breath; Abnormal EKG 06/30/2024 ACO Quality [facility] Accountable Care Organization [address] [place], [place] [id number] Lynn Chanel from Last 3 Months Allergies No known [...] on file 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 Testing performed by: [facility], [address] [place] [address], [place]., [address] Blood 07/26/2024 1:58 PM CDT 07/26/2024 9:32 PM CDT us Jill Da Silva MD LAB BLOOD ORDERABLES Final Result [facility] Department [place] [address] from Last 3 Months Insurance [facility] MEDICARE HMO Care Teams Construction Helper Relationship Specialty Start Date End Date Diego Antoine MD PCP - General Internal Medicine 07/28/23
--- OUTSIDE RECORDS SUMMARY | 2024-09-29 09:10 | XMS_ITS | Clinical Summary ---
Author Organization [facility] Address [address] [facility], [address] [address] Phone Care Team Providers Care Strand Buncher Fine Wire Name Role Phone Diego Antoine MD Primary Care Provider [phone] Megan Conroy APRN, VENTILATED RIB FITTER Unavailable [phone]- [phone] Allergies No known active allergies Medications amLODIPine (NORVASC) 5 MG Tablet Take 5 mg by mouth daily. Active aspirin EC 81 MG Tablet Delayed Response Take 81 mg by mouth daily. Active carvedilol (COREG) 25 MG Tablet Take 25 mg by mouth 2 times daily. Active clopidogrel (PLAVIX) 75 MG Tablet Take 75 mg by mouth daily. Active Cyanocobalamin 500 MCG SL Tablet by Sublingual route. Active DULoxetine (CYMBALTA) [address] Particles Take 30 mg by mouth. Active ferrous sulfate 324 (65 Fe) MG Tablet Delayed Response Take 65 mg by mouth. Active furosemide (LASIX) 20 MG Tablet Take 20 mg by mouth daily. 5 Active gabapentin (NEURONTIN) 100 MG Capsule Take 200 mg by mouth. 3 Active HYDROcodone-ac etaminophen (NORCO) 5-325 MG Tablet Take 1 Tablet by mouth. 5 Active hydrOXYzine (ATARAX) 25 MG Tablet TAKE ONE TABLET BY MOUTH EVERY EIGHT HOURS NEEDED FOR ITCHING 4 Active pantoprazole (PROTONIX) 40 MG Tablet Delayed Response Take 40 mg by mouth daily. Active rosuvastatin (CRESTOR) 10 MG Tablet Take 10 mg by mouth daily. Active acetaminophen (TYLENOL) 500 MG Tablet Take 500 mg by mouth every 4 hours as needed for Mild or more severe pain. 3 09/29/19 Discontinu ed(Med List Clean Up) famotidine (PEPCID) 40 MG Tablet Take 40 mg by mouth. 3 09/29/19 Discontinu ed(Med List Clean Up) metoclopramide (REGLAN) 5 MG Tablet Take 5 mg by mouth. 3 09/29/19 Discontinu ed(Med List Clean Up) Metoprolol Tartrate 75 MG Tablet 75 mg by Enteral route. 3 09/08/19 Discontinu ed(Alterna te therapy) traMADol (ULTRAM) 50 MG Tablet Take 50 mg by mouth. 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 COPD (chronic obstructive pulmonary disease) HLD (hyperlipidemia) Former smoker Personal history of chemotherapy Hypertension Exposure to ionizing radiation Resolved Problems Problem Noted Date Diagnosed Date Resolved Date Stroke 09/05/2024 09/05/2024 Encounters Date Type Department Care Team Description 09/28/2024 9:30 AM CDT Office Visit [facility] Neu[facility] [address] [place] [address] Megan Conroy APRN, VENTILATED RIB FITTER History of stroke (Primary Dx); Primary hypertension; Hyperlipidemia, unspecified hyperlipidemia type; Abnormal finding on MRI of brain Discharge Disposition: Discharged to home or Selfcare 09/28/2024 Travel 09/07/2024 12:20 PM CDT - 09/07/2024 11:59 PM CDT Hospital Encounter [facility]iology Services [address] [place] [address] Vamsi Bunch MD Discharge Disposition: Discharged to home or Selfcare 09/05/2024 10:25 AM CDT - 09/07/2024 11:43 AM CDT Hospital Encounter [facility] Medical/Surgical Intensive Care [address] [place] [address] Keily Soriano MD Patel, Satyen V, MD Acute CVA (cerebrovascular accident) (HCC) Discharge Disposition: Discharged to home or Selfcare 09/05/2024 Travel from Last 3 Months Immunizations Immunization Administration Dates Next Due Pneumococcal conjugate PCV20 , polysaccharide [id number] conjugate, adjuvant, PF 09/06/2024(Deferred: Other - Patient states he has had this vaccination.) Family History Medical History Relation Name Comments Stroke Brother Stroke Father Cerebral Anuerysm Sister Relation Name Status Comments Brother Father Mother Sister Social History Tobacco Use Types Packs/Day Years Used Date Smoking Tobacco: Former Cigarettes 1 55 S tarted: 03/30/1967 Smokeless Tobacco: Never Tobacco Cessation:Counseling Given: Not Answered Alcohol Use Standard Drinks/Week Comments Not Currently 0 (1 standard drink = 0.6 oz pur e alcohol) Social Connection and Isolation Panel Answer Date Recorded In a typical week, how many times do you talk on the phone with family, friends, or neighbors? Patient declined 09/05/2024 How often do you get togethe r with friends or relatives? Patient declined 09/05/2024 How often do you attend pentecostalism or mormonism serv ices? Patient declined 09/05/2024 Do you belong to any clubs o r organizations such as pentecostalism groups, unions, fraternal or athletic groups, or school groups? Patient declined 09/05/2024 How often do you attend meet ings of the clubs or organizations you belong to? Patient declined 09/05/2024 Are you , , di vorced, , never , or living with a partner? Patient declined 09/05/2024 AUDIT-C Answer Date Recorded Q1: How often do you have a drink containing alc ohol? Patient declined 09/05/2024 Q2: How many drinks containi ng alcohol do you have on a typical day when you are drinking? Patient declined 09/05/2024 Q3: How often do you have si x or more drinks on one occasion? Patient declined 09/05/2024 Overall Financial Resource Strain (CARDIA) Answe r Date Recorded How hard is it for you to pa y for the very basics like food, housing, medical care, and heating? Patient declined 09/05/2024 [facility] - Occupational Stress Questionnaire Answer Date Recorded Do you feel stress - tense, restless, nervous, or anxious, or unable to sleep at night because your mind is troubled all the time - these days? Patient declined 09/05/2024 Exercise Vital Sign Answer Date Recorde d On average, how many days pe r week do you engage in moderate to strenuous exercise (like a brisk walk)? Patient declined On average, how many minutes do you engage in exercise at this level? Patient declined 09/05/2024 Hunger Vital Sign Answer Date Recorded Within the past 12 months, y ou worried that your food would run out before you got the money to buy more. Patient declined Within the past 12 months, t he food you bought just didn't last and you didn't have money to get more. Patient declined 11/2024 PRAPARE - Transportation Answer Date Re corded In the past 12 months, has l ack of transportation kept you from medical appointments or from getting medications? Patient declined 09/05/2024 In the past 12 months, has l ack of transportation kept you from meetings, work, or from getting things needed for daily living? Patient declined 09/05/2024 Housing Stability Vital Sign Answer Claudio e Recorded In the last 12 months, was t here a time when you were not able to pay the mortgage or rent on time? Patient declined 09/06/19 25 In the past 12 months, how m any times have you moved where you were living? 1 09/05/2024 At any time in the past 12 m [facility], were you homeless or living in a assisted (including now)? Patient declined 09/05/2024 [facility] Utilities Answer Date Recorded In the past 12 months has th e electric, gas, oil, or water company threatened to shut off services in your home? Patient declined 09/05/2024 Sex and Gender Information Value Date Recorded Sex Assigned at Not on file Legal Sex Male 8:39 PM CDT Gender Identity Not on file Sexual Orientation Not on file Last Filed Vital Signs Vital Sign Reading Time Taken Comments Blood Pressure 120/70 09/28/2024 9:35 AM CDT Pulse 65 09/28/2024 9:35 AM CDT Temperature 36.6 C (97.8 F) 09/28/2024 9:35 AM CDT Respiratory Rate 16 09/28/2024 9:35 AM CDT Oxygen Saturation 97% 09/28/2024 9:35 AM CDT Inhaled Oxygen Concentration - - Weight 86.6 kg (191 lb) 09/28/2024 9:35 AM CDT Height 182.9 cm (6') 09/28/2024 9:35 AM CDT Body Mass Index 25.9 09/28/2024 9:35 AM CDT Plan of Treatment Upcoming Encounters Date Type Department Care Team (Late st Contact Info) Description 10/04/2024 10:15 AM CDT Office Visit [facility] - [place] [address] [place] [address] Lucho New MD [address] [address] 01/03/2025 1:00 PM CDT Office Visit [facility] - Neurology - [place] [address] [place] [address] Megan Conroy APRN, VENTILATED RIB FITTER [address] [place] [address] Health Maintenance Due Date Last Done Comments Hepatitis C Virus (HCV) Screening 1950 Zoster Immunization (1 of 2) 1971 Cologuard 1997 Colonoscopy 1997 Colorectal Cancer Screening 1997 Immunochemical Fecal Occult Blood 1997 Respiratory Syncytial Virus (RSV) Immunization (Adult) (1 - Risk 60-74 years 1-dose series) 2012 AAA Screening Ultrasound 2017 SARS-COV-2 Immunization (3 - Moderna risk series) 09/08/2020 08/11/2020, 07/14/2020 Influenza Immunization (#1) 2024 10/0 10/2023, 12/05/2022, 01/17/2022, Additional history exists DTaP/Tdap/Td Immunization Discontinued 01/19/2018 TdaP Immunization Completed 01/19/2018 Pneumococcal Immunization (50+ years) Completed 12/26/2022, 01/19/2018, 01/17/2016 Pneumococcal Immunization Combined Discontinued 12/26/2022, 01/19/2018, 01/17/2016 Hepatitis B Immunization Aged Out No longer eligible based on patient's age to complete this topic Human Papillomavirus (HPV) Immunization Aged Out No longer eligible based on patient's age to complete this topic Meningococcal Immunization (ACWY) Aged Out No longer eligible based on patient's age to complete this topic Rotavirus Immunization Aged Out No lo nger eligible based on patient's age to complete this topic Procedures Procedure Name Priority Date/Time Associated Diagnosis Comments CBC WITH AUTO DIFFERENTIAL Routine 09/07/2024 4:20 AM CDT COMPLETE BLOOD COUNT (CBC) WITH DIFF Routine 09/07/2024 4:20 AM CDT BASIC METABOLIC PANEL W/ CALCIUM TOTAL Routine 09/07/2024 4:20 AM CDT RHYTHM STRIP 09/07/2024 12:00 AM CDT RHYTHM STRIP 09/07/2024 12:00 AM CDT MRI BRAIN W/WO CONTRAST Routine 09/06/2024 11:53 AM CDT ADULT TRANS THORACIC ECHO 2D COMPLETE Routine 09/06/2024 11:01 AM CDT CBC WITH AUTO DIFFERENTIAL Routine 09/06/2024 4:48 AM CDT COMPLETE BLOOD COUNT (CBC) WITH DIFF Routine 09/06/2024 4:48 AM CDT BASIC METABOLIC PANEL W/ CALCIUM TOTAL Routine 09/06/2024 4:48 AM CDT LIPID PANEL STAT 09/06/2024 4:48 AM CDT RHYTHM STRIP 09/06/2024 12:00 AM CDT RHYTHM STRIP 09/06/2024 12:00 AM CDT RHYTHM STRIP 09/06/2024 12:00 AM CDT MRSA NASAL PCR Routine 09/05/2024 1:39 PM CDT MRSA NASAL BY PCR Routine 09/05/2024 1:3 9 PM CDT PT EVALUATE AND TREAT Routine 09/05/2024 1:19 PM CDT OT EVALUATE AND TREAT Routine 09/05/2024 1:19 PM CDT CTA STROKE HEAD AND NECK Stat with Interpretation 09/05/2024 10:58 AM CDT EKG 12 LEAD STAT 09/05/2024 10:55 AM CDT CBC WITH AUTO DIFFERENTIAL STAT 09/05/2024 10:42 AM CDT HEMOGLOBIN A1C W/ ESTIMATED GLUCOSE STAT 09/05/2024 10:42 AM CDT PROTIME (PT) (PROTHROMBIN TIME) STAT 09/05/2024 10:42 AM CDT APTT (PTT) STAT 09/05/2024 10:42 AM CDT BASIC METABOLIC PANEL W/ CALCIUM TOTAL STAT 09/05/2024 10:42 AM CDT COMPLETE BLOOD COUNT (CBC) WITH DIFF STAT 09/05/2024 10:[address] STROKE HEAD WO CONTRAST Stat with Interpretation 09/05/2024 10:37 AM CDT POCT GLUCOSE STAT 09/05/2024 10:29 AM CDT CRITICAL CARE Routine 09/05/2024 10:26 AM CDT RHYTHM STRIP 09/05/2024 12:00 AM CDT RHYTHM STRIP 09/05/2024 12:00 AM CDT EKG SCAN 09/05/2024 12:00 AM CDT NEUROLOGY CONSULT 09/05/2024 12:00 AM CDT from Last 3 Months Results * CBC with Auto Differential (09/07/2024 4:20 AM CDT) Only the most recent of3 resultswithin the time period is included. WBC 5.51 4.00 - 12.00 10(3)/mcL 09/07/2024 4:42 AM CDT [facility] RBC 4.65 4.40 - 5.80 10(6)/mcL 09/07/2024 4:42 AM CDT [facility] HEMOGLOBIN (HGB) 13.2 13.0 - 16.5 g/dL 09/07/2024 4:42 AM CDT [facility] HEMATOCRIT (HCT) 39.8 38.0 - 50.0 % 09/07/2024 4:42 AM CDT [facility] MCV 85.6 82.0 - 96.0 fL 09/07/2024 4:42 AM CDT [facility] MCH 28.4 26.0 - 32.0 pg 09/07/2024 4:42 AM CDT [facility] MCHC 33.2 31.0 - 36.0 g/dL 09/07/2024 4:42 AM CDT [facility] PLATELET COUNT 146 140 - 440 10(3)/mcL 09/07/2024 4:42 AM CDT [facility] RDW 14.5 11.8 - 15.5 % 09/07/2024 4:42 AM CDT [facility] MPV 10.3 8.0 - 12.6 fL 09/07/2024 4:42 AM CDT [facility] NEUTROPHILS 64.4 40.0 - 68.0 % 09/07/2024 4:42 AM CDT [facility] LYMPHOCYTES 19.4 19.0 - 49.0 % 09/07/2024 4:42 AM CDT [facility] MONOCYTES 11.1 3.0 - 13.0 % 09/07/2024 4:42 AM CDT [facility] EOSINOPHILS 4.4 0.0 - 8.0 % 09/07/2024 4:42 AM CDT [facility] BASOPHILS 0.7 0.0 - 1.0 % 09/07/2024 4:42 AM CDT [facility] ABSOLUTE NEUTROPHILS 3.55 1.40 - 5.30 10(3)/[facility] 09/07/2024 4:42 AM CDT [facility] ABSOLUTE LYMPHOCYTES 1.07 0.90 - 3.30 10(3)/[facility] 09/07/2024 4:42 AM CDT [facility] ABSOLUTE MONOCYTES 0.61 0.10 - 0.90 10(3)/[facility] 09/07/2024 4:42 AM CDT [facility] ABSOLUTE EOSINOPHIL 0.24 0.00 - 0.50 10(3)/[facility] 09/07/2024 4:42 AM CDT [facility] ABSOLUTE BASOPHILS 0.04 0.00 - 0.10 10(3)/[facility] 09/07/2024 4:42 AM CDT [facility] NRBC PER 100 WBC 0 09/08/19 4:42 AM CDT [facility] Blood Venipuncture / Unknown 09/07/2024 4:20 AM CDT 09/07/2024 4:33 AM CDT us Lopez Howard COAL CONVEYOR OPERATOR, SIGNAL HELPER HEMATOLOGY ORDERABLES F inal Result [facility] [address] [place] [address] * (ABNORMAL) BMP with Ca, Total (09/07/2024 4:20 AM CDT) Only the most recent of3 resultswithin the time period is included. SODIUM 143 136 - 145 mmol/L 09/07/2024 4:56 AM CDT [facility] POTASSIUM 3.4(L) 3.5 - 5.1 mmol/L 09/07/2024 4:56 AM CDT [facility] CHLORIDE 109(H) 98 - 107 mmol/L 09/07/2024 4:56 AM CDT [facility] CO2, VENOUS 26 22 - 30 mmol/L 09/07/2024 4:56 AM CDT [facility] ANION GAP 11.4 <18.0 mmol/L 09/07/2024 4:56 AM CDT [facility] GLUCOSE 92 70 - 99 mg/dL 09/07/2024 4:56 AM CDT [facility] BUN 19 8 - 26 mg/dL 09/07/2024 4:56 AM CDT [facility] CREATININE, BLOOD 1.80(H) 0.70 - 1.30 mg/dL 09/07/2024 4:56 AM CDT [facility] BUN/CREATININE RATIO 11(L) 12 - 20 ratio 09/07/2024 4:56 AM CDT [facility] CALCIUM 9.1 8.7 - 10.5 mg/dL 09/07/2024 4:56 AM CDT [facility] GFR, ESTIMATED 39(L) >=60 09/07/2024 4:56 AM CDT [facility] Comment: Creatinine Clearance is the preferred criteria for selecting drug dose adjustments in renally impaired patients. The GFR is provided as additional pertinent clinical information. GFR is reported in mL/min/1.73 sq m. Calculation based on the Chronic Kidney Disease Epidemiology Collaboration (CKD- EPI) equation refit without adjustment for race. GFR, EST. 45(L) >=60 025 4:56 AM CDT [facility] GFR, EST. NONAFRICAN 37(L) >=60 09/07/2024 4:56 AM CDT [facility] Blood Venipuncture / Unknown 09/07/2024 4:20 AM CDT 09/07/2024 4:31 AM CDT Lavada J Howard COAL CONVEYOR OPERATOR, SIGNAL HELPER CHEMISTRY ORDERABLES Fi nal Result [facility] [address] [place] [address] * RHYTHM STRIP (09/07/2024 12:00 AM CDT) Only the most recent of7 resultswithin the time period is included. 09/07/2024 us Provider Scan IMG ECG ORDERABLES Final Result RESULTING AGENCY * MRI BRAIN W/WO CONTRAST (09/06/2024 11:53 AM CDT) Anatomical Region Laterality Modality Head N/A Magnetic Resonan ce 09/06/2024 12:1 8 PM CDT Addenda Addendum by Jaren Peck MD on 09/06/2024 12:34 PM CDT ADDENDUM REPORT: ADDENDUM: This addendum report supersedes the original report dated 09/06/2024. I discussed the findings and recommendation with Dr. Doyle at 12:28 p.m. on 09/06/2024. END OF ADDENDUM REPORT EXAM DESCRIPTION: MRI BRAIN W/WO CONTRAST REASON FOR STUDY: awoke yesterday around 0800 unable to use left arm, symptoms improved some but still weakness in left arm. Hx TIA Hx esophageal CA 2021. No known injury. TECHNIQUE: Multiplanar imaging includes noncontrast T1, T2, FLAIR, diffusion with ADC map and post contrast T1 sequences. Additional sequence(s) sensitive to blood products. Images stored on PACS. CONTRAST TYPE/DOSE: 18mL of GADOTERIDOL 279.3 MG/ML IV SOLN injected via Intravenous COMPARISON: 09/05/[address] angiography FINDINGS: CEREBRUM: No hemorrhage or mass effect. No abnormal enhancement. Chronic lacunar infarcts in the basal ganglia bilaterally. Corresponding to the hypodensity in the right cerebellar hemisphered, there is a 16 x 19 mm area of ovoid enhancement without diffusion restriction. There is a faint thin rim of T1 hyperintensity about the margin, which could reflect cortical laminar necrosis. This could be an evolving, late subacute infarct, but in light of the patient's history of esophageal cancer, short interval follow-up is recommended to exclude malignancy. WHITE MATTER: There is mild periventricular and juxtacortical T2/FLAIR hyperintense white matter disease, nonspecific, though likely secondary to chronic microvascular ischemia. POSTERIOR FOSSA: Brainstem and cerebellum appear unremarkable. No abnormal enhancement. DIFFUSION IMAGING: Multiple small foci of left frontal and posterior right frontal diffusion restriction without associated enhancement, compatible with acute infarcts. 1 area of diffusion restriction in the right frontal lobe demonstrates faint enhancement suggestive of a subacute infarct (image 24 of series 8) Linear area of diffusion hyperintensity with faint associated enhancement in the left frontal lobe on image 19 of series 5, compatible with subacute infarct. Moderate-sized area of diffusion restriction in the right cerebellar hemisphere (2.4 cm by 2.2 cm trans axially) compatible with acute infarction. There is FLAIR signal hyperintensity associated with the areas of signal abnormality. There is a small amount of susceptibility artifact associated with a posterior right frontal acute infarct, compatible with blood degradation products. Similar finding associated with the subacute infarct in the left frontal lobe. No significant mass effect. No hydrocephalus or ventricular effacement. EXTRAAXIAL SPACES: No hemorrhage. No mass or abnormal enhancement. BRAIN VOLUME: Within normal limits for age. PITUITARY: Unremarkable. VASCULATURE: No flow disturbance identified. ORBITS: No masses. Globes normal. PARANASAL SINUSES AND MASTOIDS: Small mucous retention cysts in the right maxillary sinus. Mild ethmoid sinus mucosal thickening. OTHER: No other significant finding. IMPRESSION: Acute right cerebellar infarct, measuring up to 2.4 cm. Multiple small acute and subacute infarcts in the bilateral frontal lobes. 19 mm area of enhancement in the right cerebellar hemisphere without diffusion restriction. This may be a late subacute infarct, but in light of the patient's history of esophageal cancer, short interval follow-up brain MRI with and without contrast (for example, in 6 weeks) is recommended to exclude malignancy. Small amount of susceptibility artifact associated with the infarcts in the bilateral frontal lobes, compatible with blood degradation products. THIS IS AN ELECTRONICALLY VERIFIED FINAL REPORT 09/06/2024 12:18 PM - Electronically signed by Jaren Peck M.D. MZ: KIARA Report ID: [id number] Reading Location: [id number] THIS IS AN ELECTRONICALLY VERIFIED FINAL REPORT 09/06/2024 12:31 PM Addendum Electronically signed by Jaren Peck M.D. MZ: MZ Report ID: [id number] Reading Location: [id number] Impressions 09/06/2024 12:21 PM CDT IMPRESSION: Acute right cerebellar infarct, measuring up to 2.4 cm. Multiple small acute and subacute infarcts in the bilateral frontal lobes. 19 mm area of enhancement in the right cerebellar hemisphere without diffusion restriction. This may be a late subacute infarct, but in light of the patient's history of esophageal cancer, short interval follow-up brain MRI with and without contrast (for example, in 6 weeks) is recommended to exclude malignancy. Small amount of susceptibility artifact associated with the infarcts in the bilateral frontal lobes, compatible with blood degradation products. Narrative 09/06/2024 12:21 PM CDT EXAM DESCRIPTION: MRI BRAIN W/WO CONTRAST REASON FOR STUDY: awoke yesterday around 0800 unable to use left arm, symptoms improved some but still weakness in left arm. Hx TIA Hx esophageal CA 2021. No known injury. TECHNIQUE: Multiplanar imaging includes noncontrast T1, T2, FLAIR, diffusion with ADC map and post contrast T1 sequences. Additional sequence(s) sensitive to blood products. Images stored on PACS. CONTRAST TYPE/DOSE: 18mL of GADOTERIDOL 279.3 MG/ML IV SOLN injected via Intravenous COMPARISON: 09/05/[address] angiography FINDINGS: CEREBRUM: No hemorrhage or mass effect. No abnormal enhancement. Chronic lacunar infarcts in the basal ganglia bilaterally. Corresponding to the hypodensity in the right cerebellar hemisphered, there is a 16 x 19 mm area of ovoid enhancement without diffusion restriction. There is a faint thin rim of T1 hyperintensity about the margin, which could reflect cortical laminar necrosis. This could be an evolving, late subacute infarct, but in light of the patient's history of esophageal cancer, short interval follow-up is recommended to exclude malignancy. WHITE MATTER: There is mild periventricular and juxtacortical T2/FLAIR hyperintense white matter disease, nonspecific, though likely secondary to chronic microvascular ischemia. POSTERIOR FOSSA: Brainstem and cerebellum appear unremarkable. No abnormal enhancement. DIFFUSION IMAGING: Multiple small foci of left frontal and posterior right frontal diffusion restriction without associated enhancement, compatible with acute infarcts. 1 area of diffusion restriction in the right frontal lobe demonstrates faint enhancement suggestive of a subacute infarct (image 24 of series 8) Linear area of diffusion hyperintensity with faint associated enhancement in the left frontal lobe on image 19 of series 5, compatible with subacute infarct. Moderate-sized area of diffusion restriction in the right cerebellar hemisphere (2.4 cm by 2.2 cm trans axially) compatible with acute infarction. There is FLAIR signal hyperintensity associated with the areas of signal abnormality. There is a small amount of susceptibility artifact associated with a posterior right frontal acute infarct, compatible with blood degradation products. Similar finding associated with the subacute infarct in the left frontal lobe. No significant mass effect. No hydrocephalus or ventricular effacement. EXTRAAXIAL SPACES: No hemorrhage. No mass or abnormal enhancement. BRAIN VOLUME: Within normal limits for age. PITUITARY: Unremarkable. VASCULATURE: No flow disturbance identified. ORBITS: No masses. Globes normal. PARANASAL SINUSES AND MASTOIDS: Small mucous retention cysts in the right maxillary sinus. Mild ethmoid sinus mucosal thickening. OTHER: No other significant finding. THIS IS AN ELECTRONICALLY VERIFIED FINAL REPORT 09/06/2024 12:18 PM - Electronically signed by Jaren Peck M.D. MZ: KIARA Report ID: [id number] Reading Location: [place] [address] Procedure Note Jaren Peck MD - 09/06/2024 EXAM DESCRIPTION: MRI BRAIN W/WO CONTRAST REASON FOR STUDY: awoke yesterday around 0800 unable to use left arm, symptoms improved some but still weakness in left arm. Hx TIA Hx esophageal CA 2021. No known injury. TECHNIQUE: Multiplanar imaging includes noncontrast T1, T2, FLAIR, diffusion with ADC map and post contrast T1 sequences. Additional sequence(s) sensitive to blood products. Images stored on PACS. CONTRAST TYPE/DOSE: 18mL of GADOTERIDOL 279.3 MG/ML IV SOLN injected via Intravenous COMPARISON: 09/05/[address] angiography FINDINGS: CEREBRUM: No hemorrhage or mass effect. No abnormal enhancement. Chronic lacunar infarcts in the basal ganglia bilaterally. Corresponding to the hypodensity in the right cerebellar hemisphered, there is a 16 x 19 mm area of ovoid enhancement without diffusion restriction. There is a faint thin rim of T1 hyperintensity about the margin, which could reflect cortical laminar necrosis. This could be an evolving, late subacute infarct, but in light of the patient's history of esophageal cancer, short interval follow-up is recommended to exclude malignancy. WHITE MATTER: There is mild periventricular and juxtacortical T2/FLAIR hyperintense white matter disease, nonspecific, though likely secondary to chronic microvascular ischemia. POSTERIOR FOSSA: Brainstem and cerebellum appear unremarkable. No abnormal enhancement. DIFFUSION IMAGING: Multiple small foci of left frontal and posterior right frontal diffusion restriction without associated enhancement, compatible with acute infarcts. 1 area of diffusion restriction in the right frontal lobe demonstrates faint enhancement suggestive of a subacute infarct (image 24 of series 8) Linear area of diffusion hyperintensity with faint associated enhancement in the left frontal lobe on image 19 of series 5, compatible with subacute infarct. Moderate-sized area of diffusion restriction in the right cerebellar hemisphere (2.4 cm by 2.2 cm trans axially) compatible with acute infarction. There is FLAIR signal hyperintensity associated with the areas of signal abnormality. There is a small amount of susceptibility artifact associated with a posterior right frontal acute infarct, compatible with blood degradation products. Similar finding associated with the subacute infarct in the left frontal lobe. No significant mass effect. No hydrocephalus or ventricular effacement. EXTRAAXIAL SPACES: No hemorrhage. No mass or abnormal enhancement. BRAIN VOLUME: Within normal limits for age. PITUITARY: Unremarkable. VASCULATURE: No flow disturbance identified. ORBITS: No masses. Globes normal. PARANASAL SINUSES AND MASTOIDS: Small mucous retention cysts in the right maxillary sinus. Mild ethmoid sinus mucosal thickening. OTHER: No other significant finding. THIS IS AN ELECTRONICALLY VERIFIED FINAL REPORT 09/06/2024 12:18 PM - Electronically signed by Jaren Peck M.D. MZ: KIARA Report ID: [id number] Reading Location: [id number] IMPRESSION: Acute right cerebellar infarct, measuring up to 2.4 cm. Multiple small acute and subacute infarcts in the bilateral frontal lobes. 19 mm area of enhancement in the right cerebellar hemisphere without diffusion restriction. This may be a late subacute infarct, but in light of the patient's history of esophageal cancer, short interval follow-up brain MRI with and without contrast (for example, in 6 weeks) is recommended to exclude malignancy. Small amount of susceptibility artifact associated with the infarcts in the bilateral frontal lobes, compatible with blood degradation products. us Jerrell Doyle MD [facility] – [place] MR ORDERABLES Edited Res ult - Final * ADULT TRANS THORACIC ECHO 2D COMPLETE (09/06/2024 11:01 AM CDT) AV Peak Grad mmHg 4.67 mmHg RESULTING AGENCY Mean Aortic Valve Gradient (MAVG) 3 mmHg RESULTING AGENCY LV end joseph diam cm 4.7 cm RESULTING AGENCY LV end sys diam cm 3.2 cm RESULTING AGENCY Aortic Root Diam cm 3.3 cm RESULTING AGENCY LA vol index ml/m2 25 ml/m2 RESULTING AGENCY LVOT Peak Alden m/sec [id number] m/sec RESULTING AGENCY AV Peak Ald[place] m/sec 1.08 m/sec RESULTING AGENCY MV Mean Grad mmHg 2 mmHg RESULTING AGENCY MVA by PHT cm2 2.82 cm2 RESUL TING AGENCY E/A Ratio 0.76 RESULTING AGENCY TR Alden m/sec 2.32 m/sec RESULTI NG AGENCY MV Regurgitant vol ml 0.22 ml RESULTING AGENCY MV ERO cm2 0.22 cm2 RESULTING AGENCY E/E' 9.6 RESULTING AGENCY AV Area (VTI) cm2 2.8 cm2 RESULTING AGENCY SEPTUM DIASTOLIC CM 1.1 cm RESULTING AGENCY PW DIASTOLIC CM 1.2 cm RESU LTING AGENCY LA VOLUME 52.1 ml RESULTING AGENCY LV EF(estimated)% 58 RESULTING AGENCY Anatomical Region Laterality Modality CARDIO N/A Ultrasound Narrative 09/06/2024 12:27 PM CDT Transthoracic Echocardiography Report (TTE) Patient name ODETTE Piper Nidia 1950 Patient ID (UPI) [id number] Indications: Stroke, TIA, Hypertension and COPD. Study Date09/06/2024 Technical quality: Adequate Type of Study: TTE procedure: Adult Trans Thoracic Echo 2D Complete. Priority:RoutineHR: 66 bpmBP: 153/89 mmHg Contrast Medium: Bubble Study. Amount - 20 ml Conclusions Summary The left ventricle is normal in size. Wall thickness is normal. LV function is normal. There are no regional wall motion abnormalities. LV EF of 55-60%. Grade I diastolic dysfunction. Bubble study was done as a part of the stroke protocol. Agitated contrast saline study reveals no obvious right to left shunt. Findings Mitral Valve The mitral valve is normal. There is no evidence of mitral stenosis. Mild mitral regurgitation is present. Aortic Valve The aortic valve is trileaflet with normal leaflet excursion. There is no evidence of aortic valve stenosis. Mild AI. Tricuspid Valve The tricuspid valve is normal. There is no evidence of tricuspid stenosis. Trace tricuspid valve regurgitation. Insufficient TR jet to estimate PASP. Pulmonic Valve The pulmonic valve structure appears normal. There is no evidence of pulmonic stenosis. There is no significant pulmonic valve regurgitation. Left Atrium The left atrium size is normal. Left Ventricle The left ventricle is normal in size. Wall thickness is normal. LV function is normal. There are no regional wall motion abnormalities. LV EF of 55-60%. Grade I diastolic dysfunction. Right Atrium The right atrium size is normal. Right Ventricle Normal right ventricular cavity size and normal systolic function. Pericardial Effusion No pericardial effusion. Miscellaneous Aortic root and proximal ascending aorta are normal in size. Atrial septum appears intact. IVC is normal in size and respiratory response. Aortic arch appears normal. Bubble study was done as a part of the stroke protocol. Agitated contrast saline study reveals no obvious right to left shunt. Valves Mitral Valve Area (PHT): 2.82 cm^2 Area (continuity): 2.35 cm^2 Peak E-Wave: 0.71 m/s Area (PISA): 0.22 cm^2 Peak A-Wave: 0.94 m/s Mean Velocity: 0.58 m/s Peak Gradient: 2.06 mmHg Mean Gradient: 2 mmHg P1/2t: 78 msec Deceleration Time: 268 msec PISA Radius: 0.7 cm MR Velocity: 5.67 m/s Alias Velocity: 0.39 m/s MR VTI: 215 cm Regurgitant Volume:47.3 ml JOYCE PISA: 0.22 cm^2 Tissue Doppler E' Velocity: 0.04 m/s E/E':9.6 E/A Ratio: 0.76 E/Lat E': 9.6 E/Med E':16.1 Aortic Valve Area (continuity): 2.8 cm^2 Mean Velocity: 0.78 m/s Area (VTI):2.8 cm^2 Mean Gradient: 3 mmHg Peak Velocity: 1.08 m/s AV VTI: 22.1 cm Peak Gradient: 4.67 mmHg Tricuspid Valve Peak E-Wave: 0.50 m/s Peak Gradient: 1.01 mmHg TR Velocity: 2.32 m/s TR Gradient: 21.53 mmHg Pulmonic Valve Peak Velocity: 0.81 m/s Mean Velocity: 0.61 m/s Peak Gradient: 2.66 mmHg Mean Gradient: 2 mmHg LVOT Peak Velocity: 0.80 m/s Mean Velocity: 0.53 m/s Peak Gradient: 3 mmHg Mean Gradient: 1 mmHg LVOT Diameter: 2.2 cm LVOT VTI: 16.3 cm Stroke Volume: 62 ml Stroke Volume Index: 29.81 ml/m^2 Structures Left Ventricle Diastolic Dimension: 4.7 cm Systolic Dimension: 3.2 cm Septum Diastolic: 1.1 cm Septum Systolic: 1.3 cm PW Diastolic: 1.2 cm PW Systolic: 1.5 cm Diastolic Length: 31.9 cm Systolic Length: 19.2 cm EF Calculated: 60.51% CI: 1.97 l/min*m^2 CO: 4.09 l/min RWT: 0.51 LV EDV: 99 ml FS: 31.91 % LV EDV Index: 48 m^2 LV Length: 8.74 cm LV ESV: 39.1 ml LVOT Diameter: 2.2 cm LV ESV Index: 19 m^2 Global Longitudinal Strain:-11.2 Right Ventricle RVOT (PLAX) diameter:3.3 cm Tissue Doppler RV S': 12.4 TAPSE: 1.78 cm Left Atrium LA Systolic Pressure: 13.95 mmHg LA Area: 19.6 cm^2 LA Volume: 52.1 ml LA Index: 25ml/m^2 Right Atrium RA Area: 11.2 cm^2 Great Vessels Aorta Ascending Aorta: 3.4 cm Aorta Root:3.3 cm Ascending Aorta Index:1.63 cm/m^2 Contractility Score LV regional wall motion: (0-Not visualized 1-Normal 1'-Hyperkinesis 2-Hypokinesis 3-Akinesis 4-Dyskinesis 5-Aneurysm) Demographics Age 74 Gender Male Race Height 72.01 in. Weight 188.72 lbs. BMI (BSA) 25.59 kg/m^2 (2.08 m^2) Seam [facility] Room 11 Interpreting Virgen Referring Virgen Yepez Physician Lucho Physician Procedure Note Lucho New MD - 09/06/2024 Transthoracic Echocardiography Report (TTE) Patient name ODETTE Piper Nidia 1950 Patient ID (UPI) [id number] Indications: Stroke, TIA, Hypertension and COPD. Study Date09/06/2024 Technical quality: Adequate Type of Study: TTE procedure: Adult Trans Thoracic Echo 2D Complete. Priority:RoutineHR: 66 bpmBP: 153/89 mmHg Contrast Medium: Bubble Study. Amount - 20 ml Conclusions Summary The left ventricle is normal in size. Wall thickness is normal. LV function is normal. There are no regional wall motion abnormalities. LV EF of 55-60%. Grade I diastolic dysfunction. Bubble study was done as a part of the stroke protocol. Agitated contrast saline study reveals no obvious right to left shunt. Findings Mitral Valve The mitral valve is normal. There is no evidence of mitral stenosis. Mild mitral regurgitation is present. Aortic Valve The aortic valve is trileaflet with normal leaflet excursion. There is no evidence of aortic valve stenosis. Mild AI. Tricuspid Valve The tricuspid valve is normal. There is no evidence of tricuspid stenosis. Trace tricuspid valve regurgitation. Insufficient TR jet to estimate PASP. Pulmonic Valve The pulmonic valve structure appears normal. There is no evidence of pulmonic stenosis. There is no significant pulmonic valve regurgitation. Left Atrium The left atrium size is normal. Left Ventricle The left ventricle is normal in size. Wall thickness is normal. LV function is normal. There are no regional wall motion abnormalities. LV EF of 55-60%. Grade I diastolic dysfunction. Right Atrium The right atrium size is normal. Right Ventricle Normal right ventricular cavity size and normal systolic function. Pericardial Effusion No pericardial effusion. Miscellaneous Aortic root and proximal ascending aorta are normal in size. Atrial septum appears intact. IVC is normal in size and respiratory response. Aortic arch appears normal. Bubble study was done as a part of the stroke protocol. Agitated contrast saline study reveals no obvious right to left shunt. Valves Mitral Valve Area (PHT): 2.82 cm^2 Area (continuity): 2.35 cm^2 Peak E-Wave: 0.71 m/s Area (PISA): 0.22 cm^2 Peak A-Wave: 0.94 m/s Mean Velocity: 0.58 m/s Peak Gradient: 2.06 mmHg Mean Gradient: 2 mmHg P1/2t: 78 msec Deceleration Time: 268 msec PISA Radius: 0.7 cm MR Velocity: 5.67 m/s Alias Velocity: 0.39 m/s MR VTI: 215 cm Regurgitant Volume:47.3 ml JOYCE PISA: 0.22 cm^2 Tissue Doppler E' Velocity: 0.04 m/s E/E':9.6 E/A Ratio: 0.76 E/Lat E': 9.6 E/Med E':16.1 Aortic Valve Area (continuity): 2.8 cm^2 Mean Velocity: 0.78 m/s Area (VTI):2.8 cm^2 Mean Gradient: 3 mmHg Peak Velocity: 1.08 m/s AV VTI: 22.1 cm Peak Gradient: 4.67 mmHg Tricuspid Valve Peak E-Wave: 0.50 m/s Peak Gradient: 1.01 mmHg TR Velocity: 2.32 m/s TR Gradient: 21.53 mmHg Pulmonic Valve Peak Velocity: 0.81 m/s Mean Velocity: 0.61 m/s Peak Gradient: 2.66 mmHg Mean Gradient: 2 mmHg LVOT Peak Velocity: 0.80 m/s Mean Velocity: 0.53 m/s Peak Gradient: 3 mmHg Mean Gradient: 1 mmHg LVOT Diameter: 2.2 cm LVOT VTI: 16.3 cm Stroke Volume: 62 ml Stroke Volume Index: 29.81 ml/m^2 Structures Left Ventricle Diastolic Dimension: 4.7 cm Systolic Dimension: 3.2 cm Septum Diastolic: 1.1 cm Septum Systolic: 1.3 cm PW Diastolic: 1.2 cm PW Systolic: 1.5 cm Diastolic Length: 31.9 cm Systolic Length: 19.2 cm EF Calculated: 60.51% CI: 1.97 l/min*m^2 CO: 4.09 l/min RWT: 0.51 LV EDV: 99 ml FS: 31.91 % LV EDV Index: 48 m^2 LV Length: 8.74 cm LV ESV: 39.1 ml LVOT Diameter: 2.2 cm LV ESV Index: 19 m^2 Global Longitudinal Strain:-11.2 Right Ventricle RVOT (PLAX) diameter:3.3 cm Tissue Doppler RV S': 12.4 TAPSE: 1.78 cm Left Atrium LA Systolic Pressure: 13.95 mmHg LA Area: 19.6 cm^2 LA Volume: 52.1 ml LA Index: 25ml/m^2 Right Atrium RA Area: 11.2 cm^2 Great Vessels Aorta Ascending Aorta: 3.4 cm Aorta Root:3.3 cm Ascending Aorta Index:1.63 cm/m^2 Contractility Score LV regional wall motion: (0-Not visualized 1-Normal 1'-Hyperkinesis 2-Hypokinesis 3-Akinesis 4-Dyskinesis 5-Aneurysm) Demographics Age 74 Gender Male Race Height 72.01 in. Weight 188.72 lbs. BMI (BSA) 25.59 kg/m^2 (2.08 m^2) Seam [facility] Room 11 Interpreting Virgen Yepez Physician Lucho Physician uLcho New MD IMG ECHO ORDERABLES Edited R esult - Final * (ABNORMAL) Lipid Panel (09/06/2024 4:48 AM CDT) CHOLESTEROL 132 <200 mg/dL 09/06/2024 5:15 AM CDT [facility] TRIGLYCERIDES 184(H) <150 mg/dL 09/06/2024 5:15 AM CDT [facility] HDL CHOLESTEROL 36(L) >40 mg/dL 5:15 AM CDT [facility] LDL 59 <130 mg/dL 09/06/2024 5:15 AM CDT [facility] VLDL 37 10 - 50 mg/dL 09/06/2024 5:15 AM CDT [facility] CHOL/HDL RATIO 3.7 0.0 - 4.4 09/06/2024 5:15 AM CDT [facility] NON-HDL CHOLESTEROL 96 <130 mg/dL 09/06/2024 5:15 AM CDT [facility] Blood Venipuncture / Unknown 09/06/2024 4:48 AM CDT 09/06/2024 4:52 AM CDT us Lopez Howard COAL CONVEYOR OPERATOR, SIGNAL HELPER CHEMISTRY ORDERABLES Fi nal Result [facility] [place] [address] * MRSA NASAL PCR (09/05/2024 1:39 PM CDT) MRSA PCR RESULT Negative Negative, Invalid 09/05/2024 2:52 PM CDT [facility] Other NASOPHARYNGEAL SWAB / Unknown Non-Phlebotomy Collection / Unknown 09/05/2024 1:39 PM CDT 09/05/2024 1:39 PM CDT us Vamsi Nevarez MD MICROBIOLOGY - GENERAL ORDERA BLES Final Result [facility] [place] [address] * CTA STROKE HEAD AND NECK (09/05/2024 10:58 AM CDT) Anatomical Region Laterality Modality vascular N/A Computed Tomogra phy 09/05/2024 11:2 9 AM CDT Impressions 09/05/2024 11:32 AM CDT IMPRESSION: BRAIN: Redemonstrated 2 cm area of hypoattenuation in the right cerebellar hemisphere. Contrast-enhanced MRI can be performed for further evaluation. Small hypodensities in the centrum semiovale, right thalamus and bilateral basal ganglia appear relatively circumscribed and may be chronic lacunar infarcts, though technically age indeterminate. CAROTID CTA: Ujxb-dl-aauuzzia stenosis of the proximal right brachiocephalic artery due to irregular plaque. 30% focal stenosis of the proximal right internal carotid artery. Kvbz-oe-xgndiujb stenosis of the proximal left common carotid artery. INTRACRANIAL CTA: No evidence large vessel occlusion. Multilevel degenerative disc disease, up to moderate to severe at C4-C5 and C6-C7. Posterior disc osteophyte complex at C3-C4 appears to severely narrow the spinal canal, eccentric to the right. This can be further evaluated with cervical spine MRI. 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 Hx HTN and esphogeal ca. hx prior mini stroke. TECHNIQUE: Axial images were first obtained through the brain without contrast. Post IV contrast scanning, thin section axial imaging from the great vessel origins through the brain. 3D MIP images rendered on scanning unit and reviewed at time of interpretation. Carotid stenosis measurements are based on NASCET criteria. Automated exposure control was used as a dose optimization technique for this examination. CONTRAST TYPE/DOSE: 100mL of IOPAMIDOL 76 % IV SOLN injected via Intravenous COMPARISON: Noncontrast head CT from 09/05/2024 FINDINGS: BRAIN: Please also see noncontrast head CT from the same day. Redemonstrated area of hypoattenuation in the right cerebellar hemisphere is indeterminate. Again, an MRI can be performed for further evaluation. No gross postcontrast evidence for acute hemorrhage. No gross evidence of suspicious enhancement seen. Small hypodensities in the centrum semiovale, right thalamus and bilateral basal ganglia appear relatively circumscribed and may be chronic lacunar infarcts, though technically age indeterminate. MRI could be performed as clinically warranted. CAROTID AND VERTEBRAL ARTERIES: RIGHT CAROTIDS: Irregular plaque at the proximal right brachiocephalic artery with azda-fu-kylwzucz stenosis. Mild stenosis of the cavernous internal carotid artery. 30% focal stenosis of the proximal right internal carotid artery secondary to calcified plaque. LEFT CAROTIDS: Xuim-ds-ratxdgpr stenosis of the proximal left common carotid artery . Mild stenosis of the cavernous internal carotid artery. No external carotid artery stenosis. RIGHT VERTEBRAL: Patent. No significant stenosis. No dissection. LEFT VERTEBRAL: Patent. No significant stenosis. No dissection. AORTIC ARCH: Athero sclerotic normal three-vessel origin. Bilateral subclavian arteries are patent. No dissection. INCLUDED LUNGS: There is pulmonary emphysema and pleural-parenchymal scarring calcified left upper lobe pulmonary nodule is compatible with old granulomatous disease NECK SOFT TISSUE: No mass, adenopathy. OTHER: There are multiple surgical clips in the posterior mediastinum. Probable changes of esophagectomy with gastric pull-through, partially evaluated. Please correlate clinically. There is a right-sided port catheter that is partially visualized. Multilevel facet osteoarthritis, up to severe. Multilevel uncovertebral osteoarthritis, up to severe. There are varying degrees of osseous neural foraminal stenosis, up to severe. No aggressive bone lesion or acute fracture is seen.. There is mild ethmoid sinus mucosal thickening. Small probable mucous retention cyst in the right maxillary sinus. Multilevel degenerative disc disease, up to moderate to severe at C4-C5 and C6-C7. Multiple posterior disc osteophyte complexes at C3-C4, posterior disc osteophyte complex appears to severely narrow the spinal canal, eccentric to the right. This can be further evaluated with cervical spine MRI INTRACRANIAL VESSELS: UPPER [place] OF [place]: The anterior, middle, posterior cerebral arteries are all patent. No evidence of aneurysm or focal stenosis. POSTERIOR CIRCULATION: The distal vertebral arteries are patent as is the basilar artery. No aneurysm. BRAIN: No gross enhancing lesions as visualized. THIS IS AN ELECTRONICALLY VERIFIED FINAL REPORT 09/05/2024 11:29 AM - Electronically signed by Jaren Peck M.D. 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 Hx HTN and esphogeal ca. hx prior mini stroke. TECHNIQUE: Axial images were first obtained through the brain without contrast. Post IV contrast scanning, thin section axial imaging from the great vessel origins through the brain. 3D MIP images rendered on scanning unit and reviewed at time of interpretation. Carotid stenosis measurements are based on NASCET criteria. Automated exposure control was used as a dose optimization technique for this examination. CONTRAST TYPE/DOSE: 100mL of IOPAMIDOL 76 % IV SOLN injected via Intravenous COMPARISON: Noncontrast head CT from 09/05/2024 FINDINGS: BRAIN: Please also see noncontrast head CT from the same day. Redemonstrated area of hypoattenuation in the right cerebellar hemisphere is indeterminate. Again, an MRI can be performed for further evaluation. No gross postcontrast evidence for acute hemorrhage. No gross evidence of suspicious enhancement seen. Small hypodensities in the centrum semiovale, right thalamus and bilateral basal ganglia appear relatively circumscribed and may be chronic lacunar infarcts, though technically age indeterminate. MRI could be performed as clinically warranted. CAROTID AND VERTEBRAL ARTERIES: RIGHT CAROTIDS: Irregular plaque at the proximal right brachiocephalic artery with wznn-be-afvzxlxc stenosis. Mild stenosis of the cavernous internal carotid artery. 30% focal stenosis of the proximal right internal carotid artery secondary to calcified plaque. LEFT CAROTIDS: Fjfq-cd-lqxxptlo stenosis of the proximal left common carotid artery . Mild stenosis of the cavernous internal carotid artery. No external carotid artery stenosis. RIGHT VERTEBRAL: Patent. No significant stenosis. No dissection. LEFT VERTEBRAL: Patent. No significant stenosis. No dissection. AORTIC ARCH: Athero sclerotic normal three-vessel origin. Bilateral subclavian arteries are patent. No dissection. INCLUDED LUNGS: There is pulmonary emphysema and pleural-parenchymal scarring calcified left upper lobe pulmonary nodule is compatible with old granulomatous disease NECK SOFT TISSUE: No mass, adenopathy. OTHER: There are multiple surgical clips in the posterior mediastinum. Probable changes of esophagectomy with gastric pull-through, partially evaluated. Please correlate clinically. There is a right-sided port catheter that is partially visualized. Multilevel facet osteoarthritis, up to severe. Multilevel uncovertebral osteoarthritis, up to severe. There are varying degrees of osseous neural foraminal stenosis, up to severe. No aggressive bone lesion or acute fracture is seen.. There is mild ethmoid sinus mucosal thickening. Small probable mucous retention cyst in the right maxillary sinus. Multilevel degenerative disc disease, up to moderate to severe at C4-C5 and C6-C7. Multiple posterior disc osteophyte complexes at C3-C4, posterior disc osteophyte complex appears to severely narrow the spinal canal, eccentric to the right. This can be further evaluated with cervical spine MRI INTRACRANIAL VESSELS: UPPER [place] OF [place]: The anterior, middle, posterior cerebral arteries are all patent. No evidence of aneurysm or focal stenosis. POSTERIOR CIRCULATION: The distal vertebral arteries are patent as is the basilar artery. No aneurysm. BRAIN: No gross enhancing lesions as visualized. THIS IS AN ELECTRONICALLY VERIFIED FINAL REPORT 09/05/2024 11:29 AM - Electronically signed by Jaren Peck M.D. MZ: KIARA Report ID: [id number] Reading Location: [id number] IMPRESSION: BRAIN: Redemonstrated 2 cm area of hypoattenuation in the right cerebellar hemisphere. Contrast-enhanced MRI can be performed for further evaluation. Small hypodensities in the centrum semiovale, right thalamus and bilateral basal ganglia appear relatively circumscribed and may be chronic lacunar infarcts, though technically age indeterminate. CAROTID CTA: Fanr-zn-jokhyqso stenosis of the proximal right brachiocephalic artery due to irregular plaque. 30% focal stenosis of the proximal right internal carotid artery. Nvvb-lz-rvinbcyz stenosis of the proximal left common carotid artery. INTRACRANIAL CTA: No evidence large vessel occlusion. Multilevel degenerative disc disease, up to moderate to severe at C4-C5 and C6-C7. Posterior disc osteophyte complex at C3-C4 appears to severely narrow the spinal canal, eccentric to the right. This can be further evaluated with cervical spine MRI. Keily Soriano MD IMG CT ORDERABLES Final Resul t * EKG 12 LEAD (09/05/2024 10:55 AM CDT) Ventricular Rate 64 BPM EXTERNAL EKG Atrial Rate 64 BPM EXTERNAL EKG P-R Interval 232 ms EXTERNAL EKG QRS Duration 88 ms EXTERNAL EKG Q-T Duration 426 ms EXTERNAL EKG QTC CALCULATION 439 ms EXTERNAL EKG P [place] 54 degrees EXTERNAL EKG R [place] -47 degrees EXTERNAL EKG T [place] 49 degrees EXTERNAL EKG 09/05/2024 10:5 5 AM CDT Impressions EXTERNAL EKG - 09/05/2024 4:17 PM CDT Sinus rhythm with 1st degree AV block Left anterior fascicular block Nonspecific T wave abnormality Abnormal ECG No previous ECGs available Confirmed by Nanda Bucio ([id number]) on 09/05/2024 4:17:24 PM Narrative Procedure Note Nanda Bucio DO - 09/05/2024 IMPRESSION: Sinus rhythm with 1st degree AV block Left anterior fascicular block Nonspecific T wave abnormality Abnormal ECG No previous ECGs available Confirmed by Nanda Bucio ([id number]) on 09/05/2024 4:17:24 PM Keily Soriano MD IMG ECG ORDERABLES Final Resu lt EXTERNAL EKG * Hemoglobin A1C w/ Estimated Glucose (09/05/2024 10:42 AM CDT) HGB-A1C 5.6 4.0 - 6.0 % 09/05/2024 8:28 PM CDT [facility] Est Average Glucose 114.0 mg/dL 09/05/2024 8:28 PM [address] [facility] Blood Venipuncture / Unknown 09/05/2024 10:42 AM CDT 09/05/2024 11:20 AM CDT Narrative [facility] - 09/05/2024 8:28 PM CDT HEMOGLOBIN A1C: DIABETIC PATIENTS: WELL-CONTROLLED: 6.2 - 7.0 INTERMEDIATE WELL-CONTROLLED: 7.0 - 9.0 POORLY-CONTROLLED: >9.0 Specimens containing greater than 5% of Hemoglobin F may result in lower than expected % HbA1C results. us Lopez Howard COAL CONVEYOR OPERATOR, SIGNAL HELPER CHEMISTRY ORDERABLES Fi nal Result Performing Organization Address [facility] Co de Phone Number [facility] [place] [address] * APTT (PTT) (09/05/2024 10:42 AM CDT) PTT 30 24 - 36 sec 09/05/2024 11:45 AM CDT [facility] Blood Venipuncture / Unknown 09/05/2024 10:42 AM CDT 09/05/2024 11:21 AM CDT Narrative [facility] - 09/05/2024 11:45 AM CDT Therapeutic range for unfractionated heparin at 0.3-0.7 U/mL is an aPTT value in the range of 71-100 seconds. Critical value for the PTT test is >= 122 seconds. Keily Soriano MD HEMATOLOGY ORDERABLES Final R esult Performing Organization Address [facility] Co de Phone Number [facility] [place] [address] * PT (PROTHROMBIN TIME) (09/05/2024 10:42 AM CDT) PROTIME-PATIENT 12.8 11.6 - 14.8 sec 09/05/2024 11:45 AM CDT [facility] INR 1.0 0.9 - 1.2 09/05/2024 11:45 AM CDT [facility] Comment: Therapeutic Ranges INR = 2.0-3.0: Venous thromb, atrial fib, pul embolism, tissue heart valve, ami. INR = 2.5-3.5: Mechanical heart valve Critical value for INR is >/= 4.5 Blood Venipuncture / Unknown 09/05/2024 10:42 AM CDT 09/05/2024 11:21 AM CDT us Keily Soriano MD HEMATOLOGY ORDERABLES Final R esult [facility] [place] [address] * CT STROKE HEAD WO CONTRAST (09/05/2024 10:37 AM CDT) Anatomical Region Laterality Modality Head N/A Computed Tomogra phy 09/05/2024 10:4 4 AM CDT Impressions 09/05/2024 10:47 AM CDT IMPRESSION: No evidence of an acute intracranial hemorrhage. Area of low-density in the right cerebellum 2 cm may be an age-indeterminate site of infarction although incompletely characterized. Edema from a metastatic lesion is not fully excluded given history. Consider an MRI ideally with contrast for further assessment. Bilateral basal ganglia and right caudate head lacunar infarcts which are relatively well-circumscribed and may be old infarcts although technically age indeterminate. Evidence of mild chronic microangiopathic gliosis. Critical results discussed with Dr. Soriano by Dr. Oakley at approximately 10:43 am central time on 09/05/2024 . 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 hx heart failure, DM and CKD and esophageal ca with esophagectomy. TECHNIQUE: Axial images acquired through the brain without intravenous contrast. Images stored on PACS. Automated exposure control was used as a dose optimization technique for this examination. COMPARISON: None. FINDINGS: BRAIN: No acute intraparenchymal hemorrhage, hydrocephalus, or mass effect. There are lacunar infarcts of the right caudate head and right basal ganglia as well as the left basal ganglia. These are relatively well-circumscribed and may be old infarcts although technically age indeterminate. Mild periventricular white matter hypoattenuation is present, while nonspecific, evidence of chronic microangiopathic gliosis. Area of low-density in the right cerebellum 2 cm may be an age-indeterminate site of infarction although incompletely characterized. EXTRA-AXIAL SPACES: No extra-axial fluid collection or mass. CALVARIUM: No acute skull base or calvarial abnormality. SINUSES/MASTOIDS: Predominantly clear. ORBITS: No significant abnormality. OTHER: No other significant abnormality. THIS IS AN ELECTRONICALLY VERIFIED FINAL REPORT 09/05/2024 10:44 AM - Electronically signed by Emmanuel Oakley M.D. 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 hx heart failure, DM and CKD and esophageal ca with esophagectomy. TECHNIQUE: Axial images acquired through the brain without intravenous contrast. Images stored on PACS. Automated exposure control was used as a dose optimization technique for this examination. COMPARISON: None. FINDINGS: BRAIN: No acute intraparenchymal hemorrhage, hydrocephalus, or mass effect. There are lacunar infarcts of the right caudate head and right basal ganglia as well as the left basal ganglia. These are relatively well-circumscribed and may be old infarcts although technically age indeterminate. Mild periventricular white matter hypoattenuation is present, while nonspecific, evidence of chronic microangiopathic gliosis. Area of low-density in the right cerebellum 2 cm may be an age-indeterminate site of infarction although incompletely characterized. EXTRA-AXIAL SPACES: No extra-axial fluid collection or mass. CALVARIUM: No acute skull base or calvarial abnormality. SINUSES/MASTOIDS: Predominantly clear. ORBITS: No significant abnormality. OTHER: No other significant abnormality. THIS IS AN ELECTRONICALLY VERIFIED FINAL REPORT 09/05/2024 10:44 AM - Electronically signed by Emmanuel Oakley M.D. CH: Report ID: [id number] Reading Location: [id number] IMPRESSION: No evidence of an acute intracranial hemorrhage. Area of low-density in the right cerebellum 2 cm may be an age-indeterminate site of infarction although incompletely characterized. Edema from a metastatic lesion is not fully excluded given history. Consider an MRI ideally with contrast for further assessment. Bilateral basal ganglia and right caudate head lacunar infarcts which are relatively well-circumscribed and may be old infarcts although technically age indeterminate. Evidence of mild chronic microangiopathic gliosis. Critical results discussed with Dr. Soriano by Dr. Oakley at approximately 10:43 am central time on 09/05/2024 . us Keily Soriano MD IMG CT ORDERABLES Final Resul t * (ABNORMAL) POCT Glucose (09/05/2024 10:29 AM CDT) Pathologist [facility] GLUCOSE,BEDSID E POCT 128(H) 70 - 99 mg/dL 09/05/2024 10:35 AM CDT [facility] Comment:RN Notified Blood 09/05/2024 10:2 9 AM CDT 09/05/2024 10:35 AM CDT us None Provider POINT OF CARE TESTING Final Resu lt [facility] [place] [address] * Critical Care (09/05/2024 10:26 AM CDT) Narrative Keily Soriano MD - 09/05/2024 10:26 AM CDT Keily Soriano MD 09/05/2024 3:02 PM Critical Care Performed by: Keily Soriano MD Authorized by: Keily Soriano MD Critical care provider statement: Critical care time (minutes): 35 Critical care time was exclusive of: Separately billable procedures and treating other patients Critical care was necessary to treat or prevent imminent or life-threatening deterioration of the following conditions: stroke. Critical care was time spent personally by me on the following activities: Development of treatment plan with patient or surrogate, examination of patient, evaluation of patient's response to treatment, ordering and performing treatments and interventions, ordering and review of laboratory studies, ordering and review of radiographic studies, pulse oximetry, re-evaluation of patient's condition and discussions with consultants Care discussed with: admitting provider us Keily Soriano MD PROCEDURE/MINOR SURGICAL ORDE ANGELINE Final Result * EKG SCAN (09/05/2024 12:00 AM CDT) 09/05/2024 us Provider Scan IMG ECG ORDERABLES Final Result RESULTING AGENCY * NEUROLOGY CONSULT (09/05/2024 12:00 AM CDT) 09/05/2024 us Provider Scan GENERIC SCAN ORDERS CONSULT Maria Del Rosario l Result SCAN from Last 3 Months Insurance MEDICARE C [employer] Advance Directives * Full Code (Latest Code Status on File) Date Activated Date Inactivated Comments 09/05/2024 1:19 PM CPR-Full Treatm ent: FULL ARREST: Attempt Resuscitation/CPR wit intubation and mechanical ventilation. PRE-ARREST: Use entire range of life support measures to stabilize the patient. Care Teams Strand [employer] Relationship Specialty Start Date End Date Diego Antoine MD [address] [place] [address] PCP - General Internal Medicine 01/21/18 Megan Conroy APRN, [employer] [address] [place] [address] Nurse Practitioner Advanced Practice Nurse 09/28/24
--- OUTSIDE RECORDS SUMMARY | 2024-09-29 09:10 | XMS_ITS | Encounter Summary ---
Author Organization [facility] Address [address] [place] [address] Care Team Providers Care Developmental Writing Instructor Name Role Phone Diego Antoine MD Primary Care Provider [phone] Encounter Details Date Type Department Care Team ([facility] st Contact Info) Description 09/26/2024 Orders Only [facility] Oncology and Hematology - Eddie [address] [facility] [address] [place] [address] Yury Peralta MD [address] [facility] [address] [place] [address] Benign hypertension Social History Tobacco Use Types Packs/Day Years Used Date Smoking Tobacco: Former Cigarettes 1 30 0 12/17/1991 - 12/16/2021 Smokeless Tobacco: Never Alcohol Use Standard Drinks/Week Comments Not Currently 0 (1 standard drink = 0.6 oz pur e alcohol) Feeling Safe Answer Date Recorded Are you in a relationship wi th someone who hurts you emotionally and/or physically? No 08/05/2024 Food Insecurity Answer Date Recorded Patient needs follow up regardin 08/05/2024 Transportation Needs Answer Date Record ed Patient needs follow up regardin 08/05/2024 Housing Stability Answer Date Recorded Social/Environmental Concerns No concerns Utility Needs Answer Date Recorded Patient needs follow up regardin 08/05/2024 Sex and Gender Information Value Date Recorded Sex Assigned at Male 03/14/2024 1:14 AM JUDICIAL REPORTER Legal Sex Male 10:54 AM CDT Gender Identity Male 03/14/2024 1:14 AM JUDICIAL REPORTER Sexual Orientation Straight 03/14/2024 1: 14 AM JUDICIAL REPORTER documented as of this encounter Plan of Treatment Upcoming Encounters Date Type Department Care Team (Late st Contact Info) Description 10/06/2024 4:30 PM CDT Telephone Check Up [facility] Oncology and Hematology [facility] [address] [place] [phone] [place] [address] [place] [address] [employer] [address] [place] [phone] 12/14/2024 8:30 AM CDT Office Visit [facility] On[facility] [address] [place] [address] Yury Peralta MD [address] [phone] documented as of this encounter Visit Diagnoses Diagnosis Benign hypertension Essential hypertension, benign documented in this encounter Care Teams Developmental Writing Instructor Relationship Specialty Start Date End Date Diego Antoine MD [address] [place] [address] PCP - General Internal Medicine 01/31/22 documented as of this encounter
--- OUTSIDE RECORDS SUMMARY | 2024-09-29 09:10 | XMS_ITS | Clinical Summary ---
Author Organization [facility] Irwin Villalobos Address [address] [place] [address] Care Team Providers Care Key Attendant Name Role Phone Diego Antoine MD Primary Care Provider [phone] Allergies No known active allergies Medications metoprolol [...] hlorpheniramine (CORICIDIN ORAL) Take by mouth. Active lactulose (ENULOSE) 10 gram/15 mL oral solution Take 30 mL by mouth 3 times daily. 90 mL 08/06/2024 Active Active Problems Problem Noted Date Diagnosed Date Constipation 08/06/2024 Chest pain, atypical 08/06/2024 Chest pain 08/05/2024 Intestinal obstruction 08/05/2024 Chronic heart failure with preserved ejection fr action 08/05/2024 Gastroesophageal reflux disease without esophagi tis 08/05/2024 H/O esophagectomy 08/05/2024 Chronic kidney disease 08/05/2024 Urinary retention 08/05/2024 Tobacco use 09/04/2022 Protein-calorie malnutrition, moderate Type 2 diabetes mellitus with hyperglycemia 09/2022 Cancer of distal third of esophagus 05/06/2022 Encounters Date Type Department Care Team Description 09/26/2024 Orders Only [facility] Oncology [facility]emat[facility] [address] [place] [phone] Yury Peralta MD Benign hypertension 09/21/2024 Abstract [facility] Oncology [facility]emat[facility] [address] [place] [address] Yury Peralta MD 09/19/2024 Telephone [facility] Oncology and Hematology - Eddie [address] [place] [address] Yury Peralta MD Abnormal Brain MRI 09/13/2024 External Device Data STL ABSTRACTION Provider, Abstract 09/12/2024 Orders Only [facility] Oncology and Hematology - Eddie [address] [place] [address] Yury Peralta MD Benign hypertension 09/06/2024 External Device Data STL ABSTRACTION Provider, Abstract 08/29/2024 Orders Only [facility] Oncology and Hematology - Eddie [address] [place] [address] Yury Peralta MD Benign hypertension 08/17/2024 External Device Data STL ABSTRACTION Provider, Abstract 08/16/2024 External Device Data STL ABSTRACTION Provider, Abstract 08/15/2024 Orders Only [facility] Oncology and Hematology - Eddie [address] [place] [address] Yury Peralta MD Benign hypertension 08/09/2024 External Device Data STL ABSTRACTION Provider, Abstract 08/09/2024 External Device Data STL ABSTRACTION Provider, Abstract 08/09/2024 External Device Data STL ABSTRACTION Provider, Abstract 08/05/2024 10:40 AM CDT - 08/06/2024 1:00 PM CDT Hospital Encounter [facility] [address] [place] [address] Paris Kaiser MD Javed, Muhammad Ali, MD Chest pain Discharge Disposition: Left Against Medical Advice 08/05/2024 Orders Only [facility] Oncology and Hematology - Eddie [address] [place] [address] Yury Peralta MD 08/05/2024 Travel 08/02/2024 4:00 PM CDT Telephone Check Up [facility] Oncology [facility]emat[facility] [address] [place] [phone] Yury Peralta MD Cancer of distal third of esophagus (CMS/HCC) (Primary Dx) 08/01/2024 Orders Only [facility] Oncology and Hematology [facility] [address] [place] [phone] Yury Peralta MD Benign hypertension 07/18/2024 Orders Only [facility] Oncology and Hematology [facility] [address] [place] [address] Yury Peralta MD Benign hypertension 07/12/2024 External Device Data STL ABSTRACTION Provider, Abstract 07/05/2024 Orders Only [facility] Oncology [facility]emat[facility] [address] [place] [phone] Yury Peralta MD 07/04/2024 Orders Only [facility] Oncology and Hematology [facility] [address] [place] [phone] Yury Peralta MD Benign hypertension from Last [...] Sex Assigned at Male 03/14/2024 1:14 AM FIRE CONTROL TECHNICIAN B Legal Sex Male 10:54 AM CDT Gender Identity Male 03/14/2024 1:14 AM FIRE CONTROL TECHNICIAN B Sexual Orientation Straight 03/14/2024 1: 14 AM FIRE CONTROL TECHNICIAN B Last Filed Vital Signs Vital Sign Reading Time Taken Comments Blood Pressure 150/86 08/06/2024 12:00 PM CDT Pulse 74 08/06/2024 1:00 PM CDT Temperature 36.8 C (98.3 F) 08/06/2024 9:00 AM CDT Respiratory Rate 24 08/06/2024 1:00 PM CDT Oxygen Saturation 99% 08/06/2024 1:00 PM CDT Inhaled Oxygen Concentration - - Weight 87.5 kg (193 lb) 08/05/2024 1:22 PM CDT Height 182.9 cm (6') 08/05/2024 1:22 PM CDT Body Mass Index 26.18 08/05/2024 1:22 PM CDT Plan of Treatment Upcoming Encounters Date Type Department Care Team (Late st Contact Info) Description 10/06/2024 4:30 PM CDT Telephone Check Up [facility] Oncology and Hematology [place] [address] [address] [place] [address] Yury Peralta MD [address] [employer] [address] [place] [phone] 12/14/2024 8:30 AM CDT Office Visit [facility] Oncology [facility]emat[facility] [address] [place] [address] Yury Perlata MD [address] [employer] [address] [place] [phone] Health Maintenance Due Date Last Done Comments DIABETES ANNUAL FOOT EXAM 1970 DIABETES ANNUAL RETINAL EXAM 1970 DIABETES MICROALBUMIN ANNUAL SCREEN 1970 LDL CHOLESTEROL ANNUAL 1970 DTAP/TDAP/TD VACCINES (1 - Tdap) 1971 PNEUMOCOCCAL VACCINE 50+ YEA RS (1 of 2 - PCV) 1971 COLORECTAL SCREENING 1997 Colorectal Cancer Screening 1997 FIT-DNA Q 3 years 1997 FIT/FOBT Q 1 year 1997 Flex Sig/CT Colonography Q 5 years 1997 Lung Cancer Screening 2002 ZOSTER VACCINE (1 of 2) 2002 RSV VACCINE (60+ or ) (1 - Risk 60-74 years 1-dose series) 2012 Abdominal Aortic Aneurysm (AAA) Screening 2017 INFLUENZA VACCINE (#1) 2024 DIABETES HBA1C Q 6 MONTHS 03/07/2025 09/05/2024, 12/2024 Medical Devices Implanted Type Area Cordage Sales Representative Device Identifier Shelf Expiration Date Model / Serial / Lot Clip Ligating Horizon Lg Ti [id number] - Csc - [id number] Implanted:Qty : 1 on 09/03/2022 by Rodney Musa MD at [facility] Clip N/A: Esophagus TELEFLEX- WECK CLOSURE SYS 12/08/2026 [id number] / / [id number] Clip Ligating Horizon Med Ti [id number] - Csc - [id number] Implanted:Qty : 1 on 09/03/2022 by Rodney Musa MD at [facility] Clip N/A: Esophagus TELEFLEX- WECK CLOSURE SYS [id number] 05/19/2027 [id number] / / [id number] Procedures Procedure Name Priority Date/Time Associated Diagnosis Comments TELEMETRY REPORT 08/09/2024 1:25 PM CDT POC GLUCOSE Routine 08/06/2024 9:10 AM CDT PHOSPHORUS Routine 08/06/2024 4:32 AM CDT MAGNESIUM LEVEL Routine 08/06/2024 4:32 AM CDT HEMOGLOBIN A1C Routine 08/06/2024 4:32 AM CDT BASIC METABOLIC PANEL Routine 08/06/2024 4:32 AM CDT CBC WITH DIFFERENTIAL Routine 08/06/2024 4:32 AM CDT POC GLUCOSE Routine 08/06/2024 3:46 AM CDT POC GLUCOSE Routine 08/06/2024 12:21 AM CDT EKG 12-LEAD Routine 08/05/2024 8:32 PM CDT POC GLUCOSE Routine 08/05/2024 7:57 PM CDT POC GLUCOSE Routine 08/05/2024 4:17 PM CDT XR ABDOMEN FOR FEEDING TUBE 1 VW Stat 08/05/2024 2:25 PM CDT POC GLUCOSE Routine 08/05/2024 11:10 AM CDT UNFRACTIONATED HEPARIN ACTIVITY Timed Study 08/05/2024 11:10 AM CDT COMPREHENSIVE METABOLIC PANEL Routine 08/05/2024 11:10 AM CDT CBC WITH DIFFERENTIAL Routine 08/05/2024 11:10 AM CDT PT EVAL AND TREAT Routine 08/05/2024 11: 01 AM CDT OT EVAL AND TREAT Routine 08/05/2024 11: 01 AM CDT COMPREHENSIVE METABOLIC PANEL Routine 08/01/2024 3:17 PM CDT CBC WITH DIFFERENTIAL Routine 08/01/2024 3:[address] CHEST ABDOMEN PELVIS W CONT Routine 07/04/2024 9:49 AM CDT from Last 3 Months Results * TELEMETRY REPORT (08/09/2024 1:25 PM CDT) us Provider Scanning ECG ORDERABLES Final Result * (ABNORMAL) POC GLUCOSE (08/06/2024 9:10 AM CDT) Only the most recent of6 resultswithin the time period is included. GLUCOSE POC 134(H) 74 - 99 mg/dL 08/06/2024 9:10 AM CDT [facility] SPECIMEN SOURCE, GLUCOSE POC Whole Blood 08/06/2024 9:10 AM CDT [facility] Blood, whole 08/06/2024 9:10 AM CDT 08/06/2024 9:19 AM CDT Noah Burgess MD POINT OF CARE TESTING Maria Del Rosario ellison Result [facility] LABORATORY SERVICES [facility] CLIA# [id number] [address] [facility] [place] [address] * (ABNORMAL) CBC WITH DIFFERENTIAL (08/06/2024 4:32 AM CDT) Only the most recent of3 resultswithin the time period is included. WBC 15.4(H) 4.0 - 9.8 K/uL 08/06/2024 5:04 AM T [employer] LABORATORY SERVICES - [facility] RBC 4.26(L) 4.50 - 5.40 M/uL 08/06/2024 5:04 AM T [employer] LABORATORY SERVICES - [facility] HEMOGLOBIN 12.1(L) 13.6 - 16.5 g/dL 08/06/2024 5:04 AM T [employer] LABORATORY SERVICES - [facility] HEMATOCRIT 36.1(L) 40.0 - 48.0 % 08/06/2024 5:04 AM [facility] [employer] LABORATORY SERVICES - [facility] MCV 84.7 82.0 - 99.0 fL 08/06/2024 5:04 AM T [employer] LABORATORY SERVICES - [facility] MCH 28.4 27.2 - 32.6 pg 08/06/2024 5:04 AM CDT [employer] LABORATORY SERVICES - [facility] MCHC 33.5 31.5 - 35.5 g/dL 08/06/2024 5:04 AM T [employer] LABORATORY SERVICES - [facility] RDW 14.5 11.5 - 14.5 % 08/06/2024 5:04 AM T [employer] LABORATORY SERVICES - [facility] RDW-STDEV 44.6 37.1 - 48.7 fL 08/06/2024 5:04 AM [employer] LABORATORY SERVICES - [facility] PLATELETS 173 140 - 350 K/uL 08/06/2024 5:04 AM CDT [employer] LABORATORY SERVICES - [facility] MPV 11.0 9.3 - 12.4 fL 08/06/2024 5:04 AM T [employer] LABORATORY SERVICES - . [facility] NEUTROPHILS 87 % 08/06/2024 5:04 AM T [facility] - . [facility] LYMPHOCYTES 4 % 08/06/2024 5:04 AM T [employer] LABORATORY SERVICES - . [facility] MONOCYTES 9 % 08/06/2024 5:04 AM CDT [employer] LABORATORY SERVICES - . [facility] EOSINOPHILS 0 % 08/06/2024 5:04 AM CDT [employer] LABORATORY SERVICES - . [facility] BASOPHILS 0 % 08/06/2024 5:04 AM T [employer] LABORATORY SERVICES - . [facility] IMMATURE GRANULOCYTES 1 % 08/06/2024 5:04 AM T [employer] LABORATORY SERVICES - [facility] Comment:IG (Immature Granulo cyte) count includes Metamyelocytes, Myelocytes, and Promyelocytes NEUTROPHIL ABSOLUTE 13.29(H) 1.90 - 7.00 K/uL 08/06/2024 5:04 AM T [employer] LABORATORY SERVICES - . [facility] LYMPHOCYTE ABSOLUTE 0.64(L) 0.70 - 4.50 K/uL 08/06/2024 5:04 AM T [employer] LABORATORY SERVICES - . [facility] MONOCYTE ABSOLUTE 1.33(H) 0.10 - 1.30 K/uL 08/06/2024 5:04 AM T [employer] LABORATORY SERVICES - . [facility] EOSINOPHIL ABSOLUTE 0.00 0.00 - 0.70 K/uL 08/06/2024 5:04 AM T [employer] LABORATORY SERVICES - . [facility] BASOPHILS ABSOLUTE 0.01 0.00 - 0.20 K/uL 08/06/2024 5:04 AM T [employer] LABORATORY SERVICES - . [facility] IMMATURE GRANULOCYTES ABSOLUTE 0.08(H) 0.00 - 0.03 K/uL 08/06/2024 5:04 AM [facility] [employer] LABORATORY SERVICES - [facility] Blood Venipuncture / Unknown 08/06/2024 4:32 AM CDT 08/06/2024 4:46 AM CDT Margarito ECHAVARRIA HEMATOLOGY ORDERABLE S Final Result [facility] [employer] [facility]# [id number] [address] [place] [address] * PHOSPHORUS (08/06/2024 4:32 AM CDT) PHOSPHORUS 3.1 2.5 - 4.5 mg/dL 08/06/2024 8:15 AM CDT [facility] LABORATORY [facility] Blood Venipuncture / Unknown 08/06/2024 4:32 AM CDT 08/06/2024 4:46 AM CDT Jc Mcpherson MD CHEMISTRY ORDERABLES Final Re sult Performing Organization Address [facility] Co de Phone Number [facility] [employer] [facility] CLIA# [id number] [address] [place] [address] * MAGNESIUM LEVEL (08/06/2024 4:32 AM CDT) MAGNESIUM 1.9 1.6 - 2.4 mg/dL 08/06/2024 8:15 AM CDT [facility] [employer] [facility] Blood Venipuncture / Unknown 08/06/2024 4:32 AM CDT 08/06/2024 4:46 AM CDT Jc Mcpherson MD CHEMISTRY ORDERABLES Final Re sult Performing Organization Address [facility]/ZIP Co de Phone Number [facility] [employer] [facility]# [id number] [address] [place] [address] * (ABNORMAL) HEMOGLOBIN A1C (08/06/2024 4:32 AM CDT) HEMOGLOBIN A1C 5.8(H) <5.7 % 08/06/2024 8:15 AM CDT [employer] LABORATORY [facility] EST. AVG GLUCOSE, A1C 120 mg/dL 08/06/2024 8:15 AM CDT [employer] [facility] Blood Venipuncture / Unknown 08/06/2024 4:32 AM CDT 08/06/2024 4:46 AM CDT [facility] LABORATORY [facility] - 08/06/2024 8:15 AM CDT HGB A1C INTERPRETATION NORMAL: <5.7% PRE-DIABETES: 5.7 - 6.4% DIABETES: 6.5% OR GREATER Jc Mcpherson MD CHEMISTRY ORDERABLES Final Re sult [facility] [employer] [facility] CLIA# [id number] [address] [facility] [place] [address] * (ABNORMAL) BASIC METABOLIC PANEL (08/06/2024 4:32 AM CDT) SODIUM 141 136 - 145 mmol/L 08/06/2024 5:39 AM [facility] [employer] [facility] POTASSIUM 3.9 3.5 - 5.0 mmol/L 08/06/2024 5:39 AM [facility] [employer] [facility] CHLORIDE 106 98 - 107 mmol/L 08/06/2024 5:39 AM [facility] [employer] [facility] CO2 21(L) 22 - 29 mmol/L 08/06/2024 5:39 AM [facility] [employer] [facility] CALCIUM 9.0 8.6 - 10.2 mg/dL 08/06/2024 5:39 AM [facility] [employer] [facility] BUN 23 8 - 23 mg/dL 08/06/2024 5:39 AM [facility] [employer] [facility] CREATININE 1.69(H) 0.67 - 1.17 mg/dL 08/06/2024 5:39 AM [facility] [employer] [facility] Comment:The GFR result is no t clinically significant on patients <18 or >70 years of age. GLUCOSE 131(H) 74 - 99 mg/dL 08/06/2024 5:39 AM [facility] [employer] [facility] GFR 43 mL/min/1.7 3 sq meter 08/06/2024 5:39 AM CDT [facility] LABORATORY [facility] Comment:eGFR calculated with 2020 CKD-EPI equation. Vegetarian diet, extremely high or low muscle mass, and may affect results. Cystatin C with Glomerular Filtration Rate is a suitable alternative for these patients. 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: : 1950 Requested By: PARIS Giron Order Number: [id number] Daisy MD: Fan Aguilar Measurements Intervals [place] Rate: 86 P: 51 [place]: 227 QRS: -16 QRSD: 89 T: 44 QT: 361 QTc: 434 Interpretive Statements SINUS RHYTHM WITH FIRST DEGREE AV BLOCK Electronically Signed On 08-07-2024 7:55:12 CDT by Fan Aguilar Procedure Note Fan Aguilar MD - 08/07/2024 [facility] [address] [place] [id number] Test Date: 2024-08-05 Pat Name: JENNY GHOTRA Department: 0 Room: [address] [place] [address] Gender: Male Animal 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: : 1950 Requested By: PARIS Giron Order Number: [id number] Reading MD: Fan Aguilar Measurements Intervals [place] Rate: 86 P: 51 [place]: 227 QRS: -16 QRSD: 89 T: 44 QT: 361 QTc: 434 Interpretive Statements SINUS RHYTHM WITH FIRST DEGREE AV BLOCK Electronically Signed On 08-07-2024 7:55:12 CDT by Fan Aguilar us Margarito ECHAVARRIA ECG ORDERABLES Maria Del Rosario l Result INTERFACE SYSTEM Refer to clinic/hospital department * XR ABDOMEN FOR FEEDING TUBE 1 VW (08/05/2024 2:25 PM CDT) Anatomical Region Laterality Modality Abdomen Computed Radiogr aphy 08/05/2024 2:25 PM CDT Impressions 08/05/2024 2:37 PM CDT IMPRESSION: Gastric catheter crosses the diaphragm and ends in the expected region of the distal stomach. DICTATION LOCATION: Location 4 Narrative 08/05/2024 2:37 PM CDT EXAMINATION: XR ABDOMEN FOR FEEDING TUBE 1 VW DATE: 08/05/2024 2:25 PM HISTORY: Check Tube Placement. See Reason for Exam COMPARISON: Chest radiograph from an outside facility on 08/04/2024. CTA chest from an outside facility on 08/05/2024. FINDINGS: One image is submitted for interpretation. Partially imaged right internal jugular port catheter ends in the superior cavoatrial junction. Postoperative appearance of esophagectomy with gastric pull-through. A gastric catheter crosses the diaphragm along the right aspect of the mediastinum and ends 4.9 cm below the diaphragm in the expected region of the distal stomach. Procedure Note Wil Parks MD - 08/05/2024 EXAMINATION: XR ABDOMEN FOR FEEDING TUBE 1 VW DATE: 08/05/2024 2:25 PM HISTORY: Check Tube Placement. See Reason for Exam COMPARISON: Chest radiograph from an outside facility on 08/04/2024. CTA chest from an outside facility on 08/05/2024. FINDINGS: One image is submitted for interpretation. Partially imaged right internal jugular port catheter ends in the superior cavoatrial junction. Postoperative appearance of esophagectomy with gastric pull-through. A gastric catheter crosses the diaphragm along the right aspect of the mediastinum and ends 4.9 cm below the diaphragm in the expected region of the distal stomach. IMPRESSION: Gastric catheter crosses the diaphragm and ends in the expected region of the distal stomach. DICTATION LOCATION: Location 4 Margarito ECHAVARRIA DIAGNOSTIC IMAGING O RDERABLES Final Result * UNFRACTIONATED HEPARIN MONITORING (08/05/2024 11:10 AM CDT) Pathologist [facility] ANTI-XA UNFRAC HEP 0.55 See Interpreta tion. IU/mL 08/05/2024 11:43 AM T [facility] [employer] [facility] Blood Venipuncture / Unknown 08/05/2024 11:10 AM CDT 08/05/2024 11:17 AM CDT [facility] [employer] [facility] - 08/05/2024 11:43 AM CDT Unfractionated Heparin Therapeutic Range: 0.30-0.70 IU/ml Refer to pharmacy adult heparin protocol for further recommendation. The reference range for this test is specific to the anticoagulant and is not appropriate for monitoring patients on a DOAC protocol. Margarito ECHAVARRIA HEMATOLOGY ORDERABLE S Final Result [facility] [employer] [facility]# [id number] [address] [facility] [place] [address] * (ABNORMAL) COMPREHENSIVE METABOLIC PANEL (08/05/2024 11:10 AM CDT) Only the most recent of2 resultswithin the time period is included. Pathologist [facility] SODIUM 136 136 - 145 mmol/L 08/05/2024 12:06 PM T [facility] [employer] [facility] POTASSIUM 3.9 3.5 - 5.0 mmol/L 08/05/2024 12:06 PM T [facility] CHLORIDE 101 98 - 107 mmol/L 08/05/2024 12:06 PM T [facility] CO2 24 22 - 29 mmol/L 08/05/2024 12:06 PM [facility] LABORATORY [facility] CALCIUM 8.9 8.6 - 10.2 mg/dL 08/05/2024 12:06 PM [facility] BUN 21 8 - 23 mg/dL 08/05/2024 12:06 PM [facility] LABORATORY [facility] CREATININE 1.76(H) 0.67 - 1.17 mg/dL 08/05/2024 12:06 PM [facility] LABORATORY [facility] Comment:The GFR result is no t clinically significant on patients <18 or >70 years of age. GLUCOSE 185(H) 74 - 99 mg/dL 08/05/2024 12:06 PM [facility] LABORATORY [facility] TOTAL PROTEIN 6.8 6.7 - 8.6 g/dL 08/05/2024 12:06 PM [facility] LABORATORY [facility] ALBUMIN 3.7 3.5 - 5.2 g/dL 08/05/2024 12:06 PM [facility] LABORAT[facility] BILIRUBIN TOTAL 0.5 0.0 - 1.1 mg/dL 08/05/2024 12:06 PM [facility] ALKALINE PHOSPHATASE 64 40 - 129 U/L 08/05/2024 12:06 PM [facility]ORAT[facility] AST 16 <41 U/L 08/05/2024 12:06 PM [facility] LABORATORY [facility] ALT 8 <42 U/L 08/05/2024 12:06 PM [facility] GFR 41 mL/min/1.7 3 sq meter 08/05/2024 12:06 PM [facility] LABORATORY [facility] Comment:eGFR calculated with 2020 CKD-EPI equation. Vegetarian diet, extremely high or low muscle mass, and may affect results. Cystatin C with Glomerular Filtration Rate is a suitable alternative for these patients. ANION GAP 11 8 - 16 mmol/L 08/05/2024 12:06 PM [facility]ORAT[facility] Blood Venipuncture / Unknown 08/05/2024 11:10 AM CDT 08/05/2024 11:17 AM CDT Narrative [facility] [employer] [facility] - 08/05/2024 12:06 PM CDT Samples containing indocyanine green cause interferences on Total and/or Direct Bilirubin and must not be measured. us Margarito ECHAVARRIA CHEMISTRY ORDERABLES Final Result [facility] [employer] [facility] CLIA# [id number] [address] [place] [address] * CT CHEST ABDOMEN PELVIS W CONT (07/04/2024 9:49 AM CDT) Anatomical Region Laterality Modality Chest Computed Tomogra phy us Yury Peralta MD CT ORDERABLES Final Result from Last 3 Months Insurance HUMANA CHOICE [facility] HU[employer] CHOICE [facility] RX [employer] Medicare Part D RX [employer] PL[employer] (INTERNAL) [facility] Internal Plans Advance Directives For more information, please contact: [phone] * Full Code (Latest Code Status on File) Date Activated Date Inactivated Comments 08/05/2024 2:09 PM 08/06/2024 4:00 PM * Default Full Code - Needs Discussion Date Activated Date Inactivated Comments 08/05/2024 11:01 AM 08/05/2024 2:09 PM * Full Code Date Activated Date Inactivated Comments 09/03/2022 1:45 PM 09/12/2022 4:08 PM * Full Code Date Activated Date Inactivated Comments 09/03/2022 8:49 AM 09/03/2022 1:45 PM * Full Code Date Activated Date Inactivated Comments 09/03/2022 6:04 AM 09/03/2022 8:48 AM Care Teams Key Attendant Relationship Specialty Start Date End Date Diego Antoine MD [address] [place] [address] PCP - General Internal Medicine 01/31/22
--- OUTSIDE RECORDS SUMMARY | 2024-09-29 09:10 | XMS_ITS | Clinical Summary ---
Author Organization [facility] Address [address] [place] [address] Care Team Providers Care Behaviorist Name Role Phone Unavailable Primary Care Provider [...] Priority Date/Time Associated Diagnosis Comments COLONOSCOPY Routine PREKINDERGARTEN TEACHER from Last 3 Months or Most Recently Relevant to Health Maintenance Results * Colonoscopy ( PREKINDERGARTEN TEACHER) Narrative [facility] TO EPIC CONVERSION - PREKINDERGARTEN TEACHER Documented hx of procedure Procedure Note , Generic Conversion, - 01/31/2018 Documented hx of procedure us Generic Conversion Md GRAY GI PROCEDURE ORDERABLES Final Result [facility] TO EPIC CONVERSION from Last 3 Months or Most Recently Relevant to Health Maintenance
--- OUTSIDE RECORDS SUMMARY | 2024-09-29 09:10 | XMS_ITS | Encounter Summary ---
Author Organization [email or web address] Care Team Providers Care Early Childhood Teacher Name Role Phone Diego Antoine MD Primary Care Provider [phone] Megan Conroy APRN, [employer] Unavailable [phone] Encounter Details Date Type Department Care Team (Latest Contact Info) Description 09/28/2024 Travel Social History Tobacco Use Types Packs/Day Years Used Date Smoking Tobacco: Former Cigarettes 1 55 S tarted: 03/30/1967 Smokeless Tobacco: Never Alcohol Use Standard Drinks/Week [...] declined 09/05/2024 How often do you attend mosque or christianity serv ices? Patient declined 09/05/2024 Do you belong to any clubs o r organizations such as mosque groups, unions, fraternal or athletic groups, or [...] medical care, and heating? Patient declined 09/05/2024 [facility] - Occupational Stress Questionnaire Answer Date Recorded [...] any time in the past 12 m [facility], were you homeless or living in a alf (including now)? Patient declined 09/05/2024 [facility] Utilities Answer Date Recorded In the [...] Description 10/04/2024 10:15 AM CDT Office Visit [facility] - Cardiology - [address] [place] [address] Lucho New MD [address] [address] 01/03/2025 1:00 PM CDT [facility] [address] [place] [address] Megan Conroy APRN, [employer] [address] [place] [address] documented as of this encounter Visit Diagnoses Not on filedocumented in this encounter Care Teams Early Childhood Teacher Relationship Specialty Start Date End Date Diego Antoine MD [address] [place] [address] PCP - General Internal Medicine 01/21/18 Mgean Conroy APRN, [employer] [address] [place] [address] Nurse Practitioner Advanced Practice Nurse 09/28/24 documented as of this encounter
--- OUTSIDE RECORDS SUMMARY | 2024-09-29 09:10 | XMS_ITS | Encounter Summary ---
Author Organization [facility] Address [address] [place] [address] Phone Care Team Providers Care Iron Carrier Name Role Phone Diego Antoine MD Primary Care Provider [phone] Megan Conroy APRN, FARM PRODUCTS SHIPPER Unavailable [phone] Reason for Visit * Reason Comments [facility] follow [facility] CVA Encounter Details Date Type Department Care Team (Late st Contact Info) Description 09/28/2024 9:30 AM CDT Office Visit [facility] - Neurology - [place] [address] [place] [address] Megan Conroy, VINYL INSTALLER, [employer]ARM PRODU[employer] SHIPPER [address] [place] [address] History of stroke (Primary Dx); Primary hypertension; Hyperlipidemia, unspecified hyperlipidemia type; Abnormal finding on MRI of brain Discharge Disposition: Discharged to home or Selfcare Social History Tobacco Use Types Packs/Day Years [...] declined 09/05/2024 How often do you attend latter day or mandaeism serv ices? Patient declined 09/05/2024 Do you belong to any clubs o r organizations such as latter day groups, unions, fraternal or athletic groups, or [...] medical care, and heating? Patient declined 09/05/2024 [facility] - Occupational Stress Questionnaire Answer Date Recorded [...] any time in the past 12 m [facility], were you homeless or living in a retirement (including now)? Patient declined 09/05/2024 [facility] Utilities Answer Date Recorded In the past 12 months has th e [employer], gas, oil, or water company threatened to shut off services in your home? Patient declined 09/05/2024 Sex and Gender Information Value Date Recorded Sex Assigned at Not on file Legal Sex Male 8:39 PM CDT Gender Identity Not on file Sexual Orientation Not on file documented as of this encounter Last Filed Vital Signs Vital Sign Reading [...] Mass Index 25.9 09/28/2024 9:35 AM CDT documented in this encounter Plan of Treatment Upcoming Encounters Date Type Department Care Team (Late st Contact Info) Description 10/04/2024 10:15 AM CDT Office Visit [facility] - Cardiology - [place] [address] [place] [phone] Lucho New MD [address], [facility]. [address] [place] [address] 01/03/2025 1:00 PM CDT [facility]rology - [place] [address] [place] [address] Megan Conroy APRN, [employer] SHIPPER [address] [place] [address] documented as of this encounter Visit Diagnoses Diagnosis History of stroke- Primary Transient ischemic attack (TIA), and cerebral infarction without residual deficits Primary hypertension Unspecified essential hypertension Hyperlipidemia, unspecified hyperlipidemia type Abnormal finding on MRI of brain Nonspecific (abnormal) findings on radiological and other examination of skull and head documented in this encounter Care Teams Iron Carrier Relationship Specialty Start Date End Date Diego Antoine MD [address] [place] [address] PCP - General Internal Medicine 01/21/18 Megan Conroy APRN, FARM PRODU[employer] SHIPPER [address] [place] [address] Nurse Practitioner Advanced Practice Nurse 09/28/24 documented as of this encounter
== END 2024-09-29 09:01 | disposition home or self-care (01) ==
PROVIDERS: PCP Internal Medicine; Visit Provider Internal Medicine Hematology & Oncology
DX: C15.5 Malignant neoplasm of lower third of esophagus (principal); R90.89 Other abnormal findings on diagnostic imaging of central nervous system; N20.0 Calculus of kidney; Z90.49 Acquired absence of other specified parts of digestive tract
CPT/HCPCS: 78815; A9552

== ENCOUNTER 2024-12-07 09:06 | Outpatient (CLI) | payer MEDICARE, SELFPAY ==
--- NOTE | ~2024-12-07 | CT_ITS ---
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 Automated exposure control and iterative reconstruction technique were employed. The dose-length product was 724.36 mGy-cm. COMPARISON: CT dated 08/15/2024 and PET/CT dated 09/29/2024 FINDINGS: CHEST CT: Right subclavian central venous port catheter with distal tip at the caudal superior vena cava. Postoperative changes of esophagectomy and gastric pull- through. There is enlargement of residual versus reflux fluid and debris within the intrathoracic portion of the stomach. There is mild compressive atelectasis at the medial right lower lobe along side the intrathoracic portion of the stomach. Additional mild discoid atelectasis in the right lower lobe. Very small right pleural effusion. No suspicious pulmonary nodules, pneumonia, pulmonary edema or left-sided pleural effusion. Heart size is normal. Small of atherosclerotic coronary artery calcific location. No pericardial effusion. Thoracic aorta is normal in caliber. There appears be a small penetrating atherosclerotic ulcer at the origin of the innominate artery. No pathologically enlarged thoracic lymphadenopathy. Mild thoracic spondylosis with bridging osteophytes at multiple levels consistent with diffuse idiopathic skeletal hyperostosis (DISH). ABDOMEN/PELVIS CT: 7 mm hepatic cyst along the gallbladder fossa. The gallbladder, spleen, pancreas, bilateral adrenal glands are normal. There are multiple bilateral renal cysts the largest on the right measuring up to 6.1 cm in maximal diameter. Bilateral nonobstructing nephrolithiasis with 2 stones in the left kidney measuring 6 mm and 4 mm and one stone in the right kidney measuring up to 6 mm. Appendix is not visualized and there are several surgical clips near the tip the appendix consistent with prior appendectomy. No bowel obstruction or abnormal bowel wall thickening. Bladder is normal. Prostatomegaly. Small bilateral fat- containing inguinal hernias. No free intraperitoneal gas or fluid. No pathologically enlarged abdominal or pelvic lymphadenopathy. There is calcified atherosclerosis without hemodynamically significant stenosis along the normal caliber aorta and many of the other arteries. Moderate lumbar spondylosis. IMPRESSION: 1. Postoperative change of prior esophagectomy and gastric pull-through procedure for reported esophageal cancer. No evident residual, locally recurrent or metastatic disease. 2. Bilateral nonobstructing nephrolithiasis. Reviewed, dictated and finalized at location A. IMPRESSION: 1. Postoperative change of prior esophagectomy and gastric pull-through procedu re for reported esophageal cancer. No evident residual, locally recurrent or me tastatic disease. 2. Bilateral nonobstructing nephrolithiasis.
--- OUTSIDE RECORDS SUMMARY | 2024-12-07 09:46 | XMS_ITS | Clinical Summary ---
Author Organization [facility] Address [address] [place] [address] Care Team Providers Care Drawing Press Operator Name Role Phone Diego Antoine MD Primary Care Provider [phone] Allergies No known active allergies Medications metoprolol [...] Encounters Date Type Department Care Team Description 12/01/[address] [facility] - [address] [place] [address] Yury Peralta MD 11/29/2024 External Device Data STL ABSTRACTION Provider, Abstract 11/15/2024 External Device Data STL ABSTRACTION Provider, Abstract 10/12/2024 External Device Data [facility] ABSTRACTION Provider, Abstract 10/11/2024 External Device Data ST[facility] ABSTRACTION Provider, Abstract 10/10/[address] [facility] [address] [place] [phone] Yury Peralta MD Benign hypertension 10/06/2024 4:30 PM CDT Telephone Check Up [facility] - [address] [place] [phone] Yury Peralta MD 09/26/[address] [facility] - [address] [place] [phone] Yury Peralta MD Benign hypertension 09/21/[address] [facility] - [address] [place] [phone] Yury Peralta MD 09/19/[address] [facility] [address] [place] [address] Yury Peralta MD Abnormal Brain MRI 09/13/2024 External Device Data STL ABSTRACTION Provider, Abstract 09/12/[address] [facility] - [address] [place] [address] Yury Peralta MD Benign hypertension 09/06/2024 External Device Data ST[facility] ABSTRACTION Provider, Abstract from Last 3 Months Family History Medical [...] Sex Assigned at Male 03/14/2024 1:14 AM ADULT EDUCATION TEACHER Legal Sex Male 10:54 AM CDT Gender Identity Male 03/14/2024 1:14 AM ADULT EDUCATION TEACHER Sexual Orientation Straight 03/14/2024 1: 14 AM ADULT EDUCATION TEACHER Last Filed Vital Signs Vital Sign Reading [...] Description 12/14/2024 8:30 AM CDT Office Visit [facility] - [address] [facility] [address] [place] [address] Yury Peralta MD [address] [facility] [address] [place] [address] Health Maintenance Due Date Last [...] 09/05/2024, 12/2024 Medical Devices Implanted Type Area Nursing Home Director Device Identifier Shelf Expiration Date Model / Serial / Lot Clip Ligating Horizon Lg Ti [id number] - Csc - [id number] Implanted:Qty : 1 on 09/03/2022 by Rodney Musa MD at [facility] Clip N/A: Esophagus TELEFLEX- WECK CLOSURE SYS 12/08/2026 [id number] / / [id number] Clip Ligating Horizon Med Ti [id number] - Csc - [id number] Implanted:Qty : 1 on 09/03/2022 by Rodney Musa MD at [facility] Clip N/A: Esophagus TELEFLEX- WECK CLOSURE SYS [id number] 05/19/2027 [id number] / / [id number] Procedures Procedure Name Priority Date/Time Associated Diagnosis Comments COMPREHENSIVE METABOLIC PANEL Routine 12/01/2024 11:41 AM CDT HEMOGLOBIN A1C Routine 08/06/2024 4:32 AM CDT from Last 3 Months or Most Recently Relevant to Health Maintenance Results * COMPREHENSIVE METABOLIC PANEL (12/01/2024 11:41 AM CDT) Blood us Yury Peralta MD CHEMISTRY ORDERABLES Final Resu lt * (ABNORMAL) HEMOGLOBIN A1C (08/06/2024 4:32 AM CDT) HEMOGLOBIN A1C 5.8(H) <5.7 % 08/06/2024 8:15 AM CDT [facility] EST. AVG GLUCOSE, A1C 120 mg/dL 08/06/2024 8:15 AM CDT [facility] Blood Venipuncture / Unknown 08/06/2024 4:32 AM CDT 08/06/2024 4:46 AM CDT Narrative [facility] - 08/06/2024 8:15 AM CDT HGB A1C INTERPRETATION NORMAL: <5.7% PRE-DIABETES: 5.7 - 6.4% DIABETES: 6.5% OR GREATER us Jc Mcpherson MD CHEMISTRY ORDERABLES Final Re sult [facility] CLIA# [id number] [address] [place] [address] from Last 3 Months or Most Recently Relevant to Health Maintenance [facility] Subscriber Plan / Payer (Ef fective 2022-Present) Name:Kevin Ghotra Relation to Subscriber:Self Name:Kevin Ghotra Payer ID:Not on file Type:PPO Address: [address] [employer] Medicare Part D RX [employer] (INTERNAL) [facility] Advance Directives For more information, please contact: [phone] * Full Code (Latest Code Status on [...] 6:04 AM 09/03/2022 8:48 AM Care Teams Drawing Press Operator Relationship Specialty Start Date End Date Diego Antoine MD [address] [place] [address] PCP - General Internal Medicine 01/31/22
--- OUTSIDE RECORDS SUMMARY | 2024-12-07 09:46 | XMS_ITS | Clinical Summary ---
Author Organization [facility] Address [address], [address] [address] Phone Care Team Providers Care Talent Coordinator Name Role Phone Diego Antoine MD Primary Care Provider [phone] Megan Conroy APRN, PIT FURNACE OPERATOR Unavailable [phone]- [phone] Lucho New MD Unavailable [phone] Allergies No known active allergies Medications amLODIPine [...] Take 200 mg by mouth. 3 Active HYDROcodone-marissa taminophen (NORCO) 5-325 MG Tablet Take 1 Tablet by mouth. 5 Active hydrOXYzine (ATARAX) 25 MG Tablet TAKE ONE TABLET BY MOUTH EVERY EIGHT HOURS NEEDED FOR ITCHING 4 Active pantoprazole (PROTONIX) 40 MG Tablet Delayed Response Take 40 mg by mouth daily. Active rosuvastatin (CRESTOR) 10 MG Tablet Take 10 mg by mouth daily. Active Active Problems Problem Noted Date Diagnosed Date Acute CVA (cerebrovascular accident) 09/05/2024 Carcinoma 03/30/2021 Overview (09/05/2024): esophagus with esophagectomy COPD (chronic obstructive pulmonary disease) HLD (hyperlipidemia) Former smoker Personal history of chemotherapy Hypertension Exposure to ionizing radiation Resolved Problems Problem Noted Date Diagnosed Date Resolved Date Stroke 09/05/2024 09/05/2024 Encounters Date Type Department Care Team Description 10/12/2024 Results Follow-Up [facility] Neurology [facility] [address] [place] [address] Krissy Sibley RN EVENT RECORDER, 30-DAY 10/04/2024 10:15 AM CDT Office Visit [facility] Cardiology [facility] [address] [place] [address] Lucho New MD Acute CVA (cerebrovascular accident) (HCC) (Primary Dx) Discharge Disposition: Discharged to home or Selfcare 10/04/2024 Travel 09/28/2024 9:30 AM CDT Office Visit [facility] Neurology [facility] [address] [place] [address] Megan Conroy, RECYCLING CREW SUPERVISOR, PIT FURNACE OPERATOR History of stroke (Primary Dx); Primary hypertension; Hyperlipidemia, unspecified hyperlipidemia type; Abnormal finding on MRI of brain; Personal history of esophageal cancer Discharge Disposition: Discharged to home or Selfcare 09/28/2024 Travel 09/07/2024 12:20 PM CDT - 09/07/2024 11:59 PM CDT Hospital Encounter [facility] Cardiology Services [address] [place] [address] Vamsi Bunch MD Discharge Disposition: Discharged to home or Selfcare 09/05/2024 10:25 AM CDT - 09/07/2024 11:43 AM CDT Hospital Encounter [facility] Medical/Surgical Intensive Care [address] [place] [address] Keily Soriano MD Patel, Satyen V, MD Acute CVA (cerebrovascular accident) (HCC) Discharge Disposition: Discharged to home or Selfcare from Last 3 Months Immunizations Immunization Administration Dates Next Due Pneumococcal conjugate PCV20 , polysaccharide XCN529 conjugate, adjuvant, PF 09/06/2024(Deferred: Other - Patient [...] declined 09/05/2024 How often do you attend sikhism or islam serv ices? Patient declined 09/05/2024 Do you belong to any clubs o r organizations such as sikhism groups, unions, fraternal or athletic groups, or [...] medical care, and heating? Patient declined 09/05/2024 [facility] - Occupational Stress Questionnaire Answer Date [...] any time in the past 12 m [facility], were you homeless or living in a residential (including now)? Patient declined 09/05/2024 [facility] Utilities Answer Date Recorded In the [...] Sign Reading Time Taken Comments Blood Pressure 122/74 10/04/2024 10:12 AM CDT Pulse 78 10/04/2024 10:12 AM CDT Temperature 36.4 C (97.6 F) 10/04/2024 10:12 AM CDT Respiratory Rate 20 10/04/2024 10:12 AM CDT Oxygen Saturation 98% 10/04/2024 10:12 AM CDT Inhaled Oxygen Concentration - - Weight 87.5 kg (193 lb) 10/04/2024 10:12 AM CDT Height 182.9 cm (6') 09/28/2024 9:35 AM CDT Body Mass Index 26.18 09/28/2024 9:35 AM CDT Plan of Treatment Upcoming Encounters Date Type Department Care Team (Late st Contact Info) Description 01/03/2025 1:00 PM CDT Office Visit [facility] - [place] [address] [place] [address] Megan Conroy APRN, PIT FURNACE OPERATOR [address] [place] [address] Health Maintenance Due Date Last Done Comments [...] Procedure Name Priority Date/Time Associated Diagnosis Comments EVENT RECORDER, 30-DAY Routine 09/07/2024 12:20 PM CDT Cerebrovascular accident (CVA), unspecified mechanism (HCC) CBC WITH AUTO DIFFERENTIAL Routine 09/07/2024 4:20 [...] CDT RHYTHM STRIP 09/06/2024 12:00 AM CDT from Last 3 Months Results * EVENT RECORDER, 30-DAY (09/07/2024 12:20 PM CDT) Anatomical Region Laterality Modality CARDIO N/A Electrocardiogra phy Narrative 10/10/2024 9:37 AM CDT 1. The patient underwent cardiac telemetry monitoring from 09/07/2024 to 09/18/2024. 2. The dominant rhythm is normal sinus with rates ranging from 57 beats/minute to 149 beats/minute and averaging 69 beats/minute. 3. First-degree AV block is noted. 4. There is no evidence of high-grade SA jose or AV jose block. 5. There is no evidence of significant ventricular ectopy. 6. The patient reported symptoms on 2 occasions which corresponded with sinus rhythm. SUMMARY: Normal sinus rhythm with first-degree AV block. Job [id number] Procedure Note Modesto Mayes MD - 10/03/2024 1. The patient underwent cardiac telemetry monitoring from 09/07/2024 to09/18/2024. 2. The dominant rhythm is normal sinus with rates ranging from 57beats/minute to 149 beats/minute and averaging 69 beats/minute. 3. First-degree AV block is noted. 4. There is no evidence of high-grade SA jose or AV jose block. 5. There is no evidence of significant ventricular ectopy. 6. The patient reported symptoms on 2 occasions which corresponded withsinus rhythm. SUMMARY: Normal sinus rhythm with first-degree AV block. Job [id number] Vamsi Nevarez MD IMG ECG ORDERABLES Final Resu lt * CBC with Auto Differential (09/07/2024 4:20 AM CDT) Only the most recent of2 resultswithin the time period is included. WBC 5.51 4.00 - 12.00 10(3)/mcL 09/07/2024 4:42 AM CDT [facility] RBC 4.65 4.40 - 5.80 10(6)/mcL 09/07/2024 4:42 AM CDT [facility] HEMOGLOBIN (HGB) 13.2 13.0 - 16.5 g/dL 09/07/2024 4:42 AM CDT [facility] HEMATOCRIT (HCT) 39.8 38.0 - 50.0 % 09/07/2024 4:42 AM CDT [facility] MCV 85.6 82.0 - 96.0 fL 09/07/2024 4:42 AM CDT [facility] MCH 28.4 26.0 - 32.0 pg 09/07/2024 4:42 AM CDT [facility] MCHC 33.2 31.0 - 36.0 g/dL 09/07/2024 4:42 AM CDT [facility] PLATELET COUNT 146 140 - 440 10(3)/mcL 09/07/2024 4:42 AM CDT [facility] RDW 14.5 11.8 - 15.5 % 09/07/2024 4:42 AM CDT [facility] MPV 10.3 8.0 - 12.6 fL 09/07/2024 4:42 AM CDT [facility] NEUTROPHILS 64.4 40.0 - 68.0 % 09/07/2024 4:42 AM CDT [facility] LYMPHOCYTES 19.4 19.0 - 49.0 % 09/07/2024 4:42 AM CDT [facility] MONOCYTES 11.1 3.0 - 13.0 % 09/07/2024 4:42 AM CDT [facility] EOSINOPHILS 4.4 0.0 - 8.0 % 09/07/2024 4:42 AM CDT [facility] BASOPHILS 0.7 0.0 - 1.0 % 09/07/2024 4:42 AM CDT [facility] ABSOLUTE NEUTROPHILS 3.55 1.40 - 5.30 10(3)/mcL 09/07/2024 4:42 AM CDT [facility] ABSOLUTE LYMPHOCYTES 1.07 0.90 - 3.30 10(3)/mcL 09/07/2024 4:42 AM CDT [facility] ABSOLUTE MONOCYTES 0.61 0.10 - 0.90 10(3)/mcL 09/07/2024 4:42 AM CDT [facility] ABSOLUTE EOSINOPHIL 0.24 0.00 - 0.50 10(3)/mcL 09/07/2024 4:42 AM CDT [facility] ABSOLUTE BASOPHILS 0.04 0.00 - 0.10 10(3)/mcL 09/07/2024 4:42 AM CDT [facility] NRBC PER 100 WBC 0 09/08/19 4:42 AM CDT [facility] Blood Venipuncture / Unknown 09/07/2024 4:20 AM CDT 09/07/2024 4:33 AM CDT us Lopez Howard RECYCLING CREW SUPERVISOR, CHIEF SECURITY AND SAFETY OFFICER HEMATOLOGY ORDERABLES F inal Result [facility] [address] [place] [address] * (ABNORMAL) BMP with Ca, Total (09/07/2024 4:20 AM CDT) Only the most recent of2 resultswithin the time period is included. SODIUM 143 136 - 145 mmol/L 09/07/2024 4:56 AM CDT [facility] POTASSIUM 3.4(L) 3.5 - 5.1 mmol/L 09/07/2024 4:56 AM CDT [facility] CHLORIDE 109(H) 98 - 107 mmol/L 09/07/2024 4:56 AM CDT [facility] CO2, VENOUS 26 22 - 30 mmol/L 09/07/2024 4:56 AM CDT [facility] ANION GAP 11.4 <18.0 mmol/L 09/07/2024 4:56 AM CDT [facility] GLUCOSE 92 70 - 99 mg/dL 09/07/2024 4:56 AM CDT [facility] BUN 19 8 - 26 mg/dL 09/07/2024 4:56 AM CDT [facility] CREATININE, BLOOD 1.80(H) 0.70 - 1.30 mg/dL 09/07/2024 4:56 AM CDT [facility] BUN/CREATININE RATIO 11(L) 12 - 20 ratio 09/07/2024 4:56 AM CDT [facility] CALCIUM 9.1 8.7 - 10.5 mg/dL 09/07/2024 4:56 AM CDT [facility] GFR, ESTIMATED 39(L) >=60 09/07/2024 4:56 AM CDT [facility] Comment: Creatinine Clearance is the preferred criteria for selecting drug dose adjustments in renally impaired patients. The GFR is provided as additional pertinent clinical information. GFR is reported in mL/min/1.73 sq m. Calculation based on the Chronic Kidney Disease Epidemiology Collaboration (CKD- EPI) equation refit without adjustment for race. GFR, EST. 45(L) >=60 025 4:56 AM CDT [facility] GFR, EST. NONAFRICAN 37(L) >=60 09/07/2024 4:56 AM CDT [facility] Blood Venipuncture / Unknown 09/07/2024 4:20 AM CDT 09/07/2024 4:31 AM CDT us Lopez Howard RECYCLING CREW SUPERVISOR, CHIEF SECURITY AND SAFETY OFFICER CHEMISTRY ORDERABLES Fi nal Result Performing Organization Address City/[facility]/ZIP Co de Phone Number [facility] [address] [place] [address] * RHYTHM STRIP (09/07/2024 12:00 AM CDT) Only the most recent of5 resultswithin the time period is included. 09/07/2024 [...] Jaren Peck M.D. MZ: MZ Report ID: [id number] Reading Location: [id number] THIS IS AN ELECTRONICALLY VERIFIED FINAL REPORT 09/06/2024 12:31 PM Addendum Electronically signed by Jaren Peck M.D. MZ: MZ Report ID: [id number] Reading Location: [id number] Impressions 09/06/2024 12:21 PM CDT IMPRESSION: Acute [...] Jaren Peck M.D. MZ: KIARA Report ID: [id number] Reading Location: [id number] Procedure Note Jaren Peck MD - 09/06/2024 [...] Jaren Peck M.D. MZ: KIARA Report ID: [id number] Reading Location: [id number] IMPRESSION: Acute right cerebellar infarct, measuring up [...] blood degradation products. us Jerrell Doyle MD IMG MR ORDERABLES Edited Res ult - Final [...] ml/m2 RESULTING AGENCY LVOT Peak Alden m/sec [id number] m/sec RESULTING AGENCY AV Peak Alden m/sec [...] Transthoracic Echocardiography Report (TTE) Patient name ODETTE Adams.O.B. 1950 Patient ID (UPI) [id number] Indications: Stroke, TIA, Hypertension and COPD. Study [...] lbs. BMI (BSA) 25.59 kg/m^2 (2.08 m^2) [facility]gent [facility] Room 11 Interpreting Virgen Referring Virgen Yepez Physician Lucho Physician Procedure Note Lucho New MD - 09/06/2024 Transthoracic Echocardiography Report (TTE) Patient name ODETTE Piper Nidia 1950 Patient ID (UPI) [id number] Indications: Stroke, TIA, Hypertension and COPD. Study [...] lbs. BMI (BSA) 25.59 kg/m^2 (2.08 m^2) Urgent Care [facility] Room 11 Christie Yepez Physician Lucho Physician us Lucho New MD IMG ECHO ORDERABLES Edited R esult - Final * (ABNORMAL) Lipid Panel (09/06/2024 4:48 AM CDT) CHOLESTEROL 132 <200 mg/dL 09/06/2024 5:15 AM CDT [facility] TRIGLYCERIDES 184(H) <150 mg/dL 09/06/2024 5:15 AM CDT [facility] HDL CHOLESTEROL 36(L) >40 mg/dL 5:15 AM CDT [facility] LDL 59 <130 mg/dL 09/06/2024 5:15 AM CDT [facility] VLDL 37 10 - 50 mg/dL 09/06/2024 5:15 AM CDT [facility] CHOL/HDL RATIO 3.7 0.0 - 4.4 09/06/2024 5:15 AM CDT [facility] NON-HDL CHOLESTEROL 96 <130 mg/dL 09/06/2024 5:15 AM CDT [facility] Blood Venipuncture / Unknown 09/06/2024 4:48 AM CDT 09/06/2024 4:52 AM CDT Lopez Howard RECYCLING CREW SUPERVISOR, CHIEF SECURITY AND SAFETY OFFICER CHEMISTRY ORDERABLES Fi nal Result Performing Organization Address City/State/[facility] Co de Phone Number [facility] [address] [place] [address] from Last 3 Months Insurance MEDICARE C [employer] Advance Directives * Full Code (Latest Code Status on File) Date Activated Date Inactivated Comments 09/05/2024 1:19 PM CPR-Full Treatm ent: FULL ARREST: Attempt Resuscitation/CPR wit intubation and mechanical ventilation. PRE-ARREST: Use entire range of life support measures to stabilize the patient. Care Teams Talent Coordinator Relationship Specialty Start Date End Date Diego Antoine MD [address] [place] [address] PCP - General Internal Medicine 01/21/18 Megan Conroy APRN, PIT FURNACE OPERATOR [address] [place] [address] Nurse Practitioner Advanced Practice Nurse 09/28/24 Lucho New MD [address] [address] Consulting Physician Cardiology 10/04/24
--- OUTSIDE RECORDS SUMMARY | 2024-12-07 09:46 | XMS_ITS | Clinical Summary ---
Author Organization [facility] [address] Address [address] [place] [address] Care Team Providers Care Buttonhole Tacker Name Role Phone Diego Antoine MD Primary Care Provider [phone] Allergies No known active allergies Medications gabapentin [...] on file Legal Sex Male 8:40 AM RADIOLOGICAL HEALTH SPECIALIST Gender Identity Not on file Sexual Orientation [...] Visit 65+ 2017 Covid-19 Vaccine (3 - 2024-2 6 season) 2024 08/11/2020, 07/14/2020 Influenza Vaccine (#1) 2024 4, 12/05/2022, 01/17/2022, Additional history exists DTaP/Tdap/Td Vaccine (2 - Td or Tdap) 01/20/2028 01/19/2018 Pneumococcal vaccine 65+ Completed 023, 01/19/2018, 01/17/2016 Insurance [employer] MEDICARE HMO Care Teams Buttonhole Tacker Relationship Specialty Start Date End Date Diego Antoine MD PCP - General Internal Medicine 07/28/23
--- OUTSIDE RECORDS SUMMARY | 2024-12-07 09:46 | XMS_ITS | Encounter Summary ---
Author Organization [facility] Address [address] [place] [address] Care Team Providers Care Sql Application Developer Name Role Phone Diego Antoine MD Primary Care Provider [phone] Encounter Details Date Type Department Care Team ([facility] st Contact Info) Description 12/01/2024 Orders Only [facility] Oncology and Hematology - [place] [address] [facility] [[email or web address] [address] [place] [address] Yury Peralta MD [address] [facility] [address] [place] [address] Social History Tobacco Use Types Packs/Day Years [...] Sex Assigned at Male 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 Legal Sex Male 10:54 AM CDT Gender Identity Male 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 Sexual Orientation Straight 03/14/2024 1: 14 AM 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 LOAN PROCESSOR documented as of this encounter Plan of Treatment Upcoming Encounters Date Type Department Care Team (Late st Contact Info) Description 12/14/2024 8:30 AM CDT Office Visit [facility] Oncology and Hematology - [place] [address] [address] [place] [address] Yury Peralta MD [address] [facility] [address] [place] [address] documented as of this encounter Procedures Procedure Name Priority Date/Time Associated Diagnosis Comments COMPREHENSIVE METABOLIC PANEL Routine 12/01/2024 11:41 AM CDT documented in this encounter Results * COMPREHENSIVE METABOLIC PANEL (12/01/2024 11:41 AM CDT) Blood Yury Peralta MD CHEMISTRY ORDERABLES Final Resu lt documented in this encounter Visit Diagnoses Not on filedocumented in this encounter Care Teams Sql Application Developer Relationship Specialty Start Date End Date Diego Antoine MD [address] [place] [address] PCP - General Internal Medicine 01/31/22 documented as of this encounter
== END 2024-12-07 09:07 | disposition home or self-care (01) ==
PROVIDERS: PCP Internal Medicine; Visit Provider Internal Medicine Hematology & Oncology
DX: C15.5 Malignant neoplasm of lower third of esophagus (principal); N20.0 Calculus of kidney
CPT/HCPCS: 71260; 74177; Q9967